=== PATIENT | female | born 1980 ===

== ENCOUNTER 2019-11-09 16:43 | Emergency (ER) | payer OTHER, SELFPAY ==
[2019-11-09 17:09] VITALS: BP 135/69; PULSE 83; RESP 16; TEMP 36.6; O2SAT 99; BMI 38.6
--- NOTE | 2019-11-09 17:31 | ED_ITS ---
HPI - URI/Sore Throat General Chief Complaint: Upper Respiratory Symptoms <JASEN Zuñiga - Last Filed: 11/09/19 17:38> Stated Complaint: Congestion <JASEN Zuñiga - Last Filed: 11/09/19 17:38> Time Seen by Provider: 11/09/19 17:31 <JASEN Zuñiga - Last Filed: 11/09/19 17:38> History of Present Illness HPI Narrative: over past 3 days patient has developed a nonproductive cough body aches and stuffy nose with no shortness of breath no vomiting no abdominal pain no sputum, patient has no known COVID contacts <JASEN Zuñiga - Last Filed: 11/09/19 17:38> Related Data Home Medications: Home Medications Medication Instructions Recorded Confirmed oxycodone-acetaminophen 5 mg-325 1 tab PO .2-3 times a day PRN tab 11/07/19 mg tablet Previous Rx's Medication Instructions Recorded doxycycline hyclate 100 mg PO BID 7 Days #14 cap 11/09/19 <JASEN Zuñiga - Last Filed: 11/09/19 17:38> Allergies/Adverse Reactions: Allergies Allergy/AdvReac Type Severity Reaction Status Date / Time gabapentin Allergy Unknown Tingling Unverified 09/26/19 00:00 feeling in throat zolpidem [From AMBIEN] Allergy Unknown UNKNOWN Unverified 10/23/19 17:44 <JASEN Zuñiga - Last Filed: 11/09/19 17:38> Review of Systems Review of Systems: there is no fever no chills no cough no sputum no shortness of breath no abdominal pain no nausea no vomiting no rashes no sore throat <JASEN Zuñiga - Last Filed: 11/09/19 17:38> FOR[facility]LY [facility], [facility] Past Medical History Source: nursing notes reviewed <JASEN Zuñiga - Last Filed: 11/09/19 17:38> Medical History: Medical History (Updated 11/09/19 @ 17:35 by JASEN Zuñiga) Asthma Hemorrhoid <JASEN Zuñiga - Last Filed: 11/09/19 17:38> Surgical History: Surgical History (Updated 11/09/19 @ 17:16 by Pily Chopra) Tubal ligation status <JASEN Zuñiga - Last Filed: 11/09/19 17:38> Social History Social History: Social History Alcohol intake: never Smoking Status: Never smoker Use of substances other than those prescribed or required for medical reasons: No Advance Directives: No Advance Directives Information Provided: No <JASEN Zuñiga Last Filed: 11/09/19 17:38> Physical Exam Vital Signs and I&O and Narrative: Vital Signs and I&O: Vital Signs Temp 97.9 F 11/09/19 17:09 Pulse 83 11/09/19 17:09 Resp 16 11/09/19 17:09 BP 135/69 11/09/19 17:09 Pulse Ox 99 11/09/19 17:09 Intake & Output 11/08/19 11/09/19 11/09/19 18:59 06:59 18:59 Weight 102.058 kg Body Mass Index 38.6 <JASEN Zuñiga Last Filed: 11/09/19 17:38> Vital Signs and I&O: Vital Signs Temp 97.9 F 11/09/19 17:09 Pulse 83 11/09/19 17:09 Resp 16 11/09/19 17:09 BP 135/69 11/09/19 17:09 Pulse Ox 99 11/09/19 17:09 Intake & Output 11/08/19 11/09/19 11/09/19 18:59 06:59 18:59 Weight 102.058 kg Body Mass Index 38.6 <Ceasar Cottrell DO - Last Filed: 11/09/19 17:41> patient is comfortable alert and oriented x3, no distress cooperative The neck is supple the chest is clear to auscultation bilaterally with no wheezes and full equal symmetric breath sounds respiratory there is no respiratory distress the heart no murmurs the abdomen soft nontender the extremities full range of motion times for the skin no rash the neuro A&O x3 <JASEN Zuñiga Last Filed: 11/09/19 17:38> Course Reevaluation(s) Reevaluation #1: 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 and has upper respiratory symptoms that may be COVID so we tested for COVID and she will be off work until cleared <JASEN Zuñiga Last Filed: 11/09/19 17:38> Discharge Plan Discharge Clinical Impression: Upper respiratory infection <JASEN Zuñiga Filed: 11/09/19 17:38> Patient Disposition: Home, Self-Care <JASEN Zuñiga - Last Filed: 11/09/19 17:38> Additional Instructions: you can start antibiotic for possible bronchitis doxycycline, but it is safer to wait for 2 or 3 days to see if symptoms worsen or improve without antibiotic Return to ER any time for fever shortness of breath any worse condition any concerns Symptoms could be COVID so we are putting you off work, many people recommend 2- tests as the test can miss cases, as well as symptoms gone COVID test results usually come back in 1-3 days, and we will call you <JASEN Zuñiga - Last Filed: 11/09/19 17:38> Prescriptions: New doxycycline hyclate 100 mg capsule 100 mg PO BID 7 Days Qty: 14 RF: 0 <JASEN Zuñiga - Last Filed: 11/09/19 17:38> Stand Alone Forms: Work/School Release <JASEN Zuñiga - Last Filed: 11/09/19 17:38>
== END 2019-11-09 17:54 | disposition home or self-care (01) ==
PROVIDERS: Physician Assistant Medical; Emergency Provider Emergency Medicine; PCP Internal Medicine
DX: J06.9 Acute upper respiratory infection, unspecified (principal); Z20.828 Contact with and (suspected) exposure to other viral communicable diseases; J45.909 Unspecified asthma, uncomplicated; Z79.899 Other long term (current) drug therapy
CPT/HCPCS: 36415; 87635; 99283

== ENCOUNTER 2019-11-13 00:11 | Emergency (ER) | payer OTHER, SELFPAY ==
[2019-11-13 00:22] VITALS: BP 157/96; PULSE 79; RESP 16; TEMP 37; O2SAT 98; BMI 39.4
--- NOTE | 2019-11-13 00:54 | ED.GENADULT ---
HPI - General Adult General Chief complaint: General Medical Stated complaint: NAUSEA/VOMITING Time Seen by Provider: 11/13/19 00:37 History of Present Illness HPI narrative: This is a 39-year-old female who was evaluated in this emergency department on 11/09/2019 and discharged with a prescription for doxycycline should her symptoms persist as well as a COVID-19 test which was resulted as negative. She comes in with complaints of headache and nausea and reports that this is associated with subjective fevers but denies vomiting, abdominal pain, diarrhea, urinary pain/ burning / frequency. Related Data Home Medications Medication Instructions Recorded Confirmed oxycodone-acetaminophen 5 mg-325 1 tab PO .2-3 times a day PRN tab 11/07/19 mg tablet Previous Rx's Medication Instructions Recorded doxycycline hyclate 100 mg PO BID 7 Days #14 cap 11/09/19 Allergies Allergy/AdvReac Type Severity Reaction Status Date / Time gabapentin Allergy Unknown Tingling Unverified 09/26/19 00:00 feeling in throat zolpidem [From AMBIEN] Allergy Unknown UNKNOWN Unverified 10/23/19 17:44 Review of Systems Review of Systems: Pertinent positives and negatives as stated in the HPI. GEN: no fevers, chills, fatigue HEENT: no nasal congestion, sore throat, ear pain NEURO: no dizziness, focal weakness, +headache PULM: no cough, shortness of breath CV: no chest pain, palpitations, LE edema ABD: no abdominal pain, vomiting, diarrhea, +nausea : no dysuria, urgency, frequency SKIN: no rash ROS otherwise negative x 10 PMFSH Past Medical History Source: nursing notes reviewed Medical History Asthma Hemorrhoid Surgical History Tubal ligation status Social History Social History Alcohol intake: never Smoking Status: Never smoker Use of substances other than those prescribed or required for medical reasons: No Advance Directives: No Advance Directives Information Provided: No Physical Exam Vital Signs and I&O and Narrative: Vital Signs and I&O: Vital Signs Temp 98.6 F 11/13/19 00:22 Pulse 79 11/13/19 00:22 Resp 16 11/13/19 00:22 BP 157/96 H 11/13/19 00:22 Pulse Ox 98 11/13/19 00:22 Intake & Output 11/12/19 11/12/19 11/13/19 06:59 18:59 06:59 Intake Total 1000 / 1000 Balance 1000 / 1000 Weight 104.326 kg Intake: Intake, IV Amoun t 1000 / 1000 0.9 % Sodium C hloride 1,000 ml 1000 / 1000 @ 999 mls/hr I VCONT .Q1H1M [facility] Rx#:[id number] Body Mass Index 39.4 VITAL SIGNS: Reviewed. GENERAL: Well developed, well nourished, in no acute distress. HEAD: Normocephalic/atraumatic, EYES: PERRLA, EOMI intact without pain, no nystagmus/pallor/icterus noted EARS: Ext canals without abnormality, TMs non-bulging and non-erythematous NOSE: Nares patent bilateral OROPHARYNX: no oral lesions noted, posterior pharynx clear and non-erythematous without noted tonsillar enlargement/erythema/exudates NECK: Supple, no adenopathy LUNGS: Normal breath sounds. No adventitious sounds or accessory muscle use. SpO2<98%> CARDIOVASCULAR: Regular rate and rhythm without noted murmurs, no JVD or lower extremity edema. ABDOMEN: Soft, non-tender, non-distended with bowel sounds. No rigidity. No guarding. No palpable masses or hernias noted MUSCULOSKELETAL: No tenderness, deformities, or effusions noted on gross inspection. EXTREMITIES: No cyanosis, clubbing or edema. SKIN: Inspection of the skin reveals no rashes, ulcerations, jaundice, pallor, or petechiae. NEUROLOGIC: Alert and oriented x 4. Strength and sensation to light touch were grossly intact x 4. Course Course Course Narrative: This is a 39-year-old female with history and clinical presentation consistent with likely viral syndrome, but negative for COVID-19 and it was communicated to this patient that there were many other viruses out there that could cause similar symptoms. Review of all investigations negative for acute findings other than a minimal leukocytosis but this is not accompanied by evidence of infection on urinalysis or chest x-ray and patient has no abdominal symptoms. She was encouraged to follow-up with her primary care provider after giving her all results and findings. In addition, patient has had significant improvement in symptoms after receiving L of IV fluids as well as a GI cocktail. Medical Decision Making Lab Data Result diagrams: 11/13/19 01:09 11/13/19 01:09 Labs: Lab Results 11/13/19 11/13/19 11/13/19 Range/Units 01:09 01:09 01:10 WBC 11.3 H (4.8-10.8) X10*3/uL RBC 4.80 (4.20-5.50) X10*6/uL Hgb 12.0 (12.0-16.0) g/dl Hct 34.7 L (37-47) % MCV 72.3 L (80-98) fL MCH 25.0 L (27.0-33.0) pg MCHC 34.6 (31.0-35.0) g/dl RDW 14.2 (11.0-16.0) % Plt Count 298 (160-400) X10*3/uL MPV 10.8 (9.4-12.3) fL Immature Gran % (Auto) 0.4 (0.0-0.4) % Neut % (Auto) 60.6 (45-73) % Lymph % (Auto) 28.6 (20-40) % [place] % (Auto) 9.1 (2-11) % Eos % (Auto) 0.9 (0-4) % Baso % (Auto) 0.4 (0-2) % Lymph # (Auto) 3.2 (1.2-4.9) X10*3/uL [place] # (Auto) 1.0 (0.1-1.2) X10*3/uL Eos # (Auto) 0.1 (0.0-0.4) X10*3/uL Baso # (Auto) 0.0 (0.0-0.2) X10*3/uL Abs Immat Gran (auto) 0.05 H (0.00-0.03) X10*3/uL Absolute Neuts (auto) 6.8 (2.0-8.3) X10*3/uL Absolute Nucleated RBC 0.000 (0.0-0.012) X10*3/uL Nucleated RBC % (auto) 0.0 (0.0-0.2) /100WBC Sodium 137 (135-145) mmol/L Potassium 3.8 (3.3-5.1) mmol/l Chloride 102 (96-108) mmol/L Carbon Dioxide 27 (22-29) mmol/L Anion Gap 12 (12-20) BUN 8 L (9-16) mg/dL Creatinine 0.73 (0.5-1.4) mg/dL Estim Creat Clear Calc 121.7 Estimated GFR > 60 Random Glucose 126 H (60-115) mg/dL Calcium 8.7 (8.4-10.2) mg/dL Total Bilirubin 0.4 (0.0-1.0) mg/dL AST 23 (5-31) U/L ALT 43 H (0-31) U/L Alkaline Phosphatase 68 (39-117) U/L Total Protein 7.3 (6.5-8.0) g/dL Albumin 4.3 (3.5-5.0) g/dL Lipase 28 (8-78) U/L Urine Color YELLOW Urine Appearance CLEAR Urine pH 6.0 (5.0-8.0) Ur Specific [place] <= 1.005 (1.005-1.025) Urine Protein NEG (NEG-TRACE) MG/DL Urine Glucose (UA) NEG (NEG) MG/DL Urine Ketones NEG (NEG) MG/DL Urine Blood 3+ H (NEG) Urine Nitrite NEG (NEG) Ur Leukocyte Esterase TRACE H (NEG) Urine RBC 0-2 (0) /HPF Urine WBC 1-4 (0-4) /HPF Ur Squamous Epith Cells 3+ /LPF Amorphous Sediment 2+ /LPF Urine Bacteria 1+ /LPF Urine Test NEGATIVE (NEGATIVE) Discharge Plan Discharge Clinical Impression: Gastritis Patient Disposition: Home, Self-Care Instructions: Gastritis (ED), Diet for Stomach Ulcers and Gastritis (ED) Additional Instructions: The patient and/or family acknowledge understanding of results (as applicable), diagnosis, treatment plan, need for follow up, and symptoms that should prompt a return to the emergency room. Prescriptions: No Action doxycycline hyclate 100 mg capsule 100 mg PO BID 7 Days Qty: 14 RF: 0 Referrals: Kurt Arroyo MD [Primary Care Provider] - 2 days ( for further evaluation regarding patient's nausea and headache, COVID-19 negative)
[2019-11-13] MEDS: 0.9 % Sodium Chloride 1,000 ML 999 ML IVCONT (01:15)
[2019-11-13] MEDS: Lidocaine HCl Viscous 2 % 15 ML SOLUTION 10 ML MUCOUS MEM (01:15)
[2019-11-13] MEDS: Magnesium Hydrox/Alum Hydrox 30 ML ORAL.SUSP PO (01:15)
[2019-11-13 01:16] LABS: Basophils Percent Auto 0.4 % (0-2); Eosinophils Absolute Auto 0.1 X10*3/uL (0.0-0.4); Eosinophils Percent Auto 0.9 % (0-4); Hematocrit 34.7 % (37-47); Imm Gran Abs Auto 0.05 X10*3/uL (0.00-0.03); Imm Gran Pct Auto 0.4 % (0.0-0.4); Lymphocytes Absolute Auto 3.2 X10*3/uL (1.2-4.9); Lymphocytes Percent Auto 28.6 % (20-40); MANUAL DIFF FLAG NO; Mean Corpuscular HGB Conc 34.6 g/dl (31.0-35.0); Mean Corpuscular Volume 72.3 fL (80-98); Mean Platelet Volume 10.8 fL (9.4-12.3); Monocytes Percent Auto 9.1 % (2-11); Neutrophils Absolute Auto 6.8 X10*3/uL (2.0-8.3); Neutrophils Percent Auto 60.6 % (45-73); Platelet Count 298 X10*3/uL (160-400); Red Cell Distribution Width 14.2 % (11.0-16.0); White Blood Count 11.3 X10*3/uL (4.8-10.8)
[2019-11-13 01:18] LABS: Glucose Urine UA NEG (NEG); Leukocyte Esterase Urine TRACE (NEG); Nitrite Urine NEG (NEG); Specific Gravity - Urine <= 1.005 (1.005-1.025); Urine Blood 3+ (NEG); Urine Ketones NEG (NEG); Urine Protein NEG (NEG-TRACE)
[2019-11-13 01:19] LABS: Appearance Urine CLEAR; Color Urine YELLOW
[2019-11-13 01:21] LABS: UPreg QC Valid YES; Urine Pregnancy NEGATIVE (NEGATIVE)
[2019-11-13 01:26] LABS: Amorphous Sediment Urine 2+ /LPF; Bacteria Urine 1+ /LPF; RBC Urine 0-2 /HPF (0); Squamous Epithelial Cell Urine 3+ /LPF
[2019-11-13 01:38] LABS: Alanine Aminotransferase 43 U/L (0-31); Albumin Level 4.3 g/dL (3.5-5.0); Alkaline Phosphatase 68 U/L (39-117); Anion Gap 12 (12-20); Aspartate Amino Transferase 23 U/L (5-31); Bilirubin Total 0.4 mg/dL (0.0-1.0); Blood Urea Nitrogen 8 mg/dL (9-16); Calcium 8.7 mg/dL (8.4-10.2); Carbon Dioxide 27 mmol/L (22-29); Chloride 102 mmol/L (96-108); Creatinine Clr Calc Pharmacy 121.7; Estimated Glomerular Filt Rate > 60; Glucose Random 126 mg/dL (60-115); Lipase 28 U/L (8-78); Potassium 3.8 mmol/l (3.3-5.1); Sodium 137 mmol/L (135-145); Total Protein 7.3 g/dL (6.5-8.0)
--- NOTE | 2019-11-13 01:57 | XR_ITS ---
EXAMINATION: XR CHEST CLINICAL INFORMATION: Cough COMPARISON: 09/19/2017 TECHNIQUE: 2 views of the chest were obtained. FINDINGS: The lungs are well expanded. There is no focal consolidation, edema, or effusion. No pneumothorax. The cardiomediastinal silhouette is within normal limits. No acute osseous abnormality. IMPRESSION: Clear lungs.
== END 2019-11-13 02:45 | disposition home or self-care (01) ==
PROVIDERS: Emergency Provider Student in an Organized Health Care Education/Training Program; PCP Internal Medicine
DX: K29.70 Gastritis, unspecified, without bleeding (principal); J45.909 Unspecified asthma, uncomplicated; Z79.899 Other long term (current) drug therapy
CPT/HCPCS: 36415; 71046; 80053; 81001; 81025; 83690; 85025; 87086; 87147; 96360; 99284

== ENCOUNTER 2019-11-25 16:49 | Outpatient (REF) | payer OTHER, SELFPAY ==
--- NOTE | 2019-11-25 17:15 | XR_ITS ---
EXAMINATION: BILATERAL KNEES CLINICAL INFORMATION: Pain COMPARISON: November 25, 2013 TECHNIQUE: 3 views of each knee FINDINGS: 3 views of the left knee do not demonstrate any evidence of acute fracture or dislocation. Joint spaces are maintained. No effusion. 3 views of the right knee do not demonstrate any evidence of acute fracture or dislocation. No significant degenerative change. Joint spaces are maintained. No effusion. IMPRESSION: No significant abnormality of the right or left knees identified.
== END 2019-11-25 16:50 | disposition home or self-care (01) ==
LOC: HO.XRAY 16:49
PROVIDERS: PCP Internal Medicine; Visit Provider Internal Medicine
DX: M25.561 Pain in right knee (principal); M25.562 Pain in left knee
CPT/HCPCS: 73562

== ENCOUNTER 2019-12-01 15:24 | Outpatient (REF) | payer OTHER, SELFPAY ==
[2019-12-01 16:47] LABS: MANUAL DIFF FLAG NO
[2019-12-01 16:50] LABS: Basophils Percent Auto 0.4 % (0-2); Eosinophils Absolute Auto 0.2 X10*3/uL (0.0-0.4); Eosinophils Percent Auto 1.8 % (0-4); Hemoglobin 12.2 g/dl (12.0-16.0); Imm Gran Abs Auto 0.02 X10*3/uL (0.00-0.03); Imm Gran Pct Auto 0.2 % (0.0-0.4); Lymphocytes Absolute Auto 3.1 X10*3/uL (1.2-4.9); Lymphocytes Percent Auto 35.2 % (20-40); Mean Corpuscular HGB Conc 34.9 g/dl (31.0-35.0); Mean Corpuscular Hemoglobin 25.5 pg (27.0-33.0); Mean Corpuscular Volume 73.1 fL (80-98); Mean Platelet Volume 10.6 fL (9.4-12.3); Monocytes Absolute Auto 0.5 X10*3/uL (0.1-1.2); Monocytes Percent Auto 5.9 % (2-11); Neutrophils Percent Auto 56.5 % (45-73); Platelet Count 427 X10*3/uL (160-400); Red Blood Count 4.79 X10*6/uL (4.20-5.50); Red Cell Distribution Width 14.4 % (11.0-16.0); White Blood Count 8.9 X10*3/uL (4.8-10.8)
[2019-12-01 17:40] LABS: TSH reflex Free T4 0.89 mIU/mL (0.32-4.0)
== END 2019-12-01 15:25 | disposition home or self-care (01) ==
LOC: HO.LAB 15:24
PROVIDERS: PCP Internal Medicine; Visit Provider Advanced Practice Midwife
DX: N92.0 Excessive and frequent menstruation with regular cycle (principal)
CPT/HCPCS: 36415; 84443; 85025; 99212; 99213

== ENCOUNTER 2019-12-04 15:49 | Outpatient (REF) | payer OTHER, SELFPAY ==
--- NOTE | 2019-12-04 15:53 | US_ITS ---
EXAMINATION: ULTRASOUND PELVIS COMPLETE US TRANSVAGINAL CLINICAL INFORMATION: Excessive and frequent menstruation. History of tubal ligation. COMPARISON: Ultrasound pelvis 06/04/2019. TECHNIQUE: Transabdominal and transvaginal ultrasound of the pelvis was performed. FINDINGS: The uterus is anteverted measuring 12.5 cm in length, 4.8 cm in AP and 5.1 cm in transverse dimension. There is a hyperechoic lesion in the left body of uterus measuring 3.0 x 2.6 x 2.4 cm. Previously it measured 1.7 x 2.0 x 1.9 cm. It is consistent with fibroid. No additional lesions are seen. The endometrial thickness is 1.4 cm. There are small nabothian cysts seen. Right ovary measures 2.4 x 1.5 x 1.8 cm and a volume of 3.4 mL. There are small follicles visualized. A dominant follicle measures 1 cm. Previously ovary measured 2.1 x 2.6 x 2.6 cm. Left ovary measures 2.6 x 1.5 1.6 cm. There is an exophytic cyst measuring 1.9 x 1.2 x 1.4 cm. Previously left ovary measured 2.1 x 3.0 x 3.5 cm. There is no free fluid in the cul-de-sac. US/US transvaginal IMPRESSION: Slight increase in uterine fibroid since 06/04/2019. Bilateral ovarian cysts with an exophytic cyst in left ovary. Small nabothian cysts.
--- NOTE | 2019-12-04 15:53 | US_ITS ---
EXAMINATION: ULTRASOUND PELVIS COMPLETE US TRANSVAGINAL CLINICAL INFORMATION: Excessive and frequent menstruation. History of tubal ligation. COMPARISON: Ultrasound pelvis 06/04/2019. TECHNIQUE: Transabdominal and transvaginal ultrasound of the pelvis was performed. FINDINGS: The uterus is anteverted measuring 12.5 cm in length, 4.8 cm in AP and 5.1 cm in transverse dimension. There is a hyperechoic lesion in the left body of uterus measuring 3.0 x 2.6 x 2.4 cm. Previously it measured 1.7 x 2.0 x 1.9 cm. It is consistent with fibroid. No additional lesions are seen. The endometrial thickness is 1.4 cm. There are small nabothian cysts seen. Right ovary measures 2.4 x 1.5 x 1.8 cm and a volume of 3.4 mL. There are small follicles visualized. A dominant follicle measures 1 cm. Previously ovary measured 2.1 x 2.6 x 2.6 cm. Left ovary measures 2.6 x 1.5 1.6 cm. There is an exophytic cyst measuring 1.9 x 1.2 x 1.4 cm. Previously left ovary measured 2.1 x 3.0 x 3.5 cm. There is no free fluid in the cul-de-sac. US/US pelvic complete IMPRESSION: Slight increase in uterine fibroid since 06/04/2019. Bilateral ovarian cysts with an exophytic cyst in left ovary. Small nabothian cysts.
== END 2019-12-04 15:50 | disposition home or self-care (01) ==
LOC: HO.US 15:49
PROVIDERS: PCP Internal Medicine; Visit Provider Obstetrics & Gynecology
DX: N92.0 Excessive and frequent menstruation with regular cycle (principal)
CPT/HCPCS: 76830; 76856

== ENCOUNTER 2019-12-04 16:42 | Emergency (ER) | payer OTHER, SELFPAY | END 2019-12-04 21:56 | disposition left against medical advice (07) | LOC: HO.ED 21:51 | PROVIDERS: Emergency Provider Emergency Medicine; PCP Internal Medicine | DX: N93.9 Abnormal uterine and vaginal bleeding, unspecified (principal) ==

== ENCOUNTER 2019-12-05 17:14 | Emergency (ER) | payer OTHER, SELFPAY ==
[2019-12-05 19:09] VITALS: BP 161/89; PULSE 80; RESP 16; TEMP 36.7; O2SAT 98; BMI 38.6
[2019-12-05 19:51] VITALS: BP 123/70; PULSE 74; RESP 17; TEMP 36.9; O2SAT 98
--- NOTE | 2019-12-05 20:08 | ED_ITS ---
HPI - Female Genitourinary General Chief complaint: Vaginal Bleeding Stated complaint: Vaginal bleeding Time Seen by Provider: 12/05/19 20:08 Source: patient Mode of arrival: ambulatory Limitations: no limitations History of Present Illness HPI Narrative: 39-year-old female with history of asthma, anxiety, hyperte nsion, hemorrhoids, migraine headache presents today with complaint of on and off vaginal bleeding for the past 4 week. 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 States she has no pelvic pain, abdominal pain, nausea vomiting diarrhea. States she has history of tubal ligation of concern for . No other symptoms. No vaginal discharge. In relation to the chest Pain states was acute episode that occurred several hours ago none at this time. Off note patient did order taken out prior to coming to emergency room and was delivered here to the emergency room. MD elicited complaint: vaginal bleeding Related Data Home Medications Medication Instructions Recorded Confirmed albuterol sulfate mg INHALATION Q6H PRN 11/19/19 11/19/19 albuterol sulfate 90 mcg/actuation INHALATION 11/19/19 11/19/19 aerosol inhaler montelukast 10 mg tablet 10 mg PO BEDTIME 11/19/19 11/19/19 tizanidine 4 mg tablet 4 mg PO TID 11/19/19 11/19/19 Previous Rx's Medication Instructions Recorded oxycodone-acetaminophen 5 mg-325 1 tab PO .2-3 times a day PRN 28 11/14/19 mg tablet Days #84 tab fluticasone propionate 50 2 spray INTRANASAL DAILY 30 Days 11/19/19 mcg/actuation nasal #15.8 ml spray,suspension quetiapine 100 mg tablet 100 mg PO BEDTIME 30 Days #30 tab 11/19/19 tiotropium bromide 2.5 2 puff PO DAILY #4 ml 12/03/19 mcg/actuation mist for inhalation ferrous sulfate 325 mg PO DAILY #14 tab 12/05/19 Allergies Allergy/AdvReac Type Severity Reaction Status Date / Time gabapentin Allergy Unknown Tingling Unverified 12/01/19 16:01 feeling in throat zolpidem [From AMBIEN] Allergy Unknown UNKNOWN Unverified 12/01/19 16:01 Review of Systems Review of Systems: Yes all other systems are reviewed and are negative [facility], [facility] Past Medical History Medical History (Updated 12/05/19 @ 23:07 by Zain Tripp NP) Allergic rhinitis Asthma Depression Hemorrhoid Knee pain, bilateral Menorrhagia Surgical History H/O tubal ligation History of carpal tunnel surgery History of hemorrhoidectomy Family History Family History (Updated 12/01/19 @ 16:02 by Renay Malloy CNM) Father Diabetes Asthma Hepatitis Mother Diabetes Sleep apnea Ischemic cerebrovascular accident (CVA) Maternal Grandmother Diabetes Breast cancer Maternal Grandfather Stroke Paternal Grandfather Lung cancer Social History Social History Alcohol intake: never Smoking Status: Never smoker Smoked in Last 30 Days: No Use of substances other than those prescribed or required for medical reasons: No Advance Directives: No Advance Directives Information Provided: Yes Physical Exam Vital Signs: Vital Signs: Vital Signs Temp Pulse Resp BP Pulse Ox 12/05/19 19:51 98.4 F 74 17 123/70 98 12/05/19 19:09 98.0 F 80 16 161/89 H 98 Body Mass Index 38.6 Reviewed Const: General: cooperative and healthy appearing; No acute distress or intoxicated appearing Nutritional Appearance: average body habitus Orientation/consciousness: patient oriented x3 HENMT: Head: Yes normal to inspection Ears: hearing grossly normal bilaterally Eyes: General: appearance normal, both eyes and all related structures Visual Savage: normal visual savage by confrontation Neck: Neck: Yes normal visual inspection and No tender Thyroid: Thyroid nor mal Chest: Chest palpation & inspection: normal inspection of the chest Resp: Effort & Inspection: normal respiratory effort Cardio: Jugular venous distension: no JVD GI: Inspection: Yes normal to inspection Percussion: Yes normal to percussion Auscultation: normal bowel sounds : General: Yes no CVA tenderness External Female Exam: normal external appearance ( peanut shaker REYNALDO Hercules present. No active bleeding.) Back/Spine/Pelvis: Back: no CVA tenderness Skin: General skin exam: no rashes or lesions noted Neuro: General: patient oriented x3 Extrem: General: Yes normal to inspection MDM - Female Genitourinary MDM Narrative Medical decision making narrative: Labs overall stable. Chest pain atypical in the setting of having vaginal bleeding and concern about health as well as following precautions previously provided by the outpatient provider in relation to having vaginal bleeding and concerning symptomatology. Otherwise H&H stable no active bleeding at this time. No pain or discomfort. Troponin, EKG, x-ray unremarkable. Ultrasound from yesterday reviewed will advised to follow up with her gynecology team for further evaluation of her dysfunctional uterine bleeding. She is otherwise well nontoxic appearing tolerating p.o. intake well stable for discharge. Differential Diagnosis Differential diagnosis: Likely urinary tract infection and dysmenorrhea; Unlikely bacterial vaginosis, trichomoniasis, cervicitis, ovarian cyst, vaginitis, ruptured ovarian cyst, cyst of Bartholin's gland and cystitis Lab Data Result diagrams: 12/05/19 20:31 12/05/19 20:31 Labs: Lab Results 12/05/19 12/05/19 12/05/19 Range/Units 20:31 20:31 20:31 WBC 9.9 (4.8-10.8) X10*3/uL RBC 4.61 (4.20-5.50) X10*6/uL Hgb 11.6 L (12.0-16.0) g/dl Hct 33.8 L (37-47) % MCV 73.3 L (80-98) fL MCH 25.2 L (27.0-33.0) pg MCHC 34.3 (31.0-35.0) g/dl RDW 14.3 (11.0-16.0) % Plt Count 374 (160-400) X10*3/uL MPV 10.3 (9.4-12.3) fL Immature Gran % (Auto) 0.2 (0.0-0.4) % Neut % (Auto) 52.6 (45-73) % Lymph % (Auto) 39.4 (20-40) % [place] % (Auto) 5.8 (2-11) % Eos % (Auto) 1.7 (0-4) % Baso % (Auto) 0.3 (0-2) % Lymph # (Auto) 3.9 (1.2-4.9) X10*3/uL [place] # (Auto) 0.6 (0.1-1.2) X10*3/uL Eos # (Auto) 0.2 (0.0-0.4) X10*3/uL Baso # (Auto) 0.0 (0.0-0.2) X10*3/uL Abs Immat Gran (auto) 0.02 (0.00-0.03) X10*3/uL Absolute Neuts (auto) 5.2 (2.0-8.3) X10*3/uL Absolute Nucleated RBC 0.000 (0.0-0.012) X10*3/uL Nucleated RBC % (auto) 0.0 (0.0-0.2) /100WBC Sodium 141 (135-145) mmol/L Potassium 4.0 (3.3-5.1) mmol/l Chloride 103 (96-108) mmol/L Carbon Dioxide 27 (22-29) mmol/L Anion Gap 15 (12-20) BUN 7 L (9-16) mg/dL Creatinine 0.66 (0.5-1.4) mg/dL Estim Creat Clear Calc 133.1 Estimated GFR > 60 Random Glucose 88 (60-115) mg/dL Calcium 8.9 (8.4-10.2) mg/dL Total Bilirubin 0.5 (0.0-1.0) mg/dL AST 32 H (5-31) U/L ALT 52 H (0-31) U/L Alkaline Phosphatase 61 (39-117) U/L Troponin I High Sens < 3.5 (<3.5-17.0) ng/L Total Protein 7.3 (6.5-8.0) g/dL Albumin 4.4 (3.5-5.0) g/dL TSH 0.77 (0.32-4.0) mIU/mL Urine Color Urine Appearance Urine pH (5.0-8.0) Ur Specific [place] (1.005-1.025) Urine Protein (NEG-TRACE) MG/DL Urine Glucose (UA) (NEG) MG/DL Urine Ketones (NEG) MG/DL Urine Blood (NEG) Urine Nitrite (NEG) Ur Leukocyte Esterase (NEG) Urine RBC (0) /HPF Urine WBC (0-4) /HPF Ur Squamous Epith Cells /LPF Urine Bacteria /LPF 10/30/20 Range/Units 20:37 WBC (4.8-10.8) X10*3/uL RBC (4.20-5.50) X10*6/uL Hgb (12.0-16.0) g/dl Hct (37-47) % MCV (80-98) fL MCH (27.0-33.0) pg MCHC (31.0-35.0) g/dl RDW (11.0-16.0) % Plt Count (160-400) X10*3/uL MPV (9.4-12.3) fL Immature Gran % (Auto) (0.0-0.4) % Neut % (Auto) (45-73) % Lymph % (Auto) (20-40) % [place] % (Auto) (2-11) % Eos % (Auto) (0-4) % Baso % (Auto) (0-2) % Lymph # (Auto) (1.2-4.9) X10*3/uL [place] # (Auto) (0.1-1.2) X10*3/uL Eos # (Auto) (0.0-0.4) X10*3/uL Baso # (Auto) (0.0-0.2) X10*3/uL Abs Immat Gran (auto) (0.00-0.03) X10*3/uL Absolute Neuts (auto) (2.0-8.3) X10*3/uL Absolute Nucleated RBC (0.0-0.012) X10*3/uL Nucleated RBC % (auto) (0.0-0.2) /100WBC Sodium (135-145) mmol/L Potassium (3.3-5.1) mmol/l Chloride (96-108) mmol/L Carbon Dioxide (22-29) mmol/L Anion Gap (12-20) BUN (9-16) mg/dL Creatinine (0.5-1.4) mg/dL Estim Creat Clear Calc Estimated GFR Random Glucose (60-115) mg/dL Calcium (8.4-10.2) mg/dL Total Bilirubin (0.0-1.0) mg/dL AST (5-31) U/L ALT (0-31) U/L Alkaline Phosphatase (39-117) U/L Troponin I High Sens (<3.5-17.0) ng/L Total Protein (6.5-8.0) g/dL Albumin (3.5-5.0) g/dL TSH (0.32-4.0) mIU/mL Urine Color RED Urine Appearance CLOUDY Urine pH 6.5 (5.0-8.0) Ur Specific [place] 1.025 (1.005-1.025) Urine Protein 1+ H (NEG-TRACE) MG/DL Urine Glucose (UA) NEG (NEG) MG/DL Urine Ketones NEG (NEG) MG/DL Urine Blood 3+ H (NEG) Urine Nitrite NEG (NEG) Ur Leukocyte Esterase NEG (NEG) Urine RBC TNTC H (0) /HPF Urine WBC 0 (0-4) /HPF Ur Squamous Epith Cells 1+ /LPF Urine Bacteria NONE /LPF Imaging Data Chest x-ray: Radiologist's impression: [place] [id number] XRay Report Signed Patient: Desi RaymondMR#: [id number] : 1980Acct:[id number] Age/Sex: 39 / FADM Date: 12/05/19 Loc: .ED Attending Dr: Ordering Physician: Zain Tripp NP Date of Service: 12/05/19 Procedure(s): XR chest 1V Accession Number(s): [id number] cc: Zain Tripp NP~ EXAMINATION: XR CHEST CLINICAL INFORMATION: Chest pain COMPARISON: Chest x-ray 11/13/2019 TECHNIQUE: Frontal portable view of the chest was obtained. 8:18 PM FINDINGS: No significant abnormality is noted involving the heart, lungs, mediastinum, bony thorax or soft tissues. XR/XR chest 1V IMPRESSION: Unremarkable examination. Dictated By:FREDDY RHODES MD Signed By:<Electronically signed by FREDDY RHODES MD in OV>12/05/192034 DD/ 08 TD/TT: Hot Saw Helper: ALDO Discharge Plan Discharge Clinical Impression: Dysfunctional uterine bleeding, Anxiety about health Chest pain Qualifiers: Chest pain type: intercostal pain Qualified Code(s): R07.82 - Intercostal pain Patient Disposition: Home, Self-Care Instructions: Chest Pain (ED), Dysfunctional Uterine Bleeding (ED) Prescriptions: New ferrous sulfate 325 mg (65 mg iron) tablet 325 mg PO DAILY Qty: 14 RF: 0 No Action oxycodone-acetaminophen [Percocet] 5-325 mg tablet 1 tab PO .2-3 times a day PRN (Reason: pain) 28 Days Qty: 84 RF: 0 tiotropium bromide [Spiriva Respimat] 2.5 mcg/actuation mist 2 puff PO DAILY Qty: 4 RF: 5 tizanidine 4 mg tablet 4 mg PO TID RF: 0 albuterol sulfate 2.5 mg /3 mL (0.083 %) solution for nebulization inhalation Q6H PRNRF: 0 albuterol sulfate 90 mcg/actuation HFA aerosol inhaler inhalation RF: 0 montelukast 10 mg tablet 10 mg PO BEDTIME RF: 0 fluticasone propionate 50 mcg/actuation spray,suspension 2 spray intranasal DAILY 30 Days Qty: 15.8 RF: 5 quetiapine 100 mg tablet 100 mg PO BEDTIME 30 Days Qty: 30 RF: 1 Referrals: Kurt Arroyo MD [Primary Care Provider] - 1 week Anand Mason MD [Physician] - 3 days
[2019-12-05 20:46] LABS: Basophils Percent Auto 0.3 % (0-2); Eosinophils Absolute Auto 0.2 X10*3/uL (0.0-0.4); Eosinophils Percent Auto 1.7 % (0-4); Hematocrit 33.8 % (37-47); Hemoglobin 11.6 g/dl (12.0-16.0); Imm Gran Abs Auto 0.02 X10*3/uL (0.00-0.03); Imm Gran Pct Auto 0.2 % (0.0-0.4); Lymphocytes Absolute Auto 3.9 X10*3/uL (1.2-4.9); Lymphocytes Percent Auto 39.4 % (20-40); MANUAL DIFF FLAG NO; Mean Corpuscular HGB Conc 34.3 g/dl (31.0-35.0); Mean Corpuscular Hemoglobin 25.2 pg (27.0-33.0); Mean Corpuscular Volume 73.3 fL (80-98); Mean Platelet Volume 10.3 fL (9.4-12.3); Monocytes Absolute Auto 0.6 X10*3/uL (0.1-1.2); Monocytes Percent Auto 5.8 % (2-11); Neutrophils Absolute Auto 5.2 X10*3/uL (2.0-8.3); Neutrophils Percent Auto 52.6 % (45-73); Platelet Count 374 X10*3/uL (160-400); Red Blood Count 4.61 X10*6/uL (4.20-5.50); Red Cell Distribution Width 14.3 % (11.0-16.0); White Blood Count 9.9 X10*3/uL (4.8-10.8)
[2019-12-05 20:52] LABS: Glucose Urine UA NEG (NEG); Leukocyte Esterase Urine NEG (NEG); Nitrite Urine NEG (NEG); PH 6.5 (5.0-8.0); Specific Gravity - Urine 1.025 (1.005-1.025); Urine Blood 3+ (NEG); Urine Ketones NEG (NEG); Urine Protein 1+ MG/DL (NEG-TRACE)
[2019-12-05 20:53] LABS: Appearance Urine CLOUDY; Color Urine RED
[2019-12-05 20:55] LABS: RBC Urine TNTC /HPF (0); Squamous Epithelial Cell Urine 1+ /LPF; WBC Urine 0 /HPF (0-4)
[2019-12-05 21:08] LABS: Alanine Aminotransferase 52 U/L (0-31); Albumin Level 4.4 g/dL (3.5-5.0); Alkaline Phosphatase 61 U/L (39-117); Anion Gap 15 (12-20); Aspartate Amino Transferase 32 U/L (5-31); Bilirubin Total 0.5 mg/dL (0.0-1.0); Blood Urea Nitrogen 7 mg/dL (9-16); Calcium 8.9 mg/dL (8.4-10.2); Carbon Dioxide 27 mmol/L (22-29); Chloride 103 mmol/L (96-108); Creatinine Clr Calc Pharmacy 133.1; Estimated Glomerular Filt Rate > 60; Glucose Random 88 mg/dL (60-115); Sodium 141 mmol/L (135-145); Total Protein 7.3 g/dL (6.5-8.0)
[2019-12-05 21:14] LABS: Troponin-I High Sensitivity < 3.5 ng/L (<3.5-17.0)
[2019-12-05 21:28] LABS: Thyroid Stimulating Hormone 0.77 mIU/mL (0.32-4.0)
[2019-12-05 23:44] VITALS: BP 133/75; PULSE 83; RESP 16; TEMP 36.9; O2SAT 97
== END 2019-12-06 | disposition home or self-care (01) ==
PROVIDERS: Nurse Practitioner Primary Care; Emergency Provider Internal Medicine; PCP Internal Medicine
DX: N93.8 Other specified abnormal uterine and vaginal bleeding (principal); R07.82 Intercostal pain; F41.1 Generalized anxiety disorder; F43.0 Acute stress reaction; Z79.899 Other long term (current) drug therapy
CPT/HCPCS: 36415; 71045; 80053; 81001; 84443; 84484; 85025; 99283; 99284

== ENCOUNTER 2019-12-08 14:23 | Outpatient (REF) | payer OTHER, SELFPAY ==
[2019-12-09 12:59] LABS: CT PCR NOT DETECTED (Not Detect.); NG PCR NOT DETECTED (Not Detect.)
== END 2019-12-08 14:24 | disposition home or self-care (01) ==
LOC: HO.LAB 14:23
PROVIDERS: PCP Internal Medicine; Visit Provider Obstetrics & Gynecology
DX: N92.0 Excessive and frequent menstruation with regular cycle (principal)
CPT/HCPCS: 58100; 87491; 87591; 88305

== ENCOUNTER → 2019-12-25 14:25 | Outpatient (BNVA) | payer OTHER, SELFPAY | PROVIDERS: Visit Provider Obstetrics & Gynecology | DX: Z76.89 Persons encountering health services in other specified circumstances (principal) ==

== ENCOUNTER 2019-12-29 12:23 | Outpatient (REF) | payer OTHER, SELFPAY | END 2019-12-29 12:24 | disposition home or self-care (01) | LOC: HO.LAB 12:23 | PROVIDERS: Visit Provider Internal Medicine | DX: Z20.828 Contact with and (suspected) exposure to other viral communicable diseases (principal) | CPT/HCPCS: C9803; U0003 ==

== ENCOUNTER → 2020-01-05 13:31 | Outpatient (BNVA) | payer OTHER, SELFPAY | PROVIDERS: Visit Provider Obstetrics & Gynecology | DX: N92.0 Excessive and frequent menstruation with regular cycle (principal) | CPT/HCPCS: 99212 ==

== ENCOUNTER 2020-01-10 18:18 | Emergency (ER) | payer OTHER, SELFPAY ==
[2020-01-10 19:09] VITALS: BP 127/87; PULSE 85; RESP 18; TEMP 36.4; O2SAT 98; BMI 39.4
--- NOTE | 2020-01-10 19:25 | ED_ITS ---
HPI - General Adult General Chief complaint: General Medical Stated complaint: covid symnptoms Time Seen by Provider: 01/10/20 18:26 Source: patient Mode of arrival: ambulatory Limitations: no limitations History of Present Illness HPI narrative: 39 yo female here with sore throat, cough, [place] x several days. Daughter at home has COVID. No fevers or chills or shortness of breath or chest pain Onset (ago): day(s) Location: head Radiation: non-radiation Severity: mild Pain Consistency: intermittent Relieving factors: none Exacerbating factors: none Associated symptoms: cough Treatments prior to arrival: none Related Data Home Medications Medication Instructions Recorded Confirmed albuterol sulfate 90 mcg/actuation 90 mcg INHALATION Q4-6H PRN 11/19/19 01/09/20 aerosol inhaler montelukast 10 mg tablet 10 mg PO BEDTIME 11/19/19 01/09/20 tizanidine 4 mg tablet 4 mg PO TID 11/19/19 01/09/20 bupropion HCl 150 mg 24 hr tablet, 150 mg PO QAM 12/25/19 01/09/20 extended release ibuprofen 800 mg tablet 800 mg PO TID 12/25/19 01/09/20 multivitamin 1 tab PO DAILY 12/25/19 01/09/20 omeprazole 20 mg capsule,delayed 40 mg PO DAILY 12/25/19 01/09/20 release oxybutynin chloride 10 mg 10 mg PO DAILY 12/25/19 01/09/20 tablet,extended release 24 hr polyethylene glycol 3350 17 17 g PO DAILY 12/25/19 01/09/20 gram/dose oral powder Previous Rx's Medication Instructions Recorded fluticasone propionate 50 2 spray INTRANASAL DAILY 30 Days 11/19/19 mcg/actuation nasal #15.8 ml spray,suspension quetiapine 100 mg tablet 100 mg PO BEDTIME 30 Days #30 tab 11/19/19 tiotropium bromide 2.5 2 puff PO DAILY #4 ml 12/03/19 mcg/actuation mist for inhalation ferrous sulfate 325 mg PO DAILY #14 tab 12/05/19 cetirizine 10 mg tablet 10 mg PO DAILY 10 Days #10 tab 12/25/19 ofloxacin 0.3 % eye drops 1 drp OPHTHALMIC (EYE) QID 10 Days 12/25/19 #5 ml clotrimazole 2 % vaginal cream 1 appful VAGINAL BEDTIME 3 Days 01/08/20 #21 g Allergies Allergy/AdvReac Type Severity Reaction Status Date / Time gabapentin Allergy Unknown Tingling Verified 01/10/20 19:08 feeling in throat zolpidem [From AMBIEN] Allergy Unknown tingling Verified 01/10/20 19:08 feeling in throat Review of Systems Review of Systems: Yes all other systems are reviewed and are negative Constitutional: Constitutional: Reports no additional constitutional complaints, Denies body ache(s), Denies chills, Denies fever(s), Reports headache(s) and Denies weakness Eyes: Eyes: Reports no additional eye complaints and Denies change in vision ENT: Reports system reviewed and no additional complaints, except as documented, Denies dizziness, Reports headache(s), Denies nasal congestion, Denies nasal discharge, Denies neck pain and Reports sore throat Cardiovascular: Cardiovascular: Reports no additional cardiovascular complaints, Denies chest pain, Denies leg edema and Denies dyspnea Respiratory: Respiratory: Reports no additional respiratory complaints, Reports cough and Denies dyspnea Gastrointestinal: Gastrointestinal: Reports no additional gastrointestinal complaints, Denies abdominal pain, Denies diarrhea, Denies nausea and Denies vomiting Genitourinary: Genitourinary: Reports no additional female genitourinary complaints and Denies urinary incontinence Musculoskeletal: Musculoskeletal: Reports no additional musculoskeletal complaints, Denies back pain, Denies arthralgias, Denies joint swelling, Denies neck pain, Denies numbness and Denies tingling Integumentary/Breasts: Skin/Breast: Reports system reviewed and no additional complaints, except as docu and Denies rash Neurologic: Reports system reviewed and no additional complaints, except as documented, Denies Abnormal speech present, Denies dizziness, Reports headache(s), Denies numbness, Denies tingling and Denies weakness PMFSH Past Medical History Attestation statement: The following information was validated with the patient. Source: old records reviewed and nursing notes reviewed Medical History Allergic rhinitis Asthma Depression Hemorrhoid Knee pain, bilateral Menorrhagia Obesity (BMI 30-39.9) [place] eye Sinusitis Surgical History H/O tubal ligation History of carpal tunnel surgery History of hemorrhoidectomy Family History Family History Father Diabetes Asthma Hepatitis Mother Diabetes Sleep apnea Ischemic cerebrovascular accident (CVA) Maternal Grandmother Diabetes Breast cancer Maternal Grandfather Stroke Paternal Grandfather Lung cancer Social History Social History Alcohol intake: never Smoking Status: Never smoker Advance Directives: No Advance Directives Information Provided: Yes Sexual orientation: Straight/Heterosexual Gender identity: female Physical Exam Vital Signs: Vital Signs: Last Vital Signs Temp 97.6 F 01/10/20 19:09 Pulse 85 01/10/20 19:09 Resp 18 01/10/20 19:09 BP 127/87 01/10/20 19:09 Pulse Ox 98 01/10/20 19:09 Body Mass Index 39.4 Const: General: cooperative, healthy appearing, comfortable and no acute distress Orientation/consciousness: patient oriented x3 Limitations: no limitations HENMT: Head: Yes normal to inspection Ears: hearing grossly normal bilaterally General nose exam: Normal external nose present Face and sinus: Yes normal facial exam Mouth: Normal oral and palatal mucosa present Throat: Yes posterior oropharynx normal Eyes: General: appearance normal, both eyes and all related structures Pupils: Equal, round and reactive pupils present Neck: Neck: Yes normal visual inspection Chest: Chest palpation & inspection: normal inspection of the chest Resp: Effort & Inspection: normal respiratory effort Auscultation: clear to auscultation bilaterally Cardio: Rate: regular rate Rhythm: regular rhythm Peripheral pulses: Peripheral pulses 2+ throughout GI: Inspection: Yes normal to inspection Palpation (GI): Soft to palpation and nontender Auscultation: normal bowel sounds Back/Spine/Pelvis: Thoracic/Lumbar Spine: thoracic and lumbar spine normal to inspection Skin: General skin exam: no rashes or lesions noted Neuro: General: patient oriented x3, no focal motor deficits and normal sensation to monofilament Cranial nerves: Yes Equal, round and reactive pupils present Cognition (Neuro): normal cognition Speech: No Abnormal speech present Gait exam (Neuro): Normal gait present Motor exam (neuro): 5/5 motor strength present throughout Extrem: General: Yes normal to inspection Course Course Course Narrative: Patient here with cough, sore throat and headache. Family member COVID positive at home. Here seeking testing. Exam is benign. Well appearing with stable vital signs. COVID testing sent. Reviewed worrisome signs and symptoms and when to return to the emergency department. Comfortable with discharge home. Called and informed of result. Medical Decision Making Medical Records Medical records reviewed: Yes I reviewed the patient's medical records. Lab Data Lab results reviewed: Yes I reviewed the patient's lab results. Labs: Lab Results 01/10/20 Range/Units 19:28 Coronavirus (PCR) NEGATIVE (Negative) Influenza Type A (PCR) NEGATIVE (Negative) Influenza Type B (PCR) NEGATIVE (Negative) RSV RNA Qual (PCR) NEGATIVE (Negative) Discharge Plan Discharge Clinical Impression: Viral syndrome Patient Disposition: Home, Self-Care Instructions: Viral Syndrome (ED) Additional Instructions: We have tested you today for COVID 19. Test results take 1-2 hours and we will call you with the results negative or positive. Take tylenol or motrin if able as needed for pain or fever. Stay well hydrated with fluids like water, gatorade and/or powerade. Wash hands at home. If living with others try to self isolate if possible. If unable wear a mask around others in your home and wash hands frequently. If COVID test is positive you will need to self isolate for a total of 14 days from when your symptoms started. You may return to work sooner if testing is ne gative and all symptoms resolved >72 hours. You should return to the emergency department for severe shortness of breath, chest pain or fever which does not respond to both tylenol and motrin at home. Prescriptions: No Action tiotropium bromide [Spiriva Respimat] 2.5 mcg/actuation mist 2 puff PO DAILY Qty: 4 RF: 5 clotrimazole 2 % cream 1 appful vaginal BEDTIME 3 Days Qty: 21 RF: 0 ferrous sulfate 325 mg (65 mg iron) tablet 325 mg PO DAILY Qty: 14 RF: 0 bupropion HCl 150 mg tablet extended release 24 hr 150 mg PO QAM RF: 0 multivitamin Tablet 1 tab PO DAILY RF: 0 polyethylene glycol 3350 17 gram/dose powder 17 g PO DAILY RF: 0 omeprazole 20 mg capsule,delayed release(DR/EC) 40 mg PO DAILY RF: 0 ibuprofen 800 mg tablet 800 mg PO TID RF: 0 oxybutynin chloride 10 mg tablet extended release 24hr 10 mg PO DAILY RF: 0 cetirizine [Zyrtec] 10 mg tablet 10 mg PO DAILY 10 Days Qty: 10 RF: 0 ofloxacin 0.3 % drops 1 drp ophthalmic (eye) QID 10 Days Qty: 5 RF: 0 tizanidine 4 mg tablet 4 mg PO TID RF: 0 albuterol sulfate 90 mcg/actuation HFA aerosol inhaler 90 mcg inhalation Q4-6H PRN (Reason: Shortness Of Breath Or Wheezing) RF: 0 montelukast 10 mg tablet 10 mg PO BEDTIME RF: 0 fluticasone propionate 50 mcg/actuation spray,suspension 2 spray intranasal DAILY 30 Days Qty: 15.8 RF: 5 quetiapine 100 mg tablet 100 mg PO BEDTIME 30 Days Qty: 30 RF: 1 Referrals: Kurt Arroyo MD [Primary Care Provider] - 2 days Stand Alone Forms: Work/School Release Interventions: ED Discharge Assessment Last Done: 01/10/20 20:02 Discharge Date/Time: 01/10/20 20:02
[2020-01-10 20:28] LABS: Influenza A PCR NEGATIVE (Negative); Influenza B PCR NEGATIVE (Negative); Resp Syncy Virus RNA Qual PCR NEGATIVE (Negative); SARS COV2 PCR INHOUSE NEGATIVE (Negative)
== END 2020-01-10 20:02 | disposition home or self-care (01) ==
PROVIDERS: Nurse Practitioner Family; Emergency Provider Emergency Medicine; PCP Internal Medicine
DX: B34.9 Viral infection, unspecified (principal); Z20.828 Contact with and (suspected) exposure to other viral communicable diseases; R51.9 Headache, unspecified; J45.909 Unspecified asthma, uncomplicated
CPT/HCPCS: 0241U; 99283

== ENCOUNTER 2020-01-16 06:04 | Day surgery (SDC) | payer OTHER, SELFPAY ==
--- NOTE | 2020-01-14 13:58 | P.CONAN_ITS ---
Documented by User: Esthela Diaz 01/14/20 13:59 HPI - Anesthesia Eval Consult details Narrative: 39yo F for Uterine Ablation w/Damon PMFSH Past Medical History Medical History Allergic rhinitis Asthma Depression Hemorrhoid Knee pain, bilateral Menorrhagia Obesity (BMI 30-39.9) [place] eye Sinusitis Family History Family History Father Diabetes Asthma Hepatitis Mother Diabetes Sleep apnea Ischemic cerebrovascular accident (CVA) Maternal Grandmother Diabetes Breast cancer Maternal Grandfather Stroke Paternal Grandfather Lung cancer Surgical History Surgical History H/O tubal ligation History of carpal tunnel surgery History of hemorrhoidectomy Social History Social History Alcohol intake: never Smoking Status: Never smoker Use of substances other than those prescribed or required for medical reasons: No Advance Directives: No Advance Directives Information Provided: No Advance Directives on File: No Sexual orientation: Straight/Heterosexual Gender identity: female Meds Allergies Allergy/AdvReac Type Severity Reaction Status Date / Time gabapentin Allergy Unknown Tingling Verified 01/10/20 19:08 feeling in throat zolpidem [From AMBIEN] Allergy Unknown tingling Verified 01/10/20 19:08 feeling in throat Home Medications Medication Instructions Recorded Confirmed Type albuterol sulfate 90 mcg/actuation 90 mcg INHALATION Q4-6H PRN 11/19/19 01/09/20 History aerosol inhaler montelukast 10 mg tablet 10 mg PO BEDTIME 11/19/19 01/09/20 History tizanidine 4 mg tablet 4 mg PO TID 11/19/19 01/09/20 History bupropion HCl 150 mg 24 hr tablet, 150 mg PO QAM 12/25/19 01/09/20 History extended release ibuprofen 800 mg tablet 800 mg PO TID 12/25/19 01/09/20 History multivitamin 1 tab PO DAILY 12/25/19 01/09/20 History omeprazole 20 mg capsule,delayed 40 mg PO DAILY 12/25/19 01/09/20 History release oxybutynin chloride 10 mg 10 mg PO DAILY 12/25/19 01/09/20 History tablet,extended release 24 hr polyethylene glycol 3350 17 17 g PO DAILY 12/25/19 01/09/20 History gram/dose oral powder Exam Exam Date and Time: January 14, 2020 1358 Height,Weight and Vital Signs: Height 5 ft 4 in Weight 22 kg Pertinent Lab Results Pertinent Lab Results: Laboratory Tests 12/05/19 20:31 WBC 9.9 Hgb 11.6 L Hct 33.8 L Plt Count 374 Assessment and Plan Assessment Anesthesia Assessment: Chart Reviewed Documented by User: Hilario Cronin 01/16/20 07:24 PMFSH Past Medical History Medical History Allergic rhinitis Asthma Depression Hemorrhoid Knee pain, bilateral Menorrhagia Obesity (BMI 30-39.9) [place] eye Sinusitis Family History Family History Father Diabetes Asthma Hepatitis Mother Diabetes Sleep apnea Ischemic cerebrovascular accident (CVA) Maternal Grandmother Diabetes Breast cancer Maternal Grandfather Stroke Paternal Grandfather Lung cancer Family history of problems with anesthesia: No Surgical History Surgical History H/O tubal ligation History of carpal tunnel surgery History of hemorrhoidectomy History of Problems with Anesthesia: No Social History Social History Alcohol intake: never Smoking Status: Never smoker Use of substances other than those prescribed or required for medical reasons: No Advance Directives: No Advance Directives Information Provided: No Advance Directives on File: No Sexual orientation: Straight/Heterosexual Gender identity: female Meds Allergies Allergy/AdvReac Type Severity Reaction Status Date / Time gabapentin Allergy Unknown Tingling Verified 01/10/20 19:08 feeling in throat zolpidem [From AMBIEN] Allergy Unknown tingling Verified 01/10/20 19:08 feeling in throat Home Medications Medication Instructions Recorded Confirmed Type albuterol sulfate 90 mcg/actuation 90 mcg INHALATION Q4-6H PRN 11/19/19 01/09/20 History aerosol inhaler montelukast 10 mg tablet 10 mg PO BEDTIME 11/19/19 01/09/20 History tizanidine 4 mg tablet 4 mg PO TID 11/19/19 01/09/20 History bupropion HCl 150 mg 24 hr tablet, 150 mg PO QAM 12/25/19 01/09/20 History extended release ibuprofen 800 mg tablet 800 mg PO TID 12/25/19 01/09/20 History multivitamin 1 tab PO DAILY 12/25/19 01/09/20 History omeprazole 20 mg capsule,delayed 40 mg PO DAILY 12/25/19 01/09/20 History release oxybutynin chloride 10 mg 10 mg PO DAILY 12/25/19 01/09/20 History tablet,extended release 24 hr polyethylene glycol 3350 17 17 g PO DAILY 12/25/19 01/09/20 History gram/dose oral powder Assessment and Plan Assessment Anesthesia Assessment: Anesthesia Plan Discussed and Chart Reviewed Final Anesthetic Review NPO: Yes ASA Class: II Final Preanesthetic Review: No Changes in Pt Med Stat, Meds/Allgs Chart Reviewed, Consent Obtained/Reviewed and Anes Risks/Benef Reviewed Patient Risk: Intermediate Procedure Risk: Low Anesthetic Plan Anesthetic Plan: GA and Agree w/ Assess. and Plan Disposition: Standard PACU
[2020-01-16 06:16] VITALS: BP 127/76; PULSE 77; RESP 18; TEMP 36.8; O2SAT 97; BMI 39.2
[2020-01-16] MEDS: Lactated Ringers 1,000 ML 100 ML IVCONT (06:24)
[2020-01-16 07:34] LABS: UPreg QC Valid YES; Urine Pregnancy NEGATIVE (NEGATIVE)
--- NOTE | 2020-01-16 07:39 | MHC.SHP ---
Pre-Procedural Eval Section A The patient is an INPATIENT: No Changes since office visit: No Cold of Flu in the past 2 weeks, No New Medical Problems, No Changes in Medication and No Patient answered all questions The History & Physical has been completed within 30 days and I have reviewed it.: Yes Section B Chief Complaint: menorrhagia Allergies: Allergies Allergy/AdvReac Type Severity Reaction Status Date / Time gabapentin Allergy Unknown Tingling Verified 01/10/20 19:08 feeling in throat zolpidem [From AMBIEN] Allergy Unknown tingling Verified 01/10/20 19:08 feeling in throat Plan Diagnosis/Plan: Unchanged Patient has been examined and remains a candidate for the planned procedure
--- NOTE | 2020-01-16 08:02 | PM.OP ---
Brief Operative Note Date of Service: 12/19/19 Pre-op diagnosis: Menorrhagia Post-op diagnosis: same Procedure: NovaSure Endometrial Ablation Surgeon: Anand Mason MD Anesthesia: MAC Estimated blood loss (mL): 0 Pathology: none sent Condition: stable Disposition: PACU
--- NOTE | 2020-01-16 08:03 | W.PM.OPN ---
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 She was prepped and draped in the usual sterile manner. Bimanual exam prior to prepping revealed a mobile, anteverted uterus. A speculum was placed in the vagina and the anterior lip of the cervix was grasped with a single toothed tenaculum and brought forward. Taking care not to enter deep into the uterus, a sound was passed inside to measure the length of the uterus and cervix. This length was found to be 8 cm. Next, Hegar dilator was inserted into the cervical os to measure the cervical length which was 3 cm. This yielded an endometrial cavity length of 6.5 cm. A series of Hegar dilators were then inserted sequentially into the cervical os up to a size of 5 mm. The Novasure device was then opened and tested; the fan deployed easily. The instrument was set to the correct cavity length and introduced into the uterine cavity. The fan was slowly deployed with gentle movements to ensure a snug fit within the cavity. The cavity width read 4.5 cm. The measurements were imported and a cavity check was done. The trumpet was then slid down to the cervix and the device was activated. The total burn time was 91 seconds. The fan was retracted and device removed. The fan was examined and revealed charred tissue. The tenaculum was removed and the cervix examined for hemostasis which was achieved using pressure. Finally the speculum was removed. The patient tolerated the procedure well and was brought to the recovery room in a stable condition. At the end of the procedure all sponges and instruments were counted and correct. The blood loss was minimal and there were no complications.
[2020-01-16 08:13] VITALS: BP 120/76; PULSE 78; RESP 16; TEMP 36.9; O2SAT 95
[2020-01-16 08:18] VITALS: BP 124/71; PULSE 75; RESP 16; O2SAT 94
[2020-01-16] MEDS: fentaNYL citrate/PF 100 MCG/2 ML VIAL 50 MCG IVPUSH (08:18)
[2020-01-16 08:23] VITALS: BP 115/59; PULSE 78; RESP 16; O2SAT 96
[2020-01-16] MEDS: oxyCODONE HCl Immed Release 5 MG TABLET PO (08:25)
[2020-01-16] MEDS: Acetaminophen 325 MG TABLET 650 MG PO (08:26)
[2020-01-16] MEDS: Ketorolac Tromethamine 15 MG/ML VIAL IVPUSH (08:27)
[2020-01-16 08:28] VITALS: BP 119/77; PULSE 77; RESP 16; TEMP 36.9; O2SAT 96
[2020-01-16 08:43] VITALS: BP 123/75; PULSE 68; RESP 16; O2SAT 96
--- NOTE | 2020-01-16 09:05 | HO.POSTANES ---
Post Anesthesia Evaluation Post Anesthesia Evaluation Vital Signs: Vital Signs Temp Pulse Resp BP Pulse Ox 01/16/20 08:43 98.5 F 68 16 123/75 96 01/16/20 08:28 98.5 F 77 16 119/77 96 01/16/20 08:23 78 16 115/59 L 96 01/16/20 08:18 75 16 124/71 94 01/16/20 08:13 98.5 F 78 16 120/76 95 01/16/20 06:16 98.2 F 77 18 127/76 97 Anesthesia: General LMA Mental Status: Awake Pain Control: Satisfactory Nausea/Vomiting: None Hydration: Adequate Anesthesia-Related Issues: No Anes. Related Issues
== END 2020-01-16 09:09 | disposition home or self-care (01) ==
PROVIDERS: PCP Internal Medicine; Visit Provider Obstetrics & Gynecology
PROC: (CPT 58353; principal; 2020-01-16 07:30)
DX: N92.0 Excessive and frequent menstruation with regular cycle (principal); J45.909 Unspecified asthma, uncomplicated; F32.9 Major depressive disorder, single episode, unspecified; E66.9 Obesity, unspecified; Z68.39 Body mass index [BMI] 39.0-39.9, adult; Z87.891 Personal history of nicotine dependence; Z98.51 Tubal ligation status; Z88.8 Allergy status to other drugs, medicaments and biological substances; Z79.51 Long term (current) use of inhaled steroids; Z79.899 Other long term (current) drug therapy
CPT/HCPCS: 58353; 81025; J1885; J2250; J3010

== ENCOUNTER 2020-01-25 19:27 | Emergency (ER) | payer OTHER, SELFPAY ==
[2020-01-25 19:33] VITALS: BP 137/83; PULSE 76; RESP 18; TEMP 37.1; O2SAT 98; BMI 38.9
--- NOTE | 2020-01-25 19:54 | PC.NURSE ---
covid swab performed, pt wishes to discharge home and wait for provider to call with the results
--- NOTE | 2020-01-25 19:56 | ED.GENADULT ---
HPI - General Adult General Chief complaint: General Medical Stated complaint: Covid symptoms Time Seen by Provider: 01/25/20 19:33 Source: patient Mode of arrival: ambulatory Limitations: no limitations History of Present Illness HPI narrative: Patient presents to ED for headache, loss of taste, and body aches for the past 3 days. Patient states her daughter was recently tested positive for the COVID-19 virus. Patient denies any coughing, chest pain, or shortness of breath. Related Data Home Medications Medication Instructions Recorded Confirmed albuterol sulfate 90 mcg/actuation 90 mcg INHALATION Q4-6H PRN 11/19/19 01/09/20 aerosol inhaler montelukast 10 mg tablet 10 mg PO BEDTIME 11/19/19 01/09/20 tizanidine 4 mg tablet 4 mg PO TID 11/19/19 01/09/20 bupropion HCl 150 mg 24 hr tablet, 150 mg PO QAM 12/25/19 01/09/20 extended release ibuprofen 800 mg tablet 800 mg PO TID 12/25/19 01/09/20 multivitamin 1 tab PO DAILY 12/25/19 01/09/20 omeprazole 20 mg capsule,delayed 40 mg PO DAILY 12/25/19 01/09/20 release oxybutynin chloride 10 mg 10 mg PO DAILY 12/25/19 01/09/20 tablet,extended release 24 hr polyethylene glycol 3350 17 17 g PO DAILY 12/25/19 01/09/20 gram/dose oral powder Previous Rx's Medication Instructions Recorded fluticasone propionate 50 2 spray INTRANASAL DAILY 30 Days 11/19/19 mcg/actuation nasal #15.8 ml spray,suspension tiotropium bromide 2.5 2 puff PO DAILY #4 ml 12/03/19 mcg/actuation mist for inhalation ferrous sulfate 325 mg PO DAILY #14 tab 12/05/19 cetirizine 10 mg tablet 10 mg PO DAILY 10 Days #10 tab 12/25/19 ofloxacin 0.3 % eye drops 1 drp OPHTHALMIC (EYE) QID 10 Days 12/25/19 #5 ml clotrimazole 2 % vaginal cream 1 appful VAGINAL BEDTIME 3 Days 01/08/20 #21 g ondansetron HCl 4 mg tablet 4 mg PO Q8H PRN 10 Days #30 tab 01/23/20 quetiapine 100 mg tablet 100 mg PO BEDTIME 30 Days #30 tab 01/23/20 Allergies Allergy/AdvReac Type Severity Reaction Status Date / Time gabapentin Allergy Unknown Tingling Verified 01/10/20 19:08 feeling in throat zolpidem [From AMBIEN] Allergy Unknown tingling Verified 01/10/20 19:08 feeling in throat Review of Systems Review of Systems: Yes all other systems are reviewed and are negative Constitutional: Constitutional: Reports as per HPI, Reports no additional constitutional complaints, Reports body ache(s) and Reports headache(s) Eyes: Eyes: Reports as per HPI and Reports no additional eye complaints ENT: Reports system reviewed and no additional complaints, except as documented, Reports as per HPI and Reports headache(s) Comments: Loss of taste Cardiovascular: Cardiovascular: Reports as per HPI and Reports no additional cardiovascular complaints Respiratory: Respiratory: Reports as per HPI and Reports no additional respiratory complaints Gastrointestinal: Gastrointestinal: Reports as per HPI and Reports no additional gastrointestinal complaints Musculoskeletal: Musculoskeletal: Reports no additional musculoskeletal complaints and Reports as per HPI Neurologic: Reports system reviewed and no additional complaints, except as documented, Reports as per HPI and Reports headache(s) Psychiatric: Psychiatric: Reports no additional psychiatric complaints and Reports as per HPI PMF Past Medical History Medical History (Updated 01/26/20 @ 00:00 by Claudia Ibanez) Allergic rhinitis Asthma Depression Hemorrhoid HTN (hypertension) Knee pain, bilateral Lower back pain Menorrhagia Nausea Obesity (BMI 30-39.9) [place] eye Sinusitis Surgical History H/O tubal ligation History of carpal tunnel surgery History of hemorrhoidectomy Family History Family History Father Diabetes Asthma Hepatitis Mother Diabetes Sleep apnea Ischemic cerebrovascular accident (CVA) Maternal Grandmother Diabetes Breast cancer Maternal Grandfather Stroke Paternal Grandfather Lung cancer Social History Social History Alcohol intake: never Smoking Status: Never smoker Smoked in Last 30 Days: No Use of substances other than those prescribed or required for medical reasons: No Advance Directives: No Advance Directives Information Provided: No Sexual orientation: Straight/Heterosexual Gender identity: female Physical Exam Vital Signs: Vital Signs: Last Vital Signs Temp 98.7 F 01/25/20 19:33 Pulse 76 01/25/20 19:33 Resp 18 01/25/20 19:33 BP 137/83 01/25/20 19:33 Pulse Ox 98 01/25/20 19:33 Body Mass Index 38.9 Const: General: cooperative, healthy appearing, comfortable, no acute distress, well developed, alert, awake and Physically active Orientation/consciousness: patient oriented x3 HENMT: Head: Yes normal to inspection and Yes No palpable skull fracture present Eyes: General: appearance normal, both eyes and all related structures Neck: Neck: Yes normal visual inspection, Yes full ROM, Yes no lymphadenopathy, Yes no meningeal signs, Yes trachea midline, Yes supple and No tender Chest: Chest palpation & inspection: normal inspection of the chest and normal palpation of entire chest wall Resp: Effort & Inspection: normal respiratory effort and able to speak in complete sentences Auscultation: clear to auscultation bilaterally Cardio: Jugular venous distension: no JVD Heart sounds: S1 normal heart sound present and S2 normal heart sound present GI: Inspection: Yes normal to inspection Palpation (GI): Soft to palpation, not firm, nontender, no guarding and not rigid : General: No CVA tenderness and Yes no CVA tenderness Back/Spine/Pelvis: Back: no CVA tenderness, No CVA tenderness and No back tenderness Skin: General skin exam: no rashes or lesions noted Neuro: General: patient oriented x3, gait normal and no meningeal signs Cranial nerves: Yes CN's II-XII intact bilaterally Extrem: General: Yes normal to inspection and Yes full ROM Psych: Appearance: grossly normal, well kempt and not disheveled Course Course Course Narrative: Patient is swabbed for the COVID-19 virus. Patient does not want to wait for the rapid COVID results. Reevaluation(s) Reevaluation #1: Patient educated on self-isolation. Patient informed to return to the ED if she has chest pain or shortness of breath. Time: 20:00 Reevaluation #2: Patient was called and informed her COVID swab, influenza, and RSV are all negative. Patient educated that false-negative is a possibility. Patient informed if symptoms worsen she should practice self-isolation. Time: 22:22 Medical Decision Making MDM Narrative Medical decision making narrative: Viral syndrome Lab Data Labs: Lab Results 01/25/20 Range/Units 19:54 Coronavirus (PCR) NEGATIVE (Negative) Influenza Type A (PCR) NEGATIVE (Negative) Influenza Type B (PCR) NEGATIVE (Negative) RSV RNA Qual (PCR) NEGATIVE (Negative) Discharge Plan Discharge Clinical Impression: Acute viral syndrome Patient Disposition: Home, Self-Care Instructions: Viral Syndrome (ED) Additional Instructions: Return to the ED immediately for any chest pain, shortness of breath, coughing up blood, weakness, dizziness, and any other concerning symptoms. Recommend 14 days self-isolation if COVID test come back positive or symptoms worsen. Prescriptions: No Action tiotropium bromide [Spiriva Respimat] 2.5 mcg/actuation mist 2 puff PO DAILY Qty: 4 RF: 5 clotrimazole 2 % cream 1 appful vaginal BEDTIME 3 Days Qty: 21 RF: 0 quetiapine 100 mg tablet 100 mg PO BEDTIME 30 Days Qty: 30 RF: 1 ferrous sulfate 325 mg (65 mg iron) tablet 325 mg PO DAILY Qty: 14 RF: 0 bupropion HCl 150 mg tablet extended release 24 hr 150 mg PO QAM RF: 0 multivitamin Tablet 1 tab PO DAILY RF: 0 polyethylene glycol 3350 17 gram/dose powder 17 g PO DAILY RF: 0 omeprazole 20 mg capsule,delayed release(DR/EC) 40 mg PO DAILY RF: 0 ibuprofen 800 mg tablet 800 mg PO TID RF: 0 oxybutynin chloride 10 mg tablet extended release 24hr 10 mg PO DAILY RF: 0 cetirizine [Zyrtec] 10 mg tablet 10 mg PO DAILY 10 Days Qty: 10 RF: 0 ofloxacin 0.3 % drops 1 drp ophthalmic (eye) QID 10 Days Qty: 5 RF: 0 ondansetron HCl [Zofran] 4 mg tablet 4 mg PO Q8H PRN (Reason: nausea and vomiting) 10 Days Qty: 30 RF: 0 tizanidine 4 mg tablet 4 mg PO TID RF: 0 albuterol sulfate 90 mcg/actuation HFA aerosol inhaler 90 mcg inhalation Q4-6H PRN (Reason: Shortness Of Breath Or Wheezing) RF: 0 montelukast 10 mg tablet 10 mg PO BEDTIME RF: 0 fluticasone propionate 50 mcg/actuation spray,suspension 2 spray intranasal DAILY 30 Days Qty: 15.8 RF: 5 Interventions: ED Discharge Assessment Last Done: 01/25/20 20:23 Discharge Date/Time: 01/25/20 20:24 Print Language: Georgian
[2020-01-25 20:40] LABS: Influenza A PCR NEGATIVE (Negative); Influenza B PCR NEGATIVE (Negative); Resp Syncy Virus RNA Qual PCR NEGATIVE (Negative); SARS COV2 PCR INHOUSE NEGATIVE (Negative)
== END 2020-01-25 20:24 | disposition home or self-care (01) ==
PROVIDERS: Physician Assistant; Emergency Provider Emergency Medicine
DX: B34.9 Viral infection, unspecified (principal); Z20.828 Contact with and (suspected) exposure to other viral communicable diseases; R51.9 Headache, unspecified; I10 Essential (primary) hypertension; J45.909 Unspecified asthma, uncomplicated
CPT/HCPCS: 0241U; 99283

== ENCOUNTER → 2020-01-28 13:49 | Outpatient (BNVA) | payer OTHER, SELFPAY | PROVIDERS: PCP Internal Medicine; Visit Provider Obstetrics & Gynecology | DX: Z76.89 Persons encountering health services in other specified circumstances (principal) ==

== ENCOUNTER 2020-02-04 07:33 | Outpatient (REF) | payer OTHER, SELFPAY ==
[2020-02-04 08:18] LABS: Basophils Percent Auto 0.4 % (0-2); Eosinophils Absolute Auto 0.2 X10*3/uL (0.0-0.4); Eosinophils Percent Auto 2.7 % (0-4); Hematocrit 34.7 % (37-47); Hemoglobin 11.8 g/dl (12.0-16.0); Imm Gran Abs Auto 0.02 X10*3/uL (0.00-0.03); Imm Gran Pct Auto 0.3 % (0.0-0.4); Lymphocytes Absolute Auto 2.8 X10*3/uL (1.2-4.9); Lymphocytes Percent Auto 38.3 % (20-40); MANUAL DIFF FLAG NO; Mean Corpuscular Hemoglobin 25.2 pg (27.0-33.0); Mean Corpuscular Volume 74.1 fL (80-98); Mean Platelet Volume 10.9 fL (9.4-12.3); Monocytes Absolute Auto 0.5 X10*3/uL (0.1-1.2); Neutrophils Absolute Auto 3.8 X10*3/uL (2.0-8.3); Neutrophils Percent Auto 51.3 % (45-73); Platelet Count 405 X10*3/uL (160-400); Red Blood Count 4.68 X10*6/uL (4.20-5.50); Red Cell Distribution Width 13.7 % (11.0-16.0); White Blood Count 7.3 X10*3/uL (4.8-10.8)
[2020-02-04 09:16] LABS: Anion Gap 12 (12-20); Blood Urea Nitrogen 11 mg/dL (9-16); Calcium 9.1 mg/dL (8.4-10.2); Carbon Dioxide 28 mmol/L (22-29); Chloride 104 mmol/L (96-108); Cholesterol 215 mg/dL; Estimated Glomerular Filt Rate > 60; Glucose Fasting 130 mg/dL (60-99); HDL Cholesterol 46 mg/dL; LDL Cholesterol Calculated 136 mg/dl; Potassium 4.2 mmol/l (3.3-5.1); Sodium 140 mmol/L (135-145); Triglycerides 168 mg/dL
== END 2020-02-04 07:34 | disposition home or self-care (01) ==
LOC: HO.LAB 07:33
PROVIDERS: PCP Internal Medicine; Visit Provider Nurse Practitioner Family
DX: M54.5 Low back pain (principal); R11.0 Nausea
CPT/HCPCS: 36415; 80048; 80061; 85025

== ENCOUNTER 2020-05-25 15:19 | Outpatient (REF) | payer OTHER, SELFPAY ==
[2020-05-26 08:23] LABS: BV Int Neg Control Negative (Negative); BV Int Pos Control Positive (Positive)
[2020-05-26 08:54] LABS: CT PCR NOT DETECTED (Not Detect.); NG PCR NOT DETECTED (Not Detect.)
== END 2020-05-25 15:20 | disposition home or self-care (01) ==
LOC: HO.LAB 15:19
PROVIDERS: Visit Provider Obstetrics & Gynecology
DX: N39.0 Urinary tract infection, site not specified (principal); R31.9 Hematuria, unspecified; N76.0 Acute vaginitis; B96.89 Other specified bacterial agents as the cause of diseases classified elsewhere
CPT/HCPCS: 87086; 87088; 87186; 87480; 87491; 87510; 87591; 87660; 99212

== ENCOUNTER 2020-06-07 08:13 | Emergency (ER) | payer OTHER, SELFPAY ==
[2020-06-07 08:25] VITALS: BP 124/71; PULSE 74; RESP 16; TEMP 36.8; O2SAT 98; BMI 37.8
--- NOTE | 2020-06-07 10:09 | ED.GENADULT ---
HPI - General Adult General Chief complaint: General Medical Stated complaint: body ache Time Seen by Provider: 06/07/20 09:26 Source: patient Mode of arrival: ambulatory History of Present Illness HPI narrative: 39-year-old female with a past medical history of asthma, depression, hypertension, nausea, COVID-19 about 5 months ago, presenting to the ED complaining of mild headache, nausea, congestion, myalgias x2 days. 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 Denies being COVID-19 vaccinated. Denies fever, chills, CP/SOB, abdominal pain, LE edema, recent travel. Onset (ago): day(s) Related Data Home Medications Medication Instructions Recorded Confirmed albuterol sulfate 90 mcg/actuation 90 mcg INHALATION Q4-6H PRN 11/19/19 01/28/20 aerosol inhaler tizanidine 4 mg tablet 4 mg PO TID 11/19/19 01/28/20 ibuprofen 800 mg tablet 800 mg PO TID 12/25/19 01/28/20 multivitamin 1 tab PO DAILY 12/25/19 01/28/20 oxybutynin chloride 10 mg 10 mg PO DAILY 12/25/19 01/28/20 tablet,extended release 24 hr polyethylene glycol 3350 17 17 g PO DAILY 12/25/19 01/28/20 gram/dose oral powder oxycodone-acetaminophen 5 mg-325 1 tab PO TID PRN 05/17/20 mg tablet Previous Rx's Medication Instructions Recorded fluticasone propionate 50 2 spray INTRANASAL DAILY 30 Days 11/19/19 mcg/actuation nasal #15.8 ml spray,suspension tiotropium bromide 2.5 2 puff PO DAILY #4 ml 12/03/19 mcg/actuation mist for inhalation ferrous sulfate 325 mg PO DAILY #14 tab 12/05/19 cetirizine 10 mg tablet 10 mg PO DAILY 10 Days #10 tab 12/25/19 ofloxacin 0.3 % eye drops 1 drp OPHTHALMIC (EYE) QID 10 Days 12/25/19 #5 ml ondansetron HCl 4 mg tablet 4 mg PO Q8H PRN 10 Days #30 tab 01/23/20 clotrimazole 2 % vaginal cream 1 appful VAGINAL BEDTIME 3 Days 02/09/20 #21 g sulfamethoxazole 800 1 tab PO BID 10 Days #20 tab 02/09/20 mg-trimethoprim 160 mg tablet bupropion HCl 150 mg 24 hr tablet, 150 mg PO QAM #30 tab 02/11/20 extended release montelukast 10 mg tablet 10 mg PO BEDTIME #30 tab 03/16/20 omeprazole 20 mg capsule,delayed 40 mg PO DAILY 90 Days #180 cap 04/12/20 release pantoprazole 40 mg tablet,delayed 40 mg PO DAILY 30 Days #30 tab 05/13/20 release quetiapine 100 mg tablet 100 mg PO BEDTIME 30 Days #30 tab 05/24/20 metronidazole 0.75 % vaginal gel 1 appful VAGINAL BEDTIME 5 Days 05/25/20 #37.5 g nitrofurantoin 100 mg PO BID 5 Days #10 cap 05/25/20 monohydrate/macrocrystals 100 mg capsule ondansetron HCl [Zofran] 4 mg PO Q8H PRN #10 tab 06/07/20 Allergies Allergy/AdvReac Type Severity Reaction Status Date / Time gabapentin Allergy Unknown Tingling Verified 05/25/20 15:28 feeling in throat zolpidem [From AMBIEN] Allergy Unknown tingling Verified 05/25/20 15:28 feeling in throat Review of Systems Review of Systems: Constitutional: No Fever, No Chills ENT/Mouth: No Ear Pain, + Nasal Congestion, No Sinus Pain, No Hoarseness, No sore throat, + Rhinorrhea, No Swallowing Difficulty Cardiovascular: No Chest Pain, No SOB Respiratory: No Cough, No Sputum, No Wheezing Gastrointestinal: + Nausea, No Vomiting, No Abdominal pain Musculoskeletal: No joint pain, + Myalgias, No Joint Swelling Skin: No Skin Lesions, No rash Neuro: No Weakness, No Numbness, No Paresthesias Yes all other systems are reviewed and are negative PMFSH Past Medical History Attestation statement: The following information was validated with the patient. Medical History (Updated 06/07/20 @ 10:13 by JASEN Medina) Allergic rhinitis Asthma Depression Hemorrhoid HTN (hypertension) Knee pain, bilateral Lower back pain Menorrhagia Nausea Obesity (BMI 30-39.9) [place] Sinusitis UTI (urinary tract infection) Surgical History (Updated 05/25/20 @ 15:32 by Tiffanie Mendez MA) H/O tubal ligation History of carpal tunnel surgery History of endometrial ablation History of hemorrhoidectomy Family History Family History Father Diabetes Asthma Hepatitis Mother Diabetes Sleep apnea Ischemic cerebrovascular accident (CVA) Maternal Grandmother Diabetes Breast cancer Maternal Grandfather Stroke Paternal Grandfather Lung cancer Social History Social History Alcohol intake: never Smoking Status: Never smoker Advance Directives: No Advance Directives Information Provided: No Sexual orientation: Straight/Heterosexual Gender identity: female Physical Exam Vital Signs: Vital Signs: Last Vital Signs Temp 98.2 F 06/07/20 08:25 Pulse 74 06/07/20 08:25 Resp 16 06/07/20 08:25 BP 124/71 06/07/20 08:25 Pulse Ox 98 06/07/20 08:25 Body Mass Index 37.8 Const: General: cooperative, healthy appearing, comfortable and no acute distress Orientation/consciousness: patient oriented x3 Limitations: no limitations HENMT: Head: Yes normal to inspection Ears: hearing grossly normal bilaterally General nose exam: Normal external nose present Face and sinus: Yes normal facial exam Eyes: General: appearance normal, both eyes and all related structures EOM: EOMs intact bilaterally Neck: Neck: Yes normal visual inspection and Yes no meningeal signs Resp: Effort & Inspection: normal respiratory effort Auscultation: clear to auscultation bilaterally, no rales, no rhonchi and no wheezes Cardio: Rate: regular rate Heart sounds: S1 normal heart sound present and S2 normal heart sound present GI: Inspection: Yes normal to inspection Palpation (GI): Soft to palpation, nontender and no guarding Skin: Rashes: no rashes Wounds: no wounds Neuro: General: patient oriented x3 and no meningeal signs Gait exam (Neuro): Normal gait present Extrem: General: Yes normal to inspection, Yes no pedal edema and Yes no calf tenderness Medical Decision Making MDM Narrative Medical decision making narrative: On exam VSS, NAD/well-appearing, lungs CTA, no LE edema or calf tenderness. Concern for viral syndrome/COVID-19. Unlikely pneumonia/PE or ACS Plan: COVID-19 testing Discharge Plan Discharge Clinical Impression: Acute viral syndrome Patient Disposition: Home, Self-Care Instructions: Viral Syndrome (ED) Additional Instructions: Your test for COVID-19 today and your result is pending, you will be contacted later this afternoon with your results. Based on your symptoms and history we have sent a COVID-19. Although your RESULT IS PENDING at this time. At this time you will be contacted with either NEGATIVE OR POSITIVE results. -Please wait until we contact you for your results. At this time you will be okay for discharge. If testing does come back negative you may return to activities as long as you are no longer having any symptoms for at least 3 days. Please continue to follow cold instructions and wash your hands frequently. You may take Tylenol as directed on the bottle for pain or fever. CDC Guidelines for home isolation: - Stay away from others - WEAR A MASK if you are sick AND STAY HOME - Cover your mouth and nose with a tissue when you cough or sneeze. Dispose of tissues in a lined trash can and wash your hands immediately with soap and water for at least 20 seconds. If soap and water are not available, clean hands with alcohol-based hand yardage caller that contains at least 60% alcohol. - Clean your hands often with soap and water for at least 20 seconds - Avoid touching your eyes, nose and mouth with unwashed hands - Do not share dishes, drinking glasses, cups, eating utensils, towels, or bedding with other people in your home. After using these items, wash them thoroughly with soap and water or put in the business analyst sales operations. - Clean high-touch surfaces in your isolation area ( sick room and bathroom) every day; let a caregiver clean and disinfect high-touch surfaces in other areas of the home. Clean the area or item with soap and water or another detergent if it is dirty. Then, use a household disinfectant. - Limit contact with pets and animals: If you must care for a pet, wash your hands before and after interacting with them) Prescriptions: New ondansetron HCl [Zofran] 4 mg tablet 4 mg PO Q8H PRN (Reason: nausea and vomiting) Qty: 10 RF: 0 No Action tiotropium bromide [Spiriva Respimat] 2.5 mcg/actuation mist 2 puff PO DAILY Qty: 4 RF: 5 bupropion HCl 150 mg tablet extended release 24 hr 150 mg PO QAM Qty: 30 RF: 3 montelukast 10 mg tablet 10 mg PO BEDTIME Qty: 30 RF: 5 omeprazole 20 mg capsule,delayed release(DR/EC) 40 mg PO DAILY 90 Days Qty: 180 RF: 0 pantoprazole 40 mg tablet,delayed release (DR/EC) 40 mg PO DAILY 30 Days Qty: 30 RF: 1 oxycodone-acetaminophen 5-325 mg tablet 1 tab PO TID PRNRF: 0 quetiapine 100 mg tablet 100 mg PO BEDTIME 30 Days Qty: 30 RF: 1 ferrous sulfate 325 mg (65 mg iron) tablet 325 mg PO DAILY Qty: 14 RF: 0 multivitamin Tablet 1 tab PO DAILY RF: 0 polyethylene glycol 3350 17 gram/dose powder 17 g PO DAILY RF: 0 ibuprofen 800 mg tablet 800 mg PO TID RF: 0 oxybutynin chloride 10 mg tablet extended release 24hr 10 mg PO DAILY RF: 0 cetirizine [Zyrtec] 10 mg tablet 10 mg PO DAILY 10 Days Qty: 10 RF: 0 ofloxacin 0.3 % drops 1 drp ophthalmic (eye) QID 10 Days Qty: 5 RF: 0 ondansetron HCl [Zofran] 4 mg tablet 4 mg PO Q8H PRN (Reason: nausea and vomiting) 10 Days Qty: 30 RF: 0 sulfamethoxazole-trimethoprim [Bactrim DS] 800-160 mg tablet 1 tab PO BID 10 Days Qty: 20 RF: 0 clotrimazole 2 % cream 1 appful vaginal BEDTIME 3 Days Qty: 21 RF: 0 tizanidine 4 mg tablet 4 mg PO TID RF: 0 albuterol sulfate 90 mcg/actuation HFA aerosol inhaler 90 mcg inhalation Q4-6H PRN (Reason: Shortness Of Breath Or Wheezing) RF: 0 fluticasone propionate 50 mcg/actuation spray,suspension 2 spray intranasal DAILY 30 Days Qty: 15.8 RF: 5 nitrofurantoin monohyd/m-cryst [Macrobid] 100 mg capsule 100 mg PO BID 5 Days Qty: 10 RF: 0 metronidazole 0.75 % gel 1 appful vaginal BEDTIME 5 Days Qty: 37.5 RF: 0 Referrals: Kurt Arroyo MD [Primary Care Provider] - 2 days Stand Alone Forms: Work/School Release
[2020-06-07 11:15] LABS: Influenza A PCR NEGATIVE (Negative); Influenza B PCR NEGATIVE (Negative); Resp Syncy Virus RNA Qual PCR NEGATIVE (Negative); SARS COV2 PCR INHOUSE NEGATIVE (Negative)
== END 2020-06-07 10:51 | disposition home or self-care (01) ==
PROVIDERS: Physician Assistant; Emergency Provider Emergency Medicine; PCP Internal Medicine
DX: B34.9 Viral infection, unspecified (principal); M79.10 Myalgia, unspecified site; Z79.899 Other long term (current) drug therapy; Z20.822 Contact with and (suspected) exposure to COVID-19
CPT/HCPCS: 0241U; 36415; 99283

== ENCOUNTER 2020-06-12 08:54 | Outpatient (REF) | payer OTHER, SELFPAY ==
[2020-06-12 10:07] LABS: MANUAL DIFF FLAG NO
[2020-06-12 10:14] LABS: Basophils Absolute Auto 0.1 X10*3/uL (0.0-0.2); Basophils Percent Auto 0.6 % (0-2); Eosinophils Absolute Auto 0.2 X10*3/uL (0.0-0.4); Hematocrit 37.2 % (37-47); Hemoglobin 12.9 g/dl (12.0-16.0); Imm Gran Abs Auto 0.03 X10*3/uL (0.00-0.03); Imm Gran Pct Auto 0.4 % (0.0-0.4); Lymphocytes Absolute Auto 2.6 X10*3/uL (1.2-4.9); Lymphocytes Percent Auto 33.2 % (20-40); Mean Corpuscular HGB Conc 34.7 g/dl (31.0-35.0); Mean Corpuscular Hemoglobin 25.8 pg (27.0-33.0); Mean Corpuscular Volume 74.4 fL (80-98); Mean Platelet Volume 11.3 fL (9.4-12.3); Monocytes Absolute Auto 0.4 X10*3/uL (0.1-1.2); Monocytes Percent Auto 5.1 % (2-11); Neutrophils Absolute Auto 4.5 X10*3/uL (2.0-8.3); Neutrophils Percent Auto 57.7 % (45-73); Platelet Count 322 X10*3/uL (160-400); Red Cell Distribution Width 14.6 % (11.0-16.0); White Blood Count 7.7 X10*3/uL (4.8-10.8)
[2020-06-12 10:20] LABS: Appearance Urine HAZY; Color Urine STRAW; Glucose Urine UA NEG (NEG); Leukocyte Esterase Urine 2+ (NEG); Nitrite Urine NEG (NEG); Specific Gravity - Urine 1.015 (1.005-1.025); Urine Blood 1+ (NEG); Urine Ketones NEG (NEG); Urine Protein NEG (NEG-TRACE)
[2020-06-12 10:37] LABS: Alanine Aminotransferase 33 U/L (0-31); Albumin Level 4.3 g/dL (3.5-5.0); Alkaline Phosphatase 69 U/L (39-117); Anion Gap 13 (12-20); Aspartate Amino Transferase 19 U/L (5-31); Blood Urea Nitrogen 10 mg/dL (9-16); Calcium 9.5 mg/dL (8.4-10.2); Carbon Dioxide 28 mmol/L (22-29); Chloride 103 mmol/L (96-108); Estimated Glomerular Filt Rate > 60; Glucose Fasting 147 mg/dL (60-99); Potassium 4.7 mmol/L (3.3-5.1); Sodium 139 mmol/L (135-145); Total Protein 7.2 g/dL (6.5-8.0)
[2020-06-12 10:45] LABS: Bacteria Urine 3+ /LPF; Squamous Epithelial Cell Urine 4+ /LPF
[2020-06-12 10:49] LABS: Bilirubin Direct < 0.2 mg/dL (0.0-0.5); Bilirubin Total 0.5 mg/dL (0.0-1.0)
== END 2020-06-12 08:55 | disposition home or self-care (01) ==
LOC: HO.LAB 08:54
PROVIDERS: Nurse Practitioner Family; PCP Internal Medicine; Visit Provider Internal Medicine
DX: M54.5 Low back pain (principal)
CPT/HCPCS: 36415; 80053; 80076; 81001; 82248; 85025

== ENCOUNTER 2020-06-18 21:10 | Emergency (ER) | payer OTHER, SELFPAY ==
--- NOTE | ~2020-06-18 | CT_ITS ---
EXAMINATION: CT HEAD WITHOUT CONTRAST CLINICAL INFORMATION: Dizziness COMPARISON: 09/01/2016 TECHNIQUE: Contiguous axial imaging was performed from the skull base to vertex without intravenous administration of contrast. This CT examination was performed using dose optimization techniques as appropriate, variously including the following: *Automated exposure control *Adjustment of mA and/or kV according to patient size (this includes techniques or standardized protocols for targeted exams where dose is matched to indication/reason for exam; i.e. extremities or head) *Use of iterative reconstruction technique DLP: 780 mGy-cm FINDINGS: There is no evidence of acute intracranial hemorrhage or territorial infarction. No abnormal mass effect or midline shift is seen. Ambrosio to white matter differentiation is well preserved. No extra-axial fluid collections are identified. The ventricles are normal in size. There is no abnormal attenuation within the brain parenchyma. The osseous structures and soft tissues are normal. The mastoid air cells and visualized portions of the paranasal sinuses are well aerated. CT/CT head/brain wo con IMPRESSION: No acute intracranial pathology.
--- NOTE | ~2020-06-18 | XR_ITS ---
EXAMINATION: XR CHEST CLINICAL INFORMATION: Chest pain COMPARISON: None TECHNIQUE: 2 views of the chest were obtained. FINDINGS: No significant abnormality is noted involving the heart, lungs, mediastinum, bony thorax or soft tissues. XR/XR chest 2V IMPRESSION: Unremarkable chest exam
[2020-06-18 21:25] VITALS: BP 124/52; PULSE 80; RESP 16; TEMP 37.1; O2SAT 96; BMI 39.1
--- NOTE | 2020-06-18 21:33 | ECG_ITS ---
Test Reason : CHEST PRESSURE Blood Pressure : / mmHG Vent. Rate : 068 BPM Atrial Rate : 068 BPM P-R Int : 178 ms QRS Dur : 076 ms QT Int : 418 ms P-R-T Axes : 035 015 023 degrees QTc Int : 444 ms Normal sinus rhythm Normal ECG When compared with ECG of 19-AUG-2019 23:26, No significant change was found Referred By: Generic ED Physician Electronically Signed By:Prasad Delgado
[2020-06-18 21:49] LABS: MANUAL DIFF FLAG NO
[2020-06-18 21:50] LABS: Basophils Absolute Auto 0.1 X10*3/uL (0.0-0.2); Basophils Percent Auto 0.7 % (0-2); Eosinophils Absolute Auto 0.4 X10*3/uL (0.0-0.4); Eosinophils Percent Auto 5.3 % (0-4); Hemoglobin 12.3 g/dl (12.0-16.0); Imm Gran Abs Auto 0.01 X10*3/uL (0.00-0.03); Imm Gran Pct Auto 0.1 % (0.0-0.4); Lymphocytes Absolute Auto 2.9 X10*3/uL (1.2-4.9); Lymphocytes Percent Auto 41.9 % (20-40); Mean Corpuscular HGB Conc 35.1 g/dl (31.0-35.0); Mean Corpuscular Hemoglobin 25.7 pg (27.0-33.0); Mean Corpuscular Volume 73.1 fL (80-98); Mean Platelet Volume 10.6 fL (9.4-12.3); Monocytes Absolute Auto 0.5 X10*3/uL (0.1-1.2); Monocytes Percent Auto 6.6 % (2-11); Neutrophils Absolute Auto 3.2 X10*3/uL (2.0-8.3); Neutrophils Percent Auto 45.4 % (45-73); Platelet Count 357 X10*3/uL (160-400); Red Blood Count 4.79 X10*6/uL (4.20-5.50)
[2020-06-18 22:12] LABS: Anion Gap 12 (12-20); Blood Urea Nitrogen 8 mg/dL (9-16); Calcium 8.8 mg/dL (8.4-10.2); Carbon Dioxide 25 mmol/L (22-29); Chloride 102 mmol/L (96-108); Creatinine Clr Calc Pharmacy 117.9; Estimated Glomerular Filt Rate > 60; Glucose Random 253 mg/dL (60-115); Sodium 135 mmol/L (135-145)
[2020-06-18 22:20] LABS: COVID-19 Test Negative (Negative)
[2020-06-18 22:20] LABS: Troponin-I High Sensitivity < 3.5 ng/L (<3.5-17.0)
[2020-06-18 23:07] VITALS: BP 123/71; PULSE 72; RESP 18; O2SAT 98
--- NOTE | 2020-06-18 23:09 | PC.NURSE ---
pt denies headache but says she is dizzy. pt states she has had a ear ache in both ears yesterday pt states it was deep inside her ear.
[2020-06-18 23:57] LABS: B Type Natriuretic Peptide < 10 pg/mL (<100)
[2020-06-19 00:17] VITALS: BP 113/62; PULSE 74
[2020-06-19 00:18] VITALS: BP 129/72; PULSE 71
[2020-06-19 00:19] VITALS: BP 114/71; PULSE 77
[2020-06-19 00:20] VITALS: BP 114/71; PULSE 80; RESP 18; O2SAT 97
[2020-06-19 00:33] LABS: Glucose Urine UA 500 MG/DL (NEG); Leukocyte Esterase Urine NEG (NEG); Nitrite Urine NEG (NEG); Specific Gravity - Urine 1.025 (1.005-1.025); Urine Blood TRACE (NEG); Urine Ketones NEG (NEG); Urine Protein NEG (NEG-TRACE)
[2020-06-19 00:34] LABS: Appearance Urine CLEAR; Color Urine YELLOW
[2020-06-19 00:41] LABS: Mucus Urine 1+ /LPF; RBC Urine 0-2 /HPF (0); Squamous Epithelial Cell Urine 1+ /LPF; WBC Urine 0-2 /HPF (0-4)
--- NOTE | 2020-06-19 00:54 | ED_ITS ---
HPI - General Adult General Chief complaint: Headache <JASEN Block Last Filed: 06/19/20 01:20> Stated complaint: Chest pain <JASEN Block Last Filed: 06/19/20 01:20> Time Seen by Provider: 06/18/20 22:31 <JASEN Block Last Filed: 06/19/20 01:20> Source: patient <JASEN Block Last Filed: 06/19/20 01:20> Mode of arrival: ambulatory <JASEN Block Last Filed: 06/19/20 01:20> Limitations: no limitations <JASEN Block Last Filed: 06/19/20 01:20> History of Present Illness HPI narrative: 39-year-old female with a past medical history of hypertension, obesity, asthma, and depression presenting to the ED with complaints of intermittent dizziness, headaches and chest pain since yesterday. She reports this started when she was sitting at her desk drinking a coffee at work and she reports it subsided after a few hours. Then today while she was at work again she started feeling the symptoms of the dizziness, headache, intermittent chest pain therefore she came here for further evaluation and treatment. She reports she still has the dizziness although it has improved since earlier today. She admits to feeling short of breath with dyspnea on exertion and orthopnea. She admits to polyuria and polydipsia. She reports she also had a history of gestational diabetes. Denies any nausea/vomiting, cough, sore throat, paresthe estela, palpitations, abdominal pain, diarrhea, constipation, black or bloody stools, dysuria, hematuria, abnormal vaginal discharge, lower extremity edema or calf tenderness. Denies recent travel or sick contacts. Reports that she was recently vaccinated for COVID on Sunday with the pzifer vaccine and she believes it may be related to this. Patient denies any other symptoms complaints or concerns at this time. <JASEN Block Last Filed: 06/19/20 01:20> Related Data Home medications: Home Medications Medication Instructions Recorded Confirmed albuterol sulfate 90 mcg/actuation 90 mcg INHALATION Q4-6H PRN 11/19/19 06/24/20 aerosol inhaler ibuprofen 800 mg tablet 800 mg PO TID 12/25/19 06/24/20 multivitamin 1 tab PO DAILY 12/25/19 06/24/20 oxybutynin chloride 10 mg 10 mg PO DAILY 12/25/19 06/24/20 tablet,extended release 24 hr oxycodone-acetaminophen 5 mg-325 1 tab PO TID PRN 05/17/20 06/24/20 mg tablet Previous Rx's Medication Instructions Recorded tiotropium bromide 2.5 2 puff PO DAILY #4 ml 12/03/19 mcg/actuation mist for inhalation ferrous sulfate 325 mg PO DAILY #14 tab 12/05/19 cetirizine 10 mg tablet 10 mg PO DAILY 10 Days #10 tab 12/25/19 clotrimazole 2 % vaginal cream 1 appful VAGINAL BEDTIME 3 Days 02/09/20 #21 g bupropion HCl 150 mg 24 hr tablet, 150 mg PO QAM #30 tab 02/11/20 extended release montelukast 10 mg tablet 10 mg PO BEDTIME #30 tab 03/16/20 omeprazole 20 mg capsule,delayed 40 mg PO DAILY 90 Days #180 cap 04/12/20 release quetiapine 100 mg tablet 100 mg PO BEDTIME 30 Days #30 tab 05/24/20 metronidazole 0.75 % vaginal gel 1 appful VAGINAL BEDTIME 5 Days 05/25/20 #37.5 g ondansetron HCl [Zofran] 4 mg PO Q8H PRN #10 tab 06/07/20 alcohol swabs [Alcohol Prep Pads] 1 pad TOPICAL TID #200 ea 06/19/20 blood sugar diagnostic [FreeStyle #100 ea 06/19/20 Lite Strips] blood-glucose meter [FreeStyle #1 ea 06/19/20 Lite Meter] lancets [FreeStyle Lancets] #100 ea 06/19/20 metformin 500 mg PO BID #60 tab 06/19/20 polyethylene glycol 3350 17 17 g PO DAILY PRN 30 Days #510 g 06/20/20 gram/dose oral powder tizanidine 4 mg tablet 4 mg PO TID PRN 30 Days #90 tab 06/20/20 fluticasone propionate 50 2 spray INTRANASAL DAILY #16 ml 06/25/20 mcg/actuation nasal spray,suspension pantoprazole 40 mg tablet,delayed 40 mg PO DAILY #30 tab 07/09/20 release <JASEN Block - Last Filed: 06/19/20 01:20> Allergies/adverse reactions: Allergies Allergy/AdvReac Type Severity Reaction Status Date / Time gabapentin Allergy Unknown Tingling Verified 06/24/20 11:20 feeling in throat zolpidem [From AMBIEN] Allergy Unknown tingling Verified 06/24/20 11:20 feeling in throat <JASEN Block Last Filed: 06/19/20 01:20> Review of Systems Review of Systems: Constitutional : No Weight loss, No Fever, No Chills, No Night Sweats, No Fatigue, No Malaise ENT/Mouth : No Hearing loss, No Ear Pain, No Nasal Congestion, No Sinus Pain, No Hoarseness, No sore throat, No Rhinorrhea, No Swallowing Difficulty Eyes: No Eye Pain, No Swelling, No Redness, No Foreign Body, No Discharge, No Vision Changes Cardiovascular : Positive Chest Pain/shortness of breath/dyspnea on exertion/ orthopnea, No Edema, No Palpitations Respiratory : No Cough, No Sputum, No Wheezing, No Smoke Exposure, No Dyspnea Gastrointestinal : No Nausea, No Vomiting, No Diarrhea, No Constipation, No abdominal Pain, No Hematochezia, No Melena Genitourinary : no irregular bleeding, No Dysuria, No Urinary Frequency, No Hematuria, No Urinary Incontinence, No Urgency, No Flank Pain, No Urinary Flow Changes, No Hesitancy Musculoskeletal : No joint pain, No Myalgias, No Joint Swelling Skin : No Skin Lesions, No rash Neuro : Positive dizziness/headache, No Weakness, No Numbness, No Paresthesias, No Loss of Consciousness Psych : No Anxiety/Panic, No Depression, No SI/HI/AH/VH, No Social Issues, Heme/Lymph: No Bruising, No Bleeding,No Lymphadenopathy Endocrine : Positive polydipsia/polyuria, No Temperature Intolerance <JASEN Block Last Filed: 06/19/20 01:20> Yes all other systems are reviewed and are negative <JASEN Block Last Filed: 06/19/20 01:20> COUNT INCLUDES THE [facility] Past Medical History Attestation statement: The following information was validated with the patient. <JASEN Block Last Filed: 06/19/20 01:20> Medical History: Medical History Allergic rhinitis Anxiety Asthma Bilateral flank pain Depression Diabetes mellitus Dizziness GERD without esophagitis Hemorrhoid HTN (hypertension) Knee pain, bilateral Left ear pain Lower back pain Lumbar degenerative disc disease Menorrhagia Obesity (BMI 30-39.9) Pressure sensation in left ear UTI (urinary tract infection) Varicose veins of left lower extremity with pain <JASEN Block - Last Filed: 06/19/20 01:20> Surgical History: Surgical History H/O tubal ligation History of carpal tunnel surgery History of endometrial ablation History of hemorrhoidectomy <JASEN Block - Last Filed: 06/19/20 01:20> Family History Family History: Family History Father Diabetes Asthma Hepatitis Mother Diabetes Sleep apnea Ischemic cerebrovascular accident (CVA) Maternal Grandmother Diabetes Breast cancer Maternal Grandfather Stroke Paternal Grandfather Lung cancer <JASEN Block - Last Filed: 06/19/20 01:20> Social History Social History: Social History Alcohol intake: never Sexual orientation: Straight/Heterosexual Gender identity: female <JASEN Block - Last Filed: 06/19/20 01:20> Physical Exam Vital Signs: Vital Signs: Last Vital Signs Temp 98.8 F 06/18/20 21:25 Pulse 80 06/19/20 00:20 Resp 18 06/19/20 00:20 BP 114/71 06/19/20 00:20 Pulse Ox 97 06/19/20 00:20 Body Mass Index 39.1 Vital signs have been reviewed as normal and appeared to be correct. Blood pressure normal. Heart rate normal. Respiration rate normal. Temperature normal. Oxygen saturation normal. <JASEN Block - Last Filed: 06/19/20 01:20> Vital Signs: Last Vital Signs Temp 98.8 F 06/18/20 21:25 Pulse 80 06/19/20 00:20 Resp 18 06/19/20 00:20 BP 114/71 06/19/20 00:20 Pulse Ox 97 06/19/20 00:20 Body Mass Index 39.1 <Thomas Mcmanus MD - Last Filed: 07/14/20 11:38> Appearance: Alert. Oriented X3. No acute distress. Head: Normal external exam. Normocephalic. Atraumatic. Able to rotate head bilaterally. Eyes: PERRLA. EOMI. No nystagmus noted. Conjunctiva and sclera normal. Eyelids normal. Corneal reflex normal. ENT: EAC normal. TM's Normal. Hearing normal. Pharynx normal. Uvula midline. tongue midline. Moist mucous membranes. No trismus noted. No drooling noted. No muffled voice noted. No nystagmus noted. Neck: Normal inspection. Neck supple. FROM. No adenopathy. Trachea midline. Thyroid Normal. No meningeal signs. No neck mass noted. CVS: Normal heart rate and rhythm. Heart sound normal. No murmurs noted. Pulses normal throughout. Respiratory: No respiratory distress. Painless inspiration. Breath sounds normal. No wheezes/rales/rhonchi noted. Chest nontender. No accessory muscle usage noted or decreased air movement noted. Abdomen: Soft and nontender. Bowel sounds normal in all 4 quadrants. No distention noted. No organomegaly noted. No visible injury noted. Back: No CVA tenderness. Full range of motion noted. Skin: Skin warm and dry. Normal skin color. Normal skin turgor. No rashes/lesions/lacerations noted. Extremities: No lower extremity edema. Extremities exhibit normal range of motion. Extremities nontender. Able to shrug shoulders bilaterally and keep up against resistance. Neuro: Oriented X 3. No motor deficit. No sensory deficit. Reflexes normal. Moving all extremities. No focal motor deficits. Cranial nerves II-XI intact bilaterally. Facial strength normal. Normal cognition. Speech normal. Gait normal. Strength 5/5 throughout. No pronator drift. No tremor noted. No fasciculations noted. No rigidity noted. Muscle tone normal throughout. No asterixis noted. Qbbgix-[id number] test normal. Heel to herman test normal. Tandem gait normal. Does not sway with eyes open. Romberg test negative. Rapid alternating movement upper extremity normal. Rapid alternating movement lower extremity normal. Hand drop from overhead Misses face. NIHSS score 0. <JASEN Block - Last Filed: 06/19/20 01:20> Course Course Course Narrative: 1:20am - 39-year-old female presenting to the ED with multiple complaints which include intermittent dizziness, headaches and chest pain that started yesterday. She also admits to shortness of breath/dyspnea on exertion/orthopnea, polyuria and polydipsia. - labs obtained and patient has an elevated glucose level at 02:53. An A1c le nilsa of 7.0 with an average glucose of 154. All other labs including troponin and BNP negative. UA revealed 500 of glucose otherwise no evidence of UTI. Chest x-ray is negative for any acute processes. EKG is normal sinus rhythm and similar when compared to prior EKG no acute ischemic change noted. Patient COVID swab negative. CT scan of brain negative. - therefore at this time patient was educated on new onset of diabetes and how to check her glucose levels at least 3 times a day especially before meals. We will start the patient on metformin b.i.d. and she is instructed to follow-up wi th her primary care provider she understands this and agrees with the plan. <JASEN Block - Last Filed: 06/19/20 01:20> I have reviewed the chart <Thmoas Mcmanus MD - Last Filed: 07/14/20 11:38> Medical Decision Making Medical Records Medical records reviewed: Yes I reviewed the patient's medical records. <JASEN Block - Last Filed: 06/19/20 01:20> Lab Data Result diagrams: : 06/18/20 21:42 06/18/20 21:42 <JASEN Block - Last Filed: 06/19/20 01:20> Labs: Lab Results 06/18/20 06/18/20 06/18/20 Range/Units 21:33 21:42 21:42 WBC 7.0 (4.8-10.8) X10*3/uL RBC 4.79 (4.20-5.50) X10*6/uL Hgb 12.3 (12.0-16.0) g/dl Hct 35.0 L (37-47) % MCV 73.1 L (80-98) fL MCH 25.7 L (27.0-33.0) pg MCHC 35.1 H (31.0-35.0) g/dl RDW 14.0 (11.0-16.0) % Plt Count 357 (160-400) X10*3/uL MPV 10.6 (9.4-12.3) fL Immature Gran % (Auto) 0.1 (0.0-0.4) % Neut % (Auto) 45.4 (45-73) % Lymph % (Auto) 41.9 H (20-40) % [place] % (Auto) 6.6 (2-11) % Eos % (Auto) 5.3 H (0-4) % Baso % (Auto) 0.7 (0-2) % Lymph # (Auto) 2.9 (1.2-4.9) X10*3/uL [place] # (Auto) 0.5 (0.1-1.2) X10*3/uL Eos # (Auto) 0.4 (0.0-0.4) X10*3/uL Baso # (Auto) 0.1 (0.0-0.2) X10*3/uL Abs Immat Gran (auto) 0.01 (0.00-0.03) X10*3/uL Absolute Neuts (auto) 3.2 (2.0-8.3) X10*3/uL Absolute Nucleated RBC 0.000 (0.0-0.012) X10*3/uL Nucleated RBC % (auto) 0.0 (0.0-0.2) /100WBC Hold Blue Top Sodium 135 (135-145) mmol/L Potassium 4.0 (3.3-5.1) mmol/L Chloride 102 (96-108) mmol/L Carbon Dioxide 25 (22-29) mmol/L Anion Gap 12 (12-20) BUN 8 L (9-16) mg/dL Creatinine 0.75 (0.5-1.4) mg/dL Estim Creat Clear Calc 117.9 Estimated GFR > 60 POC Glucose (60-115) mg/dL Random Glucose 253 H D (60-115) mg/dL Estimat Average Glucose mg/dL Hemoglobin A1c % % Calcium 8.8 D (8.4-10.2) mg/dL Troponin I High Sens (<3.5-17.0) ng/L B-Natriuretic Peptide (<100) pg/mL Urine Color Urine Appearance Urine pH (5.0-8.0) Ur Specific [place] (1.005-1.025) Urine Protein (NEG-TRACE) MG/DL Urine Glucose (UA) (NEG) MG/DL Urine Ketones (NEG) MG/DL Urine Blood (NEG) Urine Nitrite (NEG) Ur Leukocyte Esterase (NEG) Urine RBC (0) /HPF Urine WBC (0-4) /HPF Ur Squamous Epith Cells /LPF Urine Bacteria /LPF Urine Mucus /LPF Urine Test (NEGATIVE) COVID-19 (MARAL) Negative (Negative) COVID-19 Clin Com See Note 06/18/20 06/18/20 06/18/20 Range/Units 21:42 21:42 21:42 WBC (4.8-10.8) X10*3/uL RBC (4.20-5.50) X10*6/uL Hgb (12.0-16.0) g/dl Hct (37-47) % MCV (80-98) fL MCH (27.0-33.0) pg MCHC (31.0-35.0) g/dl RDW (11.0-16.0) % Plt Count (160-400) X10*3/uL MPV (9.4-12.3) fL Immature Gran % (Auto) (0.0-0.4) % Neut % (Auto) (45-73) % Lymph % (Auto) (20-40) % [place] % (Auto) (2-11) % Eos % (Auto) (0-4) % Baso % (Auto) (0-2) % Lymph # (Auto) (1.2-4.9) X10*3/uL [place] # (Auto) (0.1-1.2) X10*3/uL Eos # (Auto) (0.0-0.4) X10*3/uL Baso # (Auto) (0.0-0.2) X10*3/uL Abs Immat Gran (auto) (0.00-0.03) X10*3/uL Absolute Neuts (auto) (2.0-8.3) X10*3/uL Absolute Nucleated RBC (0.0-0.012) X10*3/uL Nucleated RBC % (auto) (0.0-0.2) /100WBC Hold Blue Top SEE NOTE Sodium (135-145) mmol/L Potassium (3.3-5.1) mmol/L Chloride (96-108) mmol/L Carbon Dioxide (22-29) mmol/L Anion Gap (12-20) BUN (9-16) mg/dL Creatinine (0.5-1.4) mg/dL Estim Creat Clear Calc Estimated GFR POC Glucose (60-115) mg/dL Random Glucose (60-115) mg/dL Estimat Average Glucose 154 mg/dL Hemoglobin A1c % 7.0 % Calcium (8.4-10.2) mg/dL Troponin I High Sens < 3.5 (<3.5-17.0) ng/L B-Natriuretic Peptide < 10 (<100) pg/mL Urine Color Urine Appearance Urine pH (5.0-8.0) Ur Specific [place] (1.005-1.025) Urine Protein (NEG-TRACE) MG/DL Urine Glucose (UA) (NEG) MG/DL Urine Ketones (NEG) MG/DL Urine Blood (NEG) Urine Nitrite (NEG) Ur Leukocyte Esterase (NEG) Urine RBC (0) /HPF Urine WBC (0-4) /HPF Ur Squamous Epith Cells /LPF Urine Bacteria /LPF Urine Mucus /LPF Urine Test (NEGATIVE) COVID-19 (MARAL) (Negative) COVID-19 Clin Com 06/18/20 06/19/20 06/19/20 Range/Units 21:42 00:25 00:25 WBC (4.8-10.8) X10*3/uL RBC (4.20-5.50) X10*6/uL Hgb (12.0-16.0) g/dl Hct (37-47) % MCV (80-98) fL MCH (27.0-33.0) pg MCHC (31.0-35.0) g/dl RDW (11.0-16.0) % Plt Count (160-400) X10*3/uL MPV (9.4-12.3) fL Immature Gran % (Auto) (0.0-0.4) % Neut % (Auto) (45-73) % Lymph % (Auto) (20-40) % [place] % (Auto) (2-11) % Eos % (Auto) (0-4) % Baso % (Auto) (0-2) % Lymph # (Auto) (1.2-4.9) X10*3/uL [place] # (Auto) (0.1-1.2) X10*3/uL Eos # (Auto) (0.0-0.4) X10*3/uL Baso # (Auto) (0.0-0.2) X10*3/uL Abs Immat Gran (auto) (0.00-0.03) X10*3/uL Absolute Neuts (auto) (2.0-8.3) X10*3/uL Absolute Nucleated RBC (0.0-0.012) X10*3/uL Nucleated RBC % (auto) (0.0-0.2) /100WBC Hold Blue Top Sodium (135-145) mmol/L Potassium (3.3-5.1) mmol/L Chloride (96-108) mmol/L Carbon Dioxide (22-29) mmol/L Anion Gap (12-20) BUN (9-16) mg/dL Creatinine (0.5-1.4) mg/dL Estim Creat Clear Calc Estimated GFR POC Glucose (60-115) mg/dL Random Glucose (60-115) mg/dL Estimat Average Glucose mg/dL Hemoglobin A1c % % Calcium (8.4-10.2) mg/dL Troponin I High Sens (<3.5-17.0) ng/L B-Natriuretic Peptide Cancelled (<100) pg/mL Urine Color YELLOW Urine Appearance CLEAR Urine pH 6.0 (5.0-8.0) Ur Specific [place] 1.025 (1.005-1.025) Urine Protein NEG (NEG-TRACE) MG/DL Urine Glucose (UA) 500 H (NEG) MG/DL Urine Ketones NEG (NEG) MG/DL Urine Blood TRACE (NEG) Urine Nitrite NEG (NEG) Ur Leukocyte Esterase NEG (NEG) Urine RBC 0-2 (0) /HPF Urine WBC 0-2 (0-4) /HPF Ur Squamous Epith Cells 1+ /LPF Urine Bacteria NONE /LPF Urine Mucus 1+ /LPF Urine Test NEGATIVE (NEGATIVE) COVID-19 (MARAL) (Negative) COVID-19 Clin Com 06/19/20 Range/Units 01:10 WBC (4.8-10.8) X10*3/uL RBC (4.20-5.50) X10*6/uL Hgb (12.0-16.0) g/dl Hct (37-47) % MCV (80-98) fL MCH (27.0-33.0) pg MCHC (31.0-35.0) g/dl RDW (11.0-16.0) % Plt Count (160-400) X10*3/uL MPV (9.4-12.3) fL Immature Gran % (Auto) (0.0-0.4) % Neut % (Auto) (45-73) % Lymph % (Auto) (20-40) % [place] % (Auto) (2-11) % Eos % (Auto) (0-4) % Baso % (Auto) (0-2) % Lymph # (Auto) (1.2-4.9) X10*3/uL [place] # (Auto) (0.1-1.2) X10*3/uL Eos # (Auto) (0.0-0.4) X10*3/uL Baso # (Auto) (0.0-0.2) X10*3/uL Abs Immat Gran (auto) (0.00-0.03) X10*3/uL Absolute Neuts (auto) (2.0-8.3) X10*3/uL Absolute Nucleated RBC (0.0-0.012) X10*3/uL Nucleated RBC % (auto) (0.0-0.2) /100WBC Hold Blue Top Sodium (135-145) mmol/L Potassium (3.3-5.1) mmol/L Chloride (96-108) mmol/L Carbon Dioxide (22-29) mmol/L Anion Gap (12-20) BUN (9-16) mg/dL Creatinine (0.5-1.4) mg/dL Estim Creat Clear Calc Estimated GFR POC Glucose 225 H (60-115) mg/dL Random Glucose (60-115) mg/dL Estimat Average Glucose mg/dL Hemoglobin A1c % % Calcium (8.4-10.2) mg/dL Troponin I High Sens (<3.5-17.0) ng/L B-Natriuretic Peptide (<100) pg/mL Urine Color Urine Appearance Urine pH (5.0-8.0) Ur Specific [place] (1.005-1.025) Urine Protein (NEG-TRACE) MG/DL Urine Glucose (UA) (NEG) MG/DL Urine Ketones (NEG) MG/DL Urine Blood (NEG) Urine Nitrite (NEG) Ur Leukocyte Esterase (NEG) Urine RBC (0) /HPF Urine WBC (0-4) /HPF Ur Squamous Epith Cells /LPF Urine Bacteria /LPF Urine Mucus /LPF Urine Test (NEGATIVE) COVID-19 (MARAL) (Negative) COVID-19 Clin Com <JASEN Block - Last Filed: 06/19/20 01:20> Lab Results 06/18/20 06/18/20 06/18/20 Range/Units 21:33 21:42 21:42 WBC 7.0 (4.8-10.8) X10*3/uL RBC 4.79 (4.20-5.50) X10*6/uL Hgb 12.3 (12.0-16.0) g/dl Hct 35.0 L (37-47) % MCV 73.1 L (80-98) fL MCH 25.7 L (27.0-33.0) pg MCHC 35.1 H (31.0-35.0) g/dl RDW 14.0 (11.0-16.0) % Plt Count 357 (160-400) X10*3/uL MPV 10.6 (9.4-12.3) fL Immature Gran % (Auto) 0.1 (0.0-0.4) % Neut % (Auto) 45.4 (45-73) % Lymph % (Auto) 41.9 H (20-40) % [place] % (Auto) 6.6 (2-11) % Eos % (Auto) 5.3 H (0-4) % Baso % (Auto) 0.7 (0-2) % Lymph # (Auto) 2.9 (1.2-4.9) X10*3/uL [place] # (Auto) 0.5 (0.1-1.2) X10*3/uL Eos # (Auto) 0.4 (0.0-0.4) X10*3/uL Baso # (Auto) 0.1 (0.0-0.2) X10*3/uL Abs Immat Gran (auto) 0.01 (0.00-0.03) X10*3/uL Absolute Neuts (auto) 3.2 (2.0-8.3) X10*3/uL Absolute Nucleated RBC 0.000 (0.0-0.012) X10*3/uL Nucleated RBC % (auto) 0.0 (0.0-0.2) /100WBC Hold Blue Top Sodium 135 (135-145) mmol/L Potassium 4.0 (3.3-5.1) mmol/L Chloride 102 (96-108) mmol/L Carbon Dioxide 25 (22-29) mmol/L Anion Gap 12 (12-20) BUN 8 L (9-16) mg/dL Creatinine 0.75 (0.5-1.4) mg/dL Estim Creat Clear Calc 117.9 Estimated GFR > 60 POC Glucose (60-115) mg/dL Random Glucose 253 H D (60-115) mg/dL Estimat Average Glucose mg/dL Hemoglobin A1c % % Calcium 8.8 D (8.4-10.2) mg/dL Troponin I High Sens (<3.5-17.0) ng/L B-Natriuretic Peptide (<100) pg/mL Urine Color Urine Appearance Urine pH (5.0-8.0) Ur Specific [place] (1.005-1.025) Urine Protein (NEG-TRACE) MG/DL Urine Glucose (UA) (NEG) MG/DL Urine Ketones (NEG) MG/DL Urine Blood (NEG) Urine Nitrite (NEG) Ur Leukocyte Esterase (NEG) Urine RBC (0) /HPF Urine WBC (0-4) /HPF Ur Squamous Epith Cells /LPF Urine Bacteria /LPF Urine Mucus /LPF Urine Test (NEGATIVE) COVID-19 ([facility]AL) Negative (Negative) COVID-19 Clin Com See Note 06/18/20 06/18/20 06/18/20 Range/Units 21:42 21:42 21:42 WBC (4.8-10.8) X10*3/uL RBC (4.20-5.50) X10*6/uL Hgb (12.0-16.0) g/dl Hct (37-47) % MCV (80-98) fL MCH (27.0-33.0) pg MCHC (31.0-35.0) g/dl RDW (11.0-16.0) % Plt Count (160-400) X10*3/uL MPV (9.4-12.3) fL Immature Gran % (Auto) (0.0-0.4) % Neut % (Auto) (45-73) % Lymph % (Auto) (20-40) % [place] % (Auto) (2-11) % Eos % (Auto) (0-4) % Baso % (Auto) (0-2) % Lymph # (Auto) (1.2-4.9) X10*3/uL [place] # (Auto) (0.1-1.2) X10*3/uL Eos # (Auto) (0.0-0.4) X10*3/uL Baso # (Auto) (0.0-0.2) X10*3/uL Abs Immat Gran (auto) (0.00-0.03) X10*3/uL Absolute Neuts (auto) (2.0-8.3) X10*3/uL Absolute Nucleated RBC (0.0-0.012) X10*3/uL Nucleated RBC % (auto) (0.0-0.2) /100WBC Hold Blue Top SEE NOTE Sodium (135-145) mmol/L Potassium (3.3-5.1) mmol/L Chloride (96-108) mmol/L Carbon Dioxide (22-29) mmol/L Anion Gap (12-20) BUN (9-16) mg/dL Creatinine (0.5-1.4) mg/dL Estim Creat Clear Calc Estimated GFR POC Glucose (60-115) mg/dL Random Glucose (60-115) mg/dL Estimat Average Glucose 154 mg/dL Hemoglobin A1c % 7.0 % Calcium (8.4-10.2) mg/dL Troponin I High Sens < 3.5 (<3.5-17.0) ng/L B-Natriuretic Peptide < 10 (<100) pg/mL Urine Color Urine Appearance Urine pH (5.0-8.0) Ur Specific [place] (1.005-1.025) Urine Protein (NEG-TRACE) MG/DL Urine Glucose (UA) (NEG) MG/DL Urine Ketones (NEG) MG/DL Urine Blood (NEG) Urine Nitrite (NEG) Ur Leukocyte Esterase (NEG) Urine RBC (0) /HPF Urine WBC (0-4) /HPF Ur Squamous Epith Cells /LPF Urine Bacteria /LPF Urine Mucus /LPF Urine Test (NEGATIVE) COVID-19 ([facility]AL) (Negative) COVID-19 Clin Com 06/18/20 06/19/20 06/19/20 Range/Units 21:42 00:25 00:25 WBC (4.8-10.8) X10*3/uL RBC (4.20-5.50) X10*6/uL Hgb (12.0-16.0) g/dl Hct (37-47) % MCV (80-98) fL MCH (27.0-33.0) pg MCHC (31.0-35.0) g/dl RDW (11.0-16.0) % Plt Count (160-400) X10*3/uL MPV (9.4-12.3) fL Immature Gran % (Auto) (0.0-0.4) % Neut % (Auto) (45-73) % Lymph % (Auto) (20-40) % [place] % (Auto) (2-11) % Eos % (Auto) (0-4) % Baso % (Auto) (0-2) % Lymph # (Auto) (1.2-4.9) X10*3/uL [place] # (Auto) (0.1-1.2) X10*3/uL Eos # (Auto) (0.0-0.4) X10*3/uL Baso # (Auto) (0.0-0.2) X10*3/uL Abs Immat Gran (auto) (0.00-0.03) X10*3/uL Absolute Neuts (auto) (2.0-8.3) X10*3/uL Absolute Nucleated RBC (0.0-0.012) X10*3/uL Nucleated RBC % (auto) (0.0-0.2) /100WBC Hold Blue Top Sodium (135-145) mmol/L Potassium (3.3-5.1) mmol/L Chloride (96-108) mmol/L Carbon Dioxide (22-29) mmol/L Anion Gap (12-20) BUN (9-16) mg/dL Creatinine (0.5-1.4) mg/dL Estim Creat Clear Calc Estimated GFR POC Glucose (60-115) mg/dL Random Glucose (60-115) mg/dL Estimat Average Glucose mg/dL Hemoglobin A1c % % Calcium (8.4-10.2) mg/dL Troponin I High Sens (<3.5-17.0) ng/L B-Natriuretic Peptide Cancelled (<100) pg/mL Urine Color YELLOW Urine Appearance CLEAR Urine pH 6.0 (5.0-8.0) Ur Specific [place] 1.025 (1.005-1.025) Urine Protein NEG (NEG-TRACE) MG/DL Urine Glucose (UA) 500 H (NEG) MG/DL Urine Ketones NEG (NEG) MG/DL Urine Blood TRACE (NEG) Urine Nitrite NEG (NEG) Ur Leukocyte Esterase NEG (NEG) Urine RBC 0-2 (0) /HPF Urine WBC 0-2 (0-4) /HPF Ur Squamous Epith Cells 1+ /LPF Urine Bacteria NONE /LPF Urine Mucus 1+ /LPF Urine Test NEGATIVE (NEGATIVE) COVID-19 ([facility]) (Negative) COVID-19 Clin Com 06/19/20 Range/Units 01:10 WBC (4.8-10.8) X10*3/uL RBC (4.20-5.50) X10*6/uL Hgb (12.0-16.0) g/dl Hct (37-47) % MCV (80-98) fL MCH (27.0-33.0) pg MCHC (31.0-35.0) g/dl RDW (11.0-16.0) % Plt Count (160-400) X10*3/uL MPV (9.4-12.3) fL Immature Gran % (Auto) (0.0-0.4) % Neut % (Auto) (45-73) % Lymph % (Auto) (20-40) % [place] % (Auto) (2-11) % Eos % (Auto) (0-4) % Baso % (Auto) (0-2) % Lymph # (Auto) (1.2-4.9) X10*3/uL [place] # (Auto) (0.1-1.2) X10*3/uL Eos # (Auto) (0.0-0.4) X10*3/uL Baso # (Auto) (0.0-0.2) X10*3/uL Abs Immat Gran (auto) (0.00-0.03) X10*3/uL Absolute Neuts (auto) (2.0-8.3) X10*3/uL Absolute Nucleated RBC (0.0-0.012) X10*3/uL Nucleated RBC % (auto) (0.0-0.2) /100WBC Hold Blue Top Sodium (135-145) mmol/L Potassium (3.3-5.1) mmol/L Chloride (96-108) mmol/L Carbon Dioxide (22-29) mmol/L Anion Gap (12-20) BUN (9-16) mg/dL Creatinine (0.5-1.4) mg/dL Estim Creat Clear Calc Estimated GFR POC Glucose 225 H (60-115) mg/dL Random Glucose (60-115) mg/dL Estimat Average Glucose mg/dL Hemoglobin A1c % % Calcium (8.4-10.2) mg/dL Troponin I High Sens (<3.5-17.0) ng/L B-Natriuretic Peptide (<100) pg/mL Urine Color Urine Appearance Urine pH (5.0-8.0) Ur Specific [place] (1.005-1.025) Urine Protein (NEG-TRACE) MG/DL Urine Glucose (UA) (NEG) MG/DL Urine Ketones (NEG) MG/DL Urine Blood (NEG) Urine Nitrite (NEG) Ur Leukocyte Esterase (NEG) Urine RBC (0) /HPF Urine WBC (0-4) /HPF Ur Squamous Epith Cells /LPF Urine Bacteria /LPF Urine Mucus /LPF Urine Test (NEGATIVE) COVID-19 ([facility]) (Negative) COVID-19 Clin Com <Thomas Mcmanus MD - Last Filed: 07/14/20 11:38> Imaging Data Chest x-ray: Attestation: I personally reviewed and interpreted this imaging study as follows: <JASEN Block - Last Filed: 06/19/20 01:20> Radiologist's impression: FINDINGS: No significant abnormality is noted involving the heart, lungs, mediastinum, bony thorax or soft tissues. XR/XR chest 2V IMPRESSION: Unremarkable chest exam <JASEN Block Last Filed: 06/19/20 01:20> ECG Data Attestation: I personally reviewed and interpreted this ECG as follows: <JASEN Block Last Filed: 06/19/20 01:20> Interpretation: Normal sinus rhythm with ventricular rate of 69 with a normal CO interval normal QRS duration normal QT/QTC interval. No acute ischemic changes are noted. Similar when compared to prior EKG 08/19/2019. <JASEN Block Last Filed: 06/19/20 01:20> Critical Care Time Critical Care Time Critical Care Time: Yes <JASEN Block Last Filed: 06/19/20 01:20> Total Critical Care Time: 60 <JASEN Block Last Filed: 06/19/20 01:20> Attestation: I personally attest to this time spent taking care of the patient <JASEN Block Last Filed: 06/19/20 01:20> Discharge Plan Discharge Clinical Impression: Diabetes mellitus, new onset <JASEN Block Last Filed: 06/19/20 01:20> Patient Disposition: Home, Self-Care <JASEN Block Last Filed: 06/19/20 01:20> Instructions: Type 2 Diabetes in Adults: New Diagnosis (ED) <JASEN Block Last Filed: 06/19/20 01:20> Prescriptions: New metformin 500 mg tablet 500 mg PO BID Qty: 60 RF: 0 (DME) blood-glucose meter [FreeStyle Lite Meter] Kit See Rx Instructions .ROUTE .MEDSUPPLY Qty: 1 RF: 0 (DME) FreeStyle Lite Strips Strip See Rx Instructions .ROUTE .MEDSUPPLY Qty: 100 RF: 0 (DME) lancets [FreeStyle Lancets] 28 gauge misc See Rx Instructions .ROUTE .MEDSUPPLY Qty: 100 RF: 0 alcohol swabs [Alcohol Prep Pads] Pads, Medicated 1 pad topical TID Qty: 200 RF: 0 No Action tiotropium bromide [Spiriva Respimat] 2.5 mcg/actuation mist 2 puff PO DAILY Qty: 4 RF: 5 bupropion HCl 150 mg tablet extended release 24 hr 150 mg PO QAM Qty: 30 RF: 3 montelukast 10 mg tablet 10 mg PO BEDTIME Qty: 30 RF: 5 omeprazole 20 mg capsule,delayed release(DR/EC) 40 mg PO DAILY 90 Days Qty: 180 RF: 0 oxycodone-acetaminophen 5-325 mg tablet 1 tab PO TID PRNRF: 0 quetiapine 100 mg tablet 100 mg PO BEDTIME 30 Days Qty: 30 RF: 1 polyethylene glycol 3350 17 gram/dose powder 17 g PO DAILY PRN (Reason: constipation) 30 Days Qty: 510 RF: 5 tizanidine 4 mg tablet 4 mg PO TID PRN (Reason: muscle spasticity) 30 Days Qty: 90 RF: 1 fluticasone propionate 50 mcg/actuation spray,suspension 2 spray intranasal DAILY Qty: 16 RF: 0 pantoprazole 40 mg tablet,delayed release (DR/EC) 40 mg PO DAILY Qty: 30 RF: 1 ferrous sulfate 325 mg (65 mg iron) tablet 325 mg PO DAILY Qty: 14 RF: 0 ondansetron HCl [Zofran] 4 mg tablet 4 mg PO Q8H PRN (Reason: nausea and vomiting) Qty: 10 RF: 0 multivitamin Tablet 1 tab PO DAILY RF: 0 ibuprofen 800 mg tablet 800 mg PO TID RF: 0 oxybutynin chloride 10 mg tablet extended release 24hr 10 mg PO DAILY RF: 0 cetirizine [Zyrtec] 10 mg tablet 10 mg PO DAILY 10 Days Qty: 10 RF: 0 clotrimazole 2 % cream 1 appful vaginal BEDTIME 3 Days Qty: 21 RF: 0 albuterol sulfate 90 mcg/actuation HFA aerosol inhaler 90 mcg inhalation Q4-6H PRN (Reason: Shortness Of Breath Or Wheezing) RF: 0 metronidazole 0.75 % gel 1 appful vaginal BEDTIME 5 Days Qty: 37.5 RF: 0 JASEN Wick - Last Filed: 06/19/20 01:20> Referrals: Kurt Arroyo MD [Primary Care Provider] - 2 days (New onset diabetes needs follow-up started on metformin) <JASEN Block - Last Filed: 06/19/20 01:20> Stand Alone Forms: Work/School Release <JASEN Block - Last Filed: 06/19/20 01:20> Interventions: ED Discharge Assessment Last Done: 06/19/20 01:36 <JASEN Block - Last Filed: 06/19/20 01:20> Discharge Date/Time: 06/19/20 01:38 <JASEN Block - Last Filed: 06/19/20 01:20> Print Language: Iraqi <JASEN Block - Last Filed: 06/19/20 01:20>
[2020-06-19 00:59] LABS: Estimated Average Glucose 154 mg/dL
[2020-06-19] MEDS: Acetaminophen 325 MG TABLET 975 MG PO (01:10)
--- NOTE | 2020-06-19 01:13 | PC.NURSE ---
welfare supervisor called for metphormin. not available in our pxysis
[2020-06-19 01:14] LABS: Glucose, Whole Blood 225 mg/dL (60-115)
[2020-06-19 01:28] LABS: UPreg QC Valid YES; Urine Pregnancy NEGATIVE (NEGATIVE)
[2020-06-19] MEDS: metFORMIN HCl ER 500 MG TAB.ER.24H PO (01:29)
== END 2020-06-19 01:38 | disposition home or self-care (01) ==
PROVIDERS: Physician Assistant Medical; Emergency Provider Emergency Medicine; PCP Internal Medicine
DX: E11.9 Type 2 diabetes mellitus without complications (principal); R06.00 Dyspnea, unspecified; R07.9 Chest pain, unspecified; Z79.899 Other long term (current) drug therapy; Z20.822 Contact with and (suspected) exposure to COVID-19
CPT/HCPCS: 36415; 70450; 71046; 80048; 81001; 81025; 82947; 83036; 83880; 84484; 85025; 87635; 93005; 99285

== ENCOUNTER 2020-06-24 14:17 | Outpatient (REF) | payer OTHER, SELFPAY ==
--- NOTE | ~2020-06-24 | MM_ITS ---
EXAMINATION: MM SCREENING DIGITAL BREAST TOMOSYNTHESIS, BILATERAL CLINICAL INFORMATION: Screening. Asymptomatic. The lifetime risk of breast cancer based on the Tyrer-Cuzick Model is 13%. COMPARISON: Mammography: 02/26/2019, 10/25/2015 TECHNIQUE: Digital breast tomosynthesis is performed in both the craniocaudal and mediolateral oblique views along with computer-aided detection (CAD). Synthesized 2D images are generated from the tomosynthesis. FINDINGS: There are scattered areas of fibroglandular density (ACR BI-RADS breast composition Category b). There are no significant masses, abnormal calcifications, or other abnormalities. Parenchymal pattern is similar to prior studies. The axilla and skin contours are unremarkable. MM/MM tomosynthesis screening BI IMPRESSION: No mammographic evidence of malignancy. ASSESSMENT: BI-RADS 1: Negative RECOMMENDATION: Routine annual mammography screening. This patient's information was entered into a reminder system with a target due date for their next mammogram.
== END 2020-06-24 14:18 | disposition home or self-care (01) ==
LOC: HO.MAMMO 14:17
PROVIDERS: Visit Provider Internal Medicine
DX: Z12.31 Encounter for screening mammogram for malignant neoplasm of breast (principal)
CPT/HCPCS: 77063; 77067

== ENCOUNTER 2020-06-27 22:51 | Emergency (ER) | payer OTHER, SELFPAY ==
[2020-06-27 23:31] VITALS: BP 145/83; PULSE 74; RESP 18; TEMP 37.1; O2SAT 97; BMI 39.4
== END 2020-06-27 23:51 | disposition left against medical advice (07) ==
PROVIDERS: Emergency Provider Emergency Medicine; PCP Internal Medicine
DX: R51.9 Headache, unspecified (principal)
CPT/HCPCS: 99282

== ENCOUNTER 2020-08-06 09:18 | Outpatient (REF) | payer OTHER, SELFPAY ==
--- NOTE | ~2020-08-06 | FL_ITS ---
EXAMINATION: XR GI SERIES CLINICAL INFORMATION: Gastroesophageal reflux disease without esophagitis. COMPARISON: None TECHNIQUE: Routine upper GI contrast study was performed. FINDINGS: Following oral administration of thick barium and effervescent granules, there is normal propagation bolus from the oral cavity through the pharynx, esophagus into stomach without any evidence of obstruction, narrowing, or stricture. On placing patient supine and prone, there is increased gastric secretions. No evidence of gastric or duodenal ulceration or erosions. The C-loop appears unremarkable. There is moderate gastroesophageal reflux seen. no hiatal hernia noted. FLUOROSCOPY TIME: 1.6 minutes DOSE AREA PRODUCT: 42.044 uGy-m2 (microgray-meter squared) FL/FL upper GI series IMPRESSION: Increased gastric secretions with moderate gastroesophageal reflux.
== END 2020-08-06 09:19 | disposition home or self-care (01) ==
LOC: HO.XRAY 09:18
PROVIDERS: PCP Internal Medicine; Visit Provider Internal Medicine
DX: K21.9 Gastro-esophageal reflux disease without esophagitis (principal)
CPT/HCPCS: 74240

== ENCOUNTER 2020-09-06 10:24 | Emergency (ER) | payer OTHER, SELFPAY ==
[2020-09-06 11:16] VITALS: BP 133/79; PULSE 71; RESP 18; TEMP 36.7; O2SAT 97; BMI 38.0
--- NOTE | 2020-09-06 13:12 | ED.GENADULT ---
HPI - General Adult General Chief complaint: General Medical Stated complaint: multiple complaints Time Seen by Provider: 09/06/20 13:11 Source: patient Mode of arrival: ambulatory Limitations: no limitations History of Present Illness HPI narrative: 40-year-old female came in for evaluation of being dizzy. This is a 40-year-old female felt dizzy (room spinning) while she was at work, symptoms was associated with nausea, and palpitation. Symptoms lasted for few minutes then mostly resolved except for mild dizziness now. Somebody checked her blood pressure at work was 150/100, stated that she has been having her menstruation for the past 6 weeks using many pads a day. Patient declined any chest pain or shortness of breath. Patient also declined being today. Related Data Home Medications Medication Instructions Recorded Confirmed albuterol sulfate 90 mcg/actuation 90 mcg INHALATION Q4-6H PRN 11/19/19 07/14/20 aerosol inhaler ibuprofen 800 mg tablet 800 mg PO TID 12/25/19 07/14/20 multivitamin 1 tab PO DAILY 12/25/19 07/14/20 oxybutynin chloride 10 mg 10 mg PO DAILY 12/25/19 07/14/20 tablet,extended release 24 hr Previous Rx's Medication Instructions Recorded tiotropium bromide 2.5 2 puff PO DAILY #4 ml 12/03/19 mcg/actuation mist for inhalation (Spiriva Respimat) ferrous sulfate 325 mg (65 mg 325 mg PO DAILY #14 tab 12/05/19 iron) tablet cetirizine 10 mg tablet (Zyrtec) 10 mg PO DAILY 10 Days #10 tab 12/25/19 clotrimazole 2 % vaginal cream 1 appful VAGINAL BEDTIME 3 Days 02/09/20 #21 g montelukast 10 mg tablet 10 mg PO BEDTIME #30 tab 03/16/20 omeprazole 20 mg capsule,delayed 40 mg PO DAILY 90 Days #180 cap 04/12/20 release metronidazole 0.75 % vaginal gel 1 appful VAGINAL BEDTIME 5 Days 05/25/20 #37.5 g ondansetron HCl 4 mg tablet 4 mg PO Q8H PRN #10 tab 06/07/20 (Zofran) alcohol swabs (Alcohol Prep Pads) 1 pad TOPICAL TID #200 ea 06/19/20 blood sugar diagnostic (FreeStyle #100 ea 06/19/20 Lite Strips) blood-glucose meter (FreeStyle #1 ea 06/19/20 Lite Meter) lancets 28 gauge (FreeStyle #100 ea 06/19/20 Lancets) polyethylene glycol 3350 17 17 g PO DAILY PRN 30 Days #510 g 06/20/20 gram/dose oral powder bupropion HCl 150 mg 24 hr tablet, 150 mg PO QAM #30 tab 07/19/20 extended release fluticasone propionate 50 2 spray INTRANASAL DAILY #16 ml 07/19/20 mcg/actuation nasal spray,suspension pantoprazole 40 mg tablet,delayed 40 mg PO DAILY #30 tab 08/03/20 release tizanidine 4 mg tablet 4 mg PO TID PRN #90 tab 08/11/20 metformin 500 mg tablet 500 mg PO BID #60 tab 08/17/20 quetiapine 100 mg tablet 100 mg PO BEDTIME #30 tab 09/05/20 meclizine 25 mg tablet 25 mg PO DAILY PRN #20 tab 09/06/20 Allergies Allergy/AdvReac Type Severity Reaction Status Date / Time gabapentin Allergy Unknown Tingling Verified 07/14/20 14:48 feeling in throat zolpidem [From [facility]BIEN] Allergy Unknown tingling Verified 07/14/20 14:48 feeling in throat Review of Systems Review of Systems: All other systems are reviewed and are negative Constitutional: Reports as per HPI and Reports no additional constitutional complaints Eyes: Reports as per HPI and Reports no additional eye complaints Reports system reviewed and no additional complaints, except as documented Cardiovascular: Reports as per HPI and Reports no additional cardiovascular complaints Respiratory: Reports as per HPI and Reports no additional respiratory complaints Gastrointestinal: Reports as per HPI and Reports no additional gastrointestinal complaints Genitourinary: Reports no additional female genitourinary complaints Musculoskeletal: Reports no additional musculoskeletal complaints Skin/Breast: Reports system reviewed and no additional complaints, except as docu Psychiatric: Reports no additional psychiatric complaints Endocrine: Reports no additional endocrine complaints Hematologic/Lymphatic: Reports no additional hematologic/lymphatic complaints Allergic/Immunologic: Reports no additional allergic/immunologic complaints Reports system reviewed and no additional complaints, except as documented and Reports Abnormal speech present PMFSH Past Medical History Medical History Allergic rhinitis Anxiety Asthma Bilateral flank pain Depression Diabetes mellitus Dizziness GERD without esophagitis Hemorrhoid HTN (hypertension) Knee pain, bilateral Left ear pain Lower back pain Lumbar degenerative disc disease Menorrhagia Obesity (BMI 30-39.9) Pressure sensation in left ear UTI (urinary tract infection) Varicose veins of left lower extremity with pain Surgical History H/O tubal ligation History of carpal tunnel surgery History of endometrial ablation History of hemorrhoidectomy Family History Family History Father Diabetes Asthma Hepatitis Mother Diabetes Sleep apnea Ischemic cerebrovascular accident (CVA) Maternal Grandmother Diabetes Breast cancer Maternal Grandfather Stroke Paternal Grandfather Lung cancer Social History Social History Household Members: Family Housing: House Alcohol intake: never Patient Tobacco Use Status: Former Tobacco user Advance Directives: No Advance Directives Information Provided: No Patient : No service: No Current occupational status: employed 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 Blood pressure normal. Heart rate normal. Respiration rate normal. Temperature normal. Oxygen saturation normal. Appearance: Alert. Oriented X3. No acute distress. Head: Normal external exam. Normocephalic. Atraumatic. No Yip signs noted. No raccoon eyes noted Eyes: PERRLA. EOMI. Conjunctiva and sclera normal. Eyelids normal. ENT: TM's Normal. Pharynx normal. Uvula midline. Moist mucous membranes. No trismus noted. No drooling noted. No muffled voice noted. Neck: Normal inspection. Neck supple. FROM. No adenopathy. Thyroid Normal. No meningeal signs. No neck mass noted. CVS: Normal heart rate and rhythm. Heart sound normal. No murmurs noted. Pulses normal throughout. Respiratory: No respiratory distress. Painless inspiration. Breath sounds normal. No wheezes/rales/rhonchi noted. Chest nontender. No accessory muscle usage noted or decreased air movement noted. Abdomen: Soft and nontender. Bowel sounds normal in all 4 quadrants. No distention noted. No organomegaly noted. No visible injury noted. Back: No CVA tenderness. Full range of motion noted. Skin: Skin warm and dry. Normal skin color. Normal skin turgor. No rashes/lesions/lacerations noted. Extremities: No lower extremity edema. Extremities exhibit normal range of motion. Extremities nontender. Neuro: Oriented X 3. No motor deficit. No sensory deficit. Reflexes normal. Course Course Course Narrative: Assessment and plan. [age] came of dizziness, patient unremarkable labs, unremarkable, if troponin UA, negative test, despite patient been having menstruation for the past 6 weeks H&H appears to be stable. In sign for severe anemia. Medical Decision Making Lab Data Lab results reviewed: Yes I reviewed the patient's lab results. Result diagrams: 09/06/20 13:33 09/06/20 13:33 Labs: Lab Results 09/06/20 09/06/20 09/06/20 Range/Units 13:33 13:33 13:33 WBC 9.0 (4.8-10.8) X10*3/uL RBC 5.02 (4.20-5.50) X10*6/uL Hgb 12.8 (12.0-16.0) g/dl Hct 36.7 L (37-47) % MCV 73.1 L (80-98) fL MCH 25.5 L (27.0-33.0) pg MCHC 34.9 (31.0-35.0) g/dl RDW 13.8 (11.0-16.0) % Plt Count 336 (160-400) X10*3/uL MPV 10.5 (9.4-12.3) fL Immature Gran % (Auto) 0.2 (0.0-0.4) % Neut % (Auto) 65.7 (45-73) % Lymph % (Auto) 27.8 (20-40) % [place] % (Auto) 4.5 (2-11) % Eos % (Auto) 1.2 (0-4) % Baso % (Auto) 0.6 (0-2) % Lymph # (Auto) 2.5 (1.2-4.9) X10*3/uL [place] # (Auto) 0.4 (0.1-1.2) X10*3/uL Eos # (Auto) 0.1 (0.0-0.4) X10*3/uL Baso # (Auto) 0.1 (0.0-0.2) X10*3/uL Abs Immat Gran (auto) 0.02 (0.00-0.03) X10*3/uL Absolute Neuts (auto) 5.9 (2.0-8.3) X10*3/uL Absolute Nucleated RBC 0.000 (0.0-0.012) X10*3/uL Nucleated RBC % (auto) 0.0 (0.0-0.2) /100WBC Sodium 138 (135-145) mmol/L Potassium 4.2 (3.3-5.1) mmol/L Chloride 104 (96-108) mmol/L Carbon Dioxide 26 (22-29) mmol/L Anion Gap 12 (12-20) BUN 8 L (9-16) mg/dL Creatinine 0.81 (0.5-1.4) mg/dL Estim Creat Clear Calc 106.5 Estimated GFR > 60 Random Glucose 142 H D (60-115) mg/dL Calcium 9.8 D (8.4-10.2) mg/dL Total Bilirubin 0.4 (0.0-1.0) mg/dL Direct Bilirubin < 0.2 (0.0-0.5) mg/dL AST 24 (5-31) U/L ALT 37 H (0-31) U/L Alkaline Phosphatase 63 (39-117) U/L Troponin I High Sens (<3.5-17.0) ng/L Total Protein 7.4 (6.5-8.0) g/dL Albumin 4.4 (3.5-5.0) g/dL Lipase 64 (8-78) U/L Urine Color Urine Appearance Urine pH (5.0-8.0) Ur Specific [place] (1.005-1.025) Urine Protein (NEG-TRACE) MG/DL Urine Glucose (UA) (NEG) MG/DL Urine Ketones (NEG) MG/DL Urine Blood (NEG) Urine Nitrite (NEG) Ur Leukocyte Esterase (NEG) Urine RBC (0) /HPF Urine WBC (0-4) /HPF Ur Squamous Epith Cells /LPF Urine Bacteria /LPF Urine Test (NEGATIVE) 09/06/20 09/06/20 09/06/20 Range/Units 13:33 15:34 15:34 WBC (4.8-10.8) X10*3/uL RBC (4.20-5.50) X10*6/uL Hgb (12.0-16.0) g/dl Hct (37-47) % MCV (80-98) fL MCH (27.0-33.0) pg MCHC (31.0-35.0) g/dl RDW (11.0-16.0) % Plt Count (160-400) X10*3/uL MPV (9.4-12.3) fL Immature Gran % (Auto) (0.0-0.4) % Neut % (Auto) (45-73) % Lymph % (Auto) (20-40) % [place] % (Auto) (2-11) % Eos % (Auto) (0-4) % Baso % (Auto) (0-2) % Lymph # (Auto) (1.2-4.9) X10*3/uL [place] # (Auto) (0.1-1.2) X10*3/uL Eos # (Auto) (0.0-0.4) X10*3/uL Baso # (Auto) (0.0-0.2) X10*3/uL Abs Immat Gran (auto) (0.00-0.03) X10*3/uL Absolute Neuts (auto) (2.0-8.3) X10*3/uL Absolute Nucleated RBC (0.0-0.012) X10*3/uL Nucleated RBC % (auto) (0.0-0.2) /100WBC Sodium (135-145) mmol/L Potassium (3.3-5.1) mmol/L Chloride (96-108) mmol/L Carbon Dioxide (22-29) mmol/L Anion Gap (12-20) BUN (9-16) mg/dL Creatinine (0.5-1.4) mg/dL Estim Creat Clear Calc Estimated GFR Random Glucose (60-115) mg/dL Calcium (8.4-10.2) mg/dL Total Bilirubin (0.0-1.0) mg/dL Direct Bilirubin (0.0-0.5) mg/dL AST (5-31) U/L ALT (0-31) U/L Alkaline Phosphatase (39-117) U/L Troponin I High Sens < 3.5 (<3.5-17.0) ng/L Total Protein (6.5-8.0) g/dL Albumin (3.5-5.0) g/dL Lipase (8-78) U/L Urine Color YELLOW Urine Appearance HAZY Urine pH 5.5 (5.0-8.0) Ur Specific [place] 1.025 (1.005-1.025) Urine Protein TRACE (NEG-TRACE) MG/DL Urine Glucose (UA) NEG (NEG) MG/DL Urine Ketones NEG (NEG) MG/DL Urine Blood 3+ H (NEG) Urine Nitrite NEG (NEG) Ur Leukocyte Esterase NEG (NEG) Urine RBC 50-75 H (0) /HPF Urine WBC 0 (0-4) /HPF Ur Squamous Epith Cells 2+ /LPF Urine Bacteria 1+ /LPF Urine Test NEGATIVE (NEGATIVE) Discharge Plan Discharge Clinical Impression: Dizziness Patient Disposition: Home, Self-Care Instructions: Dizziness (ED) Prescriptions: New meclizine 25 mg tablet 25 mg PO DAILY PRN (Reason: dizziness) Qty: 20 RF: 0 No Action tiotropium bromide [Spiriva Respimat] 2.5 mcg/actuation mist 2 puff PO DAILY Qty: 4 RF: 5 montelukast 10 mg tablet 10 mg PO BEDTIME Qty: 30 RF: 5 omeprazole 20 mg capsule,delayed release(DR/EC) 40 mg PO DAILY 90 Days Qty: 180 RF: 0 polyethylene glycol 3350 17 gram/dose powder 17 g PO DAILY PRN (Reason: constipation) 30 Days Qty: 510 RF: 5 fluticasone propionate 50 mcg/actuation spray,suspension 2 spray intranasal DAILY Qty: 16 RF: 3 bupropion HCl 150 mg tablet extended release 24 hr 150 mg PO QAM Qty: 30 RF: 3 pantoprazole 40 mg tablet,delayed release (DR/EC) 40 mg PO DAILY Qty: 30 RF: 3 tizanidine 4 mg tablet 4 mg PO TID PRN (Reason: for muscle spasm) Qty: 90 RF: 1 metformin 500 mg tablet 500 mg PO BID Qty: 60 RF: 0 quetiapine 100 mg tablet 100 mg PO BEDTIME Qty: 30 RF: 1 ferrous sulfate 325 mg (65 mg iron) tablet 325 mg PO DAILY Qty: 14 RF: 0 ondansetron HCl [Zofran] 4 mg tablet 4 mg PO Q8H PRN (Reason: nausea and vomiting) Qty: 10 RF: 0 (DME) blood-glucose meter [FreeStyle Lite Meter] Kit See Rx Instructions .ROUTE .MEDSUPPLY Qty: 1 RF: 0 (DME) FreeStyle Lite Strips Strip See Rx Instructions .ROUTE .MEDSUPPLY Qty: 100 RF: 0 (DME) lancets [FreeStyle Lancets] 28 gauge misc See Rx Instructions .ROUTE .MEDSUPPLY Qty: 100 RF: 0 alcohol swabs [Alcohol Prep Pads] Pads, Medicated 1 pad topical TID Qty: 200 RF: 0 multivitamin Tablet 1 tab PO DAILY RF: 0 ibuprofen 800 mg tablet 800 mg PO TID RF: 0 oxybutynin chloride 10 mg tablet extended release 24hr 10 mg PO DAILY RF: 0 cetirizine [Zyrtec] 10 mg tablet 10 mg PO DAILY 10 Days Qty: 10 RF: 0 clotrimazole 2 % cream 1 appful vaginal BEDTIME 3 Days Qty: 21 RF: 0 albuterol sulfate 90 mcg/actuation HFA aerosol inhaler 90 mcg inhalation Q4-6H PRN (Reason: Shortness Of Breath Or Wheezing) RF: 0 metronidazole 0.75 % gel 1 appful vaginal BEDTIME 5 Days Qty: 37.5 RF: 0 Referrals: Kurt Arroyo MD [Primary Care Provider] - 2 days
[2020-09-06 13:37] LABS: MANUAL DIFF FLAG NO
[2020-09-06] MEDS: Meclizine HCl 25 MG TABLET PO (13:38)
[2020-09-06 13:39] LABS: Basophils Absolute Auto 0.1 X10*3/uL (0.0-0.2); Basophils Percent Auto 0.6 % (0-2); Eosinophils Absolute Auto 0.1 X10*3/uL (0.0-0.4); Eosinophils Percent Auto 1.2 % (0-4); Hematocrit 36.7 % (37-47); Hemoglobin 12.8 g/dl (12.0-16.0); Imm Gran Abs Auto 0.02 X10*3/uL (0.00-0.03); Imm Gran Pct Auto 0.2 % (0.0-0.4); Lymphocytes Absolute Auto 2.5 X10*3/uL (1.2-4.9); Lymphocytes Percent Auto 27.8 % (20-40); Mean Corpuscular HGB Conc 34.9 g/dl (31.0-35.0); Mean Corpuscular Hemoglobin 25.5 pg (27.0-33.0); Mean Corpuscular Volume 73.1 fL (80-98); Mean Platelet Volume 10.5 fL (9.4-12.3); Monocytes Absolute Auto 0.4 X10*3/uL (0.1-1.2); Monocytes Percent Auto 4.5 % (2-11); Neutrophils Absolute Auto 5.9 X10*3/uL (2.0-8.3); Neutrophils Percent Auto 65.7 % (45-73); Platelet Count 336 X10*3/uL (160-400); Red Blood Count 5.02 X10*6/uL (4.20-5.50); Red Cell Distribution Width 13.8 % (11.0-16.0)
[2020-09-06] MEDS: 0.9 % Sodium Chloride 1,000 ML 999 ML IVCONT (13:39)
[2020-09-06 14:03] LABS: Anion Gap 12 (12-20); Blood Urea Nitrogen 8 mg/dL (9-16); Calcium 9.8 mg/dL (8.4-10.2); Carbon Dioxide 26 mmol/L (22-29); Chloride 104 mmol/L (96-108); Creatinine Clr Calc Pharmacy 106.5; Estimated Glomerular Filt Rate > 60; Glucose Random 142 mg/dL (60-115); Potassium 4.2 mmol/L (3.3-5.1); Sodium 138 mmol/L (135-145)
[2020-09-06 14:06] LABS: Alanine Aminotransferase 37 U/L (0-31); Albumin Level 4.4 g/dL (3.5-5.0); Alkaline Phosphatase 63 U/L (39-117); Aspartate Amino Transferase 24 U/L (5-31); Bilirubin Direct < 0.2 mg/dL (0.0-0.5); Bilirubin Total 0.4 mg/dL (0.0-1.0); Lipase 64 U/L (8-78); Total Protein 7.4 g/dL (6.5-8.0)
[2020-09-06 14:10] LABS: Troponin-I High Sensitivity < 3.5 ng/L (<3.5-17.0)
[2020-09-06 15:33] VITALS: BP 99/65; PULSE 74; RESP 18
[2020-09-06 15:41] LABS: Glucose Urine UA NEG (NEG); Leukocyte Esterase Urine NEG (NEG); Nitrite Urine NEG (NEG); PH 5.5 (5.0-8.0); Specific Gravity - Urine 1.025 (1.005-1.025); UACC Culture Trigger NO; Urine Blood 3+ (NEG); Urine Ketones NEG (NEG); Urine Protein TRACE MG/DL (NEG-TRACE)
[2020-09-06 15:42] LABS: Appearance Urine HAZY; Color Urine YELLOW
[2020-09-06 15:44] LABS: UPreg QC Valid YES; Urine Pregnancy NEGATIVE (NEGATIVE)
[2020-09-06 15:47] LABS: Bacteria Urine 1+ /LPF; RBC Urine 50-75 /HPF (0); Squamous Epithelial Cell Urine 2+ /LPF; WBC Urine 0 /HPF (0-4)
--- NOTE | 2020-09-06 15:59 | ECG_ITS ---
Test Reason : DIZZINESS Blood Pressure : / mmHG Vent. Rate : 077 BPM Atrial Rate : 077 BPM P-R Int : 170 ms QRS Dur : 098 ms QT Int : 406 ms P-R-T Axes : 036 016 034 degrees QTc Int : 459 ms Normal sinus rhythm Normal ECG When compared with ECG of 18-JUN-2020 23:29, No significant change was found Referred By: Zahira Marinelli Electronically Signed By:Prasad Delgado
== END 2020-09-06 16:48 | disposition home or self-care (01) ==
PROVIDERS: Emergency Provider Emergency Medicine; PCP Internal Medicine
DX: R42 Dizziness and giddiness (principal); E11.9 Type 2 diabetes mellitus without complications; I10 Essential (primary) hypertension; N92.0 Excessive and frequent menstruation with regular cycle
CPT/HCPCS: 36415; 80048; 80076; 81001; 81025; 83690; 84484; 85025; 93005; 96360; 99283; 99284

== ENCOUNTER → 2020-09-13 15:40 | Outpatient (BNVA) | payer OTHER, SELFPAY | PROVIDERS: PCP Internal Medicine; Visit Provider Obstetrics & Gynecology | DX: N92.0 Excessive and frequent menstruation with regular cycle (principal) | CPT/HCPCS: 81003; 81025; 99212 ==

== ENCOUNTER 2020-10-25 15:09 | Emergency (ER) | payer OTHER, SELFPAY ==
[2020-10-25 15:37] VITALS: BP 149/79; PULSE 77; RESP 18; TEMP 37.1; O2SAT 98; BMI 37.9
[2020-10-25 16:05] LABS: IDNOW Serial# 9DD0AD1C; Strep A Nucleic Acid Negative (Negative)
[2020-10-25 16:15] LABS: COVID-19 Test Negative (Negative); IDNOW Serial# 55D5AD1C
--- NOTE | 2020-10-25 17:30 | ED.URI ---
HPI - URI/Sore Throat General Chief Complaint: Upper Respiratory Symptoms Stated Complaint: flu like symptoms Time Seen by Provider: 10/25/20 17:30 Source: patient Mode of arrival: ambulatory Limitations: no limitations History of Present Illness HPI Narrative: Upper respiratory and nasal congestion with headache MD elicited complaint: fever, cough, sore throat, nasal congestion and sinus pain Onset (ago): day(s) Consistency: constant Severity: mild Context: sick contacts Associated symptoms: denies other symptoms Related Data Home Medications Medication Instructions Recorded Confirmed albuterol sulfate 90 mcg/actuation 90 mcg INHALATION Q4-6H PRN 11/19/19 09/20/20 aerosol inhaler ibuprofen 800 mg tablet 800 mg PO TID 12/25/19 09/20/20 multivitamin 1 tab PO DAILY 12/25/19 09/20/20 oxybutynin chloride 10 mg 10 mg PO DAILY 12/25/19 09/20/20 tablet,extended release 24 hr Previous Rx's Medication Instructions Recorded tiotropium bromide 2.5 2 puff PO DAILY #4 ml 12/02/ mcg/actuation mist for inhalation (Spiriva Respimat) ferrous sulfate 325 mg (65 mg 325 mg PO DAILY #14 tab 12/05/19 iron) tablet cetirizine 10 mg tablet (Zyrtec) 10 mg PO DAILY 10 Days #10 tab 12/25/19 clotrimazole 2 % vaginal cream 1 appful VAGINAL BEDTIME 3 Days 02/09/20 #21 g montelukast 10 mg tablet 10 mg PO BEDTIME #30 tab 03/16/20 omeprazole 20 mg capsule,delayed 40 mg PO DAILY 90 Days #180 cap 04/12/20 release metronidazole 0.75 % vaginal gel 1 appful VAGINAL BEDTIME 5 Days 05/25/20 #37.5 g ondansetron HCl 4 mg tablet 4 mg PO Q8H PRN #10 tab 06/07/20 (Zofran) alcohol swabs (Alcohol Prep Pads) 1 pad TOPICAL TID #200 ea 06/19/20 blood sugar diagnostic (FreeStyle #100 ea 06/19/20 Lite Strips) blood-glucose meter (FreeStyle #1 ea 06/19/20 Lite Meter) lancets 28 gauge (FreeStyle #100 ea 06/19/20 Lancets) polyethylene glycol 3350 17 17 g PO DAILY PRN 30 Days #510 g 06/20/20 gram/dose oral powder pantoprazole 40 mg tablet,delayed 40 mg PO DAILY #30 tab 08/03/20 release meclizine 25 mg tablet 25 mg PO DAILY PRN #20 tab 09/06/20 metformin 500 mg tablet 500 mg PO BID #60 tab 09/10/20 quetiapine 100 mg tablet 100 mg PO BEDTIME #30 tab 10/08/20 bupropion HCl 150 mg 24 hr tablet, 150 mg PO QAM #90 tab 10/12/20 extended release fluticasone propionate 50 2 spray INTRANASAL DAILY #48 ml 10/12/20 mcg/actuation nasal spray,suspension tizanidine 4 mg tablet 4 mg PO TID PRN #90 tab 10/12/20 fluticasone propionate 50 1 spray INTRANASAL BID #16 g 10/25/20 mcg/actuation nasal spray,suspension (24 Hour Allergy Relief) Allergies Allergy/AdvReac Type Severity Reaction Status Date / Time gabapentin Allergy Unknown Tingling Verified 10/25/20 17:23 feeling in throat zolpidem [From AMBIEN] Allergy Unknown tingling Verified 10/25/20 17:23 feeling in throat Review of Systems Constitutional: Constitutional: Reports no additional constitutional complaints Eyes: Eyes: Reports no additional eye complaints ENT: Denies dizziness Cardiovascular: Cardiovascular: Reports no additional cardiovascular complaints Respiratory: Respiratory: Reports as per HPI Gastrointestinal: Gastrointestinal: Reports no additional gastrointestinal complaints Genitourinary: Genitourinary: Reports no additional female genitourinary complaints Musculoskeletal: Musculoskeletal: Reports no additional musculoskeletal complaints Integumentary/Breasts: Skin/Breast: Denies rash Neurologic: Reports system reviewed and no additional complaints, except as documented, Denies dizziness and Denies Sensory deficit (Neuro) Psychiatric: Psychiatric: Denies anxiety [facility] Past Medical History Medical History (Updated 10/25/20 @ 17:36 by Thomas Mcmanus MD) Allergic rhinitis Anxiety Asthma Bilateral flank pain Depression Diabetes mellitus Dizziness GERD without esophagitis Hemorrhoid HTN (hypertension) Knee pain, bilateral Left ear pain Lower back pain Lumbar degenerative disc disease Menorrhagia Obesity (BMI 30-39.9) Pressure sensation in left ear UTI (urinary tract infection) Varicose veins of bilateral lower extremities with pain Varicose veins of left lower extremity with pain Surgical History H/O tubal ligation History of carpal tunnel surgery History of endometrial ablation History of hemorrhoidectomy Family History Family History Father Diabetes Asthma Hepatitis Mother Diabetes Sleep apnea Ischemic cerebrovascular accident (CVA) Maternal Grandmother Diabetes Breast cancer Maternal Grandfather Stroke Paternal Grandfather Lung cancer Social History Social History Household Members: Family Housing: House Alcohol intake: never Patient Tobacco Use Status: Former Tobacco user Advance Directives: No Advance Directives Information Provided: Yes service: No Current occupational status: employed 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 Physical Exam Vital Signs: Vital Signs: Last Vital Signs Temp 98.8 F 10/25/20 15:37 Pulse 77 10/25/20 15:37 Resp 18 10/25/20 15:37 BP 149/79 H 10/25/20 15:37 Pulse Ox 98 10/25/20 15:37 Body Mass Index 37.9 Const: General: healthy appearing Nutritional Appearance: average body habitus Orientation/consciousness: oriented to person and patient oriented x3 Limitations: no limitations HENMT: Head: Yes normal to inspection Ears: external ears normal General nose exam: Normal external nose present Mouth: Normal oral and palatal mucosa present and oropharynx normal Throat: Yes posterior oropharynx normal Eyes: General: appearance normal, both eyes and all related structures Neck: Other: supple Neck: Yes normal visual inspection Chest: Chest palpation & inspection: normal inspection of the chest Resp: Auscultation: clear to auscultation bilaterally Cardio: Jugular venous distension: no JVD Rate: regular rate Rhythm: regular rhythm Heart sounds: S1 normal heart sound present and S2 normal heart sound present GI: Inspection: Yes normal to inspection Palpation (GI): Soft to palpation, nontender and No hepatosplenomegaly present Auscultation: normal bowel sounds : General: Yes no CVA tenderness Back/Spine/Pelvis: Back: no CVA tenderness Skin: General skin exam: no rashes or lesions noted Neuro: General: oriented to person and patient oriented x3 Cranial nerves: Yes CN's II-XII intact bilaterally Motor exam (neuro): 5/5 motor strength present throughout Sensory Exam: No Sensory deficit (Neuro) Extrem: General: Yes normal to inspection Psych: Appearance: grossly normal Course Reevaluation(s) Reevaluation #1: Patient is COVID negative will start on flonase for viral URI Time: 17:34 MDM - URI/Sore Throat Lab Data Labs: Lab Results 10/25/20 10/25/20 Range/Units 15:41 15:41 COVID-19 (MARAL) Negative (Negative) COVID-19 Clin Com See Note S. pyogenes GrpA CRYSTAL Negative (Negative) Discharge Plan Discharge Clinical Impression: Upper respiratory infection Patient Disposition: Home, Self-Care Instructions: Upper Respiratory Infection (ED) Prescriptions: New fluticasone propionate [24 Hour Allergy Relief] 50 mcg/actuation spray,suspension 1 spray intranasal BID Qty: 16 RF: 0 No Action tiotropium bromide [Spiriva Respimat] 2.5 mcg/actuation mist 2 puff PO DAILY Qty: 4 RF: 5 montelukast 10 mg tablet 10 mg PO BEDTIME Qty: 30 RF: 5 omeprazole 20 mg capsule,delayed release(DR/EC) 40 mg PO DAILY 90 Days Qty: 180 RF: 0 polyethylene glycol 3350 17 gram/dose powder 17 g PO DAILY PRN (Reason: constipation) 30 Days Qty: 510 RF: 5 pantoprazole 40 mg tablet,delayed release (DR/EC) 40 mg PO DAILY Qty: 30 RF: 3 metformin 500 mg tablet 500 mg PO BID Qty: 60 RF: 3 quetiapine 100 mg tablet 100 mg PO BEDTIME Qty: 30 RF: 1 fluticasone propionate 50 mcg/actuation spray,suspension 2 spray intranasal DAILY Qty: 48 RF: 1 tizanidine 4 mg tablet 4 mg PO TID PRN (Reason: for muscle spasm) Qty: 90 RF: 1 bupropion HCl 150 mg tablet extended release 24 hr 150 mg PO QAM Qty: 90 RF: 1 ferrous sulfate 325 mg (65 mg iron) tablet 325 mg PO DAILY Qty: 14 RF: 0 ondansetron HCl [Zofran] 4 mg tablet 4 mg PO Q8H PRN (Reason: nausea and vomiting) Qty: 10 RF: 0 meclizine 25 mg tablet 25 mg PO DAILY PRN (Reason: dizziness) Qty: 20 RF: 0 (DME) blood-glucose meter [FreeStyle Lite Meter] Kit See Rx Instructions .ROUTE .MEDSUPPLY Qty: 1 RF: 0 (DME) FreeStyle Lite Strips Strip See Rx Instructions .ROUTE .MEDSUPPLY Qty: 100 RF: 0 (DME) lancets [FreeStyle Lancets] 28 gauge misc See Rx Instructions .ROUTE .MEDSUPPLY Qty: 100 RF: 0 alcohol swabs [Alcohol Prep Pads] Pads, Medicated 1 pad topical TID Qty: 200 RF: 0 multivitamin Tablet 1 tab PO DAILY RF: 0 ibuprofen 800 mg tablet 800 mg PO TID RF: 0 oxybutynin chloride 10 mg tablet extended release 24hr 10 mg PO DAILY RF: 0 cetirizine [Zyrtec] 10 mg tablet 10 mg PO DAILY 10 Days Qty: 10 RF: 0 clotrimazole 2 % cream 1 appful vaginal BEDTIME 3 Days Qty: 21 RF: 0 albuterol sulfate 90 mcg/actuation HFA aerosol inhaler 90 mcg inhalation Q4-6H PRN (Reason: Shortness Of Breath Or Wheezing) RF: 0 metronidazole 0.75 % gel 1 appful vaginal BEDTIME 5 Days Qty: 37.5 RF: 0
== END 2020-10-25 17:51 | disposition home or self-care (01) ==
PROVIDERS: Emergency Provider Emergency Medicine; PCP Internal Medicine
DX: J06.9 Acute upper respiratory infection, unspecified (principal); R50.9 Fever, unspecified; R05 Cough; Z20.822 Contact with and (suspected) exposure to COVID-19; Z79.899 Other long term (current) drug therapy
CPT/HCPCS: 36415; 87635; 87651; 99283

== ENCOUNTER 2020-11-10 15:27 | Outpatient (REF) | payer OTHER, SELFPAY ==
[2020-11-10 17:11] LABS: Influenza A PCR NEGATIVE (Negative); Influenza B PCR NEGATIVE (Negative); Resp Syncy Virus RNA Qual PCR NEGATIVE (Negative); SARS COV2 PCR INHOUSE NEGATIVE (Negative)
== END 2020-11-10 15:28 | disposition home or self-care (01) ==
LOC: HO.LAB 15:27
PROVIDERS: Visit Provider Internal Medicine
DX: R43.9 Unspecified disturbances of smell and taste (principal); Z20.822 Contact with and (suspected) exposure to COVID-19
CPT/HCPCS: 0241U; 36415

== ENCOUNTER 2020-12-06 20:05 | Emergency (ER) | payer OTHER, SELFPAY ==
[2020-12-06 20:07] VITALS: BP 118/93; PULSE 85; RESP 18; TEMP 37; O2SAT 95; BMI 37.8
--- NOTE | 2020-12-06 20:54 | PC.NURSE ---
Pt resting on stretcher in NAD, breathing with ease on RA, awaiting lab results of covid test.
[2020-12-06 21:09] LABS: Influenza A PCR NEGATIVE (Negative); Influenza B PCR NEGATIVE (Negative); Resp Syncy Virus RNA Qual PCR NEGATIVE (Negative); SARS COV2 PCR INHOUSE NEGATIVE (Negative)
--- NOTE | 2020-12-06 21:11 | ED_ITS ---
HPI - URI/Sore Throat General Chief Complaint: Upper Respiratory Symptoms Stated Complaint: nausea, headache Time Seen by Provider: 12/06/20 20:56 Source: patient Mode of arrival: ambulatory Limitations: no limitations History of Present Illness HPI Narrative: 40-year-old female here with complaints of headache, nasal congestion, bilateral ear pain, sore throat, nausea, cough for less than 24 hours. Daughter had flu this week. No fevers or chills. She is fully vaccinated for COVID. No chest pain, shortness of breath, leg swelling or pain. No abdominal pain, vomiting or diarrhea Related Data Home Medications Medication Instructions Recorded Confirmed albuterol sulfate 90 mcg/actuation 90 mcg INHALATION Q4-6H PRN 11/19/19 09/20/20 aerosol inhaler ibuprofen 800 mg tablet 800 mg PO TID 12/25/19 09/20/20 multivitamin 1 tab PO DAILY 12/25/19 09/20/20 oxybutynin chloride 10 mg 10 mg PO DAILY 12/25/19 09/20/20 tablet,extended release 24 hr Previous Rx's Medication Instructions Recorded tiotropium bromide 2.5 2 puff PO DAILY #4 ml 12/03/19 mcg/actuation mist for inhalation (Spiriva Respimat) ferrous sulfate 325 mg (65 mg 325 mg PO DAILY #14 tab 12/05/19 iron) tablet cetirizine 10 mg tablet (Zyrtec) 10 mg PO DAILY 10 Days #10 tab 12/25/19 clotrimazole 2 % vaginal cream 1 appful VAGINAL BEDTIME 3 Days 02/09/20 #21 g montelukast 10 mg tablet 10 mg PO BEDTIME #30 tab 03/16/20 omeprazole 20 mg capsule,delayed 40 mg PO DAILY 90 Days #180 cap 04/12/20 release ondansetron HCl 4 mg tablet 4 mg PO Q8H PRN #10 tab 06/07/20 (Zofran) alcohol swabs (Alcohol Prep Pads) 1 pad TOPICAL TID #200 ea 06/19/20 blood sugar diagnostic (FreeStyle #100 ea 06/19/20 Lite Strips) blood-glucose meter (FreeStyle #1 ea 06/19/20 Lite Meter) lancets 28 gauge (FreeStyle #100 ea 06/19/20 Lancets) polyethylene glycol 3350 17 17 g PO DAILY PRN 30 Days #510 g 06/20/20 gram/dose oral powder meclizine 25 mg tablet 25 mg PO DAILY PRN #20 tab 09/06/20 metformin 500 mg tablet 500 mg PO BID #60 tab 09/10/20 quetiapine 100 mg tablet 100 mg PO BEDTIME #30 tab 10/08/20 bupropion HCl 150 mg 24 hr tablet, 150 mg PO QAM #90 tab 10/12/20 extended release fluticasone propionate 50 2 spray INTRANASAL DAILY #48 ml 10/12/20 mcg/actuation nasal spray,suspension fluticasone propionate 50 1 spray INTRANASAL BID #16 g 10/25/20 mcg/actuation nasal spray,suspension (24 Hour Allergy Relief) pantoprazole 40 mg tablet,delayed 40 mg PO DAILY #90 tab 11/05/20 release azithromycin 250 mg tablet See Rx Instructions PO .COMPLEX #6 11/10/20 (Zithromax) tab tizanidine 4 mg tablet 4 mg PO TID PRN #90 tab 12/01/20 Allergies Allergy/AdvReac Type Severity Reaction Status Date / Time gabapentin Allergy Unknown Tingling Verified 10/25/20 17:23 feeling in throat zolpidem [From AMBIEN] Allergy Unknown tingling Verified 10/25/20 17:23 feeling in throat Review of Systems Review of Systems: Yes all other systems are reviewed and are negative Constitutional: Constitutional: Reports no additional constitutional complaints, Denies body ache(s), Denies chills, Denies fever(s), Reports headache(s) and Denies weakness Eyes: Eyes: Reports no additional eye complaints and Denies change in vision ENT: Reports system reviewed and no additional complaints, except as documented, Denies dizziness, Reports otalgia, Reports headache(s), Reports nasal congestion, Denies nasal discharge, Denies neck pain and Reports sore throat Cardiovascular: Cardiovascular: Reports no additional cardiovascular complaints, Denies chest pain, Denies leg edema and Denies dyspnea Respiratory: Respiratory: Reports no additional respiratory complaints, Reports cough and Denies dyspnea Gastrointestinal: Gastrointestinal: Reports no additional gastrointestinal complaints, Denies abdominal pain, Denies diarrhea, Reports nausea and Denies vomiting Genitourinary: Genitourinary: Reports no additional female genitourinary complaints and Denies urinary incontinence Musculoskeletal: Musculoskeletal: Reports no additional musculoskeletal complaints, Denies back pain, Denies arthralgias, Denies joint swelling, Denies neck pain, Denies numbness and Denies tingling Integumentary/Breasts: Skin/Breast: Reports system reviewed and no additional complaints, except as docu and Denies rash Neurologic: Reports system reviewed and no additional complaints, except as documented, Denies Abnormal speech present, Denies dizziness, Reports headac he(s), Denies numbness, Denies tingling and Denies weakness PMFSH Past Medical History Attestation statement: The following information was validated with the patient. Source: old records reviewed and nursing notes reviewed Medical History Allergic rhinitis Anxiety Asthma Bilateral flank pain Depression Diabetes mellitus Dizziness GERD without esophagitis Hemorrhoid HTN (hypertension) Knee pain, bilateral Left ear pain Lower back pain Lumbar degenerative disc disease Menorrhagia Obesity (BMI 30-39.9) Pressure sensation in left ear UTI (urinary tract infection) Varicose veins of bilateral lower extremities with pain Varicose veins of left lower extremity with pain Surgical History H/O tubal ligation History of carpal tunnel surgery History of endometrial ablation History of hemorrhoidectomy Family History Family History Father Diabetes Asthma Hepatitis Mother Diabetes Sleep apnea Ischemic cerebrovascular accident (CVA) Maternal Grandmother Diabetes Breast cancer Maternal Grandfather Stroke Paternal Grandfather Lung cancer Social History Social History Household Members: Family Housing: House Alcohol intake: never Patient Tobacco Use Status: Former Tobacco user Advance Directives: No Advance Directives Information Provided: Yes service: No Current occupational status: employed 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 Physical Exam Vital Signs: Vital Signs: Last Vital Signs Temp 98.6 F 12/06/20 20:07 Pulse 85 12/06/20 20:07 Resp 18 12/06/20 20:07 BP 118/93 H 12/06/20 20:07 Pulse Ox 95 12/06/20 20:07 Body Mass Index 37.8 Const: General: cooperative, healthy appearing, comfortable and no acute distress Orientation/consciousness: patient oriented x3 Limitations: no limitations HENMT: Head: Yes normal to inspection Ears: hearing grossly normal bilaterally and TM's normal bilaterally General nose exam: Normal external nose present Face and sinus: Yes normal facial exam Mouth: Normal oral and palatal mucosa present Throat: Yes posterior oropharynx normal, Yes tonsils normal and Yes uvula midline Eyes: General: appearance normal, both eyes and all related structures Pupils: Equal, round and reactive pupils present Neck: Neck: Yes normal visual inspection Chest: Chest palpation & inspection: normal inspection of the chest Resp: Effort & Inspection: normal respiratory effort Auscultation: clear to auscultation bilaterally Cardio: Rate: regular rate Rhythm: regular rhythm Peripheral pulses: Peripheral pulses 2+ throughout GI: Inspection: Yes normal to inspection Palpation (GI): Soft to palpation and nontender Auscultation: normal bowel sounds Back/Spine/Pelvis: Thoracic/Lumbar Spine: thoracic and lumbar spine normal to inspection Skin: General skin exam: no rashes or lesions noted Neuro: General: patient oriented x3, no focal motor deficits and normal sensation to monofilament Cranial nerves: Yes Equal, round and reactive pupils present Cognition (Neuro): normal cognition Speech: No Abnormal speech present Gait exam (Neuro): Normal gait present Motor exam (neuro): 5/5 motor strength present throughout Extrem: General: Yes normal to inspection Course Course Course Narrative: 40-year-old female here with URI symptoms for last 24 hours. Exam is benign. Vitals are stable. She did have sick contact with her daughter who is flu positive. Will send swab for flu, RSV, COVID. 2123-swab is negative. Patient appears well. Exam is benign. Likely viral. Did recommend retesting in several days for continued symptoms. Reviewed worrisome signs and symptoms of when to return to the emergency department. Comfortable discharge home. MDM - URI/Sore Throat Medical Records Attestation: I reviewed the patient's medical records. Lab Data Attestation: I reviewed the patient's lab results. Labs: Lab Results 12/06/20 Range/Units 20:26 Influenza Type A (PCR) NEGATIVE (Negative) Influenza Type B (PCR) NEGATIVE (Negative) RSV RNA Qual (PCR) NEGATIVE (Negative) SARS-CoV-2 RNA (RT-PCR) NEGATIVE (Negative) Discharge Plan Discharge Clinical Impression: Upper respiratory infection Patient Disposition: Home, Self-Care Instructions: Upper Respiratory Infection (ED) Additional Instructions: You tested negative for COVID, flu and RSV. However, your symptoms again today so you should retest in 2-3 days for persi stent symptoms. In the meantime you should quarantine at home. Increase fluids, rest Take Motrin or Tylenol if able as needed for pain or fever Prescriptions: No Action tiotropium bromide [Spiriva Respimat] 2.5 mcg/actuation mist 2 puff PO DAILY Qty: 4 RF: 5 montelukast 10 mg tablet 10 mg PO BEDTIME Qty: 30 RF: 5 omeprazole 20 mg capsule,delayed release(DR/EC) 40 mg PO DAILY 90 Days Qty: 180 RF: 0 polyethylene glycol 3350 17 gram/dose powder 17 g PO DAILY PRN (Reason: constipation) 30 Days Qty: 510 RF: 5 metformin 500 mg tablet 500 mg PO BID Qty: 60 RF: 3 quetiapine 100 mg tablet 100 mg PO BEDTIME Qty: 30 RF: 1 fluticasone propionate 50 mcg/actuation spray,suspension 2 spray intranasal DAILY Qty: 48 RF: 1 bupropion HCl 150 mg tablet extended release 24 hr 150 mg PO QAM Qty: 90 RF: 1 pantoprazole 40 mg tablet,delayed release (DR/EC) 40 mg PO DAILY Qty: 90 RF: 1 tizanidine 4 mg tablet 4 mg PO TID PRN (Reason: for muscle spasm) Qty: 90 RF: 1 ferrous sulfate 325 mg (65 mg iron) tablet 325 mg PO DAILY Qty: 14 RF: 0 ondansetron HCl [Zofran] 4 mg tablet 4 mg PO Q8H PRN (Reason: nausea and vomiting) Qty: 10 RF: 0 meclizine 25 mg tablet 25 mg PO DAILY PRN (Reason: dizziness) Qty: 20 RF: 0 fluticasone propionate [24 Hour Allergy Relief] 50 mcg/actuation spray,suspension 1 spray intranasal BID Qty: 16 RF: 0 (DME) blood-glucose meter [FreeStyle Lite Meter] Kit See Rx Instructions .ROUTE .MEDSUPPLY Qty: 1 RF: 0 (DME) FreeStyle Lite Strips Strip See Rx Instructions .ROUTE .MEDSUPPLY Qty: 100 RF: 0 (DME) lancets [FreeStyle Lancets] 28 gauge misc See Rx Instructions .ROUTE .MEDSUPPLY Qty: 100 RF: 0 alcohol swabs [Alcohol Prep Pads] Pads, Medicated 1 pad topical TID Qty: 200 RF: 0 multivitamin Tablet 1 tab PO DAILY RF: 0 ibuprofen 800 mg tablet 800 mg PO TID RF: 0 oxybutynin chloride 10 mg tablet extended release 24hr 10 mg PO DAILY RF: 0 cetirizine [Zyrtec] 10 mg tablet 10 mg PO DAILY 10 Days Qty: 10 RF: 0 clotrimazole 2 % cream 1 appful vaginal BEDTIME 3 Days Qty: 21 RF: 0 albuterol sulfate 90 mcg/actuation HFA aerosol inhaler 90 mcg inhalation Q4-6H PRN (Reason: Shortness Of Breath Or Wheezing) RF: 0 azithromycin [Zithromax] 250 mg tablet See Rx Instructions PO .COMPLEX Qty: 6 RF: 0 Referrals: Kurt Arroyo MD [Primary Care Provider] - 2 days Stand Alone Forms: Work/School Release
[2020-12-06 21:32] VITALS: BP 127/64; PULSE 72; RESP 20; TEMP 36.6; O2SAT 99
== END 2020-12-06 21:41 | disposition home or self-care (01) ==
PROVIDERS: Emergency Provider Emergency Medicine; PCP Internal Medicine
DX: J06.9 Acute upper respiratory infection, unspecified (principal); I10 Essential (primary) hypertension; E11.9 Type 2 diabetes mellitus without complications; J45.909 Unspecified asthma, uncomplicated; Z20.822 Contact with and (suspected) exposure to COVID-19
CPT/HCPCS: 0241U; 36415; 99283

== ENCOUNTER 2020-12-08 11:59 | Emergency (ER) | payer OTHER, SELFPAY ==
--- NOTE | ~2020-12-08 | CT_ITS ---
EXAMINATION: CT ABDOMEN AND PELVIS WITHOUT CONTRAST CLINICAL INFORMATION: Right flank pain COMPARISON: CT abdomen and pelvis 09/24/2019. TECHNIQUE: Multidetector volumetric imaging was performed from the superior aspect of the liver through the pubic symphysis. No oral or intravenous contrast. Sagittal and coronal reformatted images were obtained on the technologist's workstation. This CT examination was performed using dose optimization techniques as appropriate, variously including the following: *Automated exposure control *Adjustment of mA and/or kV according to patient size (this includes techniques or standardized protocols for targeted exams where dose is matched to indication/reason for exam; i.e. extremities or head) *Use of iterative reconstruction technique DLP: 792 mGy-cm FINDINGS: LUNG BASES: The visualized lung bases are unremarkable. LIVER, GALLBLADDER, AND BILIARY TREE: The liver is within normal size and smooth in contour. There is hepatic steatosis. No focal hepatic parenchymal lesion or intrahepatic ductal dilatation. The gallbladder is unremarkable with no evidence of radiopaque gallstones, gallbladder wall thickening, or obvious pericholecystic inflammatory changes. PANCREAS: Unremarkable. SPLEEN: Unremarkable. ADRENAL GLANDS: Unremarkable. KIDNEYS AND URETERS: The kidneys are normal in size, shape, and attenuation. No hydronephrosis, hydroureter, or calculi seen. No perinephric stranding. BLADDER: Unremarkable. GASTROINTESTINAL TRACT: There is no bowel obstruction or inflammatory changes in the bowel or mesentery. The appendix is normal. There is moderate stool throughout the colon. No ascites or fluid collection. There is large amount of retained semisolid contents throughout the stomach with numerous foci of gas which could suggest the gastric bezoar. ABDOMINAL WALL: No significant hernia is appreciated. LYMPH NODES: There are multiple mesenteric nodes right lower quadrant medial to the cecum measuring up to 0.7 cm short axis. Findings may be seen in mesenteric adenitis. There is no retroperitoneal or deep pelvic or inguinal lymphadenopathy. VASCULAR: Unremarkable. PELVIC VISCERA: Probable prior tubal ligation procedure. No adnexal mass. OSSEOUS STRUCTURES: Degenerative disc changes L4-L5. CT/CT abdomen pelvis wo con IMPRESSION: 1. Multiple nodes medial to cecum right lower quadrant mesentery up to 0.7 cm short axis. Findings may be seen in mesenteric adenitis. No bowel obstruction or focal inflammatory changes. Normal appendix. 2. Semisolid material throughout gastric lumen with numerous punctate air bubbles. Finding may be related to recent meal or gastric bezoar. 3. No hydronephrosis, calculi, or perinephric stranding.
[2020-12-08 12:19] VITALS: BP 150/69; PULSE 93; RESP 18; TEMP 36.6; O2SAT 98; BMI 38.0
[2020-12-08 13:32] LABS: Appearance Urine CLOUDY; Color Urine DK YELLOW; Glucose Urine UA 500 MG/DL (NEG); Leukocyte Esterase Urine 2+ (NEG); Nitrite Urine POS (NEG); PH 6.5 (5.0-8.0); Specific Gravity - Urine >= 1.030 (1.005-1.025); UACC Culture Trigger YES; Urine Blood 3+ (NEG); Urine Ketones 5 MG/DL (NEG); Urine Protein 1+ MG/DL (NEG-TRACE)
[2020-12-08 13:36] LABS: Bacteria Urine 1+ /LPF; RBC Urine TNTC /HPF (0); Squamous Epithelial Cell Urine 1+ /LPF
[2020-12-08 13:37] LABS: Mucus Urine 1+ /LPF
--- NOTE | 2020-12-08 15:22 | ED_ITS ---
HPI - Abdominal Pain General Chief Complaint: Abdominal Pain Stated Complaint: headache, Nausea Time Seen by Provider: 12/08/20 15:21 Source: patient Mode of arrival: ambulatory Limitations: no limitations History of Present Illness MD elicited complaint: flank pain and other (nausea) Pertinent past history: past UTI Onset (ago): day(s) (4 days of nausea but started with R flank pain 1.5 days go) Pain Consistency: intermittent Location: R flank Severity: mild Quality: stabbing Migration to: no migration Exacerbating factors: nothing Relieving factors: nothing Associated symptoms: nausea Related Data Home Medications Medication Instructions Recorded Confirmed albuterol sulfate 90 mcg/actuation 90 mcg INHALATION Q4-6H PRN 11/19/19 09/20/20 aerosol inhaler ibuprofen 800 mg tablet 800 mg PO TID 12/25/19 09/20/20 multivitamin 1 tab PO DAILY 12/25/19 09/20/20 oxybutynin chloride 10 mg 10 mg PO DAILY 12/25/19 09/20/20 tablet,extended release 24 hr Previous Rx's Medication Instructions Recorded tiotropium bromide 2.5 2 puff PO DAILY #4 ml 12/03/19 mcg/actuation mist for inhalation (Spiriva Respimat) ferrous sulfate 325 mg (65 mg 325 mg PO DAILY #14 tab 12/05/19 iron) tablet cetirizine 10 mg tablet (Zyrtec) 10 mg PO DAILY 10 Days #10 tab 12/25/19 clotrimazole 2 % vaginal cream 1 appful VAGINAL BEDTIME 3 Days 02/09/20 #21 g montelukast 10 mg tablet 10 mg PO BEDTIME #30 tab 03/16/20 omeprazole 20 mg capsule,delayed 40 mg PO DAILY 90 Days #180 cap 04/12/20 release ondansetron HCl 4 mg tablet 4 mg PO Q8H PRN #10 tab 06/07/20 (Zofran) alcohol swabs (Alcohol Prep Pads) 1 pad TOPICAL TID #200 ea 06/19/20 blood sugar diagnostic (FreeStyle #100 ea 06/19/20 Lite Strips) blood-glucose meter (FreeStyle #1 ea 06/19/20 Lite Meter) lancets 28 gauge (FreeStyle #100 ea 06/19/20 Lancets) polyethylene glycol 3350 17 17 g PO DAILY PRN 30 Days #510 g 06/20/20 gram/dose oral powder meclizine 25 mg tablet 25 mg PO DAILY PRN #20 tab 09/06/20 quetiapine 100 mg tablet 100 mg PO BEDTIME #30 tab 10/08/20 bupropion HCl 150 mg 24 hr tablet, 150 mg PO QAM #90 tab 10/12/20 extended release fluticasone propionate 50 2 spray INTRANASAL DAILY #48 ml 10/12/20 mcg/actuation nasal spray,suspension fluticasone propionate 50 1 spray INTRANASAL BID #16 g 10/25/20 mcg/actuation nasal spray,suspension (24 Hour Allergy Relief) pantoprazole 40 mg tablet,delayed 40 mg PO DAILY #90 tab 11/05/20 release azithromycin 250 mg tablet See Rx Instructions PO .COMPLEX #6 11/10/20 (Zithromax) tab tizanidine 4 mg tablet 4 mg PO TID PRN #90 tab 12/01/20 metformin 500 mg tablet 500 mg PO BID #180 tab 12/07/20 cefuroxime axetil 500 mg tablet 500 mg PO BID 10 Days #20 tab 12/08/20 fluconazole 150 mg tablet 150 mg PO Q3D #2 tab 12/08/20 (Diflucan) ondansetron 4 mg disintegrating 4 mg PO Q8H PRN #20 tab 12/08/20 tablet Allergies Allergy/AdvReac Type Severity Reaction Status Date / Time gabapentin Allergy Unknown Tingling Verified 10/25/20 17:23 feeling in throat zolpidem [From AMBIEN] Allergy Unknown tingling Verified 10/25/20 17:23 feeling in throat Review of Systems Review of Systems Constitutional : No Fever, No Chills ENT/Mouth : No sore throat Eyes: No Eye Pain, No Swelling, No Redness Cardiovascular : No Chest Pain, No SOB Respiratory : No Cough, No Sputum, No Wheezing Gastrointestinal : positive Nausea, no Vomiting, No Diarrhea, positive abdominal pain Genitourinary : positive Dysuria, positive urinary frequency, no Hematuria, positive Flank Pain, positive hesitancy Musculoskeletal : No joint pain, No Myalgias Skin : No Skin Lesions, No rash Neuro : No Weakness, No Numbness, No Headache Psych : No Anxiety/Panic, No Depression Heme/Lymph: No Bruising, No Lymphadenopathy Endocrine : No Polyuria, No Polydipsia All other systems reviewed and are negative Physical Exam Vital Signs: Vital Signs: Last Vital Signs Temp 98.3 F 12/08/20 16:29 Pulse 71 12/08/20 16:29 Resp 18 12/08/20 16:29 BP 117/68 12/08/20 16:29 Pulse Ox 99 12/08/20 16:29 Body Mass Index 38.0 Appearance: Alert. Oriented X3. No acute distress. Eyes: Pupils equal, round and reactive to light. ENT: Pharynx normal. Neck: Normal inspection. Neck supple. CVS: Normal heart rate and rhythm. Pulses normal. Respiratory: No respiratory distress. Breath sounds normal. Abdomen: Soft and mild RUQ ttp , mild R CVA ttp Skin: Skin warm and dry. Normal skin color. Normal skin turgor. Extremities: No lower extremity edema. No calf ttp Neuro: Oriented X 3. No motor deficit. No sensory deficit. Course Course Course Narrative: prior E. Coli UTI S to ceftriaxone - labs look stable will s end home with ceftin she is eating [employer]'s and able to tolerate PO MDM - Abdominal Pain MDM Narrative Medical decision making narrative: 40 yo female with hx of DM, UTI, GERD, anxiety, here with 4 days of nausea negative COVID she is vaccinated noted R flank pain and increased urination - at this time will need labs, cultures, CT scan for renal colic. Her urine is grossly positive for UTI - empiric rocephin ordered. Lab Data Result diagrams: 12/08/20 15:45 12/08/20 15:45 Labs: Lab Results 12/08/20 12/08/20 12/08/20 Range/Units 13:04 15:45 15:45 WBC 8.1 (4.8-10.8) X10*3/uL RBC 5.15 (4.20-5.50) X10*6/uL Hgb 13.3 (12.0-16.0) g/dl Hct 38.0 (37.0-47.0) % MCV 73.8 L (80.0-98.0) fL MCH 25.8 L (27.0-33.0) pg MCHC 35.0 (31.0-35.0) g/dl RDW 13.4 (11.0-16.0) % Plt Count 379 (160-400) X10*3/uL MPV 10.7 (9.4-12.3) fL Immature Gran % (Auto) 0.1 (0.0-0.4) % Neut % (Auto) 54.7 (45-73) % Lymph % (Auto) 37.5 (20-40) % [place] % (Auto) 5.4 (2-11) % Eos % (Auto) 1.8 (0-4) % Baso % (Auto) 0.5 (0-2) % Lymph # (Auto) 3.1 (1.2-4.9) X10*3/uL [place] # (Auto) 0.4 (0.1-1.2) X10*3/uL Eos # (Auto) 0.2 (0.0-0.4) X10*3/uL Baso # (Auto) 0.0 (0.0-0.2) X10*3/uL Abs Immat Gran (auto) 0.01 (0.00-0.03) X10*3/uL Absolute Neuts (auto) 4.44 (2.0-8.3) x10*3/uL Absolute Nucleated RBC 0.000 (0.0-0.012) X10*3/uL Nucleated RBC % (auto) 0.0 (0.0-0.2) /100WBC Sodium 137 (135-145) mmol/L Potassium 4.5 (3.3-5.1) mmol/L Chloride 103 (96-108) mmol/L Carbon Dioxide 26 (22-29) mmol/L Anion Gap 13 (12-20) BUN 7 L (9-16) mg/dL Creatinine 0.75 (0.5-1.4) mg/dL Estim Creat Clear Calc 115.0 Estimated GFR > 60 Random Glucose 155 H (60-115) mg/dL Lactic Acid (0.5-2.0) mmol/L Calcium 9.9 (8.4-10.2) mg/dL Total Bilirubin 0.3 (0.0-1.0) mg/dL Direct Bilirubin < 0.2 (0.0-0.5) mg/dL AST 34 H D (5-31) U/L ALT 46 H (0-31) U/L Alkaline Phosphatase 65 (39-117) U/L Total Protein 7.7 (6.5-8.0) g/dL Albumin 4.5 (3.5-5.0) g/dL Lipase 47 (8-78) U/L Urine Color DK YELLOW Urine Appearance CLOUDY Urine pH 6.5 (5.0-8.0) Ur Specific [place] >= 1.030 H (1.005-1.025) Urine Protein 1+ H (NEG-TRACE) MG/DL Urine Glucose (UA) 500 H (NEG) MG/DL Urine Ketones 5 (NEG) MG/DL Urine Blood 3+ H (NEG) Urine Nitrite POS H (NEG) Ur Leukocyte Esterase 2+ H (NEG) Urine RBC TNTC H (0) /HPF Urine WBC 10-14 H (0-4) /HPF Ur Squamous Epith Cells 1+ /LPF Urine Bacteria 1+ /LPF Urine Mucus 1+ /LPF 12/08/20 Range/Units 15:45 WBC (4.8-10.8) X10*3/uL RBC (4.20-5.50) X10*6/uL Hgb (12.0-16.0) g/dl Hct (37.0-47.0) % MCV (80.0-98.0) fL MCH (27.0-33.0) pg MCHC (31.0-35.0) g/dl RDW (11.0-16.0) % Plt Count (160-400) X10*3/uL MPV (9.4-12.3) fL Immature Gran % (Auto) (0.0-0.4) % Neut % (Auto) (45-73) % Lymph % (Auto) (20-40) % [place] % (Auto) (2-11) % Eos % (Auto) (0-4) % Baso % (Auto) (0-2) % Lymph # (Auto) (1.2-4.9) X10*3/uL [place] # (Auto) (0.1-1.2) X10*3/uL Eos # (Auto) (0.0-0.4) X10*3/uL Baso # (Auto) (0.0-0.2) X10*3/uL Abs Immat Gran (auto) (0.00-0.03) X10*3/uL Absolute Neuts (auto) (2.0-8.3) x10*3/uL Absolute Nucleated RBC (0.0-0.012) X10*3/uL Nucleated RBC % (auto) (0.0-0.2) /100WBC Sodium (135-145) mmol/L Potassium (3.3-5.1) mmol/L Chloride (96-108) mmol/L Carbon Dioxide (22-29) mmol/L Anion Gap (12-20) BUN (9-16) mg/dL Creatinine (0.5-1.4) mg/dL Estim Creat Clear Calc Estimated GFR Random Glucose (60-115) mg/dL Lactic Acid 1.4 (0.5-2.0) mmol/L Calcium (8.4-10.2) mg/dL Total Bilirubin (0.0-1.0) mg/dL Direct Bilirubin (0.0-0.5) mg/dL AST (5-31) U/L ALT (0-31) U/L Alkaline Phosphatase (39-117) U/L Total Protein (6.5-8.0) g/dL Albumin (3.5-5.0) g/dL Lipase (8-78) U/L Urine Color Urine Appearance Urine pH (5.0-8.0) Ur Specific [place] (1.005-1.025) Urine Protein (NEG-TRACE) MG/DL Urine Glucose (UA) (NEG) MG/DL Urine Ketones (NEG) MG/DL Urine Blood (NEG) Urine Nitrite (NEG) Ur Leukocyte Esterase (NEG) Urine RBC (0) /HPF Urine WBC (0-4) /HPF Ur Squamous Epith Cells /LPF Urine Bacteria /LPF Urine Mucus /LPF Discharge Plan Discharge Clinical Impression: UTI (urinary tract infection) Qualifiers: Urinary tract infection type: acute cystitis Hematuria presence: without hematuria Qualified Code(s): N30.00 - Acute cystitis without hematuria Patient Disposition: Home, Self-Care Instructions: Urinary Tract Infection in Women (ED) Additional Instructions: return to ED for any worsening symptoms or concerns Prescriptions: New cefuroxime axetil 500 mg tablet 500 mg PO BID 10 Days Qty: 20 RF: 0 fluconazole [Diflucan] 150 mg tablet 150 mg PO Q3D Qty: 2 RF: 0 ondansetron 4 mg tablet,disintegrating 4 mg PO Q8H PRN (Reason: nausea and vomiting) Qty: 20 RF: 0 No Action tiotropium bromide [Spiriva Respimat] 2.5 mcg/actuation mist 2 puff PO DAILY Qty: 4 RF: 5 montelukast 10 mg tablet 10 mg PO BEDTIME Qty: 30 RF: 5 omeprazole 20 mg capsule,delayed release(DR/EC) 40 mg PO DAILY 90 Days Qty: 180 RF: 0 polyethylene glycol 3350 17 gram/dose powder 17 g PO DAILY PRN (Reason: constipation) 30 Days Qty: 510 RF: 5 quetiapine 100 mg tablet 100 mg PO BEDTIME Qty: 30 RF: 1 fluticasone propionate 50 mcg/actuation spray,suspension 2 spray intranasal DAILY Qty: 48 RF: 1 bupropion HCl 150 mg tablet extended release 24 hr 150 mg PO QAM Qty: 90 RF: 1 pantoprazole 40 mg tablet,delayed release (DR/EC) 40 mg PO DAILY Qty: 90 RF: 1 tizanidine 4 mg tablet 4 mg PO TID PRN (Reason: for muscle spasm) Qty: 90 RF: 1 metformin 500 mg tablet 500 mg PO BID Qty: 180 RF: 1 ferrous sulfate 325 mg (65 mg iron) tablet 325 mg PO DAILY Qty: 14 RF: 0 ondansetron HCl [Zofran] 4 mg tablet 4 mg PO Q8H PRN (Reason: nausea and vomiting) Qty: 10 RF: 0 meclizine 25 mg tablet 25 mg PO DAILY PRN (Reason: dizziness) Qty: 20 RF: 0 fluticasone propionate [24 Hour Allergy Relief] 50 mcg/actuation spray,suspension 1 spray intranasal BID Qty: 16 RF: 0 (DME) blood-glucose meter [FreeStyle Lite Meter] Kit See Rx Instructions .ROUTE .MEDSUPPLY Qty: 1 RF: 0 (DME) FreeStyle Lite Strips Strip See Rx Instructions .ROUTE .MEDSUPPLY Qty: 100 RF: 0 (DME) lancets [FreeStyle Lancets] 28 gauge misc See Rx Instructions .ROUTE .MEDSUPPLY Qty: 100 RF: 0 alcohol swabs [Alcohol Prep Pads] Pads, Medicated 1 pad topical TID Qty: 200 RF: 0 multivitamin Tablet 1 tab PO DAILY RF: 0 ibuprofen 800 mg tablet 800 mg PO TID RF: 0 oxybutynin chloride 10 mg tablet extended release 24hr 10 mg PO DAILY RF: 0 cetirizine [Zyrtec] 10 mg tablet 10 mg PO DAILY 10 Days Qty: 10 RF: 0 clotrimazole 2 % cream 1 appful vaginal BEDTIME 3 Days Qty: 21 RF: 0 albuterol sulfate 90 mcg/actuation HFA aerosol inhaler 90 mcg inhalation Q4-6H PRN (Reason: Shortness Of Breath Or Wheezing) RF: 0 azithromycin [Zithromax] 250 mg tablet See Rx Instructions PO .COMPLEX Qty: 6 RF: 0 Stand Alone Forms: Work/School Release [facility] Past Medical History Attestation statement: The following information was validated with the patient. Medical History Allergic rhinitis Anxiety Asthma Bilateral flank pain Depression Diabetes mellitus Dizziness GERD without esophagitis Hemorrhoid HTN (hypertension) Knee pain, bilateral Left ear pain Lower back pain Lumbar degenerative disc disease Menorrhagia Obesity (BMI 30-39.9) Pressure sensation in left ear UTI (urinary tract infection) Varicose veins of bilateral lower extremities with pain Varicose veins of left lower extremity with pain Surgical History H/O tubal ligation History of carpal tunnel surgery History of endometrial ablation History of hemorrhoidectomy Family History Family History Father Diabetes Asthma Hepatitis Mother Diabetes Sleep apnea Ischemic cerebrovascular accident (CVA) Maternal Grandmother Diabetes Breast cancer Maternal Grandfather Stroke Paternal Grandfather Lung cancer Social History Social History Household Members: Family Housing: House Alcohol intake: never Patient Tobacco Use Status: Former Tobacco user Use of substances other than those prescribed or required for medical reasons: No Advance Directives: No Advance Directives Information Provided: No service: No Current occupational status: employed 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
[2020-12-08 15:36] VITALS: BP 137/84; PULSE 81; RESP 18; TEMP 37.1; O2SAT 99
[2020-12-08] MEDS: ondansetron HCL 4 MG/2 ML VIAL IVPUSH (15:51)
[2020-12-08 15:52] LABS: MANUAL DIFF FLAG NO
[2020-12-08] MEDS: cefTRIAXone sodium 1 GM in 0.9 % Sodium Chloride 50 ML IV (15:53)
[2020-12-08] MEDS: 0.9 % Sodium Chloride 1,000 ML 999 ML IV (15:53)
[2020-12-08 15:56] LABS: Basophils Percent Auto 0.5 % (0-2); Eosinophils Absolute Auto 0.2 X10*3/uL (0.0-0.4); Eosinophils Percent Auto 1.8 % (0-4); Hemoglobin 13.3 g/dl (12.0-16.0); Imm Gran Abs Auto 0.01 X10*3/uL (0.00-0.03); Imm Gran Pct Auto 0.1 % (0.0-0.4); Lymphocytes Absolute Auto 3.1 X10*3/uL (1.2-4.9); Lymphocytes Percent Auto 37.5 % (20-40); Mean Corpuscular Hemoglobin 25.8 pg (27.0-33.0); Mean Corpuscular Volume 73.8 fL (80.0-98.0); Mean Platelet Volume 10.7 fL (9.4-12.3); Monocytes Absolute Auto 0.4 X10*3/uL (0.1-1.2); Monocytes Percent Auto 5.4 % (2-11); Neutrophils Absolute Auto 4.44 x10*3/uL (2.0-8.3); Neutrophils Percent Auto 54.7 % (45-73); Platelet Count 379 X10*3/uL (160-400); Red Blood Count 5.15 X10*6/uL (4.20-5.50); Red Cell Distribution Width 13.4 % (11.0-16.0); White Blood Count 8.1 X10*3/uL (4.8-10.8)
[2020-12-08 16:04] LABS: Lactic Acid 1.4 mmol/L (0.5-2.0)
[2020-12-08 16:29] VITALS: BP 117/68; PULSE 71; RESP 18; TEMP 36.8; O2SAT 99
[2020-12-08 16:32] LABS: Alanine Aminotransferase 46 U/L (0-31); Albumin Level 4.5 g/dL (3.5-5.0); Alkaline Phosphatase 65 U/L (39-117); Anion Gap 13 (12-20); Aspartate Amino Transferase 34 U/L (5-31); Bilirubin Direct < 0.2 mg/dL (0.0-0.5); Bilirubin Total 0.3 mg/dL (0.0-1.0); Blood Urea Nitrogen 7 mg/dL (9-16); Calcium 9.9 mg/dL (8.4-10.2); Carbon Dioxide 26 mmol/L (22-29); Chloride 103 mmol/L (96-108); Estimated Glomerular Filt Rate > 60; Glucose Random 155 mg/dL (60-115); Lipase 47 U/L (8-78); Potassium 4.5 mmol/L (3.3-5.1); Sodium 137 mmol/L (135-145); Total Protein 7.7 g/dL (6.5-8.0)
== END 2020-12-08 17:19 | disposition home or self-care (01) ==
PROVIDERS: Emergency Provider Emergency Medicine; PCP Internal Medicine
DX: N30.00 Acute cystitis without hematuria (principal); E11.9 Type 2 diabetes mellitus without complications; I10 Essential (primary) hypertension; J45.909 Unspecified asthma, uncomplicated
CPT/HCPCS: 36415; 74176; 80048; 80076; 81001; 83605; 83690; 85025; 87040; 87086; 87147; 96365; 96375; 99284; J0696; J2405

== ENCOUNTER 2021-01-03 13:12 | Outpatient (REF) | payer OTHER, SELFPAY ==
[2021-01-03 13:57] LABS: Appearance Urine HAZY; Color Urine YELLOW; Glucose Urine UA 500 MG/DL (NEG); Leukocyte Esterase Urine TRACE (NEG); Nitrite Urine NEG (NEG); PH 5.5 (5.0-8.0); Specific Gravity - Urine >= 1.030 (1.005-1.025); UACC Culture Trigger YES; Urine Blood 3+ (NEG); Urine Ketones 5 MG/DL (NEG); Urine Protein TRACE MG/DL (NEG-TRACE)
[2021-01-03 14:25] LABS: Bacteria Urine 1+ /LPF; Squamous Epithelial Cell Urine 4+ /LPF
== END 2021-01-03 13:13 | disposition home or self-care (01) ==
LOC: HO.LAB 13:12
PROVIDERS: Internal Medicine; Visit Provider Internal Medicine
DX: Z20.822 Contact with and (suspected) exposure to COVID-19 (principal); R30.0 Dysuria
CPT/HCPCS: 81001; 87086; C9803; U0003; U0005

== ENCOUNTER 2021-01-12 18:26 | Outpatient (REF) | payer OTHER, SELFPAY | END 2021-01-12 18:27 | disposition home or self-care (01) | LOC: HO.LNP 18:26 | PROVIDERS: Visit Provider Nurse Practitioner Family | DX: R30.0 Dysuria (principal) | CPT/HCPCS: 87086 ==

== ENCOUNTER 2021-01-25 07:53 | Emergency (ER) | payer OTHER, SELFPAY ==
--- NOTE | ~2021-01-25 | US_ITS ---
EXAMINATION: US ABDOMEN LIMITED CLINICAL INFORMATION: Right upper quadrant pain.. COMPARISON: None TECHNIQUE: Real-time imaging of the right upper quadrant abdominal viscera. FINDINGS: Imaging of the gallbladder was performed. There is no echogenic stone, wall thickening or pericholecystic fluid collection seen. US/US abdomen limited IMPRESSION: Unremarkable gallbladder ultrasound exam.
[2021-01-25 07:59] VITALS: BP 128/58; PULSE 80; RESP 20; TEMP 36.8; O2SAT 98; BMI 36.0
--- NOTE | 2021-01-25 08:24 | ED_ITS ---
HPI - Nausea/Vomiting/Diarrhea General Chief complaint: Nausea/Vomiting/Diarrhea Stated complaint: Nausea/shaking Time Seen by Provider: 01/25/21 08:06 Source: patient Mode of arrival: ambulatory Limitations: no limitations History of Present Illness MD elicited complaint: nausea and abdominal pain Pertinent past history: other (UTI) Onset (ago): day(s) (few) Associated nausea: Yes Associated abdominal pain: Yes Location of pain: RUQ Pain consistency: intermittent Severity: mild Quality: stabbing Exacerbating factors: none Relieving factors: none Associated symptoms: loss of appetite, malaise and nausea/vomiting Related Data Home Medications Medication Instructions Recorded Confirmed albuterol sulfate 90 mcg/actuation 90 mcg INHALATION Q4-6H PRN 11/19/19 01/12/21 aerosol inhaler ibuprofen 800 mg tablet 800 mg PO TID 12/25/19 01/12/21 multivitamin 1 tab PO DAILY 12/25/19 01/12/21 oxybutynin chloride 10 mg 10 mg PO DAILY 12/25/19 01/12/21 tablet,extended release 24 hr Previous Rx's Medication Instructions Recorded ferrous sulfate 325 mg (65 mg 325 mg PO DAILY #14 tab 12/05/19 iron) tablet cetirizine 10 mg tablet (Zyrtec) 10 mg PO DAILY 10 Days #10 tab 12/25/19 clotrimazole 2 % vaginal cream 1 appful VAGINAL BEDTIME 3 Days 02/09/20 #21 g montelukast 10 mg tablet 10 mg PO BEDTIME #30 tab 03/16/20 omeprazole 20 mg capsule,delayed 40 mg PO DAILY 90 Days #180 cap 04/12/20 release ondansetron HCl 4 mg tablet 4 mg PO Q8H PRN #10 tab 06/07/20 (Zofran) alcohol swabs (Alcohol Prep Pads) 1 pad TOPICAL TID #200 ea 06/19/20 blood sugar diagnostic (FreeStyle #100 ea 06/19/20 Lite Strips) blood-glucose meter (FreeStyle #1 ea 06/19/20 Lite Meter) lancets 28 gauge (FreeStyle #100 ea 06/19/20 Lancets) polyethylene glycol 3350 17 17 g PO DAILY PRN 30 Days #510 g 06/20/20 gram/dose oral powder meclizine 25 mg tablet 25 mg PO DAILY PRN #20 tab 09/06/20 bupropion HCl 150 mg 24 hr tablet, 150 mg PO QAM #90 tab 10/12/20 extended release fluticasone propionate 50 2 spray INTRANASAL DAILY #48 ml 10/12/20 mcg/actuation nasal spray,suspension fluticasone propionate 50 1 spray INTRANASAL BID #16 g 10/25/20 mcg/actuation nasal spray,suspension (24 Hour Allergy Relief) pantoprazole 40 mg tablet,delayed 40 mg PO DAILY #90 tab 11/05/20 release metformin 500 mg tablet 500 mg PO BID #180 tab 12/07/20 ondansetron 4 mg disintegrating 4 mg PO Q8H PRN #20 tab 12/08/20 tablet tiotropium bromide 2.5 2 puff PO DAILY #4 ml 12/16/20 mcg/actuation mist for inhalation (Spiriva Respimat) quetiapine 100 mg tablet 100 mg PO BEDTIME #30 tab 12/31/20 tizanidine 4 mg tablet 4 mg PO TID PRN #90 tab 12/31/20 fluconazole 150 mg tablet 150 mg PO Q3D #2 tab 01/12/21 (Diflucan) ondansetron 4 mg disintegrating 4 mg PO Q8H PRN #20 tab 01/25/21 tablet Allergies Allergy/AdvReac Type Severity Reaction Status Date / Time gabapentin Allergy Unknown Tingling Verified 01/12/21 15:37 feeling in throat zolpidem [From [facility]BI[facility]] Allergy Unknown tingling Verified 01/12/21 15:37 feeling in throat Review of Systems Review of Systems: Constitutional : No Weight loss, No Fever, No Chills, pos malaise ENT/Mouth : No sore throat, No Rhinorrhea Eyes: No Swelling, No Redness Cardiovascular : No Chest Pain, No SOB, NoEdema Respiratory : No Cough, No Sputum, No Wheezing Gastrointestinal : Positive Nausea, no Vomiting, no Diarrhea, positive abdominal Pain, No Hematochezia, No Melena Genitourinary : No Dysuria, No Urinary Frequency, No Hematuria, No Urgency Musculoskeletal : No joint pain, No Myalgias, No Joint Swelling Skin : No Skin Lesions, No rash Neuro : No Weakness, No Numbness, No Dizziness, No Headache Psych : No Anxiety/Panic, No Depression Heme/Lymph: No Bruising, No Lymphadenopathy Endocrine : No Polyuria, No Polydipsia All other systems reviewed and are negative. Gastrointestinal: Gastrointestinal: Reports nausea PMFSH Past Medical History Medical History Allergic rhinitis Anxiety Asthma Bilateral flank pain Depression Diabetes mellitus Dizziness GERD without esophagitis Hemorrhoid HTN (hypertension) Knee pain, bilateral Left ear pain Lower back pain Lumbar degenerative disc disease Menorrhagia Obesity (BMI 30-39.9) Pressure sensation in left ear UTI (urinary tract infection) Varicose veins of bilateral lower extremities with pain Varicose veins of left lower extremity with pain Surgical History H/O tubal ligation History of carpal tunnel surgery History of endometrial ablation History of hemorrhoidectomy Family History Family History Father Diabetes Asthma Hepatitis Mother Diabetes Sleep apnea Ischemic cerebrovascular accident (CVA) Maternal Grandmother Diabetes Breast cancer Maternal Grandfather Stroke Paternal Grandfather Lung cancer Social History Social History Household Members: Family Housing: House Alcohol intake: never Patient Tobacco Use Status: Former Tobacco user Use of substances other than those prescribed or required for medical reasons: No Advance Directives: No Advance Directives Information Provided: Yes service: No Current occupational status: employed 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 Oriented X3. No acute distress. Eyes: Pupils equal, round and reactive to light. ENT: Pharynx normal. Neck: Normal inspection. Neck supple. CVS: Normal heart rate and rhythm. Pulses normal. Respiratory: No respiratory distress. Breath sounds normal. Abdomen: Soft and very mild RUQ pain no rebound or guarding Skin: Skin warm and dry. Normal skin color. Normal skin turgor. Extremities: No lower extremity edema. No calf ttp Neuro: Oriented X 3. No motor deficit. No sensory deficit. Course Course Course Narrative: negative workup no UTI stable for DC MDM - Nausea/Vomiting/Diarrhea MDM Narrative Medical decision making narrative: 40 yo female hx of UTI comes in with c/o dk ise and nausea - at this time she reports persistent nausea and intermittent RUQ pain - at this time will need labs, UA, US to evaluate GB - IVF and supportive medications dispo per results and findings. Lab Data Result diagrams: 01/25/21 08:48 01/25/21 08:48 Labs: Lab Results 01/25/21 01/25/21 01/25/21 Range/Units 08:09 08:48 08:48 WBC 8.8 (4.8-10.8) X10*3/uL RBC 5.20 (4.20-5.50) X10*6/uL Hgb 13.3 (12.0-16.0) g/dl Hct 38.2 (37.0-47.0) % MCV 73.5 L (80.0-98.0) fL MCH 25.6 L (27.0-33.0) pg MCHC 34.8 (31.0-35.0) g/dl RDW 13.5 (11.0-16.0) % Plt Count 331 (160-400) X10*3/uL MPV 11.1 (9.4-12.3) fL Immature Gran % (Auto) 0.3 (0.0-0.4) % Neut % (Auto) 60.8 (45-73) % Lymph % (Auto) 30.2 (20-40) % [place] % (Auto) 6.0 (2-11) % Eos % (Auto) 2.2 (0-4) % Baso % (Auto) 0.5 (0-2) % Lymph # (Auto) 2.7 (1.2-4.9) X10*3/uL [place] # (Auto) 0.5 (0.1-1.2) X10*3/uL Eos # (Auto) 0.2 (0.0-0.4) X10*3/uL Baso # (Auto) 0.0 (0.0-0.2) X10*3/uL Abs Immat Gran (auto) 0.03 (0.00-0.03) X10*3/uL Absolute Neuts (auto) 5.3 (2.0-8.3) x10*3/uL Absolute Nucleated RBC 0.000 (0.0-0.012) X10*3/uL Nucleated RBC % (auto) 0.0 (0.0-0.2) /100WBC Sodium 139 (135-145) mmol/L Potassium 4.1 (3.3-5.1) mmol/L Chloride 103 (96-108) mmol/L Carbon Dioxide 28 (22-29) mmol/L Anion Gap 12 (12-20) BUN 8 L (9-16) mg/dL Creatinine 0.77 (0.5-1.4) mg/dL Estim Creat Clear Calc 108.7 Estimated GFR > 60 Random Glucose 175 H (60-115) mg/dL Calcium 9.6 (8.4-10.2) mg/dL Magnesium 1.8 (1.6-2.6) mg/dL Total Bilirubin 0.5 (0.0-1.0) mg/dL Direct Bilirubin 0.2 (0.0-0.5) mg/dL AST 16 D (5-31) U/L ALT 27 (0-31) U/L Alkaline Phosphatase 65 (39-117) U/L Total Protein 7.3 (6.5-8.0) g/dL Albumin 4.4 (3.5-5.0) g/dL Lipase 62 (8-78) U/L Urine Color Urine Appearance Urine pH (5.0-8.0) Ur Specific [place] (1.005-1.025) Urine Protein (NEG-TRACE) MG/DL Urine Glucose (UA) (NEG) MG/DL Urine Ketones (NEG) MG/DL Urine Blood (NEG) Urine Nitrite (NEG) Ur Leukocyte Esterase (NEG) Urine RBC (0) /HPF Urine WBC (0-4) /HPF Ur Squamous Epith Cells /LPF Urine Bacteria /LPF Urine Test (NEGATIVE) COVID-19 ([facility]) Negative (Negative) COVID-19 Clin Com See Note 01/25/21 01/25/21 Range/Units 08:48 08:48 WBC (4.8-10.8) X10*3/uL RBC (4.20-5.50) X10*6/uL Hgb (12.0-16.0) g/dl Hct (37.0-47.0) % MCV (80.0-98.0) fL MCH (27.0-33.0) pg MCHC (31.0-35.0) g/dl RDW (11.0-16.0) % Plt Count (160-400) X10*3/uL MPV (9.4-12.3) fL Immature Gran % (Auto) (0.0-0.4) % Neut % (Auto) (45-73) % Lymph % (Auto) (20-40) % [place] % (Auto) (2-11) % Eos % (Auto) (0-4) % Baso % (Auto) (0-2) % Lymph # (Auto) (1.2-4.9) X10*3/uL [place] # (Auto) (0.1-1.2) X10*3/uL Eos # (Auto) (0.0-0.4) X10*3/uL Baso # (Auto) (0.0-0.2) X10*3/uL Abs Immat Gran (auto) (0.00-0.03) X10*3/uL Absolute Neuts (auto) (2.0-8.3) x10*3/uL Absolute Nucleated RBC (0.0-0.012) X10*3/uL Nucleated RBC % (auto) (0.0-0.2) /100WBC Sodium (135-145) mmol/L Potassium (3.3-5.1) mmol/L Chloride (96-108) mmol/L Carbon Dioxide (22-29) mmol/L Anion Gap (12-20) BUN (9-16) mg/dL Creatinine (0.5-1.4) mg/dL Estim Creat Clear Calc Estimated GFR Random Glucose (60-115) mg/dL Calcium (8.4-10.2) mg/dL Magnesium (1.6-2.6) mg/dL Total Bilirubin (0.0-1.0) mg/dL Direct Bilirubin (0.0-0.5) mg/dL AST (5-31) U/L ALT (0-31) U/L Alkaline Phosphatase (39-117) U/L Total Protein (6.5-8.0) g/dL Albumin (3.5-5.0) g/dL Lipase (8-78) U/L Urine Color YELLOW Urine Appearance HAZY Urine pH 6.0 (5.0-8.0) Ur Specific [place] 1.025 (1.005-1.025) Urine Protein NEG (NEG-TRACE) MG/DL Urine Glucose (UA) 100 H (NEG) MG/DL Urine Ketones NEG (NEG) MG/DL Urine Blood TRACE (NEG) Urine Nitrite NEG (NEG) Ur Leukocyte Esterase NEG (NEG) Urine RBC 1-4 (0) /HPF Urine WBC 1-4 (0-4) /HPF Ur Squamous Epith Cells 2+ /LPF Urine Bacteria 1+ /LPF Urine Test NEGATIVE (NEGATIVE) COVID-19 ([facility]) (Negative) COVID-19 Clin Com Discharge Plan Discharge Clinical Impression: Nausea Patient Disposition: Home, Self-Care Instructions: Acute Nausea and Vomiting (ED) Additional Instructions: return to ED for any worsening symptoms or concerns labs, urine, US normal COVID negative Prescriptions: New ondansetron 4 mg tablet,disintegrating 4 mg PO Q8H PRN (Reason: nausea and vomiting) Qty: 20 RF: 0 No Action montelukast 10 mg tablet 10 mg PO BEDTIME Qty: 30 RF: 5 omeprazole 20 mg capsule,delayed release(DR/EC) 40 mg PO DAILY 90 Days Qty: 180 RF: 0 polyethylene glycol 3350 17 gram/dose powder 17 g PO DAILY PRN (Reason: constipation) 30 Days Qty: 510 RF: 5 fluticasone propionate 50 mcg/actuation spray,suspension 2 spray intranasal DAILY Qty: 48 RF: 1 bupropion HCl 150 mg tablet extended release 24 hr 150 mg PO QAM Qty: 90 RF: 1 pantoprazole 40 mg tablet,delayed release (DR/EC) 40 mg PO DAILY Qty: 90 RF: 1 metformin 500 mg tablet 500 mg PO BID Qty: 180 RF: 1 Spiriva Respimat 2.5 mcg/actuation mist 2 puff PO DAILY Qty: 4 RF: 4 tizanidine 4 mg tablet 4 mg PO TID PRN (Reason: for muscle spasm) Qty: 90 RF: 1 quetiapine 100 mg tablet 100 mg PO BEDTIME Qty: 30 RF: 1 ferrous sulfate 325 mg (65 mg iron) tablet 325 mg PO DAILY Qty: 14 RF: 0 ondansetron HCl [Zofran] 4 mg tablet 4 mg PO Q8H PRN (Reason: nausea and vomiting) Qty: 10 RF: 0 meclizine 25 mg tablet 25 mg PO DAILY PRN (Reason: dizziness) Qty: 20 RF: 0 fluticasone propionate [24 Hour Allergy Relief] 50 mcg/actuation spray,suspension 1 spray intranasal BID Qty: 16 RF: 0 (DME) blood-glucose meter [FreeStyle Lite Meter] Kit See Rx Instructions .ROUTE .MEDSUPPLY Qty: 1 RF: 0 (DME) FreeStyle Lite Strips Strip See Rx Instructions .ROUTE .MEDSUPPLY Qty: 100 RF: 0 (DME) lancets [FreeStyle Lancets] 28 gauge misc See Rx Instructions .ROUTE .MEDSUPPLY Qty: 100 RF: 0 alcohol swabs [Alcohol Prep Pads] Pads, Medicated 1 pad topical TID Qty: 200 RF: 0 ondansetron 4 mg tablet,disintegrating 4 mg PO Q8H PRN (Reason: nausea and vomiting) Qty: 20 RF: 0 multivitamin Tablet 1 tab PO DAILY RF: 0 ibuprofen 800 mg tablet 800 mg PO TID RF: 0 oxybutynin chloride 10 mg tablet extended release 24hr 10 mg PO DAILY RF: 0 cetirizine [Zyrtec] 10 mg tablet 10 mg PO DAILY 10 Days Qty: 10 RF: 0 clotrimazole 2 % cream 1 appful vaginal BEDTIME 3 Days Qty: 21 RF: 0 albuterol sulfate 90 mcg/actuation HFA aerosol inhaler 90 mcg inhalation Q4-6H PRN (Reason: Shortness Of Breath Or Wheezing) RF: 0 fluconazole [Diflucan] 150 mg tablet 150 mg PO Q3D Qty: 2 RF: 0 Referrals: Kurt Arroyo MD [Primary Care Provider] - 5 days (if not better) Stand Alone Forms: Work/School Release
[2021-01-25 08:36] LABS: COVID-19 Test Negative (Negative)
[2021-01-25] MEDS: ondansetron HCL 4 MG/2 ML VIAL IVPUSH (08:50)
[2021-01-25] MEDS: Ketorolac Tromethamine 30 MG/ML VIAL IVPUSH (08:50)
[2021-01-25] MEDS: 0.9 % Sodium Chloride 1,000 ML 999 ML IVCONT (08:50)
[2021-01-25 08:59] LABS: MANUAL DIFF FLAG NO
[2021-01-25 09:03] LABS: Appearance Urine HAZY; Color Urine YELLOW; Glucose Urine UA 100 MG/DL (NEG); Leukocyte Esterase Urine NEG (NEG); Nitrite Urine NEG (NEG); Specific Gravity - Urine 1.025 (1.005-1.025); UACC Culture Trigger NO; Urine Blood TRACE (NEG); Urine Ketones NEG (NEG); Urine Protein NEG (NEG-TRACE)
[2021-01-25 09:04] LABS: Basophils Percent Auto 0.5 % (0-2); Eosinophils Absolute Auto 0.2 X10*3/uL (0.0-0.4); Eosinophils Percent Auto 2.2 % (0-4); Hematocrit 38.2 % (37.0-47.0); Hemoglobin 13.3 g/dl (12.0-16.0); Imm Gran Abs Auto 0.03 X10*3/uL (0.00-0.03); Imm Gran Pct Auto 0.3 % (0.0-0.4); Lymphocytes Absolute Auto 2.7 X10*3/uL (1.2-4.9); Lymphocytes Percent Auto 30.2 % (20-40); Mean Corpuscular HGB Conc 34.8 g/dl (31.0-35.0); Mean Corpuscular Hemoglobin 25.6 pg (27.0-33.0); Mean Corpuscular Volume 73.5 fL (80.0-98.0); Mean Platelet Volume 11.1 fL (9.4-12.3); Monocytes Absolute Auto 0.5 X10*3/uL (0.1-1.2); Neutrophils Absolute Auto 5.3 x10*3/uL (2.0-8.3); Neutrophils Percent Auto 60.8 % (45-73); Platelet Count 331 X10*3/uL (160-400); Red Cell Distribution Width 13.5 % (11.0-16.0); White Blood Count 8.8 X10*3/uL (4.8-10.8)
[2021-01-25 09:07] LABS: UPreg QC Valid YES; Urine Pregnancy NEGATIVE (NEGATIVE)
[2021-01-25 09:17] LABS: Bacteria Urine 1+ /LPF; Squamous Epithelial Cell Urine 2+ /LPF
[2021-01-25 09:20] LABS: Alanine Aminotransferase 27 U/L (0-31); Albumin Level 4.4 g/dL (3.5-5.0); Alkaline Phosphatase 65 U/L (39-117); Anion Gap 12 (12-20); Aspartate Amino Transferase 16 U/L (5-31); Bilirubin Direct 0.2 mg/dL (0.0-0.5); Bilirubin Total 0.5 mg/dL (0.0-1.0); Blood Urea Nitrogen 8 mg/dL (9-16); Calcium 9.6 mg/dL (8.4-10.2); Carbon Dioxide 28 mmol/L (22-29); Chloride 103 mmol/L (96-108); Creatinine Clr Calc Pharmacy 108.7; Estimated Glomerular Filt Rate > 60; Glucose Random 175 mg/dL (60-115); Lipase 62 U/L (8-78); Magnesium 1.8 mg/dL (1.6-2.6); Potassium 4.1 mmol/L (3.3-5.1); Sodium 139 mmol/L (135-145); Total Protein 7.3 g/dL (6.5-8.0)
[2021-01-25 10:13] VITALS: BP 117/46; PULSE 67; RESP 18; TEMP 36.7; O2SAT 99
== END 2021-01-25 11:26 | disposition home or self-care (01) ==
PROVIDERS: Emergency Provider Emergency Medicine; PCP Internal Medicine
DX: R11.0 Nausea (principal); E11.9 Type 2 diabetes mellitus without complications; I10 Essential (primary) hypertension; J45.909 Unspecified asthma, uncomplicated; Z20.822 Contact with and (suspected) exposure to COVID-19
CPT/HCPCS: 36415; 76705; 80048; 80076; 81001; 81003; 81025; 83690; 83735; 85025; 87635; 96361; 96374; 96375; 99284; J1885; J2405

== ENCOUNTER 2021-02-07 11:07 | Outpatient (REF) | payer OTHER, SELFPAY ==
[2021-02-07 12:31] LABS: Binax Internal Control QC Valid; Binax Lot number: 9864; Binax Now Covid-19 Ag Negative (Negative)
== END 2021-02-07 11:08 | disposition home or self-care (01) ==
LOC: HO.LAB 11:07
PROVIDERS: Visit Provider Internal Medicine
DX: Z20.822 Contact with and (suspected) exposure to COVID-19 (principal)
CPT/HCPCS: 36415; C9803

== ENCOUNTER 2021-03-16 16:23 | Outpatient (REF) | payer OTHER, SELFPAY ==
--- NOTE | ~2021-03-16 | US_ITS ---
EXAMINATION: ULTRASOUND EXTREMITY NONVASCULAR CLINICAL INFORMATION: Left medial knee lung COMPARISON: None TECHNIQUE: Grayscale and color imaging of the soft tissues of the medial left knee using a linear transducer FINDINGS: No solid or cystic soft tissue mass or fluid collection is appreciated by ultrasound. US/US extremity nonvascular IMPRESSION: No abnormality appreciated by ultrasound.
== END 2021-03-16 16:24 | disposition home or self-care (01) ==
LOC: HO.US 16:23
PROVIDERS: Visit Provider Nurse Practitioner Family
DX: R22.41 Localized swelling, mass and lump, right lower limb (principal)
CPT/HCPCS: 76882

== ENCOUNTER 2021-04-05 08:06 | Emergency (ER) | payer OTHER, SELFPAY ==
--- NOTE | ~2021-04-05 | CT_ITS ---
EXAMINATION: CT ABDOMEN AND PELVIS WITHOUT CONTRAST CLINICAL INFORMATION: Right back pain and hematuria. History of trauma. COMPARISON: Previous CT of the abdomen and pelvis December 2020 and abdominal ultrasound January 2021 TECHNIQUE: Multidetector volumetric imaging was performed from the superior aspect of the liver through the pubic symphysis. Sagittal and coronal reformatted images were obtained on the technologist's workstation. This CT examination was performed using dose optimization techniques as appropriate, variously including the following: *Automated exposure control *Adjustment of mA and/or kV according to patient size (this includes techniques or standardized protocols for targeted exams where dose is matched to indication/reason for exam; i.e. extremities or head) *Use of iterative reconstruction technique DLP: 716 mGy-cm FINDINGS: LUNG BASES: The visualized lung bases are unremarkable. LIVER, GALLBLADDER, AND BILIARY TREE: The liver is normal in size and shape. The liver is low in attenuation suggestive of fatty infiltration. No focal hepatic lesion or biliary ductal dilatation is present. The gallbladder is unremarkable with no evidence of radiopaque gallstones, gallbladder wall thickening, or obvious pericholecystic inflammatory changes. PANCREAS: Unremarkable. SPLEEN: Unremarkable. ADRENAL GLANDS: Unremarkable. KIDNEYS AND URETERS: The kidneys are normal in size, shape, and attenuation. No hydronephrosis, hydroureter, or calculi seen. No perinephric stranding. BLADDER: Unremarkable. GASTROINTESTINAL TRACT: The small and large bowel are unremarkable. The appendix is unremarkable. ABDOMINAL WALL: No significant hernia is appreciated. LYMPH NODES: Normal. VASCULAR: Unremarkable. PELVIC VISCERA: Unremarkable. OSSEOUS STRUCTURES: No fracture. There is degenerative disc disease at L4-L5. CT/CT abdomen pelvis wo con IMPRESSION: No acute findings. Fatty liver. Degenerative disc disease at L4-L5. Fleischner guidelines were followed.
[2021-04-05 08:16] VITALS: BP 134/77; PULSE 86; RESP 16; TEMP 36.4; O2SAT 98
[2021-04-05 08:26] VITALS: BMI 37.5
[2021-04-05 08:41] LABS: Appearance Urine HAZY; Color Urine YELLOW; Glucose Urine UA NEG (NEG); Leukocyte Esterase Urine NEG (NEG); Nitrite Urine NEG (NEG); UACC Culture Trigger NO; Urine Blood 3+ (NEG); Urine Ketones NEG (NEG); Urine Protein TRACE MG/DL (NEG-TRACE)
[2021-04-05 08:42] LABS: UPreg QC Valid YES; Urine Pregnancy NEGATIVE (NEGATIVE)
[2021-04-05 08:54] LABS: Bacteria Urine TRACE /LPF; RBC Urine 30-49 /HPF (0); Squamous Epithelial Cell Urine 3+ /LPF; WBC Urine 0-2 /HPF (0-4)
--- NOTE | 2021-04-05 10:16 | ED_ITS ---
HPI - Back Pain/Injury General Chief Complaint: Back Pain/Injury Stated Complaint: upper back pain/side pain Time Seen by Provider: 04/05/21 09:15 Source: patient Mode of arrival: ambulatory Limitations: no limitations History of Present Illness HPI Narrative: 40-year-old female with a past medical history of type 2 diabetes, lumbar degenerative disc disease, anxiety, GERD, varicose veins of lower extremities, hemorrhoids, asthma, recurrent UTIs, obesity and depression presenting to the ED with complaints of atraumatic right mid back pain for the past few days worse today. She reports associated recent irregular vaginal bleeding. Denies any fevers, chills, dizziness, headaches, trauma, falls, radiation of the pain, paresthesias, chest pain or shortness of breath, neck pain or stiffness, this 9 Zosyn, orthopnea, rashes, dysuria, abnormal vaginal discharge, black or bloody stools, urinary or bowel incontinence or retention or history of IV drug use or recent travel or sick contacts or any other symptoms complaints or concerns at this time. MD elicited complaint: back pain Onset (ago): day(s) Timing: constant and progressively worsening Severity: moderate Quality: aching and spasming Location: right lower back Radiation: none Exacerbating factors: movement, sitting upright, walking and lifting Relieving factors: immobilization and supine Context: unknown Associated symptoms: other (Irregular vaginal bleeding) Treatments prior to arrival: NSAIDS and acetaminophen Work related injury: No Related Data Home Medications Medication Instructions Recorded Confirmed ibuprofen 800 mg tablet 800 mg PO TID 12/25/19 03/08/21 multivitamin 1 tab PO DAILY 12/25/19 03/08/21 oxybutynin chloride 10 mg 10 mg PO DAILY 12/25/19 03/08/21 tablet,extended release 24 hr Previous Rx's Medication Instructions Recorded ferrous sulfate 325 mg (65 mg 325 mg PO DAILY #14 tab 12/05/19 iron) tablet cetirizine 10 mg tablet (Zyrtec) 10 mg PO DAILY 10 Days #10 tab 12/25/19 clotrimazole 2 % vaginal cream 1 appful VAGINAL BEDTIME 3 Days 02/09/20 #21 g montelukast 10 mg tablet 10 mg PO BEDTIME #30 tab 03/16/20 ondansetron HCl 4 mg tablet 4 mg PO Q8H PRN #10 tab 06/07/20 (Zofran) alcohol swabs (Alcohol Prep Pads) 1 pad TOPICAL TID #200 ea 06/19/20 blood sugar diagnostic (FreeStyle #100 ea 06/19/20 Lite Strips) blood-glucose meter (FreeStyle #1 ea 06/19/20 Lite Meter) lancets 28 gauge (FreeStyle #100 ea 06/19/20 Lancets) polyethylene glycol 3350 17 17 g PO DAILY PRN 30 Days #510 g 06/20/20 gram/dose oral powder meclizine 25 mg tablet 25 mg PO DAILY PRN #20 tab 09/06/20 bupropion HCl 150 mg 24 hr tablet, 150 mg PO QAM #90 tab 10/12/20 extended release fluticasone propionate 50 2 spray INTRANASAL DAILY #48 ml 10/12/20 mcg/actuation nasal spray,suspension fluticasone propionate 50 1 spray INTRANASAL BID #16 g 10/25/20 mcg/actuation nasal spray,suspension (24 Hour Allergy Relief) pantoprazole 40 mg tablet,delayed 40 mg PO DAILY #90 tab 11/05/20 release metformin 500 mg tablet 500 mg PO BID #180 tab 12/07/20 ondansetron 4 mg disintegrating 4 mg PO Q8H PRN #20 tab 12/08/20 tablet tiotropium bromide 2.5 2 puff PO DAILY #4 ml 12/16/20 mcg/actuation mist for inhalation (Spiriva Respimat) fluconazole 150 mg tablet 150 mg PO Q3D #2 tab 01/12/21 (Diflucan) ondansetron 4 mg disintegrating 4 mg PO Q8H PRN #20 tab 01/25/21 tablet famotidine 40 mg tablet 40 mg PO BEDTIME 30 Days #30 tab 02/17/21 albuterol sulfate 90 mcg/actuation 2 inh INHALATION Q6H PRN 30 Days 03/08/21 breath activated powder inhaler #1 ea quetiapine 100 mg tablet 100 mg PO BEDTIME #30 tab 03/25/21 tizanidine 4 mg tablet 4 mg PO TID PRN #90 tab 03/25/21 oxycodone-acetaminophen 5 mg-325 1 tab PO .2-3 times a day PRN 28 03/28/21 mg tablet (Percocet) Days #84 tab ProAir HFA 90 mcg/actuation 90 mcg INHALATION Q4-6H PRN #8.5 g 03/30/21 aerosol inhaler (albuterol sulfate) NS Allergies Allergy/AdvReac Type Severity Reaction Status Date / Time gabapentin Allergy Unknown Tingling Verified 04/05/21 08:26 feeling in throat zolpidem [From AMBIEN] Allergy Unknown tingling Verified 04/05/21 08:26 feeling in throat Review of Systems Review of Systems: Constitutional : No trauma, No Weight loss, No Fever, No Chills, ENT/Mouth : No Hearing loss, No Ear Pain, No Nasal Congestion, No Sinus Pain, No Hoarseness, No sore throat, No Rhinorrhea, No Swallowing Difficulty Cardiovascular : No Chest Pain, No SOB Respiratory : No Cough, No Dyspnea Gastrointestinal : No Nausea, No Vomiting, No Diarrhea, No abdominal Pain, No Hematochezia, No Melena Genitourinary : No Dysuria, No Urinary Frequency, No Hematuria, No Urinary or Bowel Incontinence/retention Musculoskeletal : + Back pain, No neck pain, No joint stiffness, No joint swelling Skin : No Skin Lesions, No rash or signs of infection Neuro : No Weakness, No radiation, No Numbness, No Paresthesias, No headache, no loss of bowel or bladder incontinence, no saddle anesthesia, Focal weakness, No radiation Denies history of IV drug usage. Yes all other systems are reviewed and are negative [facility]LY [facility] Past Medical History Attestation statement: The following information was validated with the patient. Medical History Allergic rhinitis Anxiety Asthma Bilateral flank pain Depression Diabetes mellitus Dizziness GERD without esophagitis Hemorrhoid HTN (hypertension) Knee pain, bilateral Left ear pain Lower back pain Lumbar degenerative disc disease Menorrhagia Obesity (BMI 30-39.9) Pressure sensation in left ear Type 2 diabetes mellitus with hyperglycemia UTI (urinary tract infection) Varicose veins of bilateral lower extremities with pain Varicose veins of left lower extremity with pain Surgical History H/O tubal ligation History of carpal tunnel surgery History of endometrial ablation History of hemorrhoidectomy Family History Family History Father Diabetes Asthma Hepatitis Mother Diabetes Sleep apnea Ischemic cerebrovascular accident (CVA) Maternal Grandmother Diabetes Breast cancer Maternal Grandfather Stroke Paternal Grandfather Lung cancer Social History Social History Household Members: Family Housing: House Alcohol intake: never Patient Tobacco Use Status: Former Tobacco user Second Hand Smoke Exposure: Yes Advance Directives: No Advance Directives Information Provided: No service: No Current occupational status: employed 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 Blood pressure normal. Heart rate normal. Respiration rate normal. Temperature normal. Oxygen saturation normal. Appearance: Alert. Oriented X3. No acute distress. Head: Normal external exam. Normocephalic. Atraumatic. No Yip signs noted. No raccoon eyes noted Eyes: PERRLA. EOMI. Conjunctiva and sclera normal. Eyelids normal. ENT: EAC normal. TM's Normal. Pharynx normal. Uvula midline. Moist mucous membranes. No trismus noted. No drooling noted. No muffled voice noted. Neck: Normal inspection. Neck supple. FROM. No adenopathy. Thyroid Normal. No meningeal signs. No neck mass noted. CVS: Normal heart rate and rhythm. Heart sound normal. No murmurs noted. Pulses normal throughout. Respiratory: No respiratory distress. Painless inspiration. Breath sounds normal. No wheezes/rales/rhonchi noted. Chest nontender. No accessory muscle usage noted or decreased air movement noted. Abdomen: Soft and nontender. Bowel sounds normal in all 4 quadrants. No distention noted. No organomegaly noted. No visible injury noted. Back: No CVA tenderness. Full range of motion noted. No obvious deformities, or edema. Mild para-spinal muscular tenderness from lumbar region to coccyx. Full ROM in back and lower extremities. 5/5 strength hip extension/flexion, abduction, adduction. Mild Lumbar pain with hip flexion against resistance. Straight leg raise test negative on right; Straight leg raise test negative on left; Reflexes normal ankle and knee bilaterally; EHL motor strength normal bilaterally. No rashes/lesion/induration/fluctuance or signs infection noted. Skin: Skin warm and dry. Normal skin color. Normal skin turgor. No rashes/lesions/lacerations noted. Extremities: No lower extremity edema. Extremities exhibit normal range of motion. Extremities nontender. Neuro: Oriented X 3. No motor deficit. No sensory deficit. Reflexes normal. Patient has a normal steady gait. Course Course Course Narrative: Pt c likely muscular pain, but could be herniated disc. Neuro exam shows no deficits. Not c/w AAA/epidural abscess/dissection.No high risk Hx (Incont, fever, immunosupp, recent surgery/LP, coag, signif trauma, wt loss, puls mass, hx/o Ca, TB, or IVDU) to warrant MRI today. Not c/w Pyelo/UTI/spinal fx. Not cauda equina syndrome. Although due to patient having some hematuria in her urine despite her reporting that this is possibly her irregular vaginal bleeding will obtain a CT scan of abdomen pelvis to evaluate for possible kidney stones. Although CT scan abdomen and pelvis was negative therefore patient most likely muscular pain. I offered to send her home with naproxen and muscle relaxers although patient reports that she has naproxen and muscle relaxers at home and she does not need a work note she just wanted to know what was going on with her back and now that she knows she feels better and she can go home and take the medication she has. I explained to her to return if any new or worsening symptoms follow-up with primary care provider. Patient understands agrees with this plan. MDM - Back Pain/Injury Medical Records Attestation: I reviewed the patient's medical records. Lab Data Attestation: I reviewed the patient's lab results. Labs: Lab Results 04/05/21 04/05/21 Range/Units 08:32 08:32 Urine Color YELLOW Urine Appearance HAZY Urine pH 6.0 (5.0-8.0) Ur Specific [place] 1.020 (1.005-1.025) Urine Protein TRACE (NEG-TRACE) MG/DL Urine Glucose (UA) NEG (NEG) MG/DL Urine Ketones NEG (NEG) MG/DL Urine Blood 3+ H (NEG) Urine Nitrite NEG (NEG) Ur Leukocyte Esterase NEG (NEG) Urine RBC 30-49 H (0) /HPF Urine WBC 0-2 (0-4) /HPF Ur Squamous Epith Cells 3+ /LPF Urine Bacteria TRACE /LPF Urine Test NEGATIVE (NEGATIVE) Imaging Data CT scan of lumbar spine without contrast: Attestation: I personally reviewed and interpreted this imaging study as follows: Radiologist's impression: FINDINGS: LUNG BASES: The visualized lung bases are unremarkable.? LIVER, GALLBLADDER, AND BILIARY TREE: The liver is normal in size and shape. The liver is low in attenuation suggestive of fatty infiltration. No focal hepatic lesion or biliary ductal dilatation is present. The gallbladder is unremarkable with no evidence of radiopaque gallstones, gallbladder wall thickening, or obvious pericholecystic inflammatory changes.? PANCREAS: Unremarkable.? SPLEEN: Unremarkable.? ADRENAL GLANDS: Unremarkable.? KIDNEYS AND URETERS: The kidneys are normal in size, shape, and attenuation. No hydronephrosis, hydroureter, or calculi seen. No perinephric stranding. ? BLADDER: Unremarkable.? GASTROINTESTINAL TRACT: The small and large bowel are unremarkable. The appendix is unremarkable.? ABDOMINAL WALL: No significant hernia is appreciated.? LYMPH NODES: Normal. VASCULAR: Unremarkable. PELVIC VISCERA: Unremarkable.? OSSEOUS STRUCTURES: No fracture. There is degenerative disc disease at L4-L5. CT/CT abdomen pelvis wo con IMPRESSION: No acute findings. Fatty liver. Degenerative disc disease at L4-L5. ? Fleischner guidelines were followed. Discharge Plan Discharge Clinical Impression: Spasm of back muscles Patient Disposition: Home, Self-Care Instructions: Muscle Spasm (ED) Prescriptions: No Action montelukast 10 mg tablet 10 mg PO BEDTIME Qty: 30 5RF polyethylene glycol 3350 17 gram/dose powder 17 g PO DAILY PRN (Reason: constipation) 30 Days Qty: 510 5RF fluticasone propionate 50 mcg/actuation spray,suspension 2 spray intranasal DAILY Qty: 48 1RF bupropion HCl 150 mg tablet extended release 24 hr 150 mg PO QAM Qty: 90 1RF pantoprazole 40 mg tablet,delayed release (DR/EC) 40 mg PO DAILY Qty: 90 1RF metformin 500 mg tablet 500 mg PO BID Qty: 180 1RF Spiriva Respimat 2.5 mcg/actuation mist 2 puff PO DAILY Qty: 4 4RF famotidine 40 mg tablet 40 mg PO BEDTIME 30 Days Qty: 30 3RF quetiapine 100 mg tablet 100 mg PO BEDTIME Qty: 30 1RF tizanidine 4 mg tablet 4 mg PO TID PRN (Reason: for muscle spasm) Qty: 90 1RF oxycodone-acetaminophen [Percocet] 5-325 mg tablet 1 tab PO .2-3 times a day PRN (Reason: pain) 28 Days Qty: 84 0RF albuterol sulfate [ProAir HFA] 90 mcg/actuation HFA aerosol inhaler 90 mcg inhalation Q4-6H PRN (Reason: Shortness Of Breath Or Wheezing) Qty: 8.5 3RF ferrous sulfate 325 mg (65 mg iron) tablet 325 mg PO DAILY Qty: 14 0RF ondansetron HCl [Zofran] 4 mg tablet 4 mg PO Q8H PRN (Reason: nausea and vomiting) Qty: 10 0RF meclizine 25 mg tablet 25 mg PO DAILY PRN (Reason: dizziness) Qty: 20 0RF fluticasone propionate [24 Hour Allergy Relief] 50 mcg/actuation spray,suspension 1 spray intranasal BID Qty: 16 0RF Rx Instructions: administer into each nostril (DME) blood-glucose meter [FreeStyle Lite Meter] Kit See Rx Instructions .ROUTE .MEDSUPPLY Qty: 1 0RF Rx Instructions: As directed (DME) FreeStyle Lite Strips Strip See Rx Instructions .ROUTE .MEDSUPPLY Qty: 100 0RF Rx Instructions: As directed (DME) lancets [FreeStyle Lancets] 28 gauge misc See Rx Instructions .ROUTE .MEDSUPPLY Qty: 100 0RF Rx Instructions: As directed alcohol swabs [Alcohol Prep Pads] Pads, Medicated 1 pad topical TID Qty: 200 0RF ondansetron 4 mg tablet,disintegrating 4 mg PO Q8H PRN (Reason: nausea and vomiting) Qty: 20 0RF ondansetron 4 mg tablet,disintegrating 4 mg PO Q8H PRN (Reason: nausea and vomiting) Qty: 20 0RF multivitamin Tablet 1 tab PO DAILY 0RF ibuprofen 800 mg tablet 800 mg PO TID 0RF oxybutynin chloride 10 mg tablet extended release 24hr 10 mg PO DAILY 0RF cetirizine [Zyrtec] 10 mg tablet 10 mg PO DAILY 10 Days Qty: 10 0RF clotrimazole 2 % cream 1 appful vaginal BEDTIME 3 Days Qty: 21 0RF fluconazole [Diflucan] 150 mg tablet 150 mg PO Q3D Qty: 2 0RF Rx Instructions: may repeat second dose 72 hrs after first dose if symptoms persist albuterol sulfate 90 mcg/actuation aerosol powdr breath activated 2 inh inhalation Q6H PRN (Reason: shortness of breath or wheezing) 30 Days Qty: 1 5RF Referrals: Kurt Arroyo MD [Primary Care Provider] - 2 days Print Language: Surinamese
== END 2021-04-05 11:12 | disposition home or self-care (01) ==
PROVIDERS: Emergency Provider Emergency Medicine; PCP Internal Medicine
DX: M62.830 Muscle spasm of back (principal); M54.50 Low back pain, unspecified; Z87.891 Personal history of nicotine dependence; Z79.899 Other long term (current) drug therapy
CPT/HCPCS: 74176; 81001; 81025; 99283; 99284

== ENCOUNTER 2021-04-18 09:31 | Emergency (ER) | payer OTHER, SELFPAY ==
[2021-04-18 09:47] VITALS: PULSE 68; RESP 18; TEMP 36.6; O2SAT 97; BMI 37.4
--- NOTE | 2021-04-18 12:02 | ED.GENADULT ---
HPI - General Adult General Chief complaint: Skin/Abscess/Foreign Body Stated complaint: rash Time Seen by Provider: 04/18/21 10:58 Source: patient Limitations: no limitations History of Present Illness HPI narrative: this is a 40-year-old female who complains of a rash on the palms of both of her hands that she has had for few weeks. She has also noted a few spots of dry skin between her toes, has tried anti fungal cream. Patient notes that the rash is itchy on her palms. She does wash her hands a lot at work. She denies any generalized rash. She denies fever. Related Data Home Medications Medication Instructions Recorded Confirmed ibuprofen 800 mg tablet 800 mg PO TID 12/25/19 03/08/21 multivitamin 1 tab PO DAILY 12/25/19 03/08/21 oxybutynin chloride 10 mg 10 mg PO DAILY 12/25/19 03/08/21 tablet,extended release 24 hr Previous Rx's Medication Instructions Recorded ferrous sulfate 325 mg (65 mg 325 mg PO DAILY #14 tab 12/05/19 iron) tablet cetirizine 10 mg tablet (Zyrtec) 10 mg PO DAILY 10 Days #10 tab 12/25/19 clotrimazole 2 % vaginal cream 1 appful VAGINAL BEDTIME 3 Days 02/09/20 #21 g montelukast 10 mg tablet 10 mg PO BEDTIME #30 tab 03/16/20 ondansetron HCl 4 mg tablet 4 mg PO Q8H PRN #10 tab 06/07/20 (Zofran) alcohol swabs (Alcohol Prep Pads) 1 pad TOPICAL TID #200 ea 06/19/20 blood sugar diagnostic (FreeStyle #100 ea 06/19/20 Lite Strips) blood-glucose meter (FreeStyle #1 ea 06/19/20 Lite Meter) lancets 28 gauge (FreeStyle #100 ea 06/19/20 Lancets) polyethylene glycol 3350 17 17 g PO DAILY PRN 30 Days #510 g 06/20/20 gram/dose oral powder meclizine 25 mg tablet 25 mg PO DAILY PRN #20 tab 09/06/20 fluticasone propionate 50 2 spray INTRANASAL DAILY #48 ml 10/12/20 mcg/actuation nasal spray,suspension fluticasone propionate 50 1 spray INTRANASAL BID #16 g 10/25/20 mcg/actuation nasal spray,suspension (24 Hour Allergy Relief) pantoprazole 40 mg tablet,delayed 40 mg PO DAILY #90 tab 11/05/20 release metformin 500 mg tablet 500 mg PO BID #180 tab 12/07/20 ondansetron 4 mg disintegrating 4 mg PO Q8H PRN #20 tab 12/08/20 tablet tiotropium bromide 2.5 2 puff PO DAILY #4 ml 12/16/20 mcg/actuation mist for inhalation (Spiriva Respimat) fluconazole 150 mg tablet 150 mg PO Q3D #2 tab 01/12/21 (Diflucan) ondansetron 4 mg disintegrating 4 mg PO Q8H PRN #20 tab 01/25/21 tablet famotidine 40 mg tablet 40 mg PO BEDTIME 30 Days #30 tab 02/17/21 albuterol sulfate 90 mcg/actuation 2 inh INHALATION Q6H PRN 30 Days 03/08/21 breath activated powder inhaler #1 ea quetiapine 100 mg tablet 100 mg PO BEDTIME #30 tab 03/25/21 tizanidine 4 mg tablet 4 mg PO TID PRN #90 tab 03/25/21 oxycodone-acetaminophen 5 mg-325 1 tab PO .2-3 times a day PRN 28 03/28/21 mg tablet (Percocet) Days #84 tab ProAir HFA 90 mcg/actuation 90 mcg INHALATION Q4-6H PRN #8.5 g 03/30/21 aerosol inhaler (albuterol sulfate) NS bupropion HCl 150 mg 24 hr tablet, 150 mg PO QAM #90 tab 04/07/21 extended release triamcinolone acetonide 0.1 % 1 appl TOPICAL TID 7 Days #30 g 04/18/21 topical cream Allergies Allergy/AdvReac Type Severity Reaction Status Date / Time gabapentin Allergy Unknown Tingling Verified 04/05/21 08:26 feeling in throat zolpidem [From AMBIEN] Allergy Unknown tingling Verified 04/05/21 08:26 feeling in throat Review of Systems Constitutional: Constitutional: Reports as per HPI and Denies fever(s) Respiratory: Respiratory: Reports no additional respiratory complaints Integumentary/Breasts: Skin/Breast: Reports dry skin and Reports rash PMFSH Past Medical History Medical History Allergic rhinitis Anxiety Asthma Bilateral flank pain Depression Diabetes mellitus Dizziness GERD without esophagitis Hemorrhoid HTN (hypertension) Knee pain, bilateral Left ear pain Lower back pain Lumbar degenerative disc disease Menorrhagia Obesity (BMI 30-39.9) Pressure sensation in left ear Type 2 diabetes mellitus with hyperglycemia UTI (urinary tract infection) Varicose veins of bilateral lower extremities with pain Varicose veins of left lower extremity with pain Surgical History H/O tubal ligation History of carpal tunnel surgery History of endometrial ablation History of hemorrhoidectomy Family History Family History Father Diabetes Asthma Hepatitis Mother Diabetes Sleep apnea Ischemic cerebrovascular accident (CVA) Maternal Grandmother Diabetes Breast cancer Maternal Grandfather Stroke Paternal Grandfather Lung cancer Social History Social History Household Members: Family Housing: House Alcohol intake: never Patient Tobacco Use Status: Former Tobacco user Second Hand Smoke Exposure: Yes Advance Directives: No Advance Directives Information Provided: No Patient : No service: No Current occupational status: employed 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 Physical Exam ED Vital Signs: Vital Signs - 24 hr 04/18/21 09:47 Temperature 97.9 F Pulse Rate 68 Respiratory Rate 18 Pulse Oximetry 97 BMI result Body Mass Index 37.4 Const General: no acute distress Orientation/consciousness: patient oriented x3 HENMT Head: Yes normal to inspection General nose exam: Normal external nose present Mouth: moist mucous membranes Throat: Yes posterior oropharynx normal, Yes tonsils normal and Yes uvula midline Eyes Eyelids: Yes eyelids normal Conjunctivae: conjunctivae normal Pupils: Equal, round and reactive pupils present Neck Neck: Yes supple Resp Effort & Inspection: normal respiratory effort Auscultation: clear to auscultation bilaterally Cardio Rate: regular rate Rhythm: regular rhythm Heart sounds: S1 normal heart sound present, S2 normal heart sound present, no gallops, no murmurs and no rubs GI Inspection: No distended Palpation (GI): Soft to palpation and nontender Auscultation: normal bowel sounds Skin Other: Few areas of eczematous changes on palms of hands, no severe or diffuse rash. No ulceration or vesicles. General skin exam: other (Warm and dry) Neuro General: patient oriented x3 and CN's II-XI intact bilaterally Cranial nerves: Yes Equal, round and reactive pupils present Extrem General: Yes no pedal edema Psych Affect: normal affect Attitude: cooperative Medical Decision Making MDM Narrative Medical decision making narrative: Mild rash to the palms of the hands. Some dry skin between the toes of the left foot noted. Will treat for eczema, prescribed triamcinolone cream. Patient appears to have anxiety component Discharge Plan Discharge Clinical Impression: Eczema Patient Disposition: Home, Self-Care Instructions: Eczema (ED) Additional Instructions: use moisturizing cream regularly On areas which are dry or have rash. Avoid using hot water when you wash your hands. Use the triamcinolone cream as prescribed. follow-up with primary care physician as needed Prescriptions: New triamcinolone acetonide 0.1 % cream 1 appl topical TID 7 Days Qty: 30 0RF No Action montelukast 10 mg tablet 10 mg PO BEDTIME Qty: 30 5RF polyethylene glycol 3350 17 gram/dose powder 17 g PO DAILY PRN (Reason: constipation) 30 Days Qty: 510 5RF fluticasone propionate 50 mcg/actuation spray,suspension 2 spray intranasal DAILY Qty: 48 1RF pantoprazole 40 mg tablet,delayed release (DR/EC) 40 mg PO DAILY Qty: 90 1RF metformin 500 mg tablet 500 mg PO BID Qty: 180 1RF Spiriva Respimat 2.5 mcg/actuation mist 2 puff PO DAILY Qty: 4 4RF famotidine 40 mg tablet 40 mg PO BEDTIME 30 Days Qty: 30 3RF quetiapine 100 mg tablet 100 mg PO BEDTIME Qty: 30 1RF tizanidine 4 mg tablet 4 mg PO TID PRN (Reason: for muscle spasm) Qty: 90 1RF oxycodone-acetaminophen [Percocet] 5-325 mg tablet 1 tab PO .2-3 times a day PRN (Reason: pain) 28 Days Qty: 84 0RF albuterol sulfate [ProAir HFA] 90 mcg/actuation HFA aerosol inhaler 90 mcg inhalation Q4-6H PRN (Reason: Shortness Of Breath Or Wheezing) Qty: 8.5 3RF bupropion HCl 150 mg tablet extended release 24 hr 150 mg PO QAM Qty: 90 1RF ferrous sulfate 325 mg (65 mg iron) tablet 325 mg PO DAILY Qty: 14 0RF ondansetron HCl [Zofran] 4 mg tablet 4 mg PO Q8H PRN (Reason: nausea and vomiting) Qty: 10 0RF meclizine 25 mg tablet 25 mg PO DAILY PRN (Reason: dizziness) Qty: 20 0RF fluticasone propionate [24 Hour Allergy Relief] 50 mcg/actuation spray,suspension 1 spray intranasal BID Qty: 16 0RF Rx Instructions: administer into each nostril (DME) blood-glucose meter [FreeStyle Lite Meter] Kit See Rx Instructions .ROUTE .MEDSUPPLY Qty: 1 0RF Rx Instructions: As directed (DME) FreeStyle Lite Strips Strip See Rx Instructions .ROUTE .MEDSUPPLY Qty: 100 0RF Rx Instructions: As directed (DME) lancets [FreeStyle Lancets] 28 gauge misc See Rx Instructions .ROUTE .MEDSUPPLY Qty: 100 0RF Rx Instructions: As directed alcohol swabs [Alcohol Prep Pads] Pads, Medicated 1 pad topical TID Qty: 200 0RF ondansetron 4 mg tablet,disintegrating 4 mg PO Q8H PRN (Reason: nausea and vomiting) Qty: 20 0RF ondansetron 4 mg tablet,disintegrating 4 mg PO Q8H PRN (Reason: nausea and vomiting) Qty: 20 0RF multivitamin Tablet 1 tab PO DAILY 0RF ibuprofen 800 mg tablet 800 mg PO TID 0RF oxybutynin chloride 10 mg tablet extended release 24hr 10 mg PO DAILY 0RF cetirizine [Zyrtec] 10 mg tablet 10 mg PO DAILY 10 Days Qty: 10 0RF clotrimazole 2 % cream 1 appful vaginal BEDTIME 3 Days Qty: 21 0RF fluconazole [Diflucan] 150 mg tablet 150 mg PO Q3D Qty: 2 0RF Rx Instructions: may repeat second dose 72 hrs after first dose if symptoms persist albuterol sulfate 90 mcg/actuation aerosol powdr breath activated 2 inh inhalation Q6H PRN (Reason: shortness of breath or wheezing) 30 Days Qty: 1 5RF Interventions: ED Discharge Assessment Last Done: 04/18/21 11:30 Discharge Date/Time: 04/18/21 11:30
== END 2021-04-18 11:30 | disposition home or self-care (01) ==
PROVIDERS: Emergency Provider Emergency Medicine; PCP Internal Medicine
DX: L30.9 Dermatitis, unspecified (principal); R21 Rash and other nonspecific skin eruption; E11.9 Type 2 diabetes mellitus without complications; I10 Essential (primary) hypertension; J45.909 Unspecified asthma, uncomplicated
CPT/HCPCS: 99283

== ENCOUNTER 2021-05-28 09:30 | Outpatient (REF) | payer OTHER, SELFPAY ==
[2021-05-28 09:39] LABS: MANUAL DIFF FLAG NO
[2021-05-28 09:56] LABS: Basophils Percent Auto 0.3 % (0-2); Eosinophils Absolute Auto 0.2 X10*3/uL (0.0-0.4); Eosinophils Percent Auto 2.1 % (0-4); Hematocrit 37.5 % (37.0-47.0); Hemoglobin 12.9 g/dl (12.0-16.0); Imm Gran Abs Auto 0.01 X10*3/uL (0.00-0.03); Imm Gran Pct Auto 0.1 % (0.0-0.4); Lymphocytes Absolute Auto 3.1 X10*3/uL (1.2-4.9); Lymphocytes Percent Auto 35.1 % (20-40); Mean Corpuscular HGB Conc 34.4 g/dl (31.0-35.0); Mean Corpuscular Hemoglobin 25.1 pg (27.0-33.0); Mean Platelet Volume 10.8 fL (9.4-12.3); Monocytes Absolute Auto 0.5 X10*3/uL (0.1-1.2); Neutrophils Percent Auto 56.4 % (45-73); Platelet Count 343 X10*3/uL (160-400); Red Blood Count 5.14 X10*6/uL (4.20-5.50); Red Cell Distribution Width 13.6 % (11.0-16.0); White Blood Count 8.9 X10*3/uL (4.8-10.8)
[2021-05-28 10:22] LABS: Alanine Aminotransferase 54 U/L (0-31); Albumin Level 4.2 g/dL (3.5-5.0); Alkaline Phosphatase 65 U/L (39-117); Anion Gap 9 (12-20); Aspartate Amino Transferase 29 U/L (5-31); Bilirubin Total 0.5 mg/dL (0.0-1.0); Blood Urea Nitrogen 7 mg/dL (9-16); Calcium 9.6 mg/dL (8.4-10.2); Carbon Dioxide 30 mmol/L (22-29); Chloride 103 mmol/L (96-108); Cholesterol 221 mg/dL; Estimated Glomerular Filt Rate > 60; Glucose Fasting 149 mg/dL (60-99); HDL Cholesterol 43 mg/dL; LDL Cholesterol Calculated 133 mg/dl; Potassium 4.3 mmol/L (3.3-5.1); Sodium 138 mmol/L (135-145); Total Protein 7.2 g/dL (6.5-8.0); Triglycerides 227 mg/dL
[2021-05-28 10:41] LABS: TSH reflex Free T4 1.57 uIU/mL (0.32-4.0); Vitamin D 25-OH Total 13.3 ng/mL (>30)
[2021-05-28 10:42] LABS: Appearance Urine CLOUDY; Color Urine YELLOW; Glucose Urine UA NEG (NEG); Leukocyte Esterase Urine 1+ (NEG); Nitrite Urine NEG (NEG); Specific Gravity - Urine >= 1.030 (1.005-1.025); UACC Culture Trigger YES; Urine Blood TRACE (NEG); Urine Ketones NEG (NEG); Urine Protein TRACE MG/DL (NEG-TRACE)
[2021-05-28 11:01] LABS: Creatinine Urine 230.93 mg/dL; Microalbum/Creatinine Ratio Ur 24.2 ug/mg cr
[2021-05-28 11:04] LABS: Squamous Epithelial Cell Urine 3+ /LPF
[2021-05-28 11:05] LABS: Bacteria Urine 2+ /LPF
== END 2021-05-28 09:31 | disposition home or self-care (01) ==
LOC: HO.LAB 09:30
PROVIDERS: PCP Internal Medicine; Visit Provider Internal Medicine
DX: K21.9 Gastro-esophageal reflux disease without esophagitis (principal); E11.9 Type 2 diabetes mellitus without complications; E78.00 Pure hypercholesterolemia, unspecified; E55.9 Vitamin D deficiency, unspecified
CPT/HCPCS: 36415; 80053; 80061; 81001; 81003; 82043; 82306; 84443; 85025; 87086

== ENCOUNTER 2021-08-31 14:43 | Outpatient (REF) | payer OTHER, SELFPAY ==
[2021-08-31 18:08] LABS: CT PCR NOT DETECTED (Not Detect.)
[2021-08-31 18:09] LABS: NG PCR NOT DETECTED (Not Detect.)
== END 2021-08-31 14:44 | disposition home or self-care (01) ==
LOC: HO.LAB 14:43
PROVIDERS: Visit Provider Obstetrics & Gynecology
DX: N93.9 Abnormal uterine and vaginal bleeding, unspecified (principal); Z87.891 Personal history of nicotine dependence
CPT/HCPCS: 87491; 87591; 99212

== ENCOUNTER 2021-09-01 13:47 | Outpatient (REF) | payer OTHER, SELFPAY ==
--- NOTE | ~2021-09-01 | US_ITS ---
EXAMINATION: US PELVIS CLINICAL INFORMATION: Abnormal uterine and vaginal bleeding; the last menstrual period was on 07/2021. COMPARISON: None TECHNIQUE: Ultrasound of the pelvis is performed using both transabdominal and transvaginal transducers along with Doppler. Transvaginal imaging is performed due to inadequate visualization transabdominally. FINDINGS: Uterus: The uterus is anteverted and measures 10.3 x 5.1 x 6.7 cm. The uterus is smooth in contour and has normal myometrial echogenicity. Fibroids: There is 1 fibroid seen. 1. Location: Leftward fundus. Size: 1.8 x 1.8 x 2.0 cm. Prior: 3.0 x 1.5 x 1.8 cm. Fibroid characteristics: Hypoechoic. The double wall endometrial thickness is 1.2 mm. Nabothian cysts are seen within the cervix. Adnexa: Both ovaries are visualized. There is normal color flow to the adnexa. There is no ovarian torsion. There is no pelvic ascites or fluid collection. Right ovary measures 3.6 x 2.0 x 2.5 cm (volume 9.4 mL). Left ovary measures 3.9 x 1.5 x 2.6 cm (volume 8.0 mL. Left ovary contains a 1.6 x 1.5 x 1.7 cm anechoic, simple cyst. US/US pelvic and transvaginal IMPRESSION: 1. A uterine fibroid is seen, as detailed. 2. Nabothian cysts are seen within the cervix. 3. A 1.7 cm in maximal diameter benign, simple left ovarian cyst is seen, for which no imaging follow-up is recommended.
== END 2021-09-01 13:48 | disposition home or self-care (01) ==
LOC: HO.HMGCX 13:47
PROVIDERS: Visit Provider Obstetrics & Gynecology
DX: N93.9 Abnormal uterine and vaginal bleeding, unspecified (principal)
CPT/HCPCS: 76830; 76856

== ENCOUNTER 2021-09-01 15:24 | Outpatient (REF) | payer OTHER, SELFPAY ==
--- NOTE | ~2021-09-01 | MM_ITS ---
EXAMINATION: MM SCREENING DIGITAL BREAST TOMOSYNTHESIS, BILATERAL CLINICAL INFORMATION: Screening. Asymptomatic. The lifetime risk of breast cancer based on the Tyrer-Cuzick Model is 17%. COMPARISON: Mammography: 06/24/2020, 02/26/2019, 10/25/2015 TECHNIQUE: Digital breast tomosynthesis is performed in both the craniocaudal and mediolateral oblique views along with computer-aided detection (CAD). Synthesized 2D images are generated from the tomosynthesis. FINDINGS: There are scattered areas of fibroglandular density (ACR BI-RADS breast composition Category b). There are no significant masses, abnormal calcifications, or other abnormalities. Parenchymal pattern is similar to prior studies. MM/MM tomosynthesis screening BI IMPRESSION: No mammographic evidence of malignancy. ASSESSMENT: BI-RADS 1: Negative RECOMMENDATION: Routine annual mammography screening. This patient's information was entered into a reminder system with a target due date for their next mammogram.
== END 2021-09-01 15:25 | disposition home or self-care (01) ==
LOC: HO.MAMMO 15:24
PROVIDERS: Visit Provider Obstetrics & Gynecology
DX: Z12.31 Encounter for screening mammogram for malignant neoplasm of breast (principal)
CPT/HCPCS: 76830; 76856; 77063; 77067

== ENCOUNTER 2021-09-18 11:29 | Emergency (ER) | payer OTHER, SELFPAY ==
--- NOTE | ~2021-09-18 | CT_ITS ---
EXAMINATION: CT ABDOMEN AND PELVIS WITHOUT CONTRAST CLINICAL INFORMATION: Epigastric and right upper quadrant pain COMPARISON: CT abdomen pelvis 04/05/2021 TECHNIQUE: Multidetector volumetric imaging was performed from the superior aspect of the liver through the pubic symphysis. Sagittal and coronal reformatted images were obtained on the technologist's workstation. This CT examination was performed using dose optimization techniques as appropriate, variously including the following: *Automated exposure control *Adjustment of mA and/or kV according to patient size (this includes techniques or standardized protocols for targeted exams where dose is matched to indication/reason for exam; i.e. extremities or head) *Use of iterative reconstruction technique DLP: 817 mGy-cm FINDINGS: LUNG BASES: Unremarkable. ABDOMINAL AND PELVIC WALL: Unremarkable. LIVER AND BILIARY TREE: Hypoattenuating hepatic parenchyma compatible with hepatic steatosis. GALLBLADDER: Unremarkable. PANCREAS: Unremarkable. SPLEEN: Unremarkable. ADRENAL GLANDS: Unremarkable. KIDNEYS AND URETERS: Fluid attenuation Bosniak 1 left renal cyst, no imaging follow-up recommended. GASTROINTESTINAL TRACT: Colonic diverticulosis without evidence of diverticulitis. Normal appendix. VASCULAR: Unremarkable. LYMPH NODES/PERITONEUM: No lymphadenopathy. FREE FLUID: None. BLADDER: Unremarkable. PELVIC VISCERA: Unremarkable. OSSEOUS STRUCTURES: Degenerative disc disease at L4-L5. CT/CT abdomen pelvis wo con IMPRESSION: No acute findings to explain symptoms of abdominal pain. Hepatic steatosis.
[2021-09-18 12:17] VITALS: BP 127/74; PULSE 72; RESP 18; TEMP 36.7; O2SAT 98; BMI 37.4
[2021-09-18 12:36] LABS: MANUAL DIFF FLAG NO
[2021-09-18 12:42] LABS: Basophils Absolute Auto 0.1 X10*3/uL (0.0-0.2); Basophils Percent Auto 0.6 % (0-2); Eosinophils Absolute Auto 0.2 X10*3/uL (0.0-0.4); Eosinophils Percent Auto 2.3 % (0-4); Hematocrit 37.3 % (37.0-47.0); Hemoglobin 13.1 g/dl (12.0-16.0); Imm Gran Abs Auto 0.02 X10*3/uL (0.00-0.03); Imm Gran Pct Auto 0.2 % (0.0-0.4); Lymphocytes Absolute Auto 2.5 X10*3/uL (1.2-4.9); Lymphocytes Percent Auto 30.6 % (20-40); Mean Corpuscular HGB Conc 35.1 g/dl (31.0-35.0); Mean Corpuscular Hemoglobin 25.6 pg (27.0-33.0); Monocytes Absolute Auto 0.4 X10*3/uL (0.1-1.2); Monocytes Percent Auto 4.7 % (2-11); Neutrophils Absolute Auto 5.1 x10*3/uL (2.0-8.3); Neutrophils Percent Auto 61.6 % (45-73); Platelet Count 302 X10*3/uL (160-400); Red Blood Count 5.11 X10*6/uL (4.20-5.50); Red Cell Distribution Width 13.3 % (11.0-16.0); White Blood Count 8.3 X10*3/uL (4.8-10.8)
[2021-09-18 13:08] LABS: Lipase 41 U/L (8-78)
[2021-09-18 13:45] LABS: Alanine Aminotransferase 32 U/L (0-31); Albumin Level 4.2 g/dL (3.5-5.0); Alkaline Phosphatase 62 U/L (39-117); Anion Gap 15 (12-20); Aspartate Amino Transferase 23 U/L (5-31); Bilirubin Total 0.5 mg/dL (0.0-1.0); Blood Urea Nitrogen 9 mg/dL (9-16); Calcium 9.1 mg/dL (8.4-10.2); Carbon Dioxide 25 mmol/L (22-29); Chloride 102 mmol/L (96-108); Creatinine Clr Calc Pharmacy 108.4; Estimated Glomerular Filt Rate > 60; Glucose Random 247 mg/dL (60-115); Potassium 4.3 mmol/L (3.3-5.1); Sodium 138 mmol/L (135-145); Total Protein 7.2 g/dL (6.5-8.0)
[2021-09-18 16:17] LABS: Color Urine OTHER; Glucose Urine UA 500 MG/DL (NEG); Leukocyte Esterase Urine NEG (NEG); Nitrite Urine NEG (NEG); Specific Gravity - Urine 1.015 (1.005-1.025); UACC Culture Trigger NO; Urine Blood 3+ (NEG); Urine Ketones NEG (NEG); Urine Protein TRACE MG/DL (NEG-TRACE)
[2021-09-18 16:18] LABS: Appearance Urine HAZY
[2021-09-18 16:25] LABS: Amorphous Sediment Urine 3+ /LPF; Bacteria Urine TRACE /LPF; Mucus Urine TRACE /LPF; RBC Urine TNTC /HPF (0); Squamous Epithelial Cell Urine 1+ /LPF; WBC Urine 0-2 /HPF (0-4)
[2021-09-18 16:37] VITALS: RESP 18
[2021-09-18] MEDS: Morphine Sulfate 10 MG/ML CARTRIDGE 6 MG SUBCUT (16:37)
--- NOTE | 2021-09-18 18:47 | ED.ABDPAIN ---
HPI - Abdominal Pain General Chief Complaint: Abdominal Pain Stated Complaint: Upper abd pain Time Seen by Provider: 09/18/21 12:47 History of Present Illness HPI narrative: Patient complains of right upper quadrant, epigastric and right flank pain worse over the last 2 days with no vomiting Patient is tolerating food and liquid, pain is not worsened or improved by eating, there is noted diarrhea no blood in the vomitus no blood in the stool Related Data Home Medications Medication Instructions Recorded Confirmed ibuprofen 800 mg tablet 800 mg PO TID 12/25/19 08/02/21 multivitamin 1 tab PO DAILY 12/25/19 08/02/21 oxybutynin chloride 10 mg 10 mg PO DAILY 12/25/19 08/02/21 tablet,extended release 24 hr Previous Rx's Medication Instructions Recorded ferrous sulfate 325 mg (65 mg 325 mg PO DAILY #14 tabs 12/05/19 iron) tablet cetirizine 10 mg tablet (Zyrtec) 10 mg PO DAILY 10 days #10 tabs 12/25/19 montelukast 10 mg tablet 10 mg PO BEDTIME #30 tabs 03/16/20 alcohol swabs (Alcohol Prep Pads) 1 pad topical TID #200 ea 06/19/20 blood sugar diagnostic (FreeStyle #100 ea 06/19/20 Lite Strips) blood-glucose meter (FreeStyle #1 ea 06/19/20 Lite Meter kit) lancets 28 gauge (FreeStyle #100 ea 06/19/20 Lancets) polyethylene glycol 3350 17 17 g PO DAILY PRN constipation 30 06/20/20 gram/dose oral powder days #510 grams meclizine 25 mg tablet 25 mg PO DAILY PRN dizziness #20 09/06/20 tabs fluticasone propionate 50 2 spray intranasal DAILY #48 mL 10/12/20 mcg/actuation nasal spray,suspension fluticasone propionate 50 1 spray intranasal BID #16 grams 10/25/20 mcg/actuation nasal spray,suspension (24 Hour Allergy Relief) tiotropium bromide 2.5 2 puff PO DAILY #4 mL 12/16/20 mcg/actuation mist for inhalation (Spiriva Respimat) fluconazole 150 mg tablet 150 mg PO Q3D 2 doses #2 tabs 01/12/21 (Diflucan) bupropion HCl 150 mg 24 hr tablet, 150 mg PO QAM #90 tabs 04/07/21 extended release triamcinolone acetonide 0.1 % 1 appl topical TID 7 days #30 grams 04/18/21 topical cream ProAir HFA 90 mcg/actuation 90 mcg inhalation Q4-6H PRN 04/26/21 aerosol inhaler (albuterol sulfate) Shortness Of Breath Or Wheezing #8.5 grams albuterol sulfate 90 mcg/actuation 2 inh inhalation Q6H PRN shortness 04/29/21 breath activated powder inhaler of breath or wheezing 30 days #1 ea pantoprazole 40 mg tablet,delayed 40 mg PO DAILY #90 tabs 05/03/21 release quetiapine 100 mg tablet 100 mg PO BEDTIME #30 tabs 05/11/21 tizanidine 4 mg tablet 4 mg PO TID PRN for muscle spasm 05/11/21 #90 tabs sitagliptin 50 mg tablet (Januvia) 50 mg PO DAILY 30 days #30 tabs 05/27/21 metformin 500 mg tablet 500 mg PO BID for diabetes 06/03/21 mellitus #180 tabs famotidine 40 mg tablet 40 mg PO BEDTIME 30 days #30 tabs 08/15/21 oxycodone-acetaminophen 5 mg-325 1 tab PO .2-3 times a day PRN pain 08/22/21 mg tablet (Percocet) 28 days #84 tabs Allergies Allergy/AdvReac Type Severity Reaction Status Date / Time gabapentin Allergy Unknown Tingling Verified 09/18/21 12:17 feeling in throat zolpidem [From AMBIEN] Allergy Unknown tingling Verified 09/18/21 12:17 feeling in throat Review of Systems Review of Systems Positive for abdominal pain Negatives are no fever no chills no dizziness or weakness no fainting no feeling faint no headache no neck pain no chest pain no shortness of breath no nausea vomiting or diarrhea no blood in stool or vomitus no dysuria no frequency no changes to bowel or bladder no anorexia no skin rash Yes all other systems are reviewed and are negative PMFSH Past Medical History Source: nursing notes reviewed Medical History Allergic rhinitis Anxiety Asthma Bilateral flank pain Depression Diabetes mellitus Dizziness GERD without esophagitis Hemorrhoid HTN (hypertension) Knee pain, bilateral Left ear pain Lower back pain Lumbar degenerative disc disease Menorrhagia Obesity (BMI 30-39.9) Pressure sensation in left ear Pure hypercholesterolemia Type 2 diabetes mellitus with hyperglycemia UTI (urinary tract infection) Varicose veins of bilateral lower extremities with pain Varicose veins of left lower extremity with pain Surgical History H/O tubal ligation History of carpal tunnel surgery History of endometrial ablation History of hemorrhoidectomy Family History Family History Father Diabetes Asthma Hepatitis Mother Diabetes Sleep apnea Ischemic cerebrovascular accident (CVA) Maternal Grandmother Diabetes Breast cancer Maternal Grandfather Stroke Paternal Grandfather Lung cancer Social History Social History Household Members: Family Housing: House Alcohol intake: never Patient Tobacco Use Status: Former Tobacco user Second Hand Smoke Exposure: Yes Advance Directives: No Advance Directives Information Provided: Yes service: No Current occupational status: employed 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 Cognitive needs: No Hearing needs: No Vision needs: Yes Physical Exam ED Vital Signs: Vital Signs - 24 hr 09/18/21 12:17 09/18/21 16:37 Temperature 98.0 F Pulse Rate 72 Respiratory Rate 18 18 Blood Pressure 127/74 Pulse Oximetry 98 Oxygen Delivery Method Room Air BMI result Body Mass Index 37.4 General appearance uncomfortable no distress Eyes anicteric no pallor The pharynx mucous membranes are moist no redness swelling or exudate Neck is supple Chest clear to auscultation bilateral, no chest wall tenderness Heart no murmur Abdomen had right upper quadrant tenderness as well as some epigastric tenderness, no rebound no guarding no distension Extremities full range of motion x4 Skin no rash Neuro no focal motor sensory deficits, gait and balance are normal, interaction both expression and comprehension are Course Course Course Narrative: Patient with right upper quadrant epigastric and right flank pain no vomiting Main concern was gallstones and cholecystitis, ultrasound was no longer in house so we did a CT scan with no evidence of cholecystitis no evidence of cholecystitis on labs no elevated bilirubin no evidence of biliary obstruction on CT or in labs No kidney stone seen on the scan no acute pathologies Patient is advised to use home pain medicine, follow with her doctor to arrange outpatient ultrasound, or if pain is still severe in the morning she can return to this hospital on a weekday for her right upper quadrant pain and get an ultrasound during the daytime on Sunday MDM - Abdominal Pain Lab Data Attestation: I reviewed the patient's lab results. Result diagrams: 09/18/21 12:23 09/18/21 12:23 Labs: Lab Results 09/18/21 09/18/21 09/18/21 Range/Units 12: 12: 16:06 WBC 8.3 (4.8-10.8) X10*3/uL RBC 5.11 (4.20-5.50) X10*6/uL Hgb 13.1 (12.0-16.0) g/dl Hct 37.3 (37.0-47.0) % MCV 73.0 L (80.0-98.0) fL MCH 25.6 L (27.0-33.0) pg MCHC 35.1 H (31.0-35.0) g/dl RDW 13.3 (11.0-16.0) % Plt Count 302 (160-400) X10*3/uL MPV 11.0 (9.4-12.3) fL Immature Gran % (Auto) 0.2 (0.0-0.4) % Neut % (Auto) 61.6 (45-73) % Lymph % (Auto) 30.6 (20-40) % Holt % (Auto) 4.7 (2-11) % Eos % (Auto) 2.3 (0-4) % Baso % (Auto) 0.6 (0-2) % Lymph # (Auto) 2.5 (1.2-4.9) X10*3/uL Holt # (Auto) 0.4 (0.1-1.2) X10*3/uL Eos # (Auto) 0.2 (0.0-0.4) X10*3/uL Baso # (Auto) 0.1 (0.0-0.2) X10*3/uL Abs Immat Gran (auto) 0.02 (0.00-0.03) X10*3/uL Absolute Neuts (auto) 5.1 (2.0-8.3) x10*3/uL Absolute Nucleated RBC 0.000 (0.0-0.012) X10*3/uL Nucleated RBC % (auto) 0.0 (0.0-0.2) /100WBC Sodium 138 (135-145) mmol/L Potassium 4.3 (3.3-5.1) mmol/L Chloride 102 (96-108) mmol/L Carbon Dioxide 25 (22-29) mmol/L Anion Gap 15 (12-20) BUN 9 (9-16) mg/dL Creatinine 0.78 (0.5-1.4) mg/dL Estim Creat Clear Calc 108.4 Estimated GFR > 60 Random Glucose 247 H (60-115) mg/dL Calcium 9.1 (8.4-10.2) mg/dL Total Bilirubin 0.5 (0.0-1.0) mg/dL AST 23 (5-31) U/L ALT 32 H (0-31) U/L Alkaline Phosphatase 62 (39-117) U/L Total Protein 7.2 (6.5-8.0) g/dL Albumin 4.2 (3.5-5.0) g/dL Lipase 41 (8-78) U/L Urine Color OTHER A Urine Appearance HAZY Urine pH 7.0 (5.0-8.0) Ur Specific [place] 1.015 (1.005-1.025) Urine Protein TRACE (NEG-TRACE) MG/DL Urine Glucose (UA) 500 H (NEG) MG/DL Urine Ketones NEG (NEG) MG/DL Urine Blood 3+ H (NEG) Urine Nitrite NEG (NEG) Ur Leukocyte Esterase NEG (NEG) Urine RBC TNTC H (0) /HPF Urine WBC 0-2 (0-4) /HPF Ur Squamous Epith Cells 1+ /LPF Amorphous Sediment 3+ /LPF Urine Bacteria TRACE /LPF Urine Mucus TRACE /LPF Discharge Plan Discharge Clinical Impression: Abdominal pain Patient Disposition: Home, Self-Care Additional Instructions: We did not find the cause of your pain in the CT scan blood tests or urine test We could not get an ultrasound to see whether not you have gallstones because it was not available on Sunday night If your pain continues your welcome to come back in the morning on Sunday when ultrasound is present and they can check to see if gallstones are causing this pain in the right upper side of your abdomen You have oxycodone at home that you take once a day for chronic pain, it is okay to take 2 tablets of your immediate release 5 mg oxycodone total 10 mg every 6 hours if that helps Return any time for worse pain vomiting fever any worse condition or any concerns Prescriptions: No Action montelukast 10 mg tablet 10 mg PO BEDTIME Qty: 30 5RF polyethylene glycol 3350 17 gram/dose powder 17 g PO DAILY PRN (Reason: constipation) 30 Days Qty: 510 5RF fluticasone propionate 50 mcg/actuation spray,suspension 2 spray intranasal DAILY Qty: 48 1RF Spiriva Respimat 2.5 mcg/actuation mist 2 puff PO DAILY Qty: 4 4RF bupropion HCl 150 mg tablet extended release 24 hr 150 mg PO QAM Qty: 90 1RF albuterol sulfate [ProAir HFA] 90 mcg/actuation HFA aerosol inhaler 90 mcg inhalation Q4-6H PRN (Reason: Shortness Of Breath Or Wheezing) Qty: 8.5 3RF albuterol sulfate 90 mcg/actuation aerosol powdr breath activated 2 inh inhalation Q6H PRN (Reason: shortness of breath or wheezing) 30 Days Qty: 1 5RF pantoprazole 40 mg tablet,delayed release (DR/EC) 40 mg PO DAILY Qty: 90 1RF tizanidine 4 mg tablet 4 mg PO TID PRN (Reason: for muscle spasm) Qty: 90 1RF quetiapine 100 mg tablet 100 mg PO BEDTIME Qty: 30 1RF metformin 500 mg tablet 500 mg PO BID Qty: 180 0RF famotidine 40 mg tablet 40 mg PO BEDTIME 30 Days Qty: 30 3RF oxycodone-acetaminophen [Percocet] 5-325 mg tablet 1 tab PO .2-3 times a day PRN (Reason: pain) 28 Days Qty: 84 0RF ferrous sulfate 325 mg (65 mg iron) tablet 325 mg PO DAILY Qty: 14 0RF meclizine 25 mg tablet 25 mg PO DAILY PRN (Reason: dizziness) Qty: 20 0RF fluticasone propionate [24 Hour Allergy Relief] 50 mcg/actuation spray,suspension 1 spray intranasal BID Qty: 16 0RF Rx Instructions: administer into each nostril (DME) blood-glucose meter [FreeStyle Lite Meter] Kit See Rx Instructions .ROUTE .MEDSUPPLY Qty: 1 0RF Rx Instructions: As directed (DME) FreeStyle Lite Strips Strip See Rx Instructions .ROUTE .MEDSUPPLY Qty: 100 0RF Rx Instructions: As directed (DME) lancets [FreeStyle Lancets] 28 gauge misc See Rx Instructions .ROUTE .MEDSUPPLY Qty: 100 0RF Rx Instructions: As directed alcohol swabs [Alcohol Prep Pads] Pads, Medicated 1 pad topical TID Qty: 200 0RF triamcinolone acetonide 0.1 % cream 1 appl topical TID 7 Days Qty: 30 0RF multivitamin Tablet 1 tab PO DAILY ibuprofen 800 mg tablet 800 mg PO TID oxybutynin chloride 10 mg tablet extended release 24hr 10 mg PO DAILY cetirizine [Zyrtec] 10 mg tablet 10 mg PO DAILY 10 Days Qty: 10 0RF fluconazole [Diflucan] 150 mg tablet 150 mg PO Q3D Qty: 2 0RF Rx Instructions: may repeat second dose 72 hrs after first dose if symptoms persist Januvia 50 mg tablet 50 mg PO DAILY 30 Days Qty: 30 3RF Stand Alone Forms: Work/School Release Interventions: ED Discharge Assessment Last Done: 09/18/21 19:34 Discharge Date/Time: 09/18/21 19:34
[2021-09-18] MEDS: oxyCODONE HCl Immed Release 5 MG TABLET 10 MG PO (19:02)
== END 2021-09-18 19:34 | disposition home or self-care (01) ==
PROVIDERS: Student in an Organized Health Care Education/Training Program; Emergency Provider Emergency Medicine Emergency Medical Services; PCP Internal Medicine
DX: R10.11 Right upper quadrant pain (principal); R10.13 Epigastric pain; Z79.899 Other long term (current) drug therapy; Z87.891 Personal history of nicotine dependence
CPT/HCPCS: 36415; 74176; 80053; 81001; 83690; 85025; 99284; J2270

== ENCOUNTER 2021-09-19 07:40 | Emergency (ER) | payer OTHER, SELFPAY ==
--- NOTE | ~2021-09-19 | US_ITS ---
EXAMINATION: US ABDOMEN LIMITED CLINICAL INFORMATION: Right upper quadrant abdominal pain.. COMPARISON: None TECHNIQUE: Real-time imaging of the right upper quadrant abdominal viscera. FINDINGS: PANCREAS: The visualized part of the body appears unremarkable. LIVER: Mild diffuse heterogeneous abnormal increased echotexture is present, consistent with diffuse liver disease likely secondary to hepatic steatosis or hepatocellular disease, or combination thereof. No superimposed focal liver lesion. There is no intrahepatic biliary duct dilatation seen. GALLBLADDER: Normal. The gallbladder is physiologically distended without evidence of stones, sludge, polyps, wall thickening or pericholecystic fluid. Gallbladder wall thickness measures 0.2 cm. COMMON BILE DUCT: Normal in caliber measuring 0.5 cm in diameter. RIGHT KIDNEY: Normal. No hydronephrosis. No renal calculi or focal parenchymal lesions. The kidney measures 12.5 cm in maximum dimension. FREE FLUID: None. US/US abdomen limited IMPRESSION: 1. The liver shows mild diffuse heterogeneous abnormal increased echotexture consistent with diffuse liver disease likely secondary to hepatic steatosis or hepatocellular disease or combination thereof. No superimposed focal liver lesion. 2. The visualized part of the pancreas is unremarkable. 3. Sonographically unremarkable gallbladder, biliary tree and the right kidney.
[2021-09-19 07:41] VITALS: BP 130/76; PULSE 67; RESP 19; TEMP 36.6; O2SAT 98; BMI 37.4
[2021-09-19 11:23] VITALS: BP 143/65; PULSE 64; RESP 18; O2SAT 100
[2021-09-19] MEDS: Ketorolac Tromethamine 30 MG/ML VIAL IM (11:26)
--- NOTE | 2021-09-19 12:12 | ED.ABDPAIN ---
HPI - Abdominal Pain General Chief Complaint: Abdominal Pain Stated Complaint: returning for ultrasound Time Seen by Provider: 09/19/21 09:19 History of Present Illness HPI narrative: Patient complains of upper right abdominal pain radiating into the back which she has had for 2 or 3 days, there is no nausea no vomiting no anorexia no diarrhea, pain started gradually, patient was seen here last night and had a CT scan that was nondiagnostic and was advised to return for ultrasound in the morning if pain continues Pain did continue, it was relieved with oxycodone but returns when the medication wears off, her condition is unchanged from yesterday with no vomiting no fever no nausea no diarrhea, pain is in the same location and same intensity when analgesic wears off Related Data Home Medications Medication Instructions Recorded Confirmed ibuprofen 800 mg tablet 800 mg PO TID 12/25/19 08/02/21 multivitamin 1 tab PO DAILY 12/25/19 08/02/21 oxybutynin chloride 10 mg 10 mg PO DAILY 12/25/19 08/02/21 tablet,extended release 24 hr Previous Rx's Medication Instructions Recorded ferrous sulfate 325 mg (65 mg 325 mg PO DAILY #14 tabs 12/05/19 iron) tablet cetirizine 10 mg tablet (Zyrtec) 10 mg PO DAILY 10 days #10 tabs 12/25/19 montelukast 10 mg tablet 10 mg PO BEDTIME #30 tabs 03/16/20 alcohol swabs (Alcohol Prep Pads) 1 pad topical TID #200 ea 06/19/20 blood sugar diagnostic (FreeStyle #100 ea 06/19/20 Lite Strips) blood-glucose meter (FreeStyle #1 ea 06/19/20 Lite Meter kit) lancets 28 gauge (FreeStyle #100 ea 06/19/20 Lancets) polyethylene glycol 3350 17 17 g PO DAILY PRN constipation 30 06/20/20 gram/dose oral powder days #510 grams meclizine 25 mg tablet 25 mg PO DAILY PRN dizziness #20 09/06/20 tabs fluticasone propionate 50 2 spray intranasal DAILY #48 mL 10/12/20 mcg/actuation nasal spray,suspension fluticasone propionate 50 1 spray intranasal BID #16 grams 10/25/20 mcg/actuation nasal spray,suspension (24 Hour Allergy Relief) tiotropium bromide 2.5 2 puff PO DAILY #4 mL 12/16/20 mcg/actuation mist for inhalation (Spiriva Respimat) fluconazole 150 mg tablet 150 mg PO Q3D 2 doses #2 tabs 01/12/21 (Diflucan) bupropion HCl 150 mg 24 hr tablet, 150 mg PO QAM #90 tabs 04/07/21 extended release triamcinolone acetonide 0.1 % 1 appl topical TID 7 days #30 grams 04/18/21 topical cream ProAir HFA 90 mcg/actuation 90 mcg inhalation Q4-6H PRN 04/26/21 aerosol inhaler (albuterol sulfate) Shortness Of Breath Or Wheezing #8.5 grams albuterol sulfate 90 mcg/actuation 2 inh inhalation Q6H PRN shortness 04/29/21 breath activated powder inhaler of breath or wheezing 30 days #1 ea pantoprazole 40 mg tablet,delayed 40 mg PO DAILY #90 tabs 05/03/21 release quetiapine 100 mg tablet 100 mg PO BEDTIME #30 tabs 05/11/21 tizanidine 4 mg tablet 4 mg PO TID PRN for muscle spasm 05/11/21 #90 tabs sitagliptin 50 mg tablet (Januvia) 50 mg PO DAILY 30 days #30 tabs 05/27/21 metformin 500 mg tablet 500 mg PO BID for diabetes 06/03/21 mellitus #180 tabs famotidine 40 mg tablet 40 mg PO BEDTIME 30 days #30 tabs 08/15/21 oxycodone-acetaminophen 5 mg-325 1 tab PO .2-3 times a day PRN pain 08/22/21 mg tablet (Percocet) 28 days #84 tabs Allergies Allergy/AdvReac Type Severity Reaction Status Date / Time gabapentin Allergy Unknown Tingling Verified 09/18/21 12:17 feeling in throat zolpidem [From AMBIEN] Allergy Unknown tingling Verified 09/18/21 12:17 feeling in throat Review of Systems Review of Systems Positive for right-sided abdominal pain and flank pain Negatives are no fever no chills no dizziness no weakness no fainting no feeling faint no headache no neck pain no chest pain no shortness of breath, no vomiting no diarrhea no nausea, no burning with urination no frequency of urination no changes to bowel or bladder, no skin rash Yes all other systems are reviewed and are negative PMFSH Past Medical History Medical History Allergic rhinitis Anxiety Asthma Bilateral flank pain Depression Diabetes mellitus Dizziness GERD without esophagitis Hemorrhoid HTN (hypertension) Knee pain, bilateral Left ear pain Lower back pain Lumbar degenerative disc disease Menorrhagia Obesity (BMI 30-39.9) Pressure sensation in left ear Pure hypercholesterolemia Type 2 diabetes mellitus with hyperglycemia UTI (urinary tract infection) Varicose veins of bilateral lower extremities with pain Varicose veins of left lower extremity with pain Surgical History H/O tubal ligation History of carpal tunnel surgery History of endometrial ablation History of hemorrhoidectomy Family History Family History Father Diabetes Asthma Hepatitis Mother Diabetes Sleep apnea Ischemic cerebrovascular accident (CVA) Maternal Grandmother Diabetes Breast cancer Maternal Grandfather Stroke Paternal Grandfather Lung cancer Social History Social History Household Members: Family Housing: House Alcohol intake: never Patient Tobacco Use Status: Former Tobacco user Second Hand Smoke Exposure: Yes Advance Directives: No Advance Directives Information Provided: Yes service: No Current occupational status: employed 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 Cognitive needs: No Hearing needs: No Vision needs: Yes Physical Exam ED Vital Signs: Vital Signs - 24 hr 09/19/21 07:41 09/19/21 11:23 Temperature 98 F Pulse Rate 67 64 Respiratory Rate 19 18 Blood Pressure 130/76 143/65 H Pulse Oximetry 98 100 Oxygen Delivery Method Room Air Room Air BMI result Body Mass Index 37.4 General appearance no acute distress Eyes anicteric no pallor The pharynx is clear with moist mucous membranes Neck is supple Respiratory no distress Chest clear to auscultation bilateral Heart no murmur Abdodomen with right upper quadrant tenderness no rebound no guarding no other tenderness Extremities full range of motion x4 Skin no rash Course Course Course Narrative: Patient who returned for ultrasound which was not available yesterday after workup for this same unchanged pain yesterday Yesterday workup included a CT scan and labs and a urine which were nondiagnostic, no white count no urinary tract infection, no significant LFT abnormality, bilirubins normal, lipase normal CT scan did not show any acute findings, although it did show hepatic steatosis Ultrasound did not show any gallstones, no evidence of cholecystitis, again hepatic steatosis but no acute findings Patient is discharged with abdominal pain uncertain etiology and advised to follow with her doctor for referral to GI doctor, low threshold for returning if condition changes or worsens She left improved as she was given a dose of analgesics which relieve the discomfort and she tolerates p.o. Discharge Plan Discharge Clinical Impression: Abdominal pain Patient Disposition: Home, Self-Care Additional Instructions: We are not sure what is causing the pain The workup today and yesterday did not show gallstones no kidney stones no signs of infection in the abdomen no surgical emergency no emergent condition As we are not sure what is causing the pain the best plan is to follow with her doctor for a referral to a GI doctor, stomach specialist for further evaluation As we are not sure of the diagnosis if things change or worsen in any way return to the ER any time for a re-evaluation Your daily Percocet 5 mg once a night dose may not be sufficient during this acute pain episode so you may need to take 2 Percocets every 6-8 hours if needed Prescriptions: No Action montelukast 10 mg tablet 10 mg PO BEDTIME Qty: 30 5RF polyethylene glycol 3350 17 gram/dose powder 17 g PO DAILY PRN (Reason: constipation) 30 Days Qty: 510 5RF fluticasone propionate 50 mcg/actuation spray,suspension 2 spray intranasal DAILY Qty: 48 1RF Spiriva Respimat 2.5 mcg/actuation mist 2 puff PO DAILY Qty: 4 4RF bupropion HCl 150 mg tablet extended release 24 hr 150 mg PO QAM Qty: 90 1RF albuterol sulfate [ProAir HFA] 90 mcg/actuation HFA aerosol inhaler 90 mcg inhalation Q4-6H PRN (Reason: Shortness Of Breath Or Wheezing) Qty: 8.5 3RF albuterol sulfate 90 mcg/actuation aerosol powdr breath activated 2 inh inhalation Q6H PRN (Reason: shortness of breath or wheezing) 30 Days Qty: 1 5RF pantoprazole 40 mg tablet,delayed release (DR/EC) 40 mg PO DAILY Qty: 90 1RF tizanidine 4 mg tablet 4 mg PO TID PRN (Reason: for muscle spasm) Qty: 90 1RF quetiapine 100 mg tablet 100 mg PO BEDTIME Qty: 30 1RF metformin 500 mg tablet 500 mg PO BID Qty: 180 0RF famotidine 40 mg tablet 40 mg PO BEDTIME 30 Days Qty: 30 3RF oxycodone-acetaminophen [Percocet] 5-325 mg tablet 1 tab PO .2-3 times a day PRN (Reason: pain) 28 Days Qty: 84 0RF ferrous sulfate 325 mg (65 mg iron) tablet 325 mg PO DAILY Qty: 14 0RF meclizine 25 mg tablet 25 mg PO DAILY PRN (Reason: dizziness) Qty: 20 0RF fluticasone propionate [24 Hour Allergy Relief] 50 mcg/actuation spray,suspension 1 spray intranasal BID Qty: 16 0RF Rx Instructions: administer into each nostril (DME) blood-glucose meter [FreeStyle Lite Meter] Kit See Rx Instructions .ROUTE .MEDSUPPLY Qty: 1 0RF Rx Instructions: As directed (DME) FreeStyle Lite Strips Strip See Rx Instructions .ROUTE .MEDSUPPLY Qty: 100 0RF Rx Instructions: As directed (DME) lancets [FreeStyle Lancets] 28 gauge misc See Rx Instructions .ROUTE .MEDSUPPLY Qty: 100 0RF Rx Instructions: As directed alcohol swabs [Alcohol Prep Pads] Pads, Medicated 1 pad topical TID Qty: 200 0RF triamcinolone acetonide 0.1 % cream 1 appl topical TID 7 Days Qty: 30 0RF multivitamin Tablet 1 tab PO DAILY ibuprofen 800 mg tablet 800 mg PO TID oxybutynin chloride 10 mg tablet extended release 24hr 10 mg PO DAILY cetirizine [Zyrtec] 10 mg tablet 10 mg PO DAILY 10 Days Qty: 10 0RF fluconazole [Diflucan] 150 mg tablet 150 mg PO Q3D Qty: 2 0RF Rx Instructions: may repeat second dose 72 hrs after first dose if symptoms persist Januvia 50 mg tablet 50 mg PO DAILY 30 Days Qty: 30 3RF
[2021-09-19] MEDS: oxyCODONE HCl Immed Release 5 MG TABLET 10 MG PO (12:25)
== END 2021-09-19 12:41 | disposition home or self-care (01) ==
PROVIDERS: Emergency Provider Emergency Medicine; PCP Internal Medicine
DX: R10.9 Unspecified abdominal pain (principal); E11.9 Type 2 diabetes mellitus without complications; I10 Essential (primary) hypertension; E78.00 Pure hypercholesterolemia, unspecified; Z79.84 Long term (current) use of oral hypoglycemic drugs; Z79.899 Other long term (current) drug therapy
CPT/HCPCS: 76705; 96372; 99284; J1885

== ENCOUNTER 2021-09-29 13:44 | Outpatient (REF) | payer OTHER, SELFPAY | END 2021-09-29 13:45 | disposition home or self-care (01) | LOC: HO.LAB 13:44 | PROVIDERS: PCP Internal Medicine; Visit Provider Obstetrics & Gynecology | DX: N39.0 Urinary tract infection, site not specified (principal); N93.9 Abnormal uterine and vaginal bleeding, unspecified | CPT/HCPCS: 58100; 87086; 88305; 99212 ==

== ENCOUNTER 2021-10-06 14:41 | Outpatient (REF) | payer OTHER, SELFPAY ==
[2021-10-07 11:48] LABS: CT PCR NOT DETECTED (Not Detect.)
[2021-10-07 11:49] LABS: NG PCR NOT DETECTED (Not Detect.)
[2021-10-07 14:29] LABS: BV Int Neg Control Negative (Negative); BV Int Pos Control Positive (Positive)
== END 2021-10-06 14:42 | disposition home or self-care (01) ==
LOC: HO.LAB 14:41
PROVIDERS: PCP Internal Medicine; Visit Provider Obstetrics & Gynecology
DX: B37.3 Candidiasis of vulva and vagina (principal)
CPT/HCPCS: 87480; 87491; 87510; 87591; 87660; 99212

== ENCOUNTER 2021-10-21 10:21 | Day surgery (SDC) | payer OTHER, SELFPAY ==
[2021-10-17 14:06] VITALS: BMI 37.2
--- NOTE | 2021-10-20 08:48 | P.CONAN_ITS ---
Documented by User: Esthela Diaz NP 10/20/21 08:49 HPI - Anesthesia Eval Consult details Narrative: 41yo F for D&C Hysteroscopy PMFSH Active Problems Active Problems: All Active Problems (Updated 10/07/21 @ 15:13 by Anand Mason MD) Bacterial vaginosis (Acute) Upper respiratory tract infection (Acute) Locking of left knee (Acute) Localized swelling of right lower leg (Acute) Vaginal itching (Acute) Burning with urination (Acute) Annual physical exam (Acute) Rash of both hands (Acute) Anxiety (Acute) Abnormal uterine bleeding (Acute) UTI (urinary tract infection) (Acute) Vulvovaginitis due to Citlaly (Acute) Bacterial vaginosis (Acute) Pure hypercholesterolemia (Acute) Type 2 diabetes mellitus with hyperglycemia (Acute) Varicose veins of bilateral lower extremities with pain (Acute) Lumbar degenerative disc disease (Acute) Anxiety (Acute) GERD without esophagitis (Acute) Diabetes mellitus (Acute) Bilateral flank pain (Acute) Varicose veins of left lower extremity with pain (Acute) Dizziness (Acute) Left ear pain (Acute) Pressure sensation in left ear (Acute) HTN (hypertension) (Acute) Hemorrhoid (Acute) Asthma (Acute) UTI (urinary tract infection) (Acute) Lower back pain (Acute) Obesity (BMI 30-39.9) (Acute) Menorrhagia (Acute) Knee pain, bilateral (Acute) Depression (Acute) Allergic rhinitis (Acute) Past Medical History Medical History (Updated 10/23/22 @ 11:26 by David Hills MD) Family history of ovarian cancer Hemorrhoids with complication Mixed hyperlipidemia Pure hypercholesterolemia Type 2 diabetes mellitus with hyperglycemia Varicose veins of bilateral lower extremities with pain Lumbar degenerative disc disease Anxiety GERD without esophagitis Diabetes mellitus Bilateral flank pain Varicose veins of left lower extremity with pain Dizziness Left ear pain Pressure sensation in left ear UTI (urinary tract infection) HTN (hypertension) Lower back pain Obesity (BMI 30-39.9) Menorrhagia Knee pain, bilateral Depression Allergic rhinitis Hemorrhoid Asthma Family History Family History Father Diabetes Asthma Hepatitis Mother Diabetes Sleep apnea Ischemic cerebrovascular accident (CVA) Ovarian cancer, Onset Age: 52 Maternal Grandmother Diabetes Breast cancer, Onset Age: 50 Maternal Grandfather Stroke Paternal Grandfather Lung cancer Sister Ovarian cancer, Onset Age: 30 Family history of problems with anesthesia: No Surgical History Surgical History Hx of tubal ligation History of esophagogastroduodenoscopy (EGD) History of endometrial ablation History of carpal tunnel surgery History of hemorrhoidectomy History of Problems with Anesthesia: No Social History Household Members: Family Housing: House Alcohol intake: never Patient Tobacco Use Status: Former Tobacco user e-Cigarette/Vaping Use: Never Used Second Hand Smoke Exposure: Yes service: No Current occupational status: employed 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 Cognitive needs: No Hearing needs: No Vision needs: Yes Meds Allergies Allergy/AdvReac Type Severity Reaction Status Date / Time gabapentin Allergy Unknown Tingling Verified 11/27/22 10:04 feeling in throat zolpidem [From AMBIEN] Allergy Unknown tingling Verified 11/27/22 10:04 feeling in throat cahsews Allergy Severe Rash Uncoded 11/27/22 10:04 Home Medications Medication Instructions Recorded Confirmed Last Taken Type ibuprofen 800 mg tablet 800 mg PO TID 12/25/19 11/27/22 Unknown History multivitamin 1 tab PO DAILY 12/25/19 11/27/22 Unknown History oxybutynin chloride 10 mg 10 mg PO DAILY 12/25/19 11/27/22 Unknown History tablet,extended release 24 hr tizanidine 4 mg tablet 2 mg PO BEDTIME PRN for muscle 11/21/21 11/27/22 Unknown History spasm Exam Exam Date and Time: October 20, 2021 0848 Height,Weight and Vital Signs: Height 5 ft 4 in Weight 98.361 kg Pertinent Lab Results Pertinent Lab Results: Laboratory Tests 09/18/21 09/18/21 12:23 12:23 WBC 8.3 Hgb 13.1 Hct 37.3 Plt Count 302 Sodium 138 Potassium 4.3 Chloride 102 Carbon Dioxide 25 BUN 9 Creatinine 0.78 Assessment and Plan Assessment Anesthesia Assessment: Chart Reviewed Final Anesthetic Review Family History of Problems with Anesthesia: No History of Problems with Anesthesia: No Documented by User: Jair Rodgers MD 12/29/22 00:36 [facility] Past Medical History Medical History (Updated 10/23/22 @ 11:26 by David Hills MD) Family history of ovarian cancer Hemorrhoids with complication Mixed hyperlipidemia Pure hypercholesterolemia Type 2 diabetes mellitus with hyperglycemia Varicose veins of bilateral lower extremities with pain Lumbar degenerative disc disease Anxiety GERD without esophagitis Diabetes mellitus Bilateral flank pain Varicose veins of left lower extremity with pain Dizziness Left ear pain Pressure sensation in left ear UTI (urinary tract infection) HTN (hypertension) Lower back pain Obesity (BMI 30-39.9) Menorrhagia Knee pain, bilateral Depression Allergic rhinitis Hemorrhoid Asthma Functional capacity: independent ambulation Family History Family History Father Diabetes Asthma Hepatitis Mother Diabetes Sleep apnea Ischemic cerebrovascular accident (CVA) Ovarian cancer, Onset Age: 52 Maternal Grandmother Diabetes Breast cancer, Onset Age: 50 Maternal Grandfather Stroke Paternal Grandfather Lung cancer Sister Ovarian cancer, Onset Age: 30 Family history of problems with anesthesia: Yes (PONV in mother) Surgical History Surgical History Hx of tubal ligation History of esophagogastroduodenoscopy (EGD) History of endometrial ablation History of carpal tunnel surgery History of hemorrhoidectomy Social History Household Members: Family Housing: House Alcohol intake: never Patient Tobacco Use Status: Former Tobacco user e-Cigarette/Vaping Use: Never Used Second Hand Smoke Exposure: Yes service: No Current occupational status: employed 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 Cognitive needs: No Hearing needs: No Vision needs: Yes Meds Allergies Allergy/AdvReac Type Severity Reaction Status Date / Time gabapentin Allergy Unknown Tingling Verified 11/27/22 10:04 feeling in throat zolpidem [From AMBIEN] Allergy Unknown tingling Verified 11/27/22 10:04 feeling in throat cahsews Allergy Severe Rash Uncoded 11/27/22 10:04 Home Medications Medication Instructions Recorded Confirmed Last Taken Type ibuprofen 800 mg tablet 800 mg PO TID 12/25/19 11/27/22 Unknown History multivitamin 1 tab PO DAILY 12/25/19 11/27/22 Unknown History oxybutynin chloride 10 mg 10 mg PO DAILY 12/25/19 11/27/22 Unknown History tablet,extended release 24 hr tizanidine 4 mg tablet 2 mg PO BEDTIME PRN for muscle 11/21/21 11/27/22 Unknown History spasm Exam Airway Mallampati Class: III Loose/Missing/Broken Teeth: Yes Assessment and Plan Assessment Anesthesia Assessment: Anesthesia Plan Discussed Final Anesthetic Review Family History of Problems with Anesthesia: Yes (PONV in mother) NPO: Yes ASA Class: II Final Preanesthetic Review: Meds/Allgs Chart Reviewed, Consent Obtained/Reviewed and Anes Risks/Benef Reviewed Patient Risk: Intermediate Procedure Risk: Intermediate Anesthetic Plan Anesthetic Plan: GA and Agree w/ Assess. and Plan Disposition: Standard PACU
[2021-10-21] VITALS (7 sets, daily range): BP systolic 117–147; BP diastolic 57–87; PULSE 70–84; RESP 16–18; TEMP 36.2–36.7; O2SAT 96–100; BMI 36.7
[2021-10-21] MEDS: Lactated Ringers 1,000 ML 100 ML IVCONT (11:28)
[2021-10-21 11:34] LABS: Glucose, Whole Blood 130 mg/dL (60-115)
[2021-10-21 11:40] LABS: UPreg QC Valid YES; Urine Pregnancy NEGATIVE (NEGATIVE)
--- NOTE | 2021-10-21 13:34 | PM.OP ---
Brief Operative Note Date of Service: 10/21/21 Pre-op diagnosis: Abnormal uterine bleeding Post-op diagnosis: same (Normal endometrial cavity, no evidence of pathology) Procedure: Hysteroscopy D&C Surgeon: Anand Mason MD Anesthesia: GLMA Was an Sensitized Paper Tester used for this Procedure?: No Estimated blood loss (mL): 0 Pathology: other (Endometrial Scrapping. ) Condition: stable Disposition: PACU
--- NOTE | 2021-10-21 13:35 | P.OP_ITS ---
Operative Note Operative Note Date of Service: 10/21/21 Narrative: Preop Diagnosis: Abnormal uterine bleeding Operation: Diagnostic Hysteroscopy, Dilataion & Curettage Post Op Diagnosis: Normal endometrial cavity QBL: Minimal Anesthesia: MAC Surgeon: Anand Mason MD Senior Materials Planner: None Complication: None Pathology: Endometrial Scrapings Procedure: The patient was put in the dorsal lithotomy position, scrubbed, and draped in the usual manner. A sterile speculum was inserted in the patient's vagina. The anterior lip of the cervix was grasped with a single tooth tenaculum. The cervix was dilated up to 5 mm, then the scope was inserted in the patient's uterus. Inspection revealed Normal endometrial cavity. The Myosure Reach device was used; sharp curettings was carried on with minimal to moderate amount of tissues retrieved. At the end of the procedure, all instruments were taken out of the patient uterine and vaginal cavity. The single tooth tenaculum was removed and homeostasis was assured using pressure,. The patient tolerated the procedure well and was transferred to the PACU in a stable condition.
[2021-10-21] MEDS: oxyCODONE HCl Immed Release 5 MG TABLET PO (14:05)
== END 2021-10-21 14:58 | disposition home or self-care (01) ==
PROVIDERS: PCP Internal Medicine; Visit Provider Obstetrics & Gynecology
PROC: 0UDB8ZZ Extraction of Endometrium, Via Natural or Artificial Opening Endoscopic (ICD-10-PCS; CPT 58558; principal; 2021-10-21 12:30)
DX: N93.9 Abnormal uterine and vaginal bleeding, unspecified (principal); B37.3 Candidiasis of vulva and vagina; I10 Essential (primary) hypertension; E11.65 Type 2 diabetes mellitus with hyperglycemia; J45.909 Unspecified asthma, uncomplicated; Z88.8 Allergy status to other drugs, medicaments and biological substances; Z87.891 Personal history of nicotine dependence; Z98.51 Tubal ligation status
CPT/HCPCS: 58558; 81025; 82947; 88305; J1100; J2250; J2405; J3010

== ENCOUNTER 2021-11-08 15:16 | Outpatient (REF) | payer OTHER, SELFPAY ==
[2021-11-08 15:32] LABS: MANUAL DIFF FLAG NO
[2021-11-08 16:03] LABS: Basophils Absolute Auto 0.1 X10*3/uL (0.0-0.2); Basophils Percent Auto 0.6 % (0-2); Eosinophils Absolute Auto 0.2 X10*3/uL (0.0-0.4); Eosinophils Percent Auto 2.5 % (0-4); Hematocrit 37.2 % (37.0-47.0); Hemoglobin 13.2 g/dl (12.0-16.0); Imm Gran Abs Auto 0.04 X10*3/uL (0.00-0.03); Imm Gran Pct Auto 0.4 % (0.0-0.4); Lymphocytes Absolute Auto 2.5 X10*3/uL (1.2-4.9); Lymphocytes Percent Auto 27.5 % (20-40); Mean Corpuscular HGB Conc 35.5 g/dl (31.0-35.0); Mean Corpuscular Hemoglobin 25.3 pg (27.0-33.0); Mean Corpuscular Volume 71.4 fL (80.0-98.0); Monocytes Absolute Auto 0.6 X10*3/uL (0.1-1.2); Monocytes Percent Auto 6.3 % (2-11); Neutrophils Absolute Auto 5.6 x10*3/uL (2.0-8.3); Neutrophils Percent Auto 62.7 % (45-73); Platelet Count 366 X10*3/uL (160-400); Red Blood Count 5.21 X10*6/uL (4.20-5.50); Red Cell Distribution Width 13.4 % (11.0-16.0); White Blood Count 8.9 X10*3/uL (4.8-10.8)
[2021-11-08 16:17] LABS: Appearance Urine Clear; Color Urine Yellow; Glucose Urine UA Negative (Negative); Leukocyte Esterase Urine Negative (Negative); Nitrite Urine Negative (Negative); PH 7.5 (5.0-9.0); Urine Blood Negative (Negative); Urine Ketones Negative (Negative); Urine Protein Negative (Neg-Trace)
[2021-11-08 16:17] LABS: Estimated Average Glucose 151 mg/dL; Hemoglobin A1c % 6.9 %
[2021-11-08 16:26] LABS: Alanine Aminotransferase 53 U/L (0-31); Albumin Level 4.4 g/dL (3.5-5.0); Alkaline Phosphatase 68 U/L (39-117); Anion Gap 15 (12-20); Aspartate Amino Transferase 29 U/L (5-31); Bilirubin Total 0.2 mg/dL (0.0-1.0); Blood Urea Nitrogen 9 mg/dL (9-16); Calcium 10.1 mg/dL (8.4-10.2); Carbon Dioxide 26 mmol/L (22-29); Chloride 102 mmol/L (96-108); Cholesterol 238 mg/dL; Estimated Glomerular Filt Rate > 60; Glucose Fasting 119 mg/dL (60-99); HDL Cholesterol 45 mg/dL; Potassium 4.8 mmol/L (3.3-5.1); Sodium 138 mmol/L (135-145); Total Protein 7.5 g/dL (6.5-8.0); Triglycerides 439 mg/dL
[2021-11-08 16:47] LABS: TSH reflex Free T4 0.81 uIU/mL (0.32-4.0); Vitamin D 25-OH Total 26.7 ng/mL (>30)
[2021-11-08 16:51] LABS: Creatinine Urine 39.77 mg/dL; Microalbumin Urine < 5.0 mg/L
[2021-11-09 07:22] LABS: Syphilis Screen Nonreactive (Nonreactive)
[2021-11-09 08:04] LABS: HBsAGNum1 0.21 S/CO (0.00-0.99); HIV AB/AG Nonreactive (Nonreactive); HIV Num 1 0.07 S/CO (0.00-0.99); Hepatitis B Surface Antigen Negative (Negative); ~HepC Num1 0.17 S/CO (0.00-0.79); ~Hepatitis C Antibody Nonreactive (Nonreactive)
== END 2021-11-08 15:17 | disposition home or self-care (01) ==
LOC: HO.LAB 15:16
PROVIDERS: Obstetrics & Gynecology; PCP Internal Medicine; Visit Provider Internal Medicine
DX: E78.00 Pure hypercholesterolemia, unspecified (principal); R30.0 Dysuria; N76.0 Acute vaginitis; B96.89 Other specified bacterial agents as the cause of diseases classified elsewhere; E55.9 Vitamin D deficiency, unspecified; E11.9 Type 2 diabetes mellitus without complications; I10 Essential (primary) hypertension
CPT/HCPCS: 36415; 80053; 80061; 81003; 82043; 82306; 83036; 84443; 85025; 86780; 86803; 87340; 87389

== ENCOUNTER → 2021-12-22 10:43 | Outpatient (BNVA) | payer OTHER, SELFPAY | PROVIDERS: PCP Internal Medicine; Visit Provider Obstetrics & Gynecology | DX: N93.9 Abnormal uterine and vaginal bleeding, unspecified (principal); D21.9 Benign neoplasm of connective and other soft tissue, unspecified | CPT/HCPCS: 99212 ==

== ENCOUNTER 2022-01-16 14:45 | Outpatient (REF) | payer OTHER, SELFPAY ==
[2022-01-16 17:35] LABS: Appearance Urine Clear; Color Urine Yellow; Glucose Urine UA Negative (Negative); Leukocyte Esterase Urine Small (1+) (Negative); Nitrite Urine Negative (Negative); PH 6.5 (5.0-9.0); Specific Gravity - Urine 1.015 (1.005-1.025); UMIC TRIGGER UACC YES; Urine Blood Negative (Negative); Urine Ketones Negative (Negative); Urine Protein Negative (Neg-Trace)
[2022-01-16 17:41] LABS: Bacteria Urine 1+ (None Seen); Hyaline Casts Urine 0-2 /LPF (0-2); RBC Urine 0-2 /HPF (0-2); UACC Culture Trigger YES
== END 2022-01-16 14:46 | disposition home or self-care (01) ==
LOC: HO.LAB 14:45
PROVIDERS: PCP Internal Medicine; Visit Provider Internal Medicine
DX: R82.90 Unspecified abnormal findings in urine (principal)
CPT/HCPCS: 81001; 87086

== ENCOUNTER 2022-01-25 07:40 | Emergency (ER) | payer OTHER, SELFPAY ==
[2022-01-25 07:57] VITALS: BP 102/60; PULSE 74; RESP 18; TEMP 36.8; O2SAT 97; BMI 37.4
[2022-01-25 08:13] LABS: Appearance Urine Cloudy; Color Urine Yellow; Glucose Urine UA Negative (Negative); Leukocyte Esterase Urine Trace (Negative); Nitrite Urine Negative (Negative); PH 5.5 (5.0-9.0); UMIC TRIGGER UACC YES; Urine Blood Negative (Negative); Urine Ketones Negative (Negative); Urine Protein Negative (Neg-Trace)
[2022-01-25 08:18] LABS: Bacteria Urine None Seen (None Seen); Hyaline Casts Urine 0-2 /LPF (0-2); RBC Urine 0-2 /HPF (0-2); WBC Urine 0-5 /HPF (0-5)
[2022-01-25 08:54] LABS: UPreg QC Valid YES
[2022-01-25 08:55] LABS: Urine Pregnancy NEGATIVE (NEGATIVE)
--- NOTE | 2022-01-25 09:08 | ED.FEMALEGU ---
HPI - Female Genitourinary General Chief complaint: Urogenital-Female Stated complaint: UTI Time Seen by Provider: 01/25/22 08:35 Source: patient Mode of arrival: ambulatory History of Present Illness HPI Narrative: 41-year-old female who presents with complaints of burning at the end of urination for 1 week as well as open quotes quite chunky material?, she made multiple attempts to contact her primary care provider but was unsuccessful, she denies any vaginal discharge and denies possibility of STI. In addition, she denies any fever or chills. Patient is a diabetic. Related Data Home Medications Medication Instructions Recorded Confirmed ibuprofen 800 mg tablet 800 mg PO TID 12/25/19 11/21/21 multivitamin 1 tab PO DAILY 12/25/19 11/21/21 oxybutynin chloride 10 mg 10 mg PO DAILY 12/25/19 11/21/21 tablet,extended release 24 hr tizanidine 4 mg tablet 2 mg PO BEDTIME PRN for muscle 11/21/21 11/21/21 spasm Previous Rx's Medication Instructions Recorded ferrous sulfate 325 mg (65 mg 325 mg PO DAILY #14 tabs 12/05/19 iron) tablet cetirizine 10 mg tablet (Zyrtec) 10 mg PO DAILY 10 days #10 tabs 12/25/19 montelukast 10 mg tablet 10 mg PO BEDTIME #30 tabs 03/16/20 alcohol swabs (Alcohol Prep Pads) 1 pad topical TID #200 ea 06/19/20 blood sugar diagnostic (FreeStyle #100 ea 06/19/20 Lite Strips) blood-glucose meter (FreeStyle #1 ea 06/19/20 Lite Meter kit) lancets 28 gauge (FreeStyle #100 ea 06/19/20 Lancets) meclizine 25 mg tablet 25 mg PO DAILY PRN dizziness #20 09/06/20 tabs fluticasone propionate 50 1 spray intranasal BID #16 grams 10/25/20 mcg/actuation nasal spray,suspension (24 Hour Allergy Relief) tiotropium bromide 2.5 2 puff PO DAILY #4 mL 12/16/20 mcg/actuation mist for inhalation (Spiriva Respimat) ProAir HFA 90 mcg/actuation 90 mcg inhalation Q4-6H PRN 04/26/21 aerosol inhaler (albuterol sulfate) Shortness Of Breath Or Wheezing #8.5 grams albuterol sulfate 90 mcg/actuation 2 inh inhalation Q6H PRN shortness 04/29/21 breath activated powder inhaler of breath or wheezing 30 days #1 ea sitagliptin phosphate 50 mg tablet 50 mg PO DAILY 30 days #30 tabs 05/27/21 (Januvia) metformin 500 mg tablet 500 mg PO BID for diabetes 06/03/21 mellitus #180 tabs famotidine 40 mg tablet 40 mg PO BEDTIME 30 days #30 tabs 08/15/21 terconazole 0.8 % vaginal cream 1 appful vaginal BEDTIME 3 days 10/06/21 #20 grams bupropion HCl 150 mg 24 hr tablet, 150 mg PO QAM #90 tabs 10/17/21 extended release polyethylene glycol 3350 17 17 g PO DAILY PRN constipation 30 10/27/21 gram/dose oral powder days #510 grams fenofibrate nanocrystallized 145 145 mg PO DAILY 30 days #30 tabs 11/21/21 mg tablet pantoprazole 40 mg tablet,delayed 40 mg PO DAILY #90 tabs 12/05/21 release oxycodone-acetaminophen 5 mg-325 1 tab PO .2-3 times a day PRN pain 01/23/22 mg tablet (Percocet) 28 days #84 tabs quetiapine 100 mg tablet 100 mg PO BEDTIME #30 tabs 01/24/22 Allergies Allergy/AdvReac Type Severity Reaction Status Date / Time gabapentin Allergy Unknown Tingling Verified 11/21/21 17:11 feeling in throat zolpidem [From AMBIEN] Allergy Unknown tingling Verified 11/21/21 17:11 feeling in throat Review of Systems Review of Systems: Pertinent positives and negatives as stated in HPI 10 point review of systems is otherwise negative. [facility] Past Medical History Source: nursing notes reviewed Medical History Allergic rhinitis Anxiety Asthma Bilateral flank pain Depression Diabetes mellitus Dizziness GERD without esophagitis Hemorrhoid HTN (hypertension) Knee pain, bilateral Left ear pain Lower back pain Lumbar degenerative disc disease Menorrhagia Obesity (BMI 30-39.9) Pressure sensation in left ear Pure hypercholesterolemia Type 2 diabetes mellitus with hyperglycemia UTI (urinary tract infection) Varicose veins of bilateral lower extremities with pain Varicose veins of left lower extremity with pain Surgical History History of carpal tunnel surgery History of endometrial ablation History of esophagogastroduodenoscopy (EGD) History of hemorrhoidectomy Hx of tubal ligation Family History Family History Father Diabetes Asthma Hepatitis Mother Diabetes Sleep apnea Ischemic cerebrovascular accident (CVA) Maternal Grandmother Diabetes Breast cancer Maternal Grandfather Stroke Paternal Grandfather Lung cancer Social History Social History Household Members: Family Housing: House Alcohol intake: never Patient Tobacco Use Status: Former Tobacco user Second Hand Smoke Exposure: Yes Advance Directives: No Advance Directives Information Provided: Yes service: No Current occupational status: employed 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 GENERAL: Well developed, well nourished, in no acute distress. HEAD: Normocephalic/atraumatic EYES: PERRLA, EOMI EARS: Ext canals without abnormality OROPHARYNX: no oral lesions noted, posterior pharynx clear LUNGS: Normal breath sounds. No adventitious sounds or accessory muscle use. SpO2<97> CARDIOVASCULAR: Regular rate and rhythm without noted murmurs ABDOMEN: Soft, non-tender, non-distended with bowel sounds. NEUROLOGIC: Alert and oriented x 4. Strength and sensation to light touch were grossly intact x 4. Medical Decision Making Medical Decision Making MDM Narrative: 41-year-old female with history and clinical presentation of diabetes and vaginal candidiasis, patient was treated with 1 dose fluconazole given underlying medical condition of diabetes, counseled on glucose control as possible contributing factor and discharged home in stable condition. Differential Diagnosis UTI, vaginal candidiasis, STI Lab Data [facility] Lab Attestation statement: I reviewed the patient's lab results. No UTI Labs: Lab Results 01/25/22 01/25/22 Range/Units 08:04 08:04 Urine Color Yellow Urine Appearance Cloudy Urine pH 5.5 (5.0-9.0) Ur Specific [place] 1.010 (1.005-1.025) Urine Protein Negative (Neg-Trace) mg/dL Urine Glucose (UA) Negative (Negative) mg/dL Urine Ketones Negative (Negative) mg/dL Urine Blood Negative (Negative) Urine Nitrite Negative (Negative) Ur Leukocyte Esterase Trace H (Negative) Urine RBC 0-2 (0-2) /HPF Urine WBC 0-5 (0-5) /HPF Ur Squamous Epith Cells 11-20 (0-2) /HPF Urine Bacteria None Seen (None Seen) Hyaline Casts 0-2 (0-2) /LPF Urine Test NEGATIVE (NEGATIVE) Tests considered The following testing was considered but not selected: STI (chlamydia, gonorrhea) Chronic Conditions Patient?s care impacted by: Diabetes Discharge Plan Discharge Clinical Impression: Vaginal candidiasis Patient Disposition: Home, Self-Care Instructions: Yeast Infection (ED) Additional Instructions: Follow-up with your primary care provider in the next 1-2 days. Return to the ER for worsening symptoms. Prescriptions: No Action montelukast 10 mg tablet 10 mg PO BEDTIME Qty: 30 5RF Spiriva Respimat 2.5 mcg/actuation mist 2 puff PO DAILY Qty: 4 4RF albuterol sulfate [ProAir HFA] 90 mcg/actuation HFA aerosol inhaler 90 mcg inhalation Q4-6H PRN (Reason: Shortness Of Breath Or Wheezing) Qty: 8.5 3RF albuterol sulfate 90 mcg/actuation aerosol powdr breath activated 2 inh inhalation Q6H PRN (Reason: shortness of breath or wheezing) 30 Days Qty: 1 5RF metformin 500 mg tablet 500 mg PO BID Qty: 180 0RF famotidine 40 mg tablet 40 mg PO BEDTIME 30 Days Qty: 30 3RF bupropion HCl 150 mg tablet extended release 24 hr 150 mg PO QAM Qty: 90 1RF polyethylene glycol 3350 17 gram/dose powder 17 g PO DAILY PRN (Reason: constipation) 30 Days Qty: 510 5RF pantoprazole 40 mg tablet,delayed release (DR/EC) 40 mg PO DAILY Qty: 90 1RF oxycodone-acetaminophen [Percocet] 5-325 mg tablet 1 tab PO .2-3 times a day PRN (Reason: pain) 28 Days Qty: 84 0RF quetiapine 100 mg tablet 100 mg PO BEDTIME Qty: 30 1RF ferrous sulfate 325 mg (65 mg iron) tablet 325 mg PO DAILY Qty: 14 0RF meclizine 25 mg tablet 25 mg PO DAILY PRN (Reason: dizziness) Qty: 20 0RF fluticasone propionate [24 Hour Allergy Relief] 50 mcg/actuation spray,suspension 1 spray intranasal BID Qty: 16 0RF Rx Instructions: administer into each nostril (DME) blood-glucose meter [FreeStyle Lite Meter] Kit See Rx Instructions .ROUTE .MEDSUPPLY Qty: 1 0RF Rx Instructions: As directed (DME) FreeStyle Lite Strips Strip See Rx Instructions .ROUTE .MEDSUPPLY Qty: 100 0RF Rx Instructions: As directed (DME) lancets [FreeStyle Lancets] 28 gauge misc See Rx Instructions .ROUTE .MEDSUPPLY Qty: 100 0RF Rx Instructions: As directed alcohol swabs [Alcohol Prep Pads] Pads, Medicated 1 pad topical TID Qty: 200 0RF multivitamin Tablet 1 tab PO DAILY ibuprofen 800 mg tablet 800 mg PO TID oxybutynin chloride 10 mg tablet extended release 24hr 10 mg PO DAILY cetirizine [Zyrtec] 10 mg tablet 10 mg PO DAILY 10 Days Qty: 10 0RF tizanidine 4 mg tablet 2 mg PO BEDTIME PRN (Reason: for muscle spasm) fenofibrate nanocrystallized 145 mg tablet 145 mg PO DAILY 30 Days Qty: 30 5RF Januvia 50 mg tablet 50 mg PO DAILY 30 Days Qty: 30 3RF terconazole 0.8 % cream 1 appful vaginal BEDTIME 3 Days Qty: 20 0RF Referrals: Kurt Arroyo MD [Primary Care Provider] -
[2022-01-25] MEDS: Fluconazole 150 MG TABLET PO (09:16)
== END 2022-01-25 09:23 | disposition home or self-care (01) ==
PROVIDERS: Emergency Provider Student in an Organized Health Care Education/Training Program; PCP Internal Medicine
DX: B37.31 Acute candidiasis of vulva and vagina (principal); E11.9 Type 2 diabetes mellitus without complications; I10 Essential (primary) hypertension; E78.5 Hyperlipidemia, unspecified; Z79.84 Long term (current) use of oral hypoglycemic drugs; E66.9 Obesity, unspecified; Z68.37 Body mass index [BMI] 37.0-37.9, adult; Z79.899 Other long term (current) drug therapy
CPT/HCPCS: 81001; 81025; 99283

== ENCOUNTER 2022-01-25 09:23 | Outpatient (REF) | payer OTHER, SELFPAY ==
[2022-01-25 11:21] LABS: Alanine Aminotransferase 55 U/L (0-31); Albumin Level 4.6 g/dL (3.5-5.0); Alkaline Phosphatase 63 U/L (39-117); Anion Gap 13 (12-20); Aspartate Amino Transferase 32 U/L (5-31); Bilirubin Total 0.6 mg/dL (0.0-1.0); Blood Urea Nitrogen 6 mg/dL (9-16); Carbon Dioxide 27 mmol/L (22-29); Chloride 104 mmol/L (96-108); Cholesterol 230 mg/dL; Estimated Glomerular Filt Rate > 60; Glucose Fasting 115 mg/dL (60-99); HDL Cholesterol 46 mg/dL; LDL Cholesterol Calculated 156 mg/dl; Potassium 4.2 mmol/L (3.3-5.1); Sodium 140 mmol/L (135-145); Total Protein 7.4 g/dL (6.5-8.0); Triglycerides 144 mg/dL
== END 2022-01-25 09:24 | disposition home or self-care (01) ==
LOC: HO.LAB 09:23
PROVIDERS: PCP Internal Medicine; Visit Provider Internal Medicine
DX: E78.00 Pure hypercholesterolemia, unspecified (principal)
CPT/HCPCS: 36415; 80053; 80061

== ENCOUNTER 2022-05-05 07:12 | Outpatient (REF) | payer OTHER, SELFPAY ==
[2022-05-05 07:26] LABS: MANUAL DIFF FLAG NO
[2022-05-05 07:40] LABS: Basophils Absolute Auto 0.1 X10*3/uL (0.0-0.2); Basophils Percent Auto 0.6 % (0-2); Eosinophils Absolute Auto 0.3 X10*3/uL (0.0-0.4); Eosinophils Percent Auto 3.1 % (0-4); Hematocrit 37.9 % (37.0-47.0); Hemoglobin 13.3 g/dl (12.0-16.0); Imm Gran Abs Auto 0.04 X10*3/uL (0.00-0.03); Imm Gran Pct Auto 0.4 % (0.0-0.4); Lymphocytes Percent Auto 29.5 % (20-40); Mean Corpuscular HGB Conc 35.1 g/dl (31.0-35.0); Mean Corpuscular Hemoglobin 25.5 pg (27.0-33.0); Mean Corpuscular Volume 72.7 fL (80.0-98.0); Monocytes Absolute Auto 0.7 X10*3/uL (0.1-1.2); Monocytes Percent Auto 6.6 % (2-11); Neutrophils Absolute Auto 6.1 x10*3/uL (2.0-8.3); Neutrophils Percent Auto 59.8 % (45-73); Platelet Count 372 X10*3/uL (160-400); Red Blood Count 5.21 X10*6/uL (4.20-5.50); Red Cell Distribution Width 13.2 % (11.0-16.0); White Blood Count 10.2 X10*3/uL (4.8-10.8)
[2022-05-05 07:50] LABS: Estimated Average Glucose 157 mg/dL; Hemoglobin A1c % 7.1 %
[2022-05-05 08:19] LABS: Alanine Aminotransferase 29 U/L (0-31); Albumin Level 4.3 g/dL (3.5-5.0); Alkaline Phosphatase 66 U/L (39-117); Anion Gap 13 (12-20); Aspartate Amino Transferase 15 U/L (5-31); Bilirubin Total 0.7 mg/dL (0.0-1.0); Blood Urea Nitrogen 10 mg/dL (9-16); Calcium 9.7 mg/dL (8.4-10.2); Carbon Dioxide 25 mmol/L (22-29); Chloride 105 mmol/L (96-108); Cholesterol 177 mg/dL; Estimated Glomerular Filt Rate > 60; Glucose Fasting 141 mg/dL (60-99); HDL Cholesterol 40 mg/dL; LDL Cholesterol Calculated 111 mg/dl; Potassium 4.5 mmol/L (3.3-5.1); Sodium 138 mmol/L (135-145); Total Protein 7.1 g/dL (6.5-8.0); Triglycerides 132 mg/dL
[2022-05-05 08:22] LABS: TSH reflex Free T4 1.72 uIU/mL (0.32-4.0); Vitamin D 25-OH Total 34.6 ng/mL (>30)
[2022-05-05 08:31] LABS: Appearance Urine Sl Cloudy; Color Urine Yellow; Glucose Urine UA Negative (Negative); Leukocyte Esterase Urine Moderate (2+) (Negative); Nitrite Urine Negative (Negative); Specific Gravity - Urine 1.025 (1.005-1.025); UMIC TRIGGER UACC YES; Urine Blood Negative (Negative); Urine Ketones Negative (Negative); Urine Protein Trace mg/dL (Neg-Trace)
[2022-05-05 08:32] LABS: Bacteria Urine 3+ (None Seen); Hyaline Casts Urine 0-2 /LPF (0-2); Squamous Epithelial Cell Urine >20 /HPF (0-2); UACC Culture Trigger YES
[2022-05-05 08:41] LABS: Creatinine Urine 213.33 mg/dL; Microalbum/Creatinine Ratio Ur 11.2 ug/mg cr
== END 2022-05-05 07:13 | disposition home or self-care (01) ==
LOC: HO.LAB 07:12
PROVIDERS: PCP Internal Medicine; Visit Provider Internal Medicine
DX: E55.9 Vitamin D deficiency, unspecified (principal); E11.9 Type 2 diabetes mellitus without complications; E78.00 Pure hypercholesterolemia, unspecified; I10 Essential (primary) hypertension
CPT/HCPCS: 36415; 80053; 80061; 81001; 82043; 82306; 83036; 84443; 85025; 87086

== ENCOUNTER 2022-10-02 13:13 | Emergency (ER) | payer OTHER, SELFPAY ==
--- NOTE | 2022-10-02 13:19 | ED_ITS ---
HPI - General Adult General Stated complaint: both eyes swollen Source: patient Mode of arrival: ambulatory Limitations: no limitations History of Present Illness HPI narrative: Patient is a 42 year old female presenting with swelling of both eyes after getting eyelash extensions done Sunday. No pain with eye movements or changes with vision. No fevers, chills, vision changes, dizziness. Related Data Home Medications Medication Instructions Recorded Confirmed ibuprofen 800 mg tablet 800 mg PO TID 12/25/19 07/31/22 multivitamin 1 tab PO DAILY 12/25/19 07/31/22 oxybutynin chloride 10 mg 10 mg PO DAILY 12/25/19 07/31/22 tablet,extended release 24 hr tizanidine 4 mg tablet 2 mg PO BEDTIME PRN for muscle 11/21/21 07/31/22 spasm Previous Rx's Medication Instructions Recorded cetirizine 10 mg tablet (Zyrtec) 10 mg PO DAILY 10 days #10 tabs 12/25/19 montelukast 10 mg tablet 10 mg PO BEDTIME #30 tabs 03/16/20 alcohol swabs (Alcohol Prep Pads) 1 pad topical TID #200 ea 06/19/20 blood-glucose meter (FreeStyle #1 ea 06/19/20 Lite Meter kit) meclizine 25 mg tablet 25 mg PO DAILY PRN dizziness #20 09/06/20 tabs ProAir HFA 90 mcg/actuation 90 mcg inhalation Q4-6H PRN 04/26/21 aerosol inhaler (albuterol sulfate) Shortness Of Breath Or Wheezing #8.5 grams sitagliptin phosphate 50 mg tablet 50 mg PO DAILY 30 days #30 tabs 05/27/21 (Januvia) famotidine 40 mg tablet 40 mg PO BEDTIME 30 days #30 tabs 08/15/21 flibanserin 100 mg tablet (Addyi) 100 mg PO BEDTIME 30 days #30 tabs 01/27/22 bupropion HCl 150 mg 24 hr tablet, 150 mg PO QAM #90 tabs 04/25/22 extended release blood sugar diagnostic (FreeStyle #100 ea 05/05/22 Lite Strips) lancets 28 gauge (FreeStyle #100 ea 05/05/22 Lancets) fluticasone propionate 50 1 spray intranasal BID #16 grams 06/28/22 mcg/actuation nasal spray,suspension (24 Hour Allergy Relief) fenofibrate nanocrystallized 145 145 mg PO DAILY 30 days #30 tabs 07/04/22 mg tablet pantoprazole 40 mg tablet,delayed 40 mg PO DAILY #90 tabs 07/04/22 release albuterol sulfate 90 mcg/actuation 2 inh inhalation Q6H PRN shortness 07/31/22 breath activated powder inhaler of breath or wheezing 30 days #1 ea quetiapine 25 mg tablet 25 mg PO BEDTIME 30 days #30 tabs 07/31/22 tiotropium bromide 2.5 2 puff PO DAILY #4 mL 07/31/22 mcg/actuation mist for inhalation (Spiriva Respimat) atorvastatin 10 mg tablet 10 mg PO BEDTIME 30 days #90 tabs 08/02/22 metformin 500 mg tablet 500 mg PO BID for diabetes 08/09/22 mellitus #180 tabs polyethylene glycol 3350 17 17 g PO DAILY PRN constipation 30 09/02/22 gram/dose oral powder days #510 grams oxycodone-acetaminophen 5 mg-325 1 tab PO BID PRN pain 28 days #56 09/14/22 mg tablet (Percocet) tabs linaclotide 145 mcg capsule 145 mcg PO QAM 30 days #30 caps 09/18/22 (Linzess) diphenhydramine HCl 25 mg capsule 25 mg PO TID PRN allergic reaction 10/02/22 (Benadryl) #20 caps prednisone 20 mg tablet 40 mg PO DAILY 5 days #10 tabs 10/02/22 Allergies Allergy/AdvReac Type Severity Reaction Status Date / Time gabapentin Allergy Unknown Tingling Verified 10/02/22 13:22 feeling in throat zolpidem [From AMBIEN] Allergy Unknown tingling Verified 10/02/22 13:22 feeling in throat Review of Systems Review of Systems: Constitutional : No Weight loss, No Fever, No Chills, No Fatigue, No Malaise ENT/Mouth : No sore throat, No Rhinorrhea Eyes: No Eye Pain, + Swelling, Redness Cardiovascular : No Chest Pain, No SOB, No Dyspnea on Exertion, No Orthopnea, No Edema, No Palpitations Respiratory : No Cough, No Sputum, No Wheezing Gastrointestinal : No Nausea, No Vomiting, No Diarrhea, No Constipation, No abdominal Pain, No Hematochezia, No Melena Genitourinary : No Dysuria, No Urinary Frequency, No Hematuria, Musculoskeletal : No joint pain, No Myalgias, No Joint Swelling Skin : No Skin Lesions, No rash Neuro : No Weakness, No Numbness, No Dizziness, No Headache Psych : No Anxiety/Panic, No Depression All other systems reviewed and are negative Yes all other systems are reviewed and are negative [facility] Past Medical History Medical History Allergic rhinitis Anxiety Asthma Bilateral flank pain Depression Diabetes mellitus Dizziness GERD without esophagitis Hemorrhoid HTN (hypertension) Knee pain, bilateral Left ear pain Lower back pain Lumbar degenerative disc disease Menorrhagia Mixed hyperlipidemia Obesity (BMI 30-39.9) Pressure sensation in left ear Pure hypercholesterolemia Type 2 diabetes mellitus with hyperglycemia UTI (urinary tract infection) Varicose veins of bilateral lower extremities with pain Varicose veins of left lower extremity with pain Surgical History History of carpal tunnel surgery History of endometrial ablation History of esophagogastroduodenoscopy (EGD) History of hemorrhoidectomy Hx of tubal ligation Family History Family History Father Diabetes Asthma Hepatitis Mother Diabetes Sleep apnea Ischemic cerebrovascular accident (CVA) Maternal Grandmother Diabetes Breast cancer Maternal Grandfather Stroke Paternal Grandfather Lung cancer Social History Social History Household Members: Family Housing: House Alcohol intake: never Patient Tobacco Use Status: Former Tobacco user e-Cigarette/Vaping Use: Never Used Second Hand Smoke Exposure: Yes service: No Current occupational status: employed 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 Oriented X3.? No acute distress.? Head: Normocephalic, atraumatic, no step-offs or deformities Eyes: Pupils equal, round and reactive to light.?Extraocular movements intact without pain. No changes in visual acuity. Injected sclera bilaterally. Mild edema to upper and lower eyelids. CVS: Normal heart rate and rhythm.? Pulses normal.? Respiratory: No respiratory distress.? Breath sounds normal.? Skin: Skin warm and dry.? Normal skin color.? Normal skin turgor.? Extremities: No lower extremity edema.? No calf ttp. 5/5 strength to bilateral upper and lower extremities Neuro: Oriented X 3.? No motor deficit.? No sensory deficit. CN 2-12 intact Course Course Course Narrative: This is an RME: Additional HPI, ROS, PE not included below will be deferred to primary provider. 42 year old female presenting with bilateral eye swelling after getting eyelash extensions. Reevaluation(s) Reevaluation #1: Educated patient on diagnosis and treatment plan, answered all question, patient verbalizes understanding. At this time patient will be discharged home, advised to return with new or worsening symptoms. Educated on worrisome signs and symptoms and when to return. At this time I feel comfortable discharge home. Time: 13:30 Medical Decision Making Medical Decision Making [facility] Narrative: 1:20 42 year old female with bilateral eye swelling after getting eyelash extensions Sunday. Exam significant for slight edema of upper and lower eyelids bilaterally and injected sclera. This is likely a localized allergic reaction. Unlikely acute glosed angle glaucoma, foreign body, wet macular degeneration, corneal ulcer, corneal abrasion, arterial or venous occlusion. No signs of respiratory compronise, patient is maintaining secretions, no signs of anaphylaxis. Plan: Benadryl and Prednisone, disharge from triage, follow up with PCP and allergy Differential Diagnosis Differential Diagnoses: The differential diagnosis associated with the presentation includes This is likely a localized allergic reaction. Unlikely acute glosed angle glaucoma, foreign body, wet macular degeneration, corneal ulcer, corneal abrasion, arterial or venous occlusion. No signs of respiratory compronise, patient is maintaining secretions, no signs of anaphylaxis. Admission/Observation Consideration of admission/observation: Escalation of care including admission/observation considered Not indicated. Prescription Management I considered prescription management with: Other Core Measures AMI core measures followed: Yes Measure exclusions: not indicated Critical Care Time Critical Care Time Critical Care Time: No Discharge Plan Discharge Clinical Impression: Allergic reaction Patient Disposition: Home, Self-Care Instructions: General Allergic Reaction (ED), Allergy Testing (ED) Additional Instructions: Take your medications as prescribed. If you were prescribed antibiotics today, it is important that you take your medication to their entirety, do not skip any doses, do not finish them early. Follow-up with your primary care provider this week. Return to the emergency department with new or worsening symptoms. Such as fevers, chills, chest pain, shortness of breath, nausea, vomiting, dizziness, headache, vision changes, lethargy In case of emergency call 911 Prescriptions: New prednisone 20 mg tablet 40 mg PO DAILY 5 Days Qty: 10 0RF diphenhydramine HCl [Benadryl] 25 mg capsule 25 mg PO TID PRN (Reason: allergic reaction) Qty: 20 0RF No Action montelukast 10 mg tablet 10 mg PO BEDTIME Qty: 30 5RF albuterol sulfate [ProAir HFA] 90 mcg/actuation HFA aerosol inhaler 90 mcg inhalation Q4-6H PRN (Reason: Shortness Of Breath Or Wheezing) Qty: 8.5 3RF famotidine 40 mg tablet 40 mg PO BEDTIME 30 Days Qty: 30 3RF bupropion HCl 150 mg tablet extended release 24 hr 150 mg PO QAM Qty: 90 1RF fluticasone propionate [24 Hour Allergy Relief] 50 mcg/actuation spray,suspension 1 spray intranasal BID Qty: 16 3RF Rx Instructions: administer into each nostril pantoprazole 40 mg tablet,delayed release (DR/EC) 40 mg PO DAILY Qty: 90 1RF fenofibrate nanocrystallized 145 mg tablet 145 mg PO DAILY 30 Days Qty: 30 5RF atorvastatin 10 mg tablet 10 mg PO BEDTIME 30 Days Qty: 90 1RF metformin 500 mg tablet 500 mg PO BID Qty: 180 0RF polyethylene glycol 3350 17 gram/dose powder 17 g PO DAILY PRN (Reason: constipation) 30 Days Qty: 510 5RF oxycodone-acetaminophen [Percocet] 5-325 mg tablet 1 tab PO BID PRN (Reason: pain) 28 Days Qty: 56 0RF Linzess 145 mcg capsule 145 mcg PO QAM 30 Days Qty: 30 0RF meclizine 25 mg tablet 25 mg PO DAILY PRN (Reason: dizziness) Qty: 20 0RF (DME) blood-glucose meter [FreeStyle Lite Meter] Kit See Rx Instructions .ROUTE .MEDSUPPLY Qty: 1 0RF Rx Instructions: As directed alcohol swabs [Alcohol Prep Pads] Pads, Medicated 1 pad topical TID Qty: 200 0RF multivitamin Tablet 1 tab PO DAILY ibuprofen 800 mg tablet 800 mg PO TID oxybutynin chloride 10 mg tablet extended release 24hr 10 mg PO DAILY cetirizine [Zyrtec] 10 mg tablet 10 mg PO DAILY 10 Days Qty: 10 0RF tizanidine 4 mg tablet 2 mg PO BEDTIME PRN (Reason: for muscle spasm) Addyi 100 mg tablet 100 mg PO BEDTIME 30 Days Qty: 30 0RF Januvia 50 mg tablet 50 mg PO DAILY 30 Days Qty: 30 3RF (DME) lancets [FreeStyle Lancets] 28 gauge misc See Rx Instructions .ROUTE .MEDSUPPLY Qty: 100 12RF Rx Instructions: As directed (DME) FreeStyle Lite Strips Strip See Rx Instructions .ROUTE .MEDSUPPLY Qty: 100 12RF Rx Instructions: As directed quetiapine 25 mg tablet 25 mg PO BEDTIME 30 Days Qty: 30 1RF Spiriva Respimat 2.5 mcg/actuation mist 2 puff PO DAILY Qty: 4 6RF albuterol sulfate 90 mcg/actuation aerosol powdr breath activated 2 inh inhalation Q6H PRN (Reason: shortness of breath or wheezing) 30 Days Qty: 1 5RF Referrals: [facility] [Outside] - 1 week Kurt Arroyo MD [Primary Care Provider] - 1 week Stand Alone Forms: Work/School Release
[2022-10-02 13:22] VITALS: BP 129/72; PULSE 84; RESP 16; TEMP 36.6; O2SAT 98; BMI 34.5
== END 2022-10-02 13:39 | disposition home or self-care (01) ==
PROVIDERS: Emergency Provider Emergency Medicine; PCP Internal Medicine
DX: H02.845 Edema of left lower eyelid (principal); H02.844 Edema of left upper eyelid; H02.842 Edema of right lower eyelid; H02.841 Edema of right upper eyelid; T65.891A Toxic effect of other specified substances, accidental (unintentional), initial encounter; L23.1 Allergic contact dermatitis due to adhesives; Y92.9 Unspecified place or not applicable
CPT/HCPCS: 99282; 99283

== ENCOUNTER 2022-10-17 07:25 | Outpatient (REF) | payer OTHER, SELFPAY ==
[2022-10-17 07:43] LABS: MANUAL DIFF FLAG NO
[2022-10-17 08:08] LABS: Appearance Urine Cloudy; Color Urine Yellow; Glucose Urine UA Negative (Negative); Leukocyte Esterase Urine Large (3+) (Negative); Nitrite Urine Negative (Negative); PH 5.5 (5.0-9.0); UMIC TRIGGER UACC YES; Urine Blood Negative (Negative); Urine Ketones Negative (Negative); Urine Protein Negative (Neg-Trace)
[2022-10-17 08:21] LABS: Basophils Percent Auto 0.5 % (0-2); Eosinophils Absolute Auto 0.2 X10*3/uL (0.0-0.4); Eosinophils Percent Auto 2.8 % (0-4); Hematocrit 36.8 % (37.0-47.0); Hemoglobin 12.7 g/dl (12.0-16.0); Imm Gran Abs Auto 0.02 X10*3/uL (0.00-0.03); Imm Gran Pct Auto 0.2 % (0.0-0.4); Mean Corpuscular HGB Conc 34.5 g/dl (31.0-35.0); Mean Corpuscular Hemoglobin 25.3 pg (27.0-33.0); Mean Corpuscular Volume 73.5 fL (80.0-98.0); Mean Platelet Volume 10.9 fL (9.4-12.3); Monocytes Absolute Auto 0.5 X10*3/uL (0.1-1.2); Monocytes Percent Auto 6.3 % (2-11); Neutrophils Absolute Auto 4.4 x10*3/uL (2.0-8.3); Neutrophils Percent Auto 53.2 % (45-73); Platelet Count 335 X10*3/uL (160-400); Red Blood Count 5.01 X10*6/uL (4.20-5.50); Red Cell Distribution Width 14.2 % (11.0-16.0); White Blood Count 8.2 X10*3/uL (4.8-10.8)
[2022-10-17 08:24] LABS: Creatinine Urine 97.56 mg/dL; Microalbum/Creatinine Ratio Ur 6.1 ug/mg cr (<30)
[2022-10-17 08:25] LABS: Bacteria Urine 4+ (None Seen); RBC Urine 0-2 /HPF (0-2); Squamous Epithelial Cell Urine >20 /HPF (0-2); UACC Culture Trigger YES; WBC Urine 21-50 /HPF (0-5)
[2022-10-17 08:40] LABS: Estimated Average Glucose 126 mg/dL
[2022-10-17 09:02] LABS: Alanine Aminotransferase 24 U/L (0-31); Albumin Level 4.2 g/dL (3.5-5.0); Alkaline Phosphatase 55 U/L (39-117); Anion Gap 12 (12-20); Aspartate Amino Transferase 19 U/L (5-31); Bilirubin Total 0.6 mg/dL (0.0-1.0); Blood Urea Nitrogen 7 mg/dL (9-16); Calcium 9.5 mg/dL (8.4-10.2); Carbon Dioxide 26 mmol/L (22-29); Chloride 106 mmol/L (96-108); Cholesterol 248 mg/dL (<200); Estimated Glomerular Filt Rate > 60; Glucose Fasting 121 mg/dL (60-99); HDL Cholesterol 52 mg/dL (>40); LDL Cholesterol Calculated 154 mg/dL (<100); Potassium 3.7 mmol/L (3.3-5.1); Sodium 140 mmol/L (135-145); Total Protein 7.1 g/dL (6.5-8.0); Triglycerides 212 mg/dL (<150)
[2022-10-17 09:24] LABS: TSH reflex Free T4 1.59 uIU/mL (0.32-4.0); Vitamin D 25-OH Total 31.7 ng/mL (>30)
== END 2022-10-17 07:26 | disposition home or self-care (01) ==
LOC: HO.LAB 07:25
PROVIDERS: PCP Internal Medicine; Visit Provider Internal Medicine
DX: E78.00 Pure hypercholesterolemia, unspecified (principal); E55.9 Vitamin D deficiency, unspecified; E11.9 Type 2 diabetes mellitus without complications; I10 Essential (primary) hypertension
CPT/HCPCS: 36415; 80053; 80061; 81001; 82043; 82306; 82570; 83036; 84443; 85025; 87086

== ENCOUNTER 2022-10-19 11:17 | Outpatient (AMB) | payer OTHER, SELFPAY ==
[2022-10-19 11:34] VITALS: BP 122/80; PULSE 77; O2SAT 97; BMI 34.7
--- NOTE | 2022-10-19 11:34 | MHC.PC.OV ---
Vital Signs 10/19/22 11:34 Height 5 ft 4 in Weight 202 lb BMI 34.7 BP 122/80 Blood Pressure Location Lt brachial Position Sitting Pulse 77 Pulse Source Pulse Oximeter Pulse Oximetry (%) 97 Oxygen Delivery Method Room Air Intake Visit Reasons: knee pain right Measurement Operator Required: No Accompanied by: Self / Same As Patient Allergies gabapentin Allergy (Unknown, Verified 10/20/22 00:14) Tingling feeling in throat zolpidem [From AMBIEN] Allergy (Unknown, Verified 10/20/22 00:14) tingling feeling in throat cahsews Allergy (Severe, Uncoded 10/20/22 00:14) Rash Medication List - Last Reconciled 10/20/22 by Kurt Arroyo MD albuterol sulfate 90 mcg/actuation (ProAir RespiClick) 2 inhalations inhalation Q6H PRN 30 days alcohol swabs (Alcohol Prep Pads) 1 pad topical TID atorvastatin 10 mg PO BEDTIME 30 days blood sugar diagnostic (FreeStyle Lite Strips) As directed blood-glucose meter (FreeStyle Lite Meter kit) As directed bupropion HCl 300 mg PO QAM 90 days cetirizine (Zyrtec) 10 mg PO DAILY 10 days diphenhydramine HCl (Benadryl) 25 mg PO TID PRN famotidine 40 mg PO BEDTIME 30 days fenofibrate nanocrystallized 145 mg PO DAILY 30 days flibanserin (Addyi) 100 mg PO BEDTIME 30 days fluticasone propionate 50 mcg/actuation (24 Hour Allergy Relief) 1 spray intranasal BID ibuprofen 800 mg PO TID lancets (FreeStyle Lancets) As directed linaclotide (Linzess) 145 mcg PO QAM 30 days meclizine 25 mg PO DAILY PRN metformin 500 mg PO BID montelukast 10 mg PO BEDTIME multivitamin 1 tab PO DAILY oxybutynin chloride ER 10 mg PO DAILY oxycodone-acetaminophen 5-325 mg (Percocet) 1 tab PO BID PRN 28 days pantoprazole 40 mg PO DAILY polyethylene glycol 3350 17 grams PO DAILY PRN 30 days prednisone 40 mg (2 x 20 mg) PO DAILY 5 days ProAir HFA 90 mcg/actuation (albuterol sulfate) 90 mcg inhalation Q4-6H PRN NS quetiapine 25 mg PO BEDTIME 30 days sitagliptin phosphate (Januvia) 50 mg PO DAILY 30 days tiotropium bromide 2.5 mcg/actuation (Spiriva Respimat) 2 puffs PO DAILY tizanidine 2 mg PO BEDTIME PRN Tobacco use date assessed: 10/19/22 Dental Screening Dental Screen Date: 10/19/22 Did you have a dental visit in the last 12 months?: Yes Did you have a dental problem in the last 6 months where you did not have access to dental care?: No Was dental information given to patient?: Patient has dentist HPI knee pain right HPI Details Patient comes in today complaining of recurrent pain over her right knee for the past couple of months; is also in today for her follow-up visit Notes that she has a hard cyst over her right knee just under her right knee cap that she first felt a couple of months ago and that is the area of increased pain over her knee that occurs whenever she is working out at the gym and when she is bending her knee and kneeling down on it Is not sure what caused the cyst to appear as she denies any recent injury or trauma to her knee Still has recurrent low back pain and states that her current medications help keep them manageable She denies any headaches or dizziness Denies any chest pains, no shortness of breath No nausea/ vomiting, no abdominal pain No change in bowel habits noted but reports experiencing some recurrent rectal discomfort that she feels may be related to her hemorrhoid surgery done by Dr. 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[place]) and has been advised that she needs to get evaluated for possible conditions that are affecting her job performance Has also been feeling down and depressed for the past few months despite her Rx - feels that her current Wellbutrin XL 150 mg daily does not seem to be helping her as much as it used to Also admits that she stopped taking her cholesterol medications a few months ago as she recalled being advised that her cholesterol numbers are now good and is wondering if she should continue taking them Had her follow-up labs done a couple of days ago - to discuss her results [facility] Medical History Mixed hyperlipidemia Pure hypercholesterolemia Type 2 diabetes mellitus with hyperglycemia Varicose veins of bilateral lower extremities with pain Lumbar degenerative disc disease Anxiety GERD without esophagitis Diabetes mellitus Bilateral flank pain Varicose veins of left lower extremity with pain Dizziness Left ear pain Pressure sensation in left ear UTI (urinary tract infection) HTN (hypertension) Lower back pain Obesity (BMI 30-39.9) Menorrhagia Knee pain, bilateral Depression Allergic rhinitis Hemorrhoid Asthma Surgical History Hx of tubal ligation History of esophagogastroduodenoscopy (EGD) History of endometrial ablation History of carpal tunnel surgery History of hemorrhoidectomy Family History Father Diabetes Asthma Hepatitis Mother Diabetes Sleep apnea Ischemic cerebrovascular accident (CVA) Maternal Grandmother Diabetes Breast cancer Maternal Grandfather Stroke Paternal Grandfather Lung cancer Social History Household Members: Family Housing: House Alcohol intake: never Patient Tobacco Use Status: Former Tobacco user e-Cigarette/Vaping Use: Never Used Second Hand Smoke Exposure: Yes service: No Current occupational status: employed 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 1. Little interest or pleasure in doing things: not at all 2. Feeling down, depressed, or hopeless: not at all 3. Trouble falling or staying asleep, or sleeping too much: not at all 4. Feeling tired or having little energy: not at all 5. Poor appetite or overeating: not at all 6. Feeling bad about yourself - or that you are a failure or have let yourself or your family down: not at all 7. Trouble concentrating on things, such as reading the newspaper or watching television: not at all 8. Moving or speaking so slowly that other people could have noticed. Or the opposite - being so fidgety or restless that you have been moving around a lot more than usual: not at all 9. Thoughts that you would be better off or of hurting yourself in some way: not at all Total score: 0 Depression Screening Interpretation: Negative 23685 - PHQ-9 Billing: Yes Source: Developed by Drs. Tommy Mccarty, Honey Mejia, Gino Bearden and colleagues, with an educational sandy from [employer]. Thrive Questionnaire Date Thrive assessed: 10/19/22 I am a: Patient What is your living situation today?: I have a steady place to live Within the past 12 months, did the food you bought not last and you didn't have the money to get more?: Never true Within the past 12 months, did you worry whether your food would run out before you got money to buy more?: Never true Do you have trouble paying for medicines?: No Do you have trouble getting transportation to medical appointments?: No Do you have trouble paying your heating and electricity bill?: No Do you have trouble taking care of your child, family member or friend?: No Do you have trouble with day-to-day activities such as bathing, preparing meals, shopping, managing finances, etc.?: No Are you currently unemployed and looking for a job?: No Are you interested in more education?: No Please select the resources that you would like help with: None Currently or been in a relationship where the following occur: no concerns reported AUDIT C Alcohol Use Questionnaire (AUDIT-C) 1. How often do you have a drink containing alcohol?: Never 3. How often do you have six or more drinks on one occasion?: Never Total Score: 0 Score Reviewed/Action Taken: Yes JAIDA-7 AMB Questionnaire JAIDA-7 Date JAIDA - 7 assessed: 10/19/22 Feeling nervous, anxious, or on edge: 0 = Not at all Not being able to stop or control worryin = Not at all Worrying too much about different things: 0 = Not at all Trouble relaxin = Not at all Being so restless that it is hard to sit still: 0 = Not at all Becoming easily annoyed or irritable: 0 = Not at all Feeling afraid as if something awful might happen: 0 = Not at all Total JAIDA-7 score (0-4 normal; 5-9 mild; 10-14 moderate; 15-21 severe): 0 Source: Developed by Drs. Tommy Mccarty, Honey Mejia, Gino Bearden and colleagues, with an educational sandy from [employer]. Review of Systems Const Denies fatigue, Denies fever(s) and Denies headache(s) ENT Denies dysphagia, Denies dizziness, Denies headache(s) and Denies sore throat Card Denies chest pain, Denies palpitations and Denies dyspnea Resp Denies chest congestion, Denies cough and Denies dyspnea GI Details: (+) on and off rectal discomfort Denies abdominal pain, Denies constipation, Denies dysphagia, Denies heartburn, Denies diarrhea, Denies nausea and Denies vomiting Denies difficulty voiding, Denies nocturia, Denies dysuria and Reports vaginal pruritus Musc Reports back pain (over the lower back - chronic) and Reports arthralgias (right knee pain - see HPI) Skin/Breast Denies rash Neuro Denies dizziness and Denies headache(s) Psych Reports anxiety and Reports depression (increasing) Endo Denies fatigue and Denies palpitations Physical exam (Primary Care) Vital Signs: Last Vital Signs Pulse 77 10/19/22 11:34 BP 122/80 10/19/22 11:34 Pulse Ox 97 10/19/22 11:34 Oxygen Delivery Method Room Air 10/19/22 11:34 BMI result Body Mass Index 34.7 Tobacco/Smoking Status: Tobacco use Status Tobacco use date assessed 10/19/22 10/19/22 11:36 Patient Tobacco Use Status Former Tobacco user 10/19/22 11:36 e-Cigarette/Vaping Use Never Used 10/19/22 11:36 PHQ-9: PHQ-9 Score PHQ-9: Total score 0 10/19/22 12:20 Depression Screening Interpretation: Negative Thrive Assessment: Date of Thrive Assessment Date Thrive assessed 10/19/22 10/19/22 11:36 Currently or been in a relationship where the following occur: no concerns reported Const General: no acute distress and alert HENMT Ears: TM's normal bilaterally and EAC's normal Throat: Yes posterior oropharynx normal and Yes tonsils normal (no TP congestion noted) Neck Neck: Yes no lymphadenopathy and Yes supple Lymphatic: no lymphadenopathy noted Resp Auscultation: clear to auscultation bilaterally, no rales and no wheezes Cardio Rate: regular rate Rhythm: regular rhythm Heart sounds: no murmurs GI Palpation (GI): Soft to palpation, nontender and no guarding Auscultation: normal bowel sounds Back/Spine/Pelvis Thoracic/Lumbar Spine: lumbar spinal tenderness Extrem General: Yes no clubbing, cyanosis or edema Right lower extremity: knee ((+) tender hard nodular lesion just below the right patella) Results Reviewed Results Reviewed: Laboratory Tests 10/17/22 10/17/22 10/17/22 07:39 07:39 07:42 WBC 8.2 Hgb 12.7 Hct 36.8 L Plt Count 335 Sodium 140 Potassium 3.7 Creatinine 0.73 Estimated GFR > 60 Fasting Glucose 121 H Hemoglobin A1c % 6.0 Calcium 9.5 AST 19 ALT 24 Triglycerides Cholesterol LDL Cholesterol, Calc 154 H HDL Cholesterol 52 25-OH Vitamin D Total 31.7 TSH 1.59 Ur Specific [place] 1.010 Urine Protein Negative Urine Glucose (UA) Negative Urine Blood Negative Microalb/Creat Ratio 6.1 10/17/22 07:42 WBC Hgb Hct Plt Count Sodium Potassium Creatinine Estimated GFR Fasting Glucose Hemoglobin A1c % Calcium AST ALT Triglycerides 212 H Cholesterol 248 H LDL Cholesterol, Calc HDL Cholesterol 25-OH Vitamin D Total TSH Ur Specific [place] Urine Protein Urine Glucose (UA) Urine Blood Microalb/Creat Ratio Assessment and Plan Assessment & Plan (1) Right knee pain: Code(s): M25.561 - Pain in right knee Qualifiers: Chronicity: unspecified Qualified Code(s): M25.561 - Pain in right knee Plan: Advised that her right knee pain is mostly localized over the hard nodular lesion under her patella and this may represent a bone cyst Will send her for x-rays of the right knee for further evaluation (2) Difficulty performing work activities: Code(s): Z56.89 - Other problems related to employment Plan: Per request, will [facility] to the [facility] for further evaluation and to assess for potential ADD/ADHD (3) Pure hypercholesterolemia: Code(s): E78.00 - Pure hypercholesterolemia, unspecified Plan: Results of her labs done a couple of days ago reviewed and discussed with patient - is cautioned that her cholesterol levels have increased significantly from previous and this is mainly due to her stopping her cholesterol medications a couple of months ago Reinforced low cholesterol diet Is advised that she should start back on her Fenofibrate 145 mg QD and Atorvastatin 10 mg QD Will recheck her labs and fasting lipids again in 3 months for follow-up (4) Type 2 diabetes mellitus with hyperglycemia: Code(s): E11.65 - Type 2 diabetes mellitus with hyperglycemia Qualifiers: Diabetes mellitus half-way insulin use: without terminal clerk use Qualified Code(s): E11.65 - Type 2 diabetes mellitus with hyperglycemia Plan: HgbA1c remains unchanged at 6.0% (in-office HgbA1c was also at 6.0% a few months ago) - goal is at least < 7.0% and ideally <6.5% Reinforced diabetic diet Patient is exercising and working out regularly now Continue Metformin 500 mg BID and Januvia 50 mg QD (5) GERD without esophagitis: Code(s): K21.9 - Gastro-esophageal reflux disease without esophagitis Plan: Dietary restrictions reinforced Continue Pantoprazole 40 mg QD and Famotidine 40 mg Q HS Follow up with GI as scheduled (6) Asthma: Code(s): J45.909 - Unspecified asthma, uncomplicated Qualifiers: Asthma severity: moderate Asthma persistence: persistent Asthma complication type: uncomplicated Qualified Code(s): J45.40 - Moderate persistent asthma, uncomplicated Plan: Stable Continue Spiriva Respimat 2.5 mcg 2 inhalations QD and Albuterol HFA 2 inhalations every 6 hours as needed (7) Lumbar degenerative disc disease: Code(s): M51.36 - Other intervertebral disc degeneration, lumbar region Plan: Reinforced activity and weigh-lifting restrictions Lumbar spine x-rays done back in 05/2018 showed (+) mild to moderate degenerative changes at L4-L5 Continue Oxycodone-acetaminophen 5-325 mg BID PRN; states that she tried not taking it for a while but her pain got to a point where it was becoming unbearable (8) Varicose veins of bilateral lower extremities with pain: Code(s): I83.813 - Varicose veins of bilateral lower extremities with pain Plan: Follow up with vascular surgery as scheduled (9) Allergic rhinitis: Code(s): J30.9 - Allergic rhinitis, unspecified Qualifiers: Allergic rhinitis trigger: unspecified Allergic rhinitis seasonality: unspecified Qualified Code(s): J30.9 - Allergic rhinitis, unspecified Plan: Continue Cetirizine 10 mg QD PRN and Fluticasone 50 mcg nasal spray QD PRN (10) Rectal abnormality: Code(s): K62.9 - Disease of anus and rectum, unspecified Plan: Per request, will refer her back to Dr. Grayson for further evaluation and management Feels that she has some recurrent rectal discomfort/pressure that is related to her previous hemorrhoid surgery performed by Dr. Grayson a few years ago (11) Anxiety: Code(s): F41.9 - Anxiety disorder, unspecified Plan: Per request, was referred to psychiatry for counseling and for further evaluation and management and she is presently still awaiting scheduling for this Will increase her Bupropion XL to 300 mg QD (12) Depression: Code(s): F32.9 - Major depressive disorder, single episode, unspecified Qualifiers: Depression Type: major depressive disorder Major depression recurrence: recurrent Active/Remission status: currently active Major depression episode severity: unspecified Qualified Code(s): F33.9 - Major depressive disorder, recurrent, unspecified Plan: Continue Quetiapine; per request, her dose was lowered back down to 25 mg Q HS at her last visit She has been referred to psychiatry for further evaluation and management (13) Obesity (BMI 30-39.9): Code(s): E66.9 - Obesity, unspecified Plan: Reinforced diet/exercise as tolerated/lose weight Plan To return as scheduled in January 2023 for her annual physical examination Orders: Orders Complete Blood Count Auto Diff 3 Months I10 - Essential (primary) hypertension Comprehensive [place]. Panel Fast 3 Months E78.00 - Pure hypercholesterolemia, unspecified Microalbumin, Random (w Creat) 3 Months E11.9 - Type 2 diabetes mellitus without complications TSH reflex Free T4 3 Months E78.00 - Pure hypercholesterolemia, unspecified UA CC w/rflx Micro + Cult 3 Months R30.0 - Dysuria Vitamin D 25-OH Total 3 Months E55.9 - Vitamin D deficiency, unspecified XR knee RT 4V 10/19/22 M25.561 - Pain in right knee, M25.861 - Other specified joint disorders, right knee Lipid Panel 3 Months E78.00 - Pure hypercholesterolemia, unspecified Hemoglobin A1c 3 Months E11.9 - Type 2 diabetes mellitus without complications Referrals General Surgery Referral K62.9 - Disease of anus and rectum, unspecified Neuropsychiatry Referral R41.3 - Other amnesia, R68.89 - Other general symptoms and signs, Z56.89 - Other problems related to employment Medications: Changed From bupropion HCl 150 mg PO QAM 90 tabs 1RF To bupropion HCl 300 mg PO QAM 90 days 90 tabs 1RF Refilled blood-glucose meter (FreeStyle Lite Meter kit) As directed 1 ea 0RF E11.9 - Type 2 diabetes mellitus without complications Coding Level of Care Code Est Pt Level 4 (95103) Diagnoses Right knee pain, unspecified chronicity M25.561 Chronicity: unspecified Difficulty performing work activities Z56.89 Pure hypercholesterolemia E78.00 Type 2 diabetes mellitus with hyperglycemia, without long-term current use of insulin E11.65 Diabetes mellitus half-way insulin use: without terminal clerk use GERD without esophagitis K21.9 Moderate persistent asthma without complication J45.40 Asthma severity: moderate Asthma persistence: persistent Asthma complication type: uncomplicated Lumbar degenerative disc disease M51.36 Varicose veins of bilateral lower extremities with pain I83.813 Allergic rhinitis, unspecified seasonality, unspecified trigger J30.9 Allergic rhinitis trigger: unspecified Allergic rhinitis seasonality: unspecified Rectal abnormality K62.9 Anxiety F41.9 Episode of recurrent major depressive disorder, unspecified depression episode severity F33.9 Depression Type: major depressive disorder Major depression recurrence: recurrent Active/Remission status: currently active Major depression episode severity: unspecified Obesity (BMI 30-39.9) E66.9
== END 2022-10-19 12:29 | disposition home or self-care (01) ==
PROVIDERS: PCP Internal Medicine; Visit Provider Internal Medicine
DX: E11.65 Type 2 diabetes mellitus with hyperglycemia (principal); K21.9 Gastro-esophageal reflux disease without esophagitis; F41.9 Anxiety disorder, unspecified; J45.40 Moderate persistent asthma, uncomplicated; F33.9 Major depressive disorder, recurrent, unspecified; M25.561 Pain in right knee; Z56.89 Other problems related to employment; E78.00 Pure hypercholesterolemia, unspecified; M51.36 Other intervertebral disc degeneration, lumbar region; I83.813 Varicose veins of bilateral lower extremities with pain; J30.9 Allergic rhinitis, unspecified; K62.9 Disease of anus and rectum, unspecified
CPT/HCPCS: 99214

== ENCOUNTER 2022-10-23 10:55 | Outpatient (AMB) | payer OTHER, SELFPAY ==
[2022-10-23 10:58] VITALS: BP 134/61; PULSE 80; BMI 34.7
--- NOTE | 2022-10-23 10:58 | MHC.OFFVIS ---
Intake Vital Signs 10/23/22 10:58 Height 5 ft 4 in Weight 202 lb 0.012 oz BMI 34.7 BP 134/61 Blood Pressure Location Rt brachial Position Sitting Pulse 80 Intake Visit Reasons: rectal discomfort, Hx hemorrhoidectomy 2014 Intake Note: This patient presents for an assessment for rectal discomfort, Hx hemorrhoidectomy 2014. Patient c/o; reports irritation, discomfort, rectal bleeding when wiping, external. Manager Control Required: No Sweat Box Attendant: Sweat Box Attendant offered & declined Accompanied by: Self / Same As Patient Allergies gabapentin Allergy (Unknown, Verified 10/23/22 11:05) Tingling feeling in throat zolpidem [From AMBIEN] Allergy (Unknown, Verified 10/23/22 11:05) tingling feeling in throat cahsews Allergy (Severe, Uncoded 10/23/22 11:05) Rash Medication List - Last Reconciled 10/23/22 by David Hills MD albuterol sulfate 90 mcg/actuation (ProAir RespiClick) 2 inhalations inhalation Q6H PRN 30 days alcohol swabs (Alcohol Prep Pads) 1 pad topical TID atorvastatin 10 mg PO BEDTIME 30 days blood sugar diagnostic (FreeStyle Lite Strips) As directed blood-glucose meter (FreeStyle Lite Meter kit) As directed bupropion HCl 300 mg PO QAM 90 days cetirizine (Zyrtec) 10 mg PO DAILY 10 days diphenhydramine HCl (Benadryl) 25 mg PO TID PRN famotidine 40 mg PO BEDTIME 30 days fenofibrate nanocrystallized 145 mg PO DAILY 30 days flibanserin (Addyi) 100 mg PO BEDTIME 30 days fluticasone propionate 50 mcg/actuation (24 Hour Allergy Relief) 1 spray intranasal BID ibuprofen 800 mg PO TID lancets (FreeStyle Lancets) As directed linaclotide (Linzess) 145 mcg PO QAM 30 days meclizine 25 mg PO DAILY PRN metformin 500 mg PO BID montelukast 10 mg PO BEDTIME multivitamin 1 tab PO DAILY oxybutynin chloride ER 10 mg PO DAILY oxycodone-acetaminophen 5-325 mg (Percocet) 1 tab PO BID PRN 28 days pantoprazole 40 mg PO DAILY polyethylene glycol 3350 17 grams PO DAILY PRN 30 days prednisone 40 mg (2 x 20 mg) PO DAILY 5 days ProAir HFA 90 mcg/actuation (albuterol sulfate) 90 mcg inhalation Q4-6H PRN NS quetiapine 25 mg PO BEDTIME 30 days sitagliptin phosphate (Januvia) 50 mg PO DAILY 30 days tiotropium bromide 2.5 mcg/actuation (Spiriva Respimat) 2 puffs PO DAILY tizanidine 2 mg PO BEDTIME PRN HPI rectal discomfort, Hx hemorrhoidectomy 2014 HPI Details 42-year-old female referred for hemorrhoid issues. She had hemorrhoidectomy in 2014. She however states that recently for the past few years, she had been noticing hemorrhoids again. She says that this frequently become swollen. She says that this have been increasing in size and been causing her problems with hygiene. She says that she feels that has been more difficult to keep herself clean after bowel movements She also says that she has chronic constipation and takes stool softeners. [facility] Medical History (Updated 10/23/22 @ 11:26 by David Hills MD) Family history of ovarian cancer Hemorrhoids with complication Mixed hyperlipidemia Pure hypercholesterolemia Type 2 diabetes mellitus with hyperglycemia Varicose veins of bilateral lower extremities with pain Lumbar degenerative disc disease Anxiety GERD without esophagitis Diabetes mellitus Bilateral flank pain Varicose veins of left lower extremity with pain Dizziness Left ear pain Pressure sensation in left ear UTI (urinary tract infection) HTN (hypertension) Lower back pain Obesity (BMI 30-39.9) Menorrhagia Knee pain, bilateral Depression Allergic rhinitis Hemorrhoid Asthma Surgical History Hx of tubal ligation History of esophagogastroduodenoscopy (EGD) History of endometrial ablation History of carpal tunnel surgery History of hemorrhoidectomy Family History Father Diabetes Asthma Hepatitis Mother Diabetes Sleep apnea Ischemic cerebrovascular accident (CVA) Ovarian cancer, Onset Age: 52 Maternal Grandmother Diabetes Breast cancer, Onset Age: 50 Maternal Grandfather Stroke Paternal Grandfather Lung cancer Sister Ovarian cancer, Onset Age: 30 Social History Household Members: Family Housing: House Alcohol intake: never Patient Tobacco Use Status: Former Tobacco user e-Cigarette/Vaping Use: Never Used Second Hand Smoke Exposure: Yes service: No Current occupational status: employed 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 The anoscope was gently inserted. A full examination of the anal canal was done. She did have mixed internal and external hemorrhoidal columns on both the left and right side. This appeared to be moderate in size. There were no other lesions seen. There was no induration or any fissure. [id number] Assessment & Plan Assessment & Plan (1) Hemorrhoids with complication: Code(s): K64.8 - Other hemorrhoids Plan: She has internal external hemorrhoidal columns, moderate size. She describes periodic swelling and discomfort. She also says that she has difficulty with hygiene because of this hemorrhoids. She wants to proceed with hemorrhoidectomy as she says that these hemorrhoids have been ?annoying?. Again I had a long discussion with her about the technique of hemorrhoidectomy. I discussed the risks including but not limited to bleeding, infections, postop pain, as well as the benefits and alternatives. She understands what to expect postoperatively. She has given consent. (2) Family history of ovarian cancer: Code(s): Z80.41 - Family history of malignant neoplasm of ovary Plan: She stated that both her mother and her sister had been diagnosed to ovarian cancer. She says that her mother had been tested for BRCA gene and this was positive She wants to proceed with genetic testing as well. I explained the implications of this to herself and her immediate family. She wants to proceed. She will undergo genetic counseling and genetic testing here in the office. Coding Level of Care Code New Pt Level 4 (31761) Diagnoses Hemorrhoids with complication K64.8 Family history of ovarian cancer Z80.41 CPT Codes Details - CPT: [id number] ([id number])
== END 2022-10-23 11:23 | disposition home or self-care (01) ==
PROVIDERS: PCP Internal Medicine; Visit Provider Surgery
DX: K64.8 Other hemorrhoids (principal); Z80.41 Family history of malignant neoplasm of ovary
CPT/HCPCS: 46600; 99204

== ENCOUNTER → 2022-10-23 10:55 | Outpatient (BNVA) | payer OTHER, SELFPAY | PROVIDERS: PCP Internal Medicine; Visit Provider Surgery | DX: K64.8 Other hemorrhoids (principal); Z80.41 Family history of malignant neoplasm of ovary | CPT/HCPCS: 46600 ==

== ENCOUNTER 2022-11-27 09:56 | Outpatient (AMB) | payer OTHER, SELFPAY ==
--- NOTE | 2022-11-27 10:00 | A.OFFVIS_ITS ---
Intake Intake Visit Reasons: Genetic results HERE Intake Note: This patient presents for a follow-up assessment for genetic test results. Patient c/o; reports no changes. Transistor Tester Required: No Accompanied by: Self / Same As Patient Allergies gabapentin Allergy (Unknown, Verified 11/27/22 10:04) Tingling feeling in throat zolpidem [From AMBIEN] Allergy (Unknown, Verified 11/27/22 10:04) tingling feeling in throat cahsews Allergy (Severe, Uncoded 11/27/22 10:04) Rash Medication List - Last Reconciled 11/27/22 by David Hills MD albuterol sulfate 90 mcg/actuation (ProAir RespiClick) 2 inhalations inhalation Q6H PRN 30 days alcohol swabs (Alcohol Prep Pads) 1 pad topical TID atorvastatin 10 mg PO BEDTIME 30 days blood sugar diagnostic (FreeStyle Lite Strips) As directed blood-glucose meter (FreeStyle Lite Meter kit) As directed bupropion HCl 300 mg PO QAM 90 days cetirizine (Zyrtec) 10 mg PO DAILY 10 days clotrimazole 2% 1 appful vaginal BEDTIME 3 days diphenhydramine HCl (Benadryl) 25 mg PO TID PRN famotidine 40 mg PO BEDTIME 30 days fenofibrate nanocrystallized 145 mg PO DAILY 30 days flibanserin (Addyi) 100 mg PO BEDTIME 30 days fluconazole 150 mg PO DAILY 1 day fluconazole (Diflucan) 150 mg PO DAILY 1 day fluticasone propionate 50 mcg/actuation (24 Hour Allergy Relief) 1 spray intranasal BID ibuprofen 800 mg PO TID lancets (FreeStyle Lancets) As directed linaclotide (Linzess) 145 mcg PO QAM 30 days meclizine 25 mg PO DAILY PRN montelukast 10 mg PO BEDTIME multivitamin 1 tab PO DAILY nitrofurantoin monohyd/m-cryst 100 mg (Macrobid) 100 mg PO Q12H 7 days nitrofurantoin monohyd/m-cryst 100 mg (Macrobid) 100 mg PO Q12H 7 days oxybutynin chloride ER 10 mg PO DAILY oxycodone-acetaminophen 5-325 mg (Percocet) 1 tab PO BID PRN 28 days pantoprazole 40 mg PO DAILY polyethylene glycol 3350 17 grams PO DAILY PRN 30 days prednisone 40 mg (2 x 20 mg) PO DAILY 5 days ProAir HFA 90 mcg/actuation (albuterol sulfate) 90 mcg inhalation Q4-6H PRN NS quetiapine 25 mg PO BEDTIME 30 days sitagliptin phosphate (Januvia) 100 mg PO DAILY tiotropium bromide 2.5 mcg/actuation (Spiriva Respimat) 2 puffs PO DAILY tizanidine 2 mg PO BEDTIME PRN HPI Genetic results HERE HPI Details She is here to discuss results of her myriad genetic testing. She had this done because of a history of ovarian in her mother and a sister. She denies any new complaints at this time. [facility] Medical History (Updated 10/23/22 @ 11:26 by David Hills MD) Family history of ovarian cancer Hemorrhoids with complication Mixed hyperlipidemia Pure hypercholesterolemia Type 2 diabetes mellitus with hyperglycemia Varicose veins of bilateral lower extremities with pain Lumbar degenerative disc disease Anxiety GERD without esophagitis Diabetes mellitus Bilateral flank pain Varicose veins of left lower extremity with pain Dizziness Left ear pain Pressure sensation in left ear UTI (urinary tract infection) HTN (hypertension) Lower back pain Obesity (BMI 30-39.9) Menorrhagia Knee pain, bilateral Depression Allergic rhinitis Hemorrhoid Asthma Surgical History Hx of tubal ligation History of esophagogastroduodenoscopy (EGD) History of endometrial ablation History of carpal tunnel surgery History of hemorrhoidectomy Family History Father Diabetes Asthma Hepatitis Mother Diabetes Sleep apnea Ischemic cerebrovascular accident (CVA) Ovarian cancer, Onset Age: 52 Maternal Grandmother Diabetes Breast cancer, Onset Age: 50 Maternal Grandfather Stroke Paternal Grandfather Lung cancer Sister Ovarian cancer, Onset Age: 30 Social History Household Members: Family Housing: House Alcohol intake: never Patient Tobacco Use Status: Former Tobacco user e-Cigarette/Vaping Use: Never Used Second Hand Smoke Exposure: Yes service: No Current occupational status: employed 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 Cognitive needs: No Hearing needs: No Vision needs: Yes Female Reproductive History Menstrual Age of Menarche: 12 Review of Systems Const Denies chills and Denies fever(s) Card Denies chest pain, Denies dyspnea and Denies dyspnea on exertion Resp Denies cough, Denies dyspnea and Denies dyspnea on exertion GI Denies hematochezia and Denies change in bowel habits Denies hematuria Musc Denies back pain and Denies limited range of motion Neuro Denies focal weakness and Denies convulsions Psych Denies depression and Denies mood swings Physical Exam Const General: comfortable and no acute distress Resp Effort & Inspection: normal respiratory effort GI Palpation (GI): Soft to palpation Assessment & Plan Assessment & Plan (1) Family history of ovarian cancer: Code(s): Z80.41 - Family history of malignant neoplasm of ovary Plan: Fortunately, her [facility] genetic testing does not reveal any genetic mutations. She did state that her mother as well as a sister tested positive for the BRCA gene. I did emphasized to her that she still should continue with regular yearly mammograms. Furthermore, she should do regular monthly self examination of her breasts . She can follow-up on a p.r.n. basis. Coding Level of Care Code Est Pt Level 2 (87215) Diagnoses Family history of ovarian cancer Z80.41
== END 2022-11-27 10:09 | disposition home or self-care (01) ==
PROVIDERS: PCP Internal Medicine; Visit Provider Surgery
DX: Z80.41 Family history of malignant neoplasm of ovary (principal)
CPT/HCPCS: 99212

== ENCOUNTER → 2022-11-27 09:56 | Outpatient (BNVA) | payer OTHER, SELFPAY | PROVIDERS: PCP Internal Medicine; Visit Provider Surgery | DX: Z71.2 Person consulting for explanation of examination or test findings (principal); Z80.41 Family history of malignant neoplasm of ovary | CPT/HCPCS: 99212 ==

== ENCOUNTER 2023-01-31 13:07 | Outpatient (AMB) | payer OTHER, SELFPAY ==
--- NOTE | 2023-01-31 13:53 | A.OFFPC_ITS ---
Vital Signs 01/31/23 13:54 Height 5 ft 4 in Weight 205 lb BMI 35.2 BP 120/78 Blood Pressure Location Lt brachial Position Sitting Pulse 78 Pulse Source Pulse Oximeter Pulse Oximetry (%) 96 Oxygen Delivery Method Room Air Intake Visit Reasons: Physical Exam Intake Note: Patient is here today for a physical. Bed Maker Required: No Mail Censor: Not Required per policy Accompanied by: Self / Same As Patient Allergies gabapentin Allergy (Unknown, Verified 06/11/23 15:13) Tingling feeling in throat zolpidem [From AMBIEN] Allergy (Unknown, Verified 06/11/23 15:13) tingling feeling in throat dulaglutide [From Trulicity] Adverse Reaction (Intermediate, Verified 06/11/23 15:13) Low sugars cahsews Allergy (Severe, Uncoded 06/11/23 15:13) Rash Medication List - Last Reconciled 01/31/23 by Kurt Arroyo MD alcohol swabs (Alcohol Prep Pads) 1 pad topical TID atorvastatin 10 mg PO BEDTIME 30 days blood sugar diagnostic (FreeStyle Lite Strips) As directed blood-glucose meter (FreeStyle Lite Meter kit) As directed bupropion HCl 300 mg PO QAM 90 days cetirizine (Zyrtec) 10 mg PO DAILY 10 days famotidine 40 mg PO BEDTIME 30 days fenofibrate nanocrystallized 145 mg PO DAILY 30 days flibanserin (Addyi) 100 mg PO BEDTIME 30 days fluticasone propionate 50 mcg/actuation (24 Hour Allergy Relief) 1 spray intranasal BID ibuprofen 800 mg PO TID lancets (FreeStyle Lancets) As directed linaclotide (Linzess) 145 mcg PO QAM 30 days meclizine 25 mg PO DAILY PRN montelukast 10 mg PO BEDTIME multivitamin 1 tab PO DAILY oxybutynin chloride ER 10 mg PO DAILY oxycodone-acetaminophen 5-325 mg (Percocet) 1 tab PO BID PRN 28 days pantoprazole 40 mg PO DAILY polyethylene glycol 3350 17 grams PO DAILY PRN 30 days prednisone 40 mg (2 x 20 mg) PO DAILY 5 days ProAir HFA 90 mcg/actuation (albuterol sulfate) 90 mcg inhalation Q4-6H PRN NS quetiapine 25 mg PO BEDTIME 30 days sitagliptin phosphate (Januvia) 100 mg PO DAILY tiotropium bromide 2.5 mcg/actuation (Spiriva Respimat) 2 puffs PO DAILY tizanidine 2 mg PO BEDTIME PRN Ventolin HFA 90 mcg/actuation (albuterol sulfate) 2 puffs inhalation Q6H PRN 30 days NS Tobacco use date assessed: 01/31/23 Dental Screening Dental Screen Date: 01/31/23 Did you have a dental visit in the last 12 months?: No Did you have a dental problem in the last 6 months where you did not have access to dental care?: No Was dental information given to patient?: Patient has dentist HPI Physical Exam HPI Details Patient comes in today for her annual physical examination States that she has been experiencing increasing pain over her lower back lately and would like to have her pain med dosing increased back to TID dosing (as before) for now States that her feet feels out of balance when walking for the past month or so - she relates feeling slightly more clumsy when walking and moving about Also notes increasing hair loss lately - has noticed her hair falling out in clumps at times She denies any increased headaches or dizziness lately Denies any chest pains, no shortness of breath No nausea /vomiting, no abdominal pain No change in bowel habits noted Denies any acute urinary symptoms Needs a couple of her Rx refilled PFSH Medical History Family history of ovarian cancer Hemorrhoids with complication Mixed hyperlipidemia Pure hypercholesterolemia Type 2 diabetes mellitus with hyperglycemia Varicose veins of bilateral lower extremities with pain Lumbar degenerative disc disease Anxiety GERD without esophagitis Diabetes mellitus Bilateral flank pain Varicose veins of left lower extremity with pain Dizziness Left ear pain Pressure sensation in left ear UTI (urinary tract infection) HTN (hypertension) Lower back pain Obesity (BMI 30-39.9) Menorrhagia Knee pain, bilateral Depression Allergic rhinitis Hemorrhoid Asthma Surgical History Hx of tubal ligation History of esophagogastroduodenoscopy (EGD) History of endometrial ablation History of carpal tunnel surgery History of hemorrhoidectomy Family History Father Diabetes Asthma Hepatitis Mother Diabetes Sleep apnea Ischemic cerebrovascular accident (CVA) Ovarian cancer, Onset Age: 52 Maternal Grandmother Diabetes Breast cancer, Onset Age: 50 Maternal Grandfather Stroke Paternal Grandfather Lung cancer Sister Ovarian cancer, Onset Age: 30 Social History Household Members: Family Housing: House Alcohol intake: never Comment: medicated in PACU Patient Tobacco Use Status: Former Tobacco user e-Cigarette/Vaping Use: Never Used Second Hand Smoke Exposure: Yes service: No Current occupational status: employed 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 Tommy Mccarty, Honey Mejia, Gino Bearden and colleagues, with an educational sandy from [email or web address]. Physical exam (Primary Care) Vital Signs: Last Vital Signs Pulse 78 01/31/23 13:54 BP 120/78 01/31/23 13:54 Pulse Ox 96 01/31/23 13:54 Oxygen Delivery Method Room Air 01/31/23 13:54 BMI result Body Mass Index 35.2 Tobacco/Smoking Status: Tobacco use Status Tobacco use date assessed 01/31/23 01/31/23 13:55 Patient Tobacco Use Status Former Tobacco user 01/31/23 13:55 e-Cigarette/Vaping Use Never Used 01/31/23 13:55 Thrive Assessment: Date of Thrive Assessment Date Thrive assessed 10/19/22 01/31/23 13:55 Results AMB Hemoglobin A1c AMB Hemoglobin A1c 7.0 % Last Edit by REDD Sultana on 01/31/23 14:07 Results Reviewed Results Reviewed: Laboratory Last Values Hgb A1c (Clinic) 7.0 % (4.0-6.0) H 01/31/23 13:55 Assessment and Plan Assessment & Plan (1) Annual physical exam: Code(s): Z00.00 - Encounter for general adult medical examination without abnormal findings (2) Right knee pain: Code(s): M25.561 - Pain in right knee Qualifiers: Chronicity: unspecified Qualified Code(s): M25.561 - Pain in right knee Plan: Advised that her right knee pain is mostly localized over the hard nodular lesion under her patella and this may represent a bone cyst Will send her for x-rays of the right knee for further evaluation (3) Difficulty performing work activities: Code(s): Z56.89 - Other problems related to employment Plan: Per request, will refer her to the [facility] for further evaluation and to assess for potential ADD/ADHD (4) Pure hypercholesterolemia: Code(s): E78.00 - Pure hypercholesterolemia, unspecified Plan: Results of her labs done a couple of days ago reviewed and discussed with patient - is cautioned that her cholesterol levels have increased significantly from previous and this is mainly due to her stopping her cholesterol medications a couple of months ago Reinforced low cholesterol diet Is advised that she should start back on her Fenofibrate 145 mg QD and Atorvastatin 10 mg QD Will recheck her labs and fasting lipids again in 3 months for follow-up (5) Type 2 diabetes mellitus with hyperglycemia: Code(s): E11.65 - Type 2 diabetes mellitus with hyperglycemia Qualifiers: Diabetes mellitus regional intermodal truck 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 insulin use: without regional intermodal truck driver use Qualified Code(s): E11.65 - Type 2 diabetes mellitus with hyperglycemia Plan: HgbA1c remains unchanged at 6.0% (in-office HgbA1c was also at 6.0% a few months ago) - goal is at least < 7.0% and ideally <6.5% Reinforced diabetic diet Patient is exercising and working out regularly now Continue Metformin 500 mg BID and Januvia 50 mg QD (6) GERD without esophagitis: Code(s): K21.9 - Gastro-esophageal reflux disease without esophagitis Plan: Dietary restrictions reinforced Continue Pantoprazole 40 mg QD and Famotidine 40 mg Q HS Follow up with GI as scheduled (7) Asthma: Code(s): J45.909 - Unspecified asthma, uncomplicated Qualifiers: Asthma complication type: uncomplicated Asthma persistence: persistent Asthma severity: moderate Qualified Code(s): J45.40 - Moderate persistent asthma, uncomplicated Plan: Stable Continue Spiriva Respimat 2.5 mcg 2 inhalations QD and Albuterol HFA 2 inhalations every 6 hours as needed (8) Lumbar degenerative disc disease: Code(s): M51.36 - Other intervertebral disc degeneration, lumbar region Plan: Reinforced activity and weigh-lifting restrictions Lumbar spine x-rays done back in 05/2018 showed (+) mild to moderate degenerative changes at L4-L5 Continue Oxycodone-acetaminophen 5-325 mg BID PRN; states that she tried not taking it for a while but her pain got to a point where it was becoming u nbearable (9) Varicose veins of bilateral lower extremities with pain: Code(s): I83.813 - Varicose veins of bilateral lower extremities with pain Plan: Follow up with vascular surgery as scheduled (10) Allergic rhinitis: Code(s): J30.9 - Allergic rhinitis, unspecified Qualifiers: Allergic rhinitis seasonality: unspecified Allergic rhinitis trigger: unspecified Qualified Code(s): J30.9 - Allergic rhinitis, unspecified Plan: Continue Cetirizine 10 mg QD PRN and Fluticasone 50 mcg nasal spray QD PRN (11) Rectal abnormality: Code(s): K62.9 - Disease of anus and rectum, unspecified Plan: Per request, will refer her back to Dr. Grayson for further evaluation and management Feels that she has some recurrent rectal discomfort/pressure that is related to her previous hemorrhoid surgery performed by Dr. Grayson a few years ago (12) Anxiety: Code(s): F41.9 - Anxiety disorder, unspecified Plan: Per request, was referred to psychiatry for counseling and for further evaluation and management and she is presently still awaiting scheduling for this Will increase her Bupropion XL to 300 mg QD (13) Depression: Code(s): F32.9 - Major depressive disorder, single episode, unspecified Qualifiers: Active/Remission status: currently active Depression Type: major depressive disorder Major depression episode severity: unspecified Major depression recurrence: recurrent Qualified Code(s): F33.9 - Major depressive disorder, recurrent, unspecified Plan: Continue Quetiapine; per request, her dose was lowered back down to 25 mg Q HS at her last visit She has been referred to psychiatry for further evaluation and management (14) Obesity (BMI 30-39.9): Code(s): E66.9 - Obesity, unspecified Plan: Reinforced diet/exercise as tolerated/lose weight Plan To return as scheduled in January 2023 for her annual physical examination Orders: Orders AMB Hemoglobin A1c 01/31/23 E11.65 - Type 2 diabetes mellitus with hyperglycemia MM tomosynthesis screening BI 01/31/23 Z12.31 - Encounter for screening mammogram for malignant neoplasm of breast Medications: New semaglutide (Ozempic) 0.5 mg (0.736 mL) subcut QWEEK 3 mL 2RF 4 weeks E11.65 - Type 2 diabetes mellitus with hyperglycemia Changed From multivitamin 1 tab PO DAILY To multivitamin 1 tab PO DAILY 90 tabs 3RF 90 days From oxycodone-acetaminophen 5-325 mg 1 tab PO BID 28 days PRN 56 tabs 0RF pain To oxycodone-acetaminophen 5-325 mg (Percocet) 1 tab PO Q8H 84 tabs 0RF pain 28 days From ibuprofen 800 mg PO TID To ibuprofen Take with food 800 mg PO TID PRN 90 tabs 3RF pain 30 days Refilled flibanserin (Addyi) 100 mg PO BEDTIME 30 tabs 0RF 30 days Coding Diagnoses Annual physical exam Z00.00 Right knee pain, unspecified chronicity M25.561 Chronicity: unspecified Difficulty performing work activities Z56.89 Pure hypercholesterolemia E78.00 Type 2 diabetes mellitus with hyperglycemia, without long-term current use of insulin E11.65 Diabetes mellitus intermediate insulin use: without regional intermodal truck driver use GERD without esophagitis K21.9 Moderate persistent asthma without complication J45.40 Asthma complication type: uncomplicated Asthma persistence: persistent Asthma severity: moderate Lumbar degenerative disc disease M51.36 Varicose veins of bilateral lower extremities with pain I83.813 Allergic rhinitis, unspecified seasonality, unspecified trigger J30.9 Allergic rhinitis seasonality: unspecified Allergic rhinitis trigger: unspecified Rectal abnormality K62.9 Anxiety F41.9 Episode of recurrent major depressive disorder, unspecified depression episode severity F33.9 Active/Remission status: currently active Depression Type: major depressive disorder Major depression episode severity: unspecified Major depression recurrence: recurrent Obesity (BMI 30-39.9) E66.9
[2023-01-31 13:54] VITALS: BP 120/78; PULSE 78; O2SAT 96; BMI 35.2
== END 2023-01-31 15:02 | disposition home or self-care (01) ==
PROVIDERS: PCP Internal Medicine; Visit Provider Internal Medicine
DX: E11.65 Type 2 diabetes mellitus with hyperglycemia (principal)
CPT/HCPCS: 83036

== ENCOUNTER 2023-02-06 10:06 | Outpatient (AMB) | payer OTHER, SELFPAY ==
[2023-02-06 13:26] VITALS: BP 110/72; PULSE 99; TEMP 36.5; O2SAT 97; BMI 34.8
--- NOTE | 2023-02-06 13:26 | AM.OFFWIN_ITS ---
Intake Vital Signs 02/06/23 13:26 Height 5 ft 4 in Weight 203 lb BMI 34.8 BP 110/72 Blood Pressure Location Lt brachial Position Sitting Pulse 99 Pulse Source Pulse Oximeter Temp 97.7 F Temp Source Temporal Artery Scan Pulse Oximetry (%) 97 Oxygen Delivery Method Room Air Intake Visit Reasons: EST/lump in middle of neck ([phone]) Intake Note: Cold sore 3 days Patient Tobacco Use Status: Former Tobacco user Allergies gabapentin Allergy (Unknown, Verified 02/06/23 14:36) Tingling feeling in throat zolpidem [From AMBIEN] Allergy (Unknown, Verified 02/06/23 14:36) tingling feeling in throat cahsews Allergy (Severe, Uncoded 02/06/23 14:36) Rash Do you need a note to return to daycare/school/sports/work: No HPI EST/lump in middle of neck ([phone]) HPI Details 42-year-old female presents to the [facility] for a sick visit. Patient developed lesions on the corner of the upper lip. Subsequently she started having swelling around the neck.. Minimal discomfort. [facility] Medical History (Updated 10/23/22 @ 11:26 by David Hills MD) Family history of ovarian cancer Hemorrhoids with complication Mixed hyperlipidemia Pure hypercholesterolemia Type 2 diabetes mellitus with hyperglycemia Varicose veins of bilateral lower extremities with pain Lumbar degenerative disc disease Anxiety GERD without esophagitis Diabetes mellitus Bilateral flank pain Varicose veins of left lower extremity with pain Dizziness Left ear pain Pressure sensation in left ear UTI (urinary tract infection) HTN (hypertension) Lower back pain Obesity (BMI 30-39.9) Menorrhagia Knee pain, bilateral Depression Allergic rhinitis Hemorrhoid Asthma Surgical History Hx of tubal ligation History of esophagogastroduodenoscopy (EGD) History of endometrial ablation History of carpal tunnel surgery History of hemorrhoidectomy Family History Father Diabetes Asthma Hepatitis Mother Diabetes Sleep apnea Ischemic cerebrovascular accident (CVA) Ovarian cancer, Onset Age: 52 Maternal Grandmother Diabetes Breast cancer, Onset Age: 50 Maternal Grandfather Stroke Paternal Grandfather Lung cancer Sister Ovarian cancer, Onset Age: 30 Social History Household Members: Family Housing: House Alcohol intake: never Comment: medicated in PACU Patient Tobacco Use Status: Former Tobacco user e-Cigarette/Vaping Use: Never Used Second Hand Smoke Exposure: Yes service: No Current occupational status: employed 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 Cognitive needs: No Hearing needs: No Vision needs: Yes Female Reproductive History Menstrual Age of Menarche: 12 Physical Exam Vital Signs: Last Vital Signs Temp 97.7 F 02/06/23 13:26 Pulse 99 02/06/23 13:26 BP 110/72 02/06/23 13:26 Pulse Ox 97 02/06/23 13:26 Oxygen Delivery Method Room Air 02/06/23 13:26 BMI result Body Mass Index 34.8 Const General: cooperative and healthy appearing Nutritional Appearance: well nourished Orientation/consciousness: patient oriented x3 Limitations: no limitations HEENT Head: Yes normal to inspection Eyes General: appearance normal, both eyes and all related structures Neck Other: Submandibular lymph nodes palpable. Neck: Yes normal visual inspection Chest Chest palpation & inspection: normal palpation of entire chest wall Resp Effort & Inspection: normal respiratory effort Skin Other: Upper lip: Left side corner: Grouped vesicles with minimal in duration. Neuro General: patient oriented x3 Assessment & Plan Assessment & Plan (1) Herpes labialis: Code(s): B00.1 - Herpesviral vesicular dermatitis Plan Acyclovir and is a with accent. If symptoms do not improve to follow-up here. Medications: New acyclovir 5% (Zovirax) 1 appl topical 6XD 7 days 5 grams 0RF valacyclovir 500 mg PO BID 14 tabs 0RF Coding Level of Care Code Est Pt Level 3 (59688) Diagnoses Herpes labialis B00.1
== END 2023-02-06 14:55 | disposition home or self-care (01) ==
PROVIDERS: PCP Internal Medicine; Visit Provider Internal Medicine
DX: B00.1 Herpesviral vesicular dermatitis (principal)
CPT/HCPCS: 99213

== ENCOUNTER 2023-04-30 07:57 | Outpatient (REF) | payer OTHER, SELFPAY ==
[2023-04-30 08:14] LABS: MANUAL DIFF FLAG NO
[2023-04-30 08:26] LABS: Basophils Percent Auto 0.4 % (0-2); Eosinophils Absolute Auto 0.2 X10*3/uL (0.0-0.4); Eosinophils Percent Auto 2.1 % (0-4); Hematocrit 35.6 % (37.0-47.0); Hemoglobin 12.5 g/dl (12.0-16.0); Imm Gran Abs Auto 0.03 X10*3/uL (0.00-0.03); Imm Gran Pct Auto 0.4 % (0.0-0.4); Lymphocytes Absolute Auto 2.1 X10*3/uL (1.2-4.9); Lymphocytes Percent Auto 29.1 % (20-40); Mean Corpuscular HGB Conc 35.1 g/dl (31.0-35.0); Mean Corpuscular Hemoglobin 25.9 pg (27.0-33.0); Mean Corpuscular Volume 73.7 fL (80.0-98.0); Mean Platelet Volume 10.3 fL (9.4-12.3); Monocytes Absolute Auto 0.4 X10*3/uL (0.1-1.2); Monocytes Percent Auto 4.9 % (2-11); Neutrophils Absolute Auto 4.5 x10*3/uL (2.0-8.3); Neutrophils Percent Auto 63.1 % (45-73); Platelet Count 389 X10*3/uL (160-400); Red Blood Count 4.83 X10*6/uL (4.20-5.50); Red Cell Distribution Width 13.5 % (11.0-16.0); White Blood Count 7.1 X10*3/uL (4.8-10.8)
[2023-04-30 08:39] LABS: Estimated Average Glucose 131 mg/dL; Hemoglobin A1c % 6.2 % (<6.0)
[2023-04-30 08:57] LABS: Alanine Aminotransferase 33 U/L (0-31); Albumin Level 4.4 g/dL (3.5-5.0); Alkaline Phosphatase 56 U/L (39-117); Anion Gap 10 (12-20); Aspartate Amino Transferase 17 U/L (5-31); Bilirubin Total 0.5 mg/dL (0.0-1.0); Blood Urea Nitrogen 9 mg/dL (9-16); Calcium 9.2 mg/dL (8.4-10.2); Carbon Dioxide 26 mmol/L (22-29); Chloride 107 mmol/L (96-108); Cholesterol 135 mg/dL (<200); Estimated Glomerular Filt Rate > 60; Glucose Fasting 125 mg/dL (60-99); HDL Cholesterol 49 mg/dL (>40); LDL Cholesterol Calculated 60 mg/dL (<100); Sodium 139 mmol/L (135-145); Total Protein 7.4 g/dL (6.5-8.0); Triglycerides 130 mg/dL (<150)
[2023-04-30 09:13] LABS: TSH reflex Free T4 1.07 uIU/mL (0.32-4.0); Vitamin D 25-OH Total 32.9 ng/mL (>30)
[2023-04-30 09:37] LABS: Appearance Urine Cloudy; Color Urine Dark Yellow; Glucose Urine UA Negative (Negative); Leukocyte Esterase Urine Small (1+) (Negative); Nitrite Urine Negative (Negative); PH 5.5 (5.0-9.0); Specific Gravity - Urine >= 1.030 (1.005-1.025); UMIC TRIGGER UACC YES; Urine Blood Negative (Negative); Urine Ketones Trace mg/dL (Negative); Urine Protein Trace mg/dL (Neg-Trace)
[2023-04-30 09:58] LABS: Bacteria Urine 4+ (None Seen); RBC Urine 0-2 /HPF (0-2); UACC Culture Trigger YES; WBC Urine 21-50 /HPF (0-5)
[2023-04-30 10:01] LABS: Creatinine Urine 328.29 mg/dL; Microalbum/Creatinine Ratio Ur 12.1 ug/mg cr (<30)
== END 2023-04-30 07:58 | disposition home or self-care (01) ==
LOC: HO.LAB 07:57
PROVIDERS: PCP Internal Medicine; Visit Provider Internal Medicine
DX: I10 Essential (primary) hypertension (principal); E55.9 Vitamin D deficiency, unspecified; E78.00 Pure hypercholesterolemia, unspecified; E11.9 Type 2 diabetes mellitus without complications; R30.0 Dysuria
CPT/HCPCS: 36415; 80053; 80061; 81001; 82043; 82306; 82570; 83036; 84443; 85025; 87086

== ENCOUNTER 2023-06-02 08:57 | Outpatient (REF) | payer OTHER, SELFPAY | END 2023-06-02 08:58 | disposition home or self-care (01) | LOC: HO.MAMMO 08:57 | PROVIDERS: PCP Internal Medicine; Visit Provider Internal Medicine | DX: Z12.31 Encounter for screening mammogram for malignant neoplasm of breast (principal) | CPT/HCPCS: 77063; 77067 ==

== ENCOUNTER → 2023-06-02 09:15 | Outpatient (BNV) | payer OTHER, SELFPAY | PROVIDERS: PCP Internal Medicine; Visit Provider Radiology Diagnostic Radiology | DX: Z12.31 Encounter for screening mammogram for malignant neoplasm of breast (principal) | CPT/HCPCS: 77063; 77067 ==

== ENCOUNTER 2023-06-11 14:57 | Outpatient (AMB) | payer OTHER, SELFPAY ==
--- NOTE | 2023-06-11 15:05 | A.OFFVIS_ITS ---
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/DO NOT RS Char Conveyor Tender Cellar Required: No Information Interpreted: non-clinical & clinical Chlorine Cell Tender: Chlorine Cell Tender Present (Ana RAINEY) Accompanied by: Self / Same As Patient Allergies gabapentin Allergy (Unknown, Verified 06/11/23 15:13) Tingling feeling in throat zolpidem [From AMBIEN] Allergy (Unknown, Verified 06/11/23 15:13) tingling feeling in throat dulaglutide [From Trulicity] Adverse Reaction (Intermediate, Verified 06/11/23 15:13) Low sugars cahsews Allergy (Severe, Uncoded 06/11/23 15:13) Rash Is last menstrual period known: Yes Last menstrual period: 06/10/23 HPI Comments Details: Presenting for annual exam. Complaining of irregular menstrual cycles Last Pap/HPV was negative in 02/24 Last Mammogram was in 05/29, the report is still pending [facility] Medical History Family history of ovarian cancer Hemorrhoids with complication Mixed hyperlipidemia Pure hypercholesterolemia Type 2 diabetes mellitus with hyperglycemia Varicose veins of bilateral lower extremities with pain Lumbar degenerative disc disease Anxiety GERD without esophagitis Diabetes mellitus Bilateral flank pain Varicose veins of left lower extremity with pain Dizziness Left ear pain Pressure sensation in left ear UTI (urinary tract infection) HTN (hypertension) Lower back pain Obesity (BMI 30-39.9) Menorrhagia Knee pain, bilateral Depression Allergic rhinitis Hemorrhoid Asthma Surgical History Hx of tubal ligation History of esophagogastroduodenoscopy (EGD) History of endometrial ablation History of carpal tunnel surgery History of hemorrhoidectomy Family History Father Diabetes Asthma Hepatitis Mother Diabetes Sleep apnea Ischemic cerebrovascular accident (CVA) Ovarian cancer, Onset Age: 52 Maternal Grandmother Diabetes Breast cancer, Onset Age: 50 Maternal Grandfather Stroke Paternal Grandfather Lung cancer Sister Ovarian cancer, Onset Age: 30 Social History Household Members: Family Housing: House Alcohol intake: never Comment: medicated in PACU Patient Tobacco Use Status: Former Tobacco user e-Cigarette/Vaping Use: Never Used Second Hand Smoke Exposure: Yes service: No Current occupational status: employed 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 Cognitive needs: No Hearing needs: No Vision needs: Yes Female Reproductive History Menstrual Age of Menarche: 12 Date of last menstrual period: 06/10/23 Total pregnancies: 3 Full term: 3 Number of Living Children: 3 Date of last pap smear: 02/07/19 Date of Mammogram: 06/02/23 Review of Systems Const All systems reviewed & are unremarkable except as noted in HPI and below Card Reports as per HPI Resp Reports as per HPI GI Reports as per HPI and Reports no additional complaints Reports as per HPI Physical Exam Vital Signs: Last Vital Signs BP 116/72 06/11/23 15:08 BMI result Body Mass Index 34.7 Const General: cooperative, healthy appearing and comfortable Chest Chest palpation & inspection: normal inspection of the chest and normal palpation of entire chest wall Breast/axilla inspection: normal inspection of the breasts and normal inspection of the axillae Breast/axilla palpation: normal palpation of the breasts, normal palpation of the axillae and no axillary lymphadenopathy Resp Effort & Inspection: normal respiratory effort Auscultation: clear to auscultation bilaterally Percussion: percussion normal Cardio Palpation: normal PMI Rate: regular rate Rhythm: regular rhythm Heart sounds: no murmurs and no rubs Peripheral pulses: Peripheral pulses 2+ throughout GI Inspection: Yes normal to inspection Palpation (GI): Soft to palpation, nontender, no guarding, not rigid and No hepatosplenomegaly present Percussion: Yes normal to percussion Auscultation: normal bowel sounds Rectal Exam - Female: deferred General: Yes bladder normal to palpation External Female Exam: No lesion Speculum Exam - Vagina: normal appearance of the vagina, normal palpation, normal vaginal discharge and not erythematous Speculum Exam - Cervix: normal appearance of the cervix and normal palpation Bimanual exam- vagina & uterus: normal bimanual exam, normal palpation, uterine size normal, bladder normal to palpation, consistency normal and normal pal pation Bimanual Exam- Adnexa, other: normal adnexae, no masses and no tenderness Assessment & Plan Assessment & Plan (1) Well woman exam: Code(s): Z01.419 - Encounter for gynecological examination (general) (routine) without abnormal findings Category: Medical Plan: Cotesting not indicated this year. Instructions given the patient to schedule next screening Mammogram in 05/30. Counseled the patient about the recommended dietary allowance of 1000 mg of Calcium & 600 IU of vitamin D. The patient was instructed to perform monthly self-breast exams and to schedule an annual exam in a year; All questions answered and the patient verbalized understanding. Instructed the patient to schedule annual exam in a year (2) Abnormal uterine bleeding: Comment: With myoma status post endometrial ablation Code(s): N93.9 - Abnormal uterine and vaginal bleeding, unspecified Category: Medical Plan: GC and chlamydia taken CBC, TSH, prolactin, HCG, and pelvic ultrasound ordered. Discussed with the patient the different causes of abnormal bleeding including thyroid disorders, uterine and ovarian pathology, endometrial hyperplasia, carcinoma and other potential causes. Discussed with the patient the work up including CBC (to r/o anemia), TSH, prolactin, pelvic Ultrasound, endometrial biopsy to r/o endometrial pathology. All questions answered and the patient verbalized understanding. Instructed the patient to schedule an appointment for an endometrial biopsy in 2 weeks. Orders: Orders Prolactin Today N93.9 - Abnormal uterine and vaginal bleeding, unspecified TSH reflex Free T4 Today N93.9 - Abnormal uterine and vaginal bleeding, u nspecified HCG Quantitative Today N93.9 - Abnormal uterine and vaginal bleeding, unspecified Complete Blood Count no Diff Today N93.9 - Abnormal uterine and vaginal bleeding, unspecified US pelvic and transvaginal Today N93.9 - Abnormal uterine and vaginal bleeding, unspecified Coding Level of Care Code Est Pt Prev Care 40-64y(85288) Diagnoses Well woman exam Z01.419 Abnormal uterine bleeding N93.9
[2023-06-11 15:08] VITALS: BP 116/72; BMI 34.7
== END 2023-06-11 15:44 | disposition home or self-care (01) ==
PROVIDERS: PCP Internal Medicine; Visit Provider Obstetrics & Gynecology
DX: Z01.419 Encounter for gynecological examination (general) (routine) without abnormal findings (principal); N93.9 Abnormal uterine and vaginal bleeding, unspecified
CPT/HCPCS: 99396

== ENCOUNTER 2023-06-11 14:57 | Outpatient (REF) | payer OTHER, SELFPAY ==
[2023-06-11 17:42] LABS: Hematocrit 37.5 % (37.0-47.0); Hemoglobin 13.2 g/dl (12.0-16.0); Mean Corpuscular HGB Conc 35.2 g/dl (31.0-35.0); Mean Corpuscular Hemoglobin 25.7 pg (27.0-33.0); Mean Platelet Volume 10.6 fL (9.4-12.3); Platelet Count 373 X10*3/uL (160-400); Red Blood Count 5.14 X10*6/uL (4.20-5.50); Red Cell Distribution Width 13.9 % (11.0-16.0); White Blood Count 10.2 X10*3/uL (4.8-10.8)
[2023-06-11 19:32] LABS: HCG Quantitative < 2 mIU/mL
[2023-06-12 14:38] LABS: CT PCR NOT DETECTED (Not Detect.); NG PCR NOT DETECTED (Not Detect.)
[2023-06-13 08:44] LABS: Prolactin 4.4 ng/mL
== END 2023-06-11 14:58 | disposition home or self-care (01) ==
LOC: HO.LAB 14:57
PROVIDERS: PCP Internal Medicine; Visit Provider Obstetrics & Gynecology
DX: Z01.419 Encounter for gynecological examination (general) (routine) without abnormal findings (principal); N93.9 Abnormal uterine and vaginal bleeding, unspecified
CPT/HCPCS: 0353U; 36415; 84146; 84443; 84702; 85027; 99396

== ENCOUNTER 2023-06-11 16:04 | Outpatient (REF) | payer OTHER, SELFPAY | END 2023-06-11 16:05 | disposition home or self-care (01) | LOC: HO.LNP 16:04 | PROVIDERS: Visit Provider Obstetrics & Gynecology | DX: Z13.89 Encounter for screening for other disorder (principal) ==

== ENCOUNTER 2023-11-09 13:31 | Emergency (ER) | payer OTHER, SELFPAY ==
--- NOTE | ~2023-11-09 | CT_ITS ---
EXAMINATION: CT HEAD WITHOUT CONTRAST CLINICAL INFORMATION: Pain, visual disturbance. COMPARISON: CT head 06/19/2020. TECHNIQUE: Contiguous axial imaging was performed from the skull base to vertex without intravenous administration of contrast. This CT examination was performed using dose optimization techniques as appropriate, variously including the following: *Automated exposure control *Adjustment of mA and/or kV according to patient size (this includes techniques or standardized protocols for targeted exams where dose is matched to indication/reason for exam; i.e. extremities or head) *Use of iterative reconstruction technique DLP: 708 mGy-cm FINDINGS: There is no evidence of acute intracranial hemorrhage or edematous territorial infarction. There is no abnormal attenuation within the brain parenchyma. Ambrosio-white matter differentiation is preserved. The ventricles are normal in size and configuration. No evidence for obstructive hydrocephalus. No abnormal mass effect or midline shift. No extra-axial fluid collections. No acute soft tissue or osseous abnormalities. The mastoid air cells and paranasal sinuses are clear. CT/CT head/brain wo IV con IMPRESSION: No evidence of acute intracranial hemorrhage or edematous territorial infarction. Electronically signed by: Татьяна Campos MD 11/09/2023 03:59 PM EDT
[2023-11-09 13:40] VITALS: BP 153/87; PULSE 80; RESP 16; TEMP 36.4; O2SAT 98; BMI 35.4
--- NOTE | 2023-11-09 13:41 | ED.GENADULT ---
HPI - General Adult General Chief complaint: Weakness Stated complaint: weakness-head pain Time Seen by Provider: 11/09/23 15:02 Source: patient Mode of arrival: ambulatory Limitations: no limitations History of Present Illness ED Provider: Carolyn Milligan PA-C HPI narrative: 42 yo female presents with a few days of total body weakness. Says that she feels as if she has no energy and has brain fog. She has had periods of weakness in the past, typically prior to the onset of her menses. She is shaky and tremulous prior to onset of weakness. She feels as though she has trouble remembering things and is more tired than normal. Also reports headache with pain at right side of posterior neck. Denies focal weakness, gait abnormality, weight loss, depressed mood or anxiety. Denies dizziness, syncope, fever, chest pain. LMP was 10/16, had tubal ligation in 2014, is . Onset (ago): day(s) Location: head Radiation: non-radiation Severity: mild Quality: aching and dull Pain Consistency: constant Relieving factors: medication (NSAID) Exacerbating factors: none Associated symptoms: malaise and weakness Treatments prior to arrival: NSAID Related Data Home Medications ?Medication ?Instructions ?Recorded ?Confirmed oxybutynin chloride 10 mg 10 mg PO DAILY 12/25/19 01/31/23 tablet,extended release 24 hr Previous Rx's ?Medication ?Instructions ?Recorded cetirizine 10 mg tablet (Zyrtec) 10 mg PO DAILY 10 days #10 tabs 12/25/19 montelukast 10 mg tablet 10 mg PO BEDTIME #30 tabs 03/16/20 alcohol swabs (Alcohol Prep Pads) 1 pad topical TID #200 ea 06/19/20 meclizine 25 mg tablet 25 mg PO DAILY PRN dizziness #20 09/06/20 tabs famotidine 40 mg tablet 40 mg PO BEDTIME 30 days #30 tabs 08/15/21 blood sugar diagnostic (FreeStyle #100 ea 05/05/22 Lite Strips) lancets 28 gauge (FreeStyle #100 ea 05/05/22 Lancets) fenofibrate nanocrystallized 145 145 mg PO DAILY 30 days #30 tabs 07/04/22 mg tablet tiotropium bromide 2.5 2 puff PO DAILY #4 mL 06/26/23 mcg/actuation mist for inhalation (Spiriva Respimat) prednisone 20 mg tablet 40 mg (2 x 20 mg) PO DAILY 5 days 10/02/22 #10 tabs blood-glucose meter (FreeStyle #1 ea 10/19/22 Lite Meter kit) bupropion HCl 300 mg 24 hr tablet, 300 mg PO QAM 90 days #90 tabs 10/19/22 extended release flibanserin 100 mg tablet (Addyi) 100 mg PO BEDTIME 30 days #30 tabs 01/31/23 ibuprofen 800 mg tablet 800 mg PO TID PRN pain 30 days #90 01/31/23 tabs multivitamin 1 tab PO DAILY 90 days #90 tabs 01/31/23 acyclovir 5 % topical ointment 1 appl topical 6XD 7 days #5 grams 02/06/23 (Zovirax) valacyclovir 500 mg tablet 500 mg PO BID #14 tabs 02/06/23 polyethylene glycol 3350 17 17 g PO DAILY PRN for constipation 04/19/23 gram/dose oral powder (Gavilax) #1,530 grams fluconazole 150 mg tablet 150 mg PO ONCE 1 day #1 tab 05/04/23 sitagliptin phosphate 100 mg 100 mg PO DAILY #30 tabs 05/26/23 tablet (Januvia) Ventolin HFA 90 mcg/actuation 2 puff inhalation Q6H PRN 06/21/23 aerosol inhaler (albuterol sulfate) shortness of breath or wheezing 30 days #18 grams ProAir HFA 90 mcg/actuation 90 mcg inhalation Q4-6H PRN 07/09/23 aerosol inhaler (albuterol sulfate) Shortness Of Breath Or Wheezing #8.5 grams tizanidine 4 mg tablet 2 mg (1/2 x 4 mg) PO BEDTIME PRN 07/20/23 for muscle spasm 30 days #30 tabs atorvastatin 10 mg tablet 10 mg PO BEDTIME 30 days #90 tabs 07/22/23 sertraline 50 mg tablet 50 mg PO DAILY 30 days #30 tabs 07/30/23 linaclotide 145 mcg capsule 145 mcg PO QAM 30 days #30 caps 09/22/23 (Linzess) pantoprazole 40 mg tablet,delayed 40 mg PO DAILY #90 tabs 09/22/23 release metformin 500 mg tablet 500 mg PO BID 30 days #60 tabs 09/24/23 fluticasone propionate 50 1 spray intranasal BID #16 grams 10/01/23 mcg/actuation nasal spray,suspension (24 Hour Allergy Relief) dulaglutide 0.75 mg/0.5 mL 0.75 mg (0.5 mL) subcut QWEEK #2 mL 10/11/23 subcutaneous pen injector (Trulicity) quetiapine 100 mg tablet 100 mg PO BEDTIME 30 days #30 tabs 10/14/23 oxycodone-acetaminophen 5 mg-325 1 tab PO Q8H pain 28 days #84 tabs 11/09/23 mg tablet (Percocet) Allergies Allergy/AdvReac Type Severity Reaction Status Date / Time gabapentin Allergy Unknown Tingling Verified 11/09/23 13:42 feeling in throat zolpidem [From AMBIEN] Allergy Unknown tingling Verified 11/09/23 13:42 feeling in throat dulaglutide [From Trulicity] AdvReac Intermediate Low sugars Verified 11/09/23 13:42 [email or web address] Allergy Severe Rash Uncoded 11/09/23 13:42 Review of Systems Constitutional: Constitutional: Reports no additional constitutional complaints, Denies chills, Denies fever(s), Reports headache(s), Reports malaise, Denies night sweats and Reports weakness Eyes: Eyes: Reports no additional eye complaints, Denies blurry vision, Denies change in vision, Denies diplopia, Denies eye discharge, Denies loss of vision and Denies eye pain ENT: Denies dizziness and Reports headache(s) Cardiovascular: Cardiovascular: Reports no additional cardiovascular complaints, Denies chest pain, Denies lightheadedness, Denies Loss of Consciousness and Denies dyspnea Respiratory: Respiratory: Reports no additional respiratory complaints and Denies dyspnea Gastrointestinal: Gastrointestinal: Reports no additional gastrointestinal complaints, Denies abdominal pain, Denies melena, Denies hematochezia, Denies change in bowel habits and Denies change in stool character Genitourinary: Genitourinary: Denies hematuria, Denies urinary frequency, Denies dysuria, Denies urinary incontinence, Denies urinary hesitancy and Denies urinary urgency Musculoskeletal: Musculoskeletal: Denies numbness and Denies tingling Neurologic: Denies dizziness, Reports headache(s), Denies loss of vision, Denies numbness, Denies tingling and Reports weakness Psychiatric: Psychiatric: Reports no additional psychiatric complaints Endocrine: Endocrine: Reports no additional endocrine complaints Hematologic/Lymphatic: Hematologic/Lymphatic: Reports no additional hematologic/lymphatic complaints Allergic/Immunologic: Allergic/Immunologic: Reports no additional allergic/immunologic complaints [facility] Past Medical History Attestation statement: The following information was validated with the patient. Source: old records reviewed and nursing notes reviewed Medical History Family history of ovarian cancer Hemorrhoids with complication Mixed hyperlipidemia Pure hypercholesterolemia Type 2 diabetes mellitus with hyperglycemia Varicose veins of bilateral lower extremities with pain Lumbar degenerative disc disease Anxiety GERD without esophagitis Diabetes mellitus Bilateral flank pain Varicose veins of left lower extremity with pain Dizziness Left ear pain Pressure sensation in left ear UTI (urinary tract infection) HTN (hypertension) Lower back pain Obesity (BMI 30-39.9) Menorrhagia Knee pain, bilateral Depression Allergic rhinitis Hemorrhoid Asthma Surgical History Hx of tubal ligation History of esophagogastroduodenoscopy (EGD) History of endometrial ablation History of carpal tunnel surgery History of hemorrhoidectomy Family History Family History Father Diabetes Asthma Hepatitis Mother Diabetes Sleep apnea Ischemic cerebrovascular accident (CVA) Ovarian cancer, Onset Age: 52 Maternal Grandmother Diabetes Breast cancer, Onset Age: 50 Maternal Grandfather Stroke Paternal Grandfather Lung cancer Sister Ovarian cancer, Onset Age: 30 Social History Social History Household Members: Family Housing: House Alcohol intake: never Comment: medicated in PACU Patient Tobacco Use Status: Former Tobacco user Smoked in Last 30 Days: No e-Cigarette/Vaping Use: Never Used Second Hand Smoke Exposure: Yes Use of substances other than those prescribed or required for medical reasons: No Advance Directives: No Advance Directives Information Provided: No Do you have a plan to hurt others: No Plan service: No Current occupational status: employed 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 Cognitive needs: No Hearing needs: No Vision needs: Yes Physical Exam ED Vital Signs: Vital Signs - 24 hr 11/09/23 13:40 11/09/23 15:35 11/09/23 19:00 Temperature 97.5 F 98.6 F 0 F L Pulse Rate 80 86 0 L Respiratory Rate 16 18 0 L Blood Pressure 153/87 H 115/72 0/0 L Pulse Oximetry 98 100 0 L Oxygen Delivery Method Room Air Room Air BMI result Body Mass Index 35.4 Const General: cooperative, no acute distress, alert and awake Nutritional Appearance: well nourished Orientation/consciousness: patient oriented x3 Limitations: no limitations HENMT Head: Yes normal to inspection and Yes atraumatic Ears: hearing grossly normal bilaterally and external ears normal General nose exam: Normal external nose present, no nasal discharge noted and no epistaxis Face and sinus: Yes normal facial exam, No abrasion and No laceration Mouth: Normal oral and palatal mucosa present, no drooling and no muffled voice Eyes General: appearance normal, both eyes and all related structures Periorbital: periorbital findings normal Eyelids: Yes eyelids normal Conjunctivae: conjunctivae normal Pupils: Equal, round and reactive pupils present EOM: EOMs intact bilaterally Neck Neck: Yes normal visual inspection, Yes full ROM and Yes no lymphadenopathy Chest Chest palpation & inspection: normal inspection of the chest Resp Effort & Inspection: normal respiratory effort and able to speak in complete sentences GI Inspection: Yes normal to inspection Neuro General: patient oriented x3, gait normal, tone normal, moves all extremities, Normal light touch and pain sensation and no focal motor deficits Cranial nerves: Yes CN's II-XII intact bilaterally and Yes Equal, round and reactive pupils present Cognition (Neuro): normal cognition Motor exam (neuro): 5/5 motor strength present throughout Extrem General: Yes normal to inspection, Yes full ROM and Yes capillary refill normal Psych Appearance: grossly normal Mental Status: mental status grossly normal Affect: normal affect Attitude: cooperative Thought process: Normal thought process present Thought content: Normal thought content present Insight: Good insight present (Psych) NIH Stroke Scale Internal: Initial- Upon Arrival Time: 13:41 Level of Consciousness: Alert Level of Consciousness Questions: Answers both questions correctly Level of Consciousness Commands: Performs both tasks correctly Best Gaze: Normal Visual: No visual loss Facial Palsy: Normal Motor Arm (Right): No drift Motor Arm (Left): No drift Motor Leg (Right): No drift Motor Leg (Left): No drift Limb Ataxia: Absent Sensory: Normal Best Language: No aphasia Dysarthia: Normal Extinction and Inattention: No abnormality Score: 0 Course Course Course Narrative: This is a Rapid Medical Examination (RME) performed by Mleanie Guzmán PA-C in triage. Full HPI, ROS, assessment and treatment plan per primary provider in the Main ED. 43 yo female here for eval of generalized weakness, occasional head discomfort, and seeing lines in her right eye. no injury/ trauma/ fall. states this will occasionally happen however it's never this persistent. Blood sugar around 90s at home. + exam nonfocal. strength 5/5 intact. PERRLA. ambulating w/ steady gait. Plan: basic labs, viral serology. +/- imaging per primary provider. also requesting UA because my stomach sometimes feels odd . Medications Administered Discontinued Medications Generic Name Dose Route Start Last Admin Trade Name Freq PRN Reason Stop Dose Admin Diphenhydramine HCl 12.5 mg 11/09/23 15:06 11/09/23 15:29 Diphenhydramine Hcl 50 Mg/Ml Vial IVPUSH 11/09/23 15:07 12.5 mg ONCE ONE Administration Ketorolac Tromethamine 15 mg 11/09/23 15:06 11/09/23 15:29 Ketorolac Tromethamine 15 Mg/Ml Vial IVPUSH 11/09/23 15:07 15 mg ONCE ONE Administration Metoclopramide HCl 10 mg 11/09/23 15:06 11/09/23 15:30 Metoclopramide Hcl 10 Mg/2 Ml Vial IVPUSH 11/09/23 15:07 10 mg ONCE ONE Administration Medical Decision Making Medical Decision Making [facility] Narrative: Patient is a 43 year old assigned female at with a history of depression, asthma, HTN, DM, anxiety, GERD, HLD, and vertigo presenting to the emergency department today with weakness, brain fog, and a headache. Patient's physical exam was unremarkable. Patient's blood work was unremarkable. Patient's urine showed no acute process. Patient's head CT showed no acute process. I explained my physical exam findings as well as all test results to the patient. I answered all questions asked by the patient. I stressed the importance of the patient taking her medication as directed (either prescribed or as the over the counter packaging recommends). I stressed the importance of the patient following up with her primary care provider. I stressed the importance of the patient returning to the emergency department immediately if her symptoms were to worsen or if she were to develop any dizziness, shortness of breath, difficulty breathing, chest pain, blurry vision, loss of vision, nausea, vomiting, abdominal pain, fever, chills, back pain, or any other complaints. Patient verbalized agreement and understanding with this treatment plan and discharge. Differential Diagnosis Differential Diagnoses: The differential diagnosis associated with the presentation includes Viral illness Migraine Admission/Observation Consideration of admission/observation: Escalation of care including admission/observation considered Patient would have been admitted to the hospital had her work up had any findings where hospital admission was appropriate and her clinical presentation warranted hospital admission. Lab Data [facility] Lab Attestation statement: I reviewed the patient's lab results. My interpretation of these results are in the [facility] Rationale portion of this note. 11/09/23 13:58 11/09/23 13:58 Labs: Lab Results 11/09/23 11/09/23 Range/Units 13:58 17:18 WBC 10.3 (4.8-10.8) X10*3/uL RBC 4.72 (4.20-5.50) X10*6/uL Hgb 12.5 (12.0-16.0) g/dl Hct 34.3 L (37.0-47.0) % MCV 72.7 L (80.0-98.0) fL MCH 26.5 L (27.0-33.0) pg MCHC 36.4 H (31.0-35.0) g/dl RDW 13.6 (11.0-16.0) % Plt Count 366 (160-400) X10*3/uL MPV 10.0 (9.4-12.3) fL Immature Gran % (Auto) 0.3 (0.0-0.4) % Neut % (Auto) 60.9 (45-73) % Lymph % (Auto) 29.7 (20-40) % [place] % (Auto) 6.0 (2-11) % Eos % (Auto) 2.5 (0-4) % Baso % (Auto) 0.6 (0-2) % Lymph # (Auto) 3.1 (1.2-4.9) X10*3/uL [place] # (Auto) 0.6 (0.1-1.2) X10*3/uL Eos # (Auto) 0.3 (0.0-0.4) X10*3/uL Baso # (Auto) 0.1 (0.0-0.2) X10*3/uL Abs Immat Gran (auto) 0.03 (0.00-0.03) X10*3/uL Absolute Neuts (auto) 6.3 (2.0-8.3) x10*3/uL Absolute Nucleated RBC 0.000 (0.0-0.012) X10*3/uL Nucleated RBC % (auto) 0.0 (0.0-0.2) /100WBC Sodium 140 (135-145) mmol/L Potassium 3.8 (3.3-5.1) mmol/L Chloride 107 (96-108) mmol/L Carbon Dioxide 27 (22-29) mmol/L Anion Gap 10 L (12-20) BUN 7 L (9-16) mg/dL Creatinine 0.62 (0.5-1.4) mg/dL Estim Creat Clear Calc 129.6 Estimated GFR > 60 Random Glucose 84 (60-115) mg/dL Calcium 9.0 (8.4-10.2) mg/dL Magnesium 2.1 (1.6-2.6) mg/dL Total Bilirubin 0.2 (0.0-1.0) mg/dL AST 27 (5-31) U/L ALT 43 H (0-31) U/L Alkaline Phosphatase 54 (39-117) U/L Total Protein 7.3 (6.5-8.0) g/dL Albumin 4.4 (3.5-5.0) g/dL Urine Color Yellow Urine Appearance Cloudy Urine pH 6.0 (5.0-9.0) Ur Specific [place] 1.025 (1.005-1.025) Urine Protein Negative (Neg-Trace) mg/dL Urine Glucose (UA) Negative (Negative) mg/dL Urine Ketones Negative (Negative) mg/dL Urine Blood Negative (Negative) Urine Nitrite Negative (Negative) Ur Leukocyte Esterase Negative (Negative) Influenza Type A (PCR) NEGATIVE (Negative) Influenza Type B (PCR) NEGATIVE (Negative) RSV RNA Qual (PCR) NEGATIVE (Negative) SARS-CoV-2 RNA (RT-PCR) NEGATIVE (Negative) Independent Interpretation I performed an independent interpretation of an: CT Scan Interpretation: My interpretation is in agreement with the radiologist's impression of this imaging study. EXAMINATION: CT HEAD WITHOUT CONTRAST CLINICAL INFORMATION: Pain, visual disturbance. COMPARISON: CT head 06/19/2020. TECHNIQUE: Contiguous axial imaging was performed from the skull base to vertex without intravenous administration of contrast. This CT examination was performed using dose optimization techniques as appropriate, variously including the following: *Automated exposure control *Adjustment of mA and/or kV according to patient size (this includes techniques or standardized protocols for targeted exams where dose is matched to indication/reason for exam; i.e. extremities or head) *Use of iterative reconstruction technique DLP: 708 mGy-cm FINDINGS: There is no evidence of acute intracranial hemorrhage or edematous territorial infarction. There is no abnormal attenuation within the brain parenchyma. Ambrosio-white matter differentiation is preserved. The ventricles are normal in size and configuration. No evidence for obstructive hydrocephalus. No abnormal mass effect or midline shift. No extra-axial fluid collections. No acute soft tissue or osseous abnormalities. The mastoid air cells and paranasal sinuses are clear. CT/CT head/brain wo IV con IMPRESSION: No evidence of acute intracranial hemorrhage or edematous territorial infarction. Electronically signed by: Татьяна Campos MD 11/09/2023 03:59 PM EDT Dictated By: Татьяна Campos Signed By: Electronically signed by Татьяна Campos 11/09/23 1559 Radiology Impression Discussion of test interpretation with radiology: I have reviewed the radiologist's reading. Chronic Conditions Patient?s care impacted by: Diabetes and Hypertension Discharge Plan Discharge Clinical Impression: Weakness, Headache Patient Disposition: Home, Self-Care Instructions: Acute Headache (DC), Weakness (ED) Additional Instructions: Follow up with your primary care provider. Return to the emergency department immediately if your symptoms worsen or if you develop any dizziness, shortness of breath, difficulty breathing, chest pain, blurry vision, loss of vision, nausea, vomiting, abdominal pain, fever, chills, back pain, or any other complaints. Prescriptions: No Action montelukast 10 mg tablet 10 mg PO BEDTIME Qty: 30 5RF famotidine 40 mg tablet 40 mg PO BEDTIME 30 Days Qty: 30 3RF fenofibrate nanocrystallized 145 mg tablet 145 mg PO DAILY 30 Days Qty: 30 5RF polyethylene glycol 3350 [Gavilax] 17 gram/dose powder 17 g PO DAILY PRN (Reason: for constipation) Qty: 1530 1RF Januvia 100 mg tablet 100 mg PO DAILY Qty: 30 0RF albuterol sulfate [Ventolin HFA] 90 mcg/actuation HFA aerosol inhaler 2 puff inhalation Q6H PRN (Reason: shortness of breath or wheezing) 30 Days Qty: 18 5RF albuterol sulfate [ProAir HFA] 90 mcg/actuation HFA aerosol inhaler 90 mcg inhalation Q4-6H PRN (Reason: Shortness Of Breath Or Wheezing) Qty: 8.5 3RF tizanidine 4 mg tablet 2 mg PO BEDTIME PRN (Reason: for muscle spasm) 30 Days Qty: 30 3RF atorvastatin 10 mg tablet 10 mg PO BEDTIME 30 Days Qty: 90 1RF sertraline 50 mg tablet 50 mg PO DAILY 30 Days Qty: 30 1RF Linzess 145 mcg capsule 145 mcg PO QAM 30 Days Qty: 30 0RF pantoprazole 40 mg tablet,delayed release (DR/EC) 40 mg PO DAILY Qty: 90 1RF metformin 500 mg tablet 500 mg PO BID 30 Days Qty: 60 0RF fluticasone propionate [24 Hour Allergy Relief] 50 mcg/actuation spray,suspension 1 spray intranasal BID Qty: 16 1RF Rx Instructions: administer into each nostril Trulicity 0.75 mg/0.5 mL pen injector 0.75 mg subcut QWEEK Qty: 2 0RF quetiapine 100 mg tablet 100 mg PO BEDTIME 30 Days Qty: 30 1RF oxycodone-acetaminophen [Percocet] 5-325 mg tablet 1 tab PO Q8H 28 Days Qty: 84 0RF meclizine 25 mg tablet 25 mg PO DAILY PRN (Reason: dizziness) Qty: 20 0RF alcohol swabs [Alcohol Prep Pads] Pads, Medicated 1 pad topical TID Qty: 200 0RF prednisone 20 mg tablet 40 mg PO DAILY 5 Days Qty: 10 0RF oxybutynin chloride 10 mg tablet extended release 24hr 10 mg PO DAILY cetirizine [Zyrtec] 10 mg tablet 10 mg PO DAILY 10 Days Qty: 10 0RF Addyi 100 mg tablet 100 mg PO BEDTIME 30 Days Qty: 30 0RF ibuprofen 800 mg tablet 800 mg PO TID PRN (Reason: pain) 30 Days Qty: 90 3RF Rx Instructions: Take with food multivitamin Tablet 1 tab PO DAILY 90 Days Qty: 90 3RF acyclovir [Zovirax] 5 % ointment 1 appl topical 6XD 7 Days Qty: 5 0RF valacyclovir 500 mg tablet 500 mg PO BID Qty: 14 0RF (DME) lancets [FreeStyle Lancets] 28 gauge misc See Rx Instructions .ROUTE .MEDSUPPLY Qty: 100 12RF Rx Instructions: As directed (DME) FreeStyle Lite Strips Strip See Rx Instructions .ROUTE .MEDSUPPLY Qty: 100 12RF Rx Instructions: As directed Spiriva Respimat 2.5 mcg/actuation mist 2 puff PO DAILY Qty: 4 6RF (DME) blood-glucose meter [FreeStyle Lite Meter] Kit See Rx Instructions .ROUTE .MEDSUPPLY Qty: 1 0RF Rx Instructions: As directed bupropion HCl 300 mg tablet extended release 24 hr 300 mg PO QAM 90 Days Qty: 90 1RF fluconazole 150 mg tablet 150 mg PO ONCE 1 Days Qty: 1 5RF Rx Instructions: use as instructed Referrals: Kurt Arroyo MD [Primary Care Provider] - Interventions: ED Discharge Assessment Last Done: 11/09/23 19:00 Discharge Date/Time: 11/09/23 19:01 Print Language: [place]
[2023-11-09 14:07] LABS: MANUAL DIFF FLAG NO
[2023-11-09 14:09] LABS: Basophils Absolute Auto 0.1 X10*3/uL (0.0-0.2); Basophils Percent Auto 0.6 % (0-2); Eosinophils Absolute Auto 0.3 X10*3/uL (0.0-0.4); Eosinophils Percent Auto 2.5 % (0-4); Hematocrit 34.3 % (37.0-47.0); Hemoglobin 12.5 g/dl (12.0-16.0); Imm Gran Abs Auto 0.03 X10*3/uL (0.00-0.03); Imm Gran Pct Auto 0.3 % (0.0-0.4); Lymphocytes Absolute Auto 3.1 X10*3/uL (1.2-4.9); Lymphocytes Percent Auto 29.7 % (20-40); Mean Corpuscular HGB Conc 36.4 g/dl (31.0-35.0); Mean Corpuscular Hemoglobin 26.5 pg (27.0-33.0); Mean Corpuscular Volume 72.7 fL (80.0-98.0); Monocytes Absolute Auto 0.6 X10*3/uL (0.1-1.2); Neutrophils Absolute Auto 6.3 x10*3/uL (2.0-8.3); Neutrophils Percent Auto 60.9 % (45-73); Platelet Count 366 X10*3/uL (160-400); Red Blood Count 4.72 X10*6/uL (4.20-5.50); Red Cell Distribution Width 13.6 % (11.0-16.0); White Blood Count 10.3 X10*3/uL (4.8-10.8)
[2023-11-09 14:23] LABS: Alanine Aminotransferase 43 U/L (0-31); Albumin Level 4.4 g/dL (3.5-5.0); Alkaline Phosphatase 54 U/L (39-117); Anion Gap 10 (12-20); Aspartate Amino Transferase 27 U/L (5-31); Bilirubin Total 0.2 mg/dL (0.0-1.0); Blood Urea Nitrogen 7 mg/dL (9-16); Carbon Dioxide 27 mmol/L (22-29); Chloride 107 mmol/L (96-108); Creatinine Clr Calc Pharmacy 129.6; Estimated Glomerular Filt Rate > 60; Glucose Random 84 mg/dL (60-115); Magnesium 2.1 mg/dL (1.6-2.6); Potassium 3.8 mmol/L (3.3-5.1); Sodium 140 mmol/L (135-145); Total Protein 7.3 g/dL (6.5-8.0)
[2023-11-09 14:45] LABS: Influenza A PCR NEGATIVE (Negative); Influenza B PCR NEGATIVE (Negative); Resp Syncy Virus RNA Qual PCR NEGATIVE (Negative); SARS COV2 PCR INHOUSE NEGATIVE (Negative)
[2023-11-09] MEDS: Ketorolac Tromethamine 15 MG/ML VIAL IVPUSH (15:29)
[2023-11-09] MEDS: diphenhydrAMINE HCL 50 MG/ML VIAL 12.5 MG IVPUSH (15:29)
[2023-11-09] MEDS: Metoclopramide HCl 10 MG/2 ML VIAL IVPUSH (15:30)
--- NOTE | 2023-11-09 15:30 | PC.NURSE ---
20G inserted to LAC. Tolerated well. Good blood return.
--- NOTE | 2023-11-09 15:33 | PC.NURSE ---
Pt. medicated per APR.
[2023-11-09 15:35] VITALS: BP 115/72; PULSE 86; RESP 18; TEMP 37; O2SAT 100
[2023-11-09 17:25] LABS: Appearance Urine Cloudy; Color Urine Yellow; Glucose Urine UA Negative (Negative); Leukocyte Esterase Urine Negative (Negative); Nitrite Urine Negative (Negative); Specific Gravity - Urine 1.025 (1.005-1.025); Urine Blood Negative (Negative); Urine Ketones Negative (Negative); Urine Protein Negative (Neg-Trace)
[2023-11-09 19:00] VITALS: BP 0/0; PULSE 0; RESP 0; TEMP -17.7; TEMP 0; O2SAT 0
--- NOTE | 2023-11-09 19:00 | PC.NURSE ---
Pt. walked out without signing paperwork or notifying staff
== END 2023-11-09 19:01 | disposition home or self-care (01) ==
PROVIDERS: Physician Assistant Medical; Emergency Provider Student in an Organized Health Care Education/Training Program; PCP Internal Medicine
DX: R53.1 Weakness (principal); R51.9 Headache, unspecified; Z03.818 Encounter for observation for suspected exposure to other biological agents ruled out; R29.700 NIHSS score 0; E11.9 Type 2 diabetes mellitus without complications; I10 Essential (primary) hypertension; E78.00 Pure hypercholesterolemia, unspecified; J45.909 Unspecified asthma, uncomplicated; Z87.891 Personal history of nicotine dependence; Z79.02 Long term (current) use of antithrombotics/antiplatelets; Z79.85 Long-term (current) use of injectable non-insulin antidiabetic drugs; Z79.899 Other long term (current) drug therapy
CPT/HCPCS: 0241U; 70450; 80053; 81003; 83735; 85025; 96374; 96375; 99284; J1200; J1885; J2765

== ENCOUNTER 2023-11-20 16:04 | Outpatient (AMB) | payer OTHER, SELFPAY ==
[2023-11-20 16:08] VITALS: BP 124/80; PULSE 78; O2SAT 95; BMI 34.8
--- NOTE | 2023-11-20 16:08 | A.OFFPC_ITS ---
Vital Signs 11/20/23 16:08 Height 5 ft 4 in Weight 203 lb BMI 34.8 BP 124/80 Blood Pressure Location Lt brachial Position Sitting Pulse 78 Pulse Source Pulse Oximeter Pulse Oximetry (%) 95 Oxygen Delivery Method Room Air Intake Visit Reasons: 4 month f/u Parts Salvager Required: No Accompanied by: Self / Same As Patient Allergies gabapentin Allergy (Unknown, Verified 11/20/23 16:54) Tingling feeling in throat zolpidem [From AMBIEN] Allergy (Unknown, Verified 11/20/23 16:54) tingling feeling in throat dulaglutide [From Trulicity] Adverse Reaction (Intermediate, Verified 11/20/23 16:54) Low sugars cahsews Allergy (Severe, Uncoded 11/20/23 16:54) Rash Medication List - Last Reconciled 11/26/23 by Kurt Arroyo MD alcohol swabs (Alcohol Prep Pads) 1 pad topical TID atorvastatin 10 mg PO BEDTIME 30 days blood sugar diagnostic (FreeStyle Lite Strips) As directed blood-glucose meter (FreeStyle Lite Meter kit) As directed bupropion HCl XL 300 mg PO QAM 90 days cetirizine (Zyrtec) 10 mg PO DAILY 10 days dextroamphetamine-amphetamine 20 mg 1 tab PO DAILY dulaglutide (Trulicity) 0.75 mg (0.5 mL) subcut QWEEK famotidine 40 mg PO BEDTIME 30 days fenofibrate nanocrystallized 145 mg PO DAILY 30 days fluticasone propionate 50 mcg/actuation (24 Hour Allergy Relief) 1 spray intranasal BID ibuprofen 800 mg PO TID PRN 30 days lancets (FreeStyle Lancets) As directed linaclotide (Linzess) 145 mcg PO QAM 30 days metformin 500 mg PO BID 30 days multivitamin 1 tab PO DAILY 90 days oxycodone-acetaminophen 5-325 mg (Percocet) 1 tab PO Q8H 28 days pantoprazole 40 mg PO DAILY polyethylene glycol 3350 (Gavilax) 17 grams PO DAILY PRN quetiapine 100 mg PO BEDTIME 30 days sertraline 50 mg PO DAILY 30 days tiotropium bromide 2.5 mcg/actuation (Spiriva Respimat) 2 puffs PO DAILY tizanidine 2 mg (1/2 x 4 mg) PO BEDTIME PRN 30 days Ventolin HFA 90 mcg/actuation (albuterol sulfate) 2 puffs inhalation Q6H PRN 30 days NS Tobacco use date assessed: 11/20/23 Dental Screening Dental Screen Date: 11/20/23 Did you have a dental visit in the last 12 months?: Yes Did you have a dental problem in the last 6 months where you did not have access to dental care?: No Was dental information given to patient?: Patient has dentist HPI 4 month f/u HPI Details Patient comes in today for her follow up visit States that she went to the ER a couple of weeks ago for increased diffuse pain and weakness, fatigue, frequent sensation of brain fog and multiple other non- specific symptoms Work ups done at the ER included labs, which were mostly unrevealing, and a head CT, which also came out negative for any acute findings She was then reassured of her normal findings and was discharged back home with instructions to follow-up with her PCP [facility] She continues to complain of diffuse myalgias and multiple joint pains as well a s frequent sensation of generalized weakness and fatigue Relates (+) on and off headaches and occasional dizziness She denies any exertional chest pains or increased shortness of breath No nausea/vomiting, no abdominal pain but relates (+) recurrent heartburns lately No change in bowel habits noted [facility] Medical History (Updated 11/26/23 @ 05:20 by Kurt Arroyo MD) Chronic constipation Fibromyalgia Family history of ovarian cancer Hemorrhoids with complication Mixed hyperlipidemia Pure hypercholesterolemia Type 2 diabetes mellitus with hyperglycemia Varicose veins of bilateral lower extremities with pain Lumbar degenerative disc disease Anxiety GERD without esophagitis Diabetes mellitus Bilateral flank pain Varicose veins of left lower extremity with pain Dizziness Left ear pain Pressure sensation in left ear UTI (urinary tract infection) HTN (hypertension) Lower back pain Obesity (BMI 30-39.9) Menorrhagia Knee pain, bilateral Depression Allergic rhinitis Hemorrhoid Asthma Surgical History Hx of tubal ligation History of esophagogastroduodenoscopy (EGD) History of endometrial ablation History of carpal tunnel surgery History of hemorrhoidectomy Family History Father Diabetes Asthma Hepatitis Mother Diabetes Sleep apnea Ischemic cerebrovascular accident (CVA) Ovarian cancer, Onset Age: 52 Maternal Grandmother Diabetes Breast cancer, Onset Age: 50 Maternal Grandfather Stroke Paternal Grandfather Lung cancer Sister Ovarian cancer, Onset Age: 30 Social History Household Members: Family Housing: House Alcohol intake: never Comment: medicated in PACU Patient Tobacco Use Status: Former Tobacco user e-Cigarette/Vaping Use: Never Used Second Hand Smoke Exposure: Yes service: No Current occupational status: employed 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 1. Little interest or pleasure in doing things: nearly every day 2. Feeling down, depressed, or hopeless: nearly every day 3. Trouble falling or staying asleep, or sleeping too much: nearly every day 4. Feeling tired or having little energy: nearly every day 5. Poor appetite or overeating: nearly every day 6. Feeling bad about yourself - or that you are a failure or have let yourself or your family down: not at all 7. Trouble concentrating on things, such as reading the newspaper or watching television: nearly every day 8. Moving or speaking so slowly that other people could have noticed. Or the opposite - being so fidgety or restless that you have been moving around a lot more than usual: nearly every day 9. Thoughts that you would be better off or of hurting yourself in some way: not at all Total score: 21 Depression Screening Interpretation: Positive Depression Screening Follow-up: Existing condition and In treatment Depression Screening Done: Yes 11493 - PHQ-9 Billing: Yes Source: Developed by Drs. Tommy Mccarty, Honey Mejia, Gino Bearden and colleagues, with an educational sandy from [employer]. Thrive Questionnaire Date Thrive assessed: 11/20/23 I am a: Patient What is your living situation today?: I have a steady place to live Within the past 12 months, did the food you bought not last and you didn't have the money to get more?: Never true Within the past 12 months, did you worry whether your food would run out before you got money to buy more?: Never true Do you have trouble paying for medicines?: No Do you have trouble getting transportation to medical appointments?: No Do you have trouble paying your heating and electricity bill?: No Do you have trouble taking care of your child, family member or friend?: No Do you have trouble with day-to-day activities such as bathing, preparing meals, shopping, managing finances, etc.?: No Are you currently unemployed and looking for a job?: No Are you interested in more education?: No Please select the resources that you would like help with: None Currently or been in a relationship where the following occur: No concerns reported THRIVE Score: 0 AUDIT C Alcohol Use Questionnaire (AUDIT-C) 1. How often do you have a drink containing alcohol?: Never 3. How often do you have six or more drinks on one occasion?: Never Total Score: 0 Score Reviewed/Action Taken: Yes JAIDA-7 AMB Questionnaire JAIDA-7 Date JAIDA - 7 assessed: 11/20/23 Feeling nervous, anxious, or on edge: 3 = Nearly every day Not being able to stop or control worryin = Nearly every day Worrying too much about different things: 3 = Nearly every day Trouble relaxin = Nearly every day Being so restless that it is hard to sit still: 3 = Nearly every day Becoming easily annoyed or irritable: 3 = Nearly every day Feeling afraid as if something awful might happen: 3 = Nearly every day Total JAIDA-7 score (0-4 normal; 5-9 mild; 10-14 moderate; 15-21 severe): 21 Source: Developed by Drs. Tommy Mccarty, Honey Mejia, Gino Bearden and colleagues, with an educational sandy from [employer]. Review of Systems Const Denies chills, Reports fatigue, Denies fever(s), Reports headache(s) (on and off), Reports lethargy and Reports weakness ENT Denies dysphagia, Reports dizziness (occasional), Denies otalgia, Reports headache(s) (on and off), Denies nasal congestion, Reports neck pain, Denies odynophagia and Denies sore throat Card Denies chest pain, Denies chest pain with activity, Denies palpitations and Denies dyspnea Resp Denies chest congestion, Denies cough and Denies dyspnea GI Details: (+) on and off rectal discomfort Denies abdominal pain, Denies constipation, Denies dysphagia, Reports heartburn (recurrent), Denies diarrhea, Denies nausea, Denies odynophagia and Denies vomiting Denies difficulty voiding, Denies nocturia, Denies dysuria and Denies urinary urgency Musc Reports back pain (over the lower back - chronic), Reports myalgias (diffuse), Reports arthralgias (involving multiple joints) and Reports neck pain Skin/Breast Denies rash Neuro Reports dizziness (occasional), Reports headache(s) (on and off) and Reports weakness Psych Reports anxiety, Reports depression (increasing) and Reports difficulty concentrating Endo Reports fatigue and Denies palpitations Physical exam (Primary Care) Vital Signs: Last Vital Signs Pulse 78 11/20/23 16:08 BP 124/80 11/20/23 16:08 Pulse Ox 95 11/20/23 16:08 Oxygen Delivery Method Room Air 11/20/23 16:08 BMI result Body Mass Index 34.8 Tobacco/Smoking Status: Tobacco use Status Tobacco use date assessed 11/20/23 11/20/23 16:11 Patient Tobacco Use Status Former Tobacco user 11/20/23 16:11 e-Cigarette/Vaping Use Never Used 11/20/23 16:11 PHQ-9: PHQ-9 Score PHQ-9: Total score 21 11/20/23 17:03 Depression Screening Interpretation: Positive Depression Screening Follow-up: Existing condition and In treatment Thrive Assessment: Date of Thrive Assessment Date Thrive assessed 11/20/23 11/20/23 16:11 Currently or been in a relationship where the following occur: No concerns reported Const General: no acute distress and alert HENMT Ears: TM's normal bilaterally and EAC's normal Throat: Yes posterior oropharynx normal and Yes tonsils normal (no TP congestion noted) Neck Neck: Yes no lymphadenopathy and Yes supple Thyroid: Thyroid normal Lymphatic: no lymphadenopathy noted Resp Auscultation: clear to auscultation bilaterally, no rales and no wheezes Cardio Rate: regular rate Rhythm: regular rhythm Heart sounds: no murmurs GI Palpation (GI): Soft to palpation, nontender and no guarding Auscultation: normal bowel sounds General: Yes no CVA tenderness Back/Spine/Pelvis Back: no CVA tenderness Cervical Spine: Cervical spine tenderness Thoracic/Lumbar Spine: lumbar spinal tenderness Skin Rashes: no rashes Extrem General: Yes no clubbing, cyanosis or edema Right upper extremity: shoulder/upper arm Details: tenderness (diffusely over the scapular area) Left upper extremity: shoulder/upper arm Details: tenderness (diffusely over the scapular areas) Right lower extremity: knee ((+) tender hard nodular lesion just below the right patella) Results Reviewed Results Reviewed: Laboratory Tests 04/30/23 11/09/23 11/09/23 08:08 13:58 17:18 WBC 10.3 Hgb 12.5 Hct 34.3 L Plt Count 366 Sodium 140 Potassium 3.8 Creatinine 0.62 Estimated GFR > 60 Random Glucose 84 Hemoglobin A1c % 6.2 H Calcium 9.0 Magnesium 2.1 AST 27 ALT 43 H Ur Specific [place] 1.025 Urine Protein Negative Urine Glucose (UA) Negative Urine Blood Negative Urine Nitrite Negative Ur Leukocyte Esterase Negative Coding Level of Care Code Est Pt Level 4 (29299) Diagnoses Type 2 diabetes mellitus without complication, without long-term current use of insulin E11.9 Diabetes mellitus type: type 2 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 insulin use: without watermelon harvesting supervisor use Diabetes mellitus complication status: without complication Mixed hyperlipidemia E78.2 GERD without esophagitis K21.9 Moderate persistent asthma without complication J45.40 Asthma severity: moderate Asthma persistence: persistent Asthma complication type: uncomplicated Degeneration of intervertebral disc of lumbar region with discogenic back pain M51.360 Disc-related pain type: discogenic back pain only Varicose veins of bilateral lower extremities with pain I83.813 Allergic rhinitis, unspecified seasonality, unspecified trigger J30.9 Allergic rhinitis trigger: unspecified Allergic rhinitis seasonality: unspecified Fibromyalgia M79.7 Arthralgia, unspecified joint M25.50 Joint pain location: unspecified RBC microcytosis R71.8 Chronic constipation K59.09 Attention deficit disorder, unspecified type F98.8 Attention deficit type: unspecified type Anxiety F41.9 Episode of recurrent major depressive disorder, unspecified depression episode severity F33.9 Depression Type: major depressive disorder Major depression recurrence: recurrent Active/Remission status: currently active Major depression episode severity: unspecified Obesity (BMI 30-39.9) E66.9 Assessment & Plan Assessment & Plan (1) Diabetes mellitus: Code(s): E11.9 - Type 2 diabetes mellitus without complications Category: Medical Qualifiers: Diabetes mellitus type: type 2 Diabetes mellitus mcfp insulin use: without mcfp use Diabetes mellitus complication status: without complication Qualified Code(s): E11.9 - Type 2 diabetes mellitus without complications Plan: Her HgbA1c was at 6.2% when last checked in April 2023 - goal is <7.0% Reinforced diabetic diet Continue Metformin 500 mg BID and Trulicity 0.75 mg Q week (2) Mixed hyperlipidemia: Code(s): E78.2 - Mixed hyperlipidemia Category: Medical Plan: Reinforced low cholesterol diet Continue Fenofibrate 145 mg QD and Atorvastatin 10 mg QD Will recheck her labs and fasting lipids in a couple of months for follow-up (3) GERD without esophagitis: Code(s): K21.9 - Gastro-esophageal reflux disease without esophagitis Category: Medical Plan: Dietary restrictions reinforced Continue Pantoprazole 40 mg QD and Famotidine 40 mg Q HS Due to her recent recurrent heartburns despite being on Rx, will refer her back to GI for further evaluation and management and consideration for EGD (4) Asthma: Code(s): J45.909 - Unspecified asthma, uncomplicated Category: Medical Qualifiers: Asthma severity: moderate Asthma persistence: persistent Asthma complication type: uncomplicated Qualified Code(s): J45.40 - Moderate persistent asthma, uncomplicated Plan: Stable Continue Spiriva Respimat 2.5 mcg 2 inhalations QD and Albuterol HFA 2 inhalations every 6 hours as needed (5) Lumbar degenerative disc disease: Code(s): M51.36 - Other intervertebral disc degeneration, lumbar region Category: Social Hx Qualifiers: Disc-related pain type: discogenic back pain only Qualified Code(s): M51.360 - Other intervertebral disc degeneration, lumbar region with discogenic back pain only Plan: Reinforced activity and weigh-lifting restrictions Lumbar spine x-rays done back in 05/2018 showed (+) mild to moderate degenerative changes at L4-L5 Continue Oxycodone-Acetaminophen 5-325 mg BID PRN Advised that if her low back pain continues to get worse, we will consider referring her again to pain management (6) Varicose veins of bilateral lower extremities with pain: Code(s): I83.813 - Varicose veins of bilateral lower extremities with pain Category: Medical Plan: Follow up with vascular surgery as scheduled (7) Allergic rhinitis: Code(s): J30.9 - Allergic rhinitis, unspecified Category: Medical Qualifiers: Allergic rhinitis trigger: unspecified Allergic rhinitis seasonality: unspecified Qualified Code(s): J30.9 - Allergic rhinitis, unspecified Plan: Continue Cetirizine 10 mg QD PRN and Fluticasone 50 mcg nasal spray QD PRN (8) Fibromyalgia: Code(s): M79.7 - Fibromyalgia Category: Medical Plan: Have discussed with patient that majority of her non-specific symptoms of diffuse myalgia, fatigue and arthralgia appeat to be consistent with fibromyalgia She is encouraged to try to continue to stay active and exercise regularly to better manage her fibromyalgia symptoms but she finds it difficult to do so due to her low back pain and joint pains She has been trialed on Gabapentin in the past but had to stop taking it due to side effects (9) Arthralgia: Code(s): M25.50 - Pain in unspecified joint Category: Medical Qualifiers: Joint pain location: unspecified Qualified Code(s): M25.50 - Pain in unspecified joint Plan: Involving multiple joints but her symptoms appear to be mostly non-specific Suspect that this may be part of her fibromyalgia symptoms Will refer her to rheumatology for further evaluation and management (10) RBC microcytosis: Code(s): R71.8 - Other abnormality of red blood cells Category: Medical Plan: Her CBC has consistently presented with RBC microcytosis and hypochromia but she has never been persistently anemic for any extended period of time Will check her iron function tests and B12 level and if these are normal, will consider getting Hgb electrophoresis for further evaluation (11) Chronic constipation: Code(s): K59.09 - Other constipation Category: Medical Plan: Patient is encouraged again on increased oral fluids and dietary fiber Continue Linzess 145 mcg QD and Miralax 17 gm QD Follow up with GI as scheduled (12) Attention deficit disorder (ADD): Code(s): F98.8 - Other specified behavioral and emotional disorders with onset usually occurring in childhood and adolescence Category: Medical Qualifiers: Attention deficit type: unspecified type Qualified Code(s): F98.8 - Other specified behavioral and emotional disorders with onset usually occurring in childhood and adolescence Plan: Continue Dextroamphetamine-amphetamine 20 mg QD Follow up with psychiatry as scheduled (13) Anxiety: Code(s): F41.9 - Anxiety disorder, unspecified Category: Medical Plan: Continue Bupropion XL 300 mg QD Follow up with psychiatry as scheduled (14) Depression: Code(s): F32.9 - Major depressive disorder, single episode, unspecified Category: Medical Qualifiers: Depression Type: major depressive disorder Major depression recurrence: recurrent Active/Remission status: currently active Major depression episode severity: unspecified Qualified Code(s): F33.9 - Major depressive disorder, recurrent, unspecified Plan: Continue Quetiapine 100 mg Q HS, Sertraline 50 mg QD and Bupropion XL 300 mg QD Follow up with psychiatry as scheduled (15) Obesity (BMI 30-39.9): Code(s): E66.9 - Obesity, unspecified Category: Medical Plan: Reinforced diet/exercise as tolerated/lose weight Plan To return as scheduled in January 2024 for her next annual physical examination Orders: Orders Vitamin D 25-OH Total 01/19/24 E55.9 - Vitamin D deficiency, unspecified C Reactive Protein 01/19/24 M25.50 - Pain in unspecified joint IRON PROFILE 01/19/24 D50.9 - Iron deficiency anemia, unspecified Microalbumin, Random (w Creat) 01/19/24 E11.9 - Type 2 diabetes mellitus without complications TSH reflex Free T4 01/19/24 E78.00 - Pure hypercholesterolemia, unspecified UA CC w/rflx Micro + Cult 01/19/24 R30.0 - Dysuria Vitamin B12 and Folate 01/19/24 E53.8 - Deficiency of other specified B group vitamins Erythrocyte Sedimentation Rate 01/19/24 M79.7 - Fibromyalgia Referrals Rheumatology Referral M25.50 - Pain in unspecified joint Gastroenterology Referral K21.9 - Gastro-esophageal reflux disease without esophagitis
== END 2023-11-20 17:14 | disposition home or self-care (01) ==
PROVIDERS: PCP Internal Medicine; Visit Provider Internal Medicine
DX: E11.9 Type 2 diabetes mellitus without complications (principal); F33.9 Major depressive disorder, recurrent, unspecified; E78.2 Mixed hyperlipidemia; K21.9 Gastro-esophageal reflux disease without esophagitis; J45.40 Moderate persistent asthma, uncomplicated; M51.360 Other intervertebral disc degeneration, lumbar region with discogenic back pain only; I83.813 Varicose veins of bilateral lower extremities with pain; J30.9 Allergic rhinitis, unspecified; M79.7 Fibromyalgia; M25.50 Pain in unspecified joint; R71.8 Other abnormality of red blood cells; K59.09 Other constipation

== ENCOUNTER → 2023-11-20 16:04 | Outpatient (BNVA) | payer OTHER, SELFPAY | PROVIDERS: PCP Internal Medicine; Visit Provider Internal Medicine | DX: E11.9 Type 2 diabetes mellitus without complications (principal); E78.2 Mixed hyperlipidemia; K21.9 Gastro-esophageal reflux disease without esophagitis; J45.40 Moderate persistent asthma, uncomplicated; M51.360 Other intervertebral disc degeneration, lumbar region with discogenic back pain only; I83.813 Varicose veins of bilateral lower extremities with pain; J30.9 Allergic rhinitis, unspecified; M79.7 Fibromyalgia; M25.50 Pain in unspecified joint; R71.8 Other abnormality of red blood cells; K59.09 Other constipation; F98.8 Other specified behavioral and emotional disorders with onset usually occurring in childhood and adolescence; F41.9 Anxiety disorder, unspecified; F33.9 Major depressive disorder, recurrent, unspecified; E66.9 Obesity, unspecified; Z79.84 Long term (current) use of oral hypoglycemic drugs; Z79.891 Long term (current) use of opiate analgesic; Z79.899 Other long term (current) drug therapy | CPT/HCPCS: 96127; 99212 ==

== ENCOUNTER 2024-02-04 16:10 | Outpatient (AMB) | payer OTHER, SELFPAY ==
[2024-02-04 16:13] VITALS: BP 126/80; PULSE 91; O2SAT 98; BMI 34.7
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
== END 2024-02-04 16:58 | disposition home or self-care (01) ==
PROVIDERS: PCP Internal Medicine; Visit Provider Internal Medicine
DX: Z00.00 Encounter for general adult medical examination without abnormal findings (principal); E11.9 Type 2 diabetes mellitus without complications; F33.9 Major depressive disorder, recurrent, unspecified; E78.2 Mixed hyperlipidemia; J30.9 Allergic rhinitis, unspecified; K21.9 Gastro-esophageal reflux disease without esophagitis; J45.40 Moderate persistent asthma, uncomplicated; I83.813 Varicose veins of bilateral lower extremities with pain; M79.7 Fibromyalgia; M51.360 Other intervertebral disc degeneration, lumbar region with discogenic back pain only; M25.50 Pain in unspecified joint; R71.8 Other abnormality of red blood cells

== ENCOUNTER → 2024-02-04 16:10 | Outpatient (BNVA) | payer OTHER, SELFPAY | PROVIDERS: PCP Internal Medicine; Visit Provider Internal Medicine | DX: Z00.00 Encounter for general adult medical examination without abnormal findings (principal); E11.9 Type 2 diabetes mellitus without complications; E78.2 Mixed hyperlipidemia; K21.9 Gastro-esophageal reflux disease without esophagitis; J45.40 Moderate persistent asthma, uncomplicated; J30.9 Allergic rhinitis, unspecified; I83.813 Varicose veins of bilateral lower extremities with pain; M51.360 Other intervertebral disc degeneration, lumbar region with discogenic back pain only; M25.50 Pain in unspecified joint; M79.7 Fibromyalgia; R71.8 Other abnormality of red blood cells; F98.8 Other specified behavioral and emotional disorders with onset usually occurring in childhood and adolescence; F41.9 Anxiety disorder, unspecified; F33.9 Major depressive disorder, recurrent, unspecified; E66.9 Obesity, unspecified; Z68.34 Body mass index [BMI] 34.0-34.9, adult; Z71.3 Dietary counseling and surveillance | CPT/HCPCS: 83036; 96127; 99396 ==

== ENCOUNTER 2024-02-18 07:48 | Outpatient (REF) | payer OTHER, SELFPAY ==
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
--- OUTSIDE RECORDS SUMMARY | 2024-02-18 07:50 | XMS_ITS | Continuity of Care Document ---
Author Organization [facility] Address [address] [address],[address] [place] [address] Phone Care Team Providers Care Call Out Operator Name Role Phone Z-Converted, Provider Unavailable Unavailabl e Medications Medication Instructions Dosage Effective Dates (start - stop) Status Comments metronidazole 500 mg Tab 1 po bid x 7 days 2006 - Active cyclobenzaprine 10 mg Tab 1 Three Times A Day - Active Lodine 400 mg Tab 1 Every Twelve Hours As Needed - Active Flonase 50 mcg/Actuation Nasal [place] 1 puff bilaterally qday - Active Sudafed 30 mg Tab 1 tab PO every 4-6 hours prn - Active naproxen 500 mg Tab 1 Two Times A Day - Active Advance Directives Directive Yes / No Effective Date File Name No Information Encounters Encounter Description Practice Location Reason(s) For Visit Diagnoses Date Provider Providers Copied on Encounter [facility], [address] [address],[address], [place], [place], [id number], tel:[phone] [facility] Vaginitis and vulvovaginit is, unspecified 7 Z-Convert ed Provider. . [facility], [address] [address],[address], [place], [place], [id number], [place] tel:[phone] 2 Converted Locations No Information 7 Z-Convert ed Provider. . [facility], [address] [address],[address], [place], [place], [id number], tel:[phone] 2 Converted Locations No Information 7 Z-Convert ed Provider. . [facility], [address], [place], [place], [id number], [place] tel:[phone] [address] [facility] Lumbar sprain 7 Z-Convert ed Provider. . [facility], [address] [place] [address] 2,Suite [facility], [place], [place], [id number], [place] tel:[phone] 2 Converted Locations No Information 7 Doesther Martines . [address] [place] [address], [place], [place], [id number] . tel:[phone] [facility], [address] [place], [place] [address]ing 2,[address], [place], [place], [id number], [place] tel:[phone] 2 [facility] Allergic rhinitis due to pollen 7 Z-Convert ed Provider. . [facility], [address] [place], [place] [address]ing [address], [place], [place], [id number], [place] tel:[phone] [address] [facility] Carpal tunnel syndrome 7 Z-Convert ed Provider. . [facility], [address] [place] [address],[address], [place], [place], [id number], [place] tel:[phone] 2 Converted Locations No Information 7 Z-Convert [...]
[2024-02-18 08:19] LABS: MANUAL DIFF FLAG NO
[2024-02-18 08:58] LABS: Appearance Urine Cloudy; Color Urine Red; Glucose Urine UA Negative (Negative); Leukocyte Esterase Urine Small (1+) (Negative); Nitrite Urine Negative (Negative); PH 5.5 (5.0-9.0); Specific Gravity - Urine 1.015 (1.005-1.025); UMIC TRIGGER UACC YES; Urine Blood Large (3+) (Negative); Urine Ketones Negative (Negative); Urine Protein 30 (1+) mg/dL (Neg-Trace)
[2024-02-18 08:58] LABS: Basophils Absolute Auto 0.1 X10*3/uL (0.0-0.2); Eosinophils Absolute Auto 0.3 X10*3/uL (0.0-0.4); Eosinophils Percent Auto 3.9 % (0-4); Hematocrit 35.1 % (37.0-47.0); Hemoglobin 12.6 g/dl (12.0-16.0); Imm Gran Abs Auto 0.01 X10*3/uL (0.00-0.03); Imm Gran Pct Auto 0.1 % (0.0-0.4); Lymphocytes Absolute Auto 3.2 X10*3/uL (1.2-4.9); Lymphocytes Percent Auto 40.1 % (20-40); Mean Corpuscular HGB Conc 35.9 g/dl (31.0-35.0); Mean Corpuscular Hemoglobin 25.8 pg (27.0-33.0); Mean Corpuscular Volume 71.8 fL (80.0-98.0); Mean Platelet Volume 10.4 fL (9.4-12.3); Monocytes Absolute Auto 0.5 X10*3/uL (0.1-1.2); Neutrophils Absolute Auto 3.9 x10*3/uL (2.0-8.3); Neutrophils Percent Auto 48.9 % (45-73); Platelet Count 370 X10*3/uL (160-400); Red Blood Count 4.89 X10*6/uL (4.20-5.50); Red Cell Distribution Width 13.1 % (11.0-16.0)
[2024-02-18 09:02] LABS: Bacteria Urine Trace (None Seen); Hyaline Casts Urine 0-2 /LPF (0-2); RBC Urine >20 /HPF (0-2); UACC Culture Trigger YES
[2024-02-18 09:06] LABS: Estimated Average Glucose 123 mg/dL; Hemoglobin A1C 132.7616 umol/L; Hemoglobin A1c % 5.9 % (<6.0); Total Hemoglobin (HGBA1C) 3265.6501 umol/L
[2024-02-18 09:34] LABS: Alanine Aminotransferase 41 U/L (0-31); Albumin Level 4.2 g/dL (3.5-5.0); Alkaline Phosphatase 61 U/L (39-117); Anion Gap 9 (12-20); Aspartate Amino Transferase 26 U/L (5-31); Bilirubin Total 0.3 mg/dL (0.0-1.0); Blood Urea Nitrogen 9 mg/dL (9-16); C Reactive Protein 0.14 mg/dL (< or = 0.50); Calcium 9.2 mg/dL (8.4-10.2); Carbon Dioxide 28 mmol/L (22-29); Chloride 107 mmol/L (96-108); Cholesterol 223 mg/dL (<200); Estimated Glomerular Filt Rate > 60; Glucose Fasting 100 mg/dL (60-99); HDL Cholesterol 46 mg/dL (>40); Iron 58 mcg/dL (30-160); LDL Cholesterol Calculated 133 mg/dL (<100); Percent Iron Saturation 21 % (15-50); Potassium 3.8 mmol/L (3.3-5.1); Sodium 140 mmol/L (135-145); Total Iron Binding Capacity 282 mcg/dL (228-428); Total Protein 7.1 g/dL (6.5-8.0); Triglycerides 224 mg/dL (<150); Unsaturated Iron Binding 224 ug/dL
[2024-02-18 09:47] LABS: Creatinine Urine 126.45 mg/dL; Microalbum/Creatinine Ratio Ur 83.8 ug/mg cr (<30)
[2024-02-18 09:48] LABS: Erythrocyte Sedimentation Rate 4 MM/HR (0-20)
[2024-02-18 09:55] LABS: TSH reflex Free T4 2.25 uIU/mL (0.32-4.0); Vitamin D 25-OH Total 23.3 ng/mL (>30)
[2024-02-18 10:02] LABS: Folate 10.7 ng/mL (> or = 4.0); Vitamin B12 384 pg/mL (200-900)
[2024-02-21 15:49] LABS: Hematocrit 38.4 % (35.0-45.0); Hemoglobin 12.7 g/dL (11.7-15.5); MCH 25.7 pg (27.0-33.0); MCV 77.7 fL (80.0-100.0); RBC 4.94 Million/uL (3.80-5.10); RDW 14.1 % (11.0-15.0)
== END 2024-02-18 07:49 | disposition home or self-care (01) ==
LOC: HO.LAB 07:48
PROVIDERS: PCP Internal Medicine; Visit Provider Internal Medicine
DX: E78.00 Pure hypercholesterolemia, unspecified (principal); E55.9 Vitamin D deficiency, unspecified; E11.9 Type 2 diabetes mellitus without complications; E53.8 Deficiency of other specified B group vitamins; D64.9 Anemia, unspecified; M25.50 Pain in unspecified joint; D50.9 Iron deficiency anemia, unspecified; M79.7 Fibromyalgia; R30.0 Dysuria
CPT/HCPCS: 36415; 80053; 80061; 81001; 82043; 82306; 82570; 82607; 82746; 83020; 83036; 83540; 84443; 85014; 85018; 85025; 85041; 85652; 86140; 87086; 87088; 87147; 87186

== ENCOUNTER 2024-02-25 09:28 | Outpatient (AMB) | payer OTHER, SELFPAY ==
--- NOTE | 2024-02-25 09:29 | MHC.OFFVIS ---
Intake Visit Reasons: AUB Workforce Specialist: Workforce Specialist Present (Angelia) Accompanied by: Self / Same As Patient Allergies gabapentin Allergy (Unknown, Verified 02/25/24 09:31) Tingling feeling in throat zolpidem [From AMBIEN] Allergy (Unknown, Verified 02/25/24 09:31) tingling feeling in throat dulaglutide [From Trulicity] Adverse Reaction (Intermediate, Verified 02/25/24 09:31) Low sugars cahsews Allergy (Severe, Uncoded 02/04/24 16:42) Rash Medication List - Last Reconciled 02/25/24 by Peggy Richardson CNM alcohol swabs (Alcohol Prep Pads) 1 pad topical TID atorvastatin 10 mg PO BEDTIME 30 days blood sugar diagnostic (FreeStyle Lite Strips) As directed blood-glucose meter (FreeStyle Lite Meter kit) As directed cetirizine (Zyrtec) 10 mg PO DAILY 10 days dextroamphetamine-amphetamine 20 mg 1 tab PO DAILY dulaglutide (Trulicity) 0.75 mg (0.5 mL) subcut QWEEK fluticasone propionate 50 mcg/actuation (24 Hour Allergy Relief) 1 spray intranasal BID ibuprofen 800 mg PO TID PRN 30 days lancets (FreeStyle Lancets) As directed metformin 500 mg PO BID 30 days multivitamin 1 tab PO DAILY 90 days oxycodone-acetaminophen 5-325 mg (Percocet) 1 tab PO Q8H 28 days pantoprazole 40 mg PO DAILY polyethylene glycol 3350 (Gavilax) 17 grams PO DAILY PRN quetiapine 100 mg PO BEDTIME 30 days tiotropium bromide 2.5 mcg/actuation (Spiriva Respimat) 2 puffs PO DAILY tizanidine 2 mg (1/2 x 4 mg) PO BEDTIME PRN 30 days Ventolin HFA 90 mcg/actuation (albuterol sulfate) 2 puffs inhalation Q6H PRN 30 days NS Is last menstrual period known: Yes Last menstrual period: 01/21/24 Patient : No HPI HPI AUB: Details: Patient presents to the 501 office for a problem with ongoing abnormal bleeding. She has seen Dr. Mason for this in the past and had an endometrial biopsy with him and when she last presented to the office for visit with him in June there was a plan made for further blood tests an ultrasound followed by an endometrial biopsy. The patient tells me that she had had an endometrial biopsy attempted previous to the endometrial ablation in the past and it was so painful that it needed to be done under anesthesia and so she was afraid of the pain and decided not to come for those appointments. The bleeding has proceeded often on but for the last 3 weeks is more with blood clots +she has cramping. She is wondering if she has a UTI but she says she was just seen by Dr. Arroyo and he ordered blood tests and she just very recently did a clean-catch UA C&S but she does not know the results yet she has an appointment with him tomorrow. She is feeling very tired and wonders if she is anemic she is feeling frustrated by all the bleeding and cramping and wants to move forward in dealing with it she also know she has a fibroid but says it was small. She says hysterectomy was discussed but she was afraid of menopause. FOR[facility]LY [facility] Medical History Chronic constipation Fibromyalgia Family history of ovarian cancer Hemorrhoids with complication Mixed hyperlipidemia Pure hypercholesterolemia Type 2 diabetes mellitus with hyperglycemia Varicose veins of bilateral lower extremities with pain Lumbar degenerative disc disease Anxiety GERD without esophagitis Diabetes mellitus Bilateral flank pain Varicose veins of left lower extremity with pain Dizziness Left ear pain Pressure sensation in left ear UTI (urinary tract infection) HTN (hypertension) Lower back pain Obesity (BMI 30-39.9) Menorrhagia Knee pain, bilateral Depression Allergic rhinitis Hemorrhoid Asthma Surgical History Hx of tubal ligation History of esophagogastroduodenoscopy (EGD) History of endometrial ablation History of carpal tunnel surgery History of hemorrhoidectomy Family History Father Diabetes Asthma Hepatitis Mother Diabetes Sleep apnea Ischemic cerebrovascular accident (CVA) Ovarian cancer, Onset Age: 52 Maternal Grandmother Diabetes Breast cancer, Onset Age: 50 Maternal Grandfather Stroke Paternal Grandfather Lung cancer Sister Ovarian cancer, Onset Age: 30 Social History Household Members: Family Housing: House Alcohol intake: never Comment: medicated in PACU Patient Tobacco Use Status: Former Tobacco user e-Cigarette/Vaping Use: Never Used Second Hand Smoke Exposure: Yes service: No Current occupational status: employed 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 Cervix multiparous pink smooth closed mobile nontender uterus anteverted mobile nontender does not feel especially enlarged adnexa nontender fairly good muscle tone. External Female Exam: normal external appearance Speculum Exam - Vagina: normal appearance of the vagina and normal vaginal discharge Speculum Exam - Cervix: normal appearance of the cervix Bimanual exam- vagina & uterus: normal bimanual exam, uterine size normal, consistency normal, uterine mobility normal, uterine shape normal and non-tender Bimanual Exam- Adnexa, other: normal adnexae, no masses and No adnexal tenderness Results Reviewed Results Reviewed: I reviewed previous visits 06/25/2023. Reviewed the patient's very recent urinalysis and culture ordered on 02/[address] Arroyo showing UTI. Reviewed that she is not anemic thyroid level within normal limits though elevated from previous. No recent pelvic ultrasound as previously ordered Assessment & Plan Assessment & Plan (1) UTI (urinary tract infection): Code(s): N39.0 - Urinary tract infection, site not specified Category: Medical Qualifiers: Urinary tract infection type: acute cystitis Hematuria presence: without hematuria Qualified Code(s): N30.00 - Acute cystitis without hematuria (2) Menorrhagia: Comment: Status post NovaSure endometrial ablation Code(s): N92.0 - Excessive and frequent menstruation with regular cycle Category: Medical Qualifiers: Menorrhagia type: with regular cycle Qualified Code(s): N92.0 - Excessive and frequent menstruation with regular cycle (3) Abnormal uterine bleeding: Comment: With myoma status post endometrial ablation; in June 28 patient opted not to follow through with plan made, patient to resume all steps in plan at this time with citizen participation specialist. Code(s): N93.9 - Abnormal uterine and vaginal bleeding, unspecified Category: Medical (4) Cervical cancer screening: Comment: Previous Pap negative with negative HPV in February of 2019 Pap done today at problem visit for abnormal bleeding as it is due. Code(s): Z12.4 - Encounter for screening for malignant neoplasm of cervix Category: Medical Plan I reviewed the previously made plan that had not been followed up on. Reviewed the patient's reasons she is afraid of the pain of an endometrial biopsy without anesthesia and just did not want to go through that. Reviewed that it is important to follow-up and her next visit should be with citizen participation specialist and discuss her reasons for her fear and she should discuss if it can be done under anesthesia again as it was in the past. I recommend she schedule the ultrasound that had been ordered get any blood work that is remaining that did not get done. And I asked her to go straight to Dr. Arroyo's office now and discuss treatment for the UTI. I did a Pap smear I did testing for gonorrhea chlamydia trichomoniasis as well as Gardnerella and Citlaly discussed the Pap smear may not come back adequate secondary to the blood. Her next visit will be with citizen participation specialist as previously scheduled but canceled by patient. Coding Level of Care Code Est Pt Level 3 (91863) Diagnoses Urinary tract infection with hematuria, site unspecified N30.00 Urinary tract infection type: acute cystitis Hematuria presence: without hematuria Menorrhagia with regular cycle N92.0 Menorrhagia type: with regular cycle Abnormal uterine bleeding N93.9 Cervical cancer screening Z12.4 Time Spent (min) 30
== END 2024-02-25 13:13 | disposition home or self-care (01) ==
LOC: HO.HWSM 09:28
PROVIDERS: PCP Internal Medicine; Visit Provider Advanced Practice Midwife
DX: N30.00 Acute cystitis without hematuria (principal); N92.0 Excessive and frequent menstruation with regular cycle; N93.9 Abnormal uterine and vaginal bleeding, unspecified; Z12.4 Encounter for screening for malignant neoplasm of cervix
CPT/HCPCS: 99213

== ENCOUNTER 2024-02-25 09:28 | Outpatient (REF) | payer OTHER, SELFPAY ==
[2024-02-27 04:51] LABS: CT PCR NOT DETECTED (Not Detect.); NG PCR NOT DETECTED (Not Detect.)
[2024-02-27 13:47] LABS: Bacterial Vaginosis PCR NEGATIVE (Negative); Candida Group PCR NOT DETECTED (Not Detect); Candida glab krusei PCR NOT DETECTED (Not Detect); Trichomonas vaginalis PCR NOT DETECTED (Not Detect)
== END 2024-02-25 09:29 | disposition home or self-care (01) ==
LOC: HO.LAB 09:28
PROVIDERS: PCP Internal Medicine; Visit Provider Advanced Practice Midwife
DX: N93.9 Abnormal uterine and vaginal bleeding, unspecified (principal)
CPT/HCPCS: 81515; 87491; 87591; 99212

== ENCOUNTER 2024-02-25 10:49 | Outpatient (REF) | payer OTHER, SELFPAY ==
[2024-03-05 08:24] LABS: HPV Genotype 16 Negative (Negative); HPV Genotype 18 Negative (Negative); HPV High Risk Negative (Negative)
== END 2024-02-25 10:50 | disposition home or self-care (01) ==
LOC: HO.LNP 10:49
PROVIDERS: Visit Provider Advanced Practice Midwife
DX: N93.9 Abnormal uterine and vaginal bleeding, unspecified (principal)
CPT/HCPCS: 81515; 87491; 87591; 87626; 88175; 99212

== ENCOUNTER 2024-02-26 13:18 | Outpatient (AMB) | payer OTHER, SELFPAY ==
[2024-02-26 13:27] VITALS: BP 120/84; PULSE 104; O2SAT 98; BMI 34.2
--- NOTE | 2024-02-26 13:27 | A.OFFPC_ITS ---
Vital Signs 02/26/24 13:27 Height 5 ft 4 in Weight 199 lb 6 oz BMI 34.2 BP 120/84 Blood Pressure Location Lt brachial Position Sitting Pulse 104 H Pulse Source Pulse Oximeter Pulse Oximetry (%) 98 Oxygen Delivery Method Room Air Intake Visit Reasons: Pain in Stomach [employer] Hcm Consultant Required: No Accompanied by: Self / Same As Patient Allergies gabapentin Allergy (Unknown, Verified 02/26/24 13:44) Tingling feeling in throat zolpidem [From AMBIEN] Allergy (Unknown, Verified 02/26/24 13:44) tingling feeling in throat dulaglutide [From Trulicity] Adverse Reaction (Intermediate, Verified 02/26/24 13:44) Low sugars cahsews Allergy (Severe, Uncoded 02/26/24 13:44) Rash Medication List - Last Reconciled 02/26/24 by Kurt Arroyo MD alcohol swabs (Alcohol Prep Pads) 1 pad topical TID atorvastatin 10 mg PO BEDTIME 30 days blood sugar diagnostic (FreeStyle Lite Strips) As directed blood-glucose meter (FreeStyle Lite Meter kit) As directed cetirizine (Zyrtec) 10 mg PO DAILY 10 days dextroamphetamine-amphetamine 20 mg 1 tab PO DAILY dulaglutide (Trulicity) 0.75 mg (0.5 mL) subcut QWEEK fluticasone propionate 50 mcg/actuation (24 Hour Allergy Relief) 1 spray intranasal BID hydroxyzine HCl 25 mg PO TID PRN ibuprofen 800 mg PO TID PRN 30 days lancets (FreeStyle Lancets) As directed metformin 500 mg PO BID 30 days multivitamin 1 tab PO DAILY 90 days oxycodone-acetaminophen 5-325 mg (Percocet) 1 tab PO Q8H 28 days pantoprazole 40 mg PO DAILY polyethylene glycol 3350 (Gavilax) 17 grams PO DAILY PRN quetiapine 100 mg PO BEDTIME 30 days tiotropium bromide 2.5 mcg/actuation (Spiriva Respimat) 2 puffs PO DAILY tizanidine 2 mg (1/2 x 4 mg) PO BEDTIME PRN 30 days Ventolin HFA 90 mcg/actuation (albuterol sulfate) 2 puffs inhalation Q6H PRN 30 days NS Tobacco use date assessed: 02/26/24 Dental Screening Dental Screen Date: 02/26/24 Did you have a dental visit in the last 12 months?: Yes Did you have a dental problem in the last 6 months where you did not have access to dental care?: No Was dental information given to patient?: Patient has dentist HPI Pain in Stomach HPI Details Patient comes in today complaining of recurrent lower abdominal pain for the past few days States that she just found out that she has a UTI based on the results of her labs done last month and that this is likely the reason for her current symptoms Would like to get something to help clear up her UTI She is also being sent for a pelvic US by gynecology for further evaluation of her vaginal bleeding, which she states has been occurring on and off for the past 3 months now She denies any fever, headaches or dizziness Denies any chest pains, no increased SOB No nausea/vomiting and no change in bowel habits noted Adds that she has been passing out painful tonsillar stones lately as she often sees them in her throat and she tries to get these out as often as she can every time she sees them Would like to see ENT for further evaluation and management of these stones She had her follow up labs done last month - to discuss her results Patient recalls being advised that her TSH was high and she would like to have this checked out further She is advised and reassured that her TSH was normal on her recent labs and that her thyroid gland also appears normal on exam She had a thyroid US done back in 2017 that came out normal and there is no need to repeat the US at this time [facility] Medical History Chronic constipation Fibromyalgia Family history of ovarian cancer Hemorrhoids with complication Mixed hyperlipidemia Pure hypercholesterolemia Type 2 diabetes mellitus with hyperglycemia Varicose veins of bilateral lower extremities with pain Lumbar degenerative disc disease Anxiety GERD without esophagitis Diabetes mellitus Bilateral flank pain Varicose veins of left lower extremity with pain Dizziness Left ear pain Pressure sensation in left ear UTI (urinary tract infection) HTN (hypertension) Lower back pain Obesity (BMI 30-39.9) Menorrhagia Knee pain, bilateral Depression Allergic rhinitis Hemorrhoid Asthma Surgical History Hx of tubal ligation History of esophagogastroduodenoscopy (EGD) History of endometrial ablation History of carpal tunnel surgery History of hemorrhoidectomy Family History Father Diabetes Asthma Hepatitis Mother Diabetes Sleep apnea Ischemic cerebrovascular accident (CVA) Ovarian cancer, Onset Age: 52 Maternal Grandmother Diabetes Breast cancer, Onset Age: 50 Maternal Grandfather Stroke Paternal Grandfather Lung cancer Sister Ovarian cancer, Onset Age: 30 Social History Household Members: Family Housing: House Alcohol intake: never Comment: medicated in PACU Patient Tobacco Use Status: Former Tobacco user e-Cigarette/Vaping Use: Never Used Second Hand Smoke Exposure: Yes service: No Current occupational status: employed 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 1. Little interest or pleasure in doing things: nearly every day 2. Feeling down, depressed, or hopeless: nearly every day 3. Trouble falling or staying asleep, or sleeping too much: nearly every day 4. Feeling tired or having little energy: nearly every day 5. Poor appetite or overeating: nearly every day 6. Feeling bad about yourself - or that you are a failure or have let yourself or your family down: not at all 7. Trouble concentrating on things, such as reading the newspaper or watching television: nearly every day 8. Moving or speaking so slowly that other people could have noticed. Or the opposite - being so fidgety or restless that you have been moving around a lot more than usual: nearly every day 9. Thoughts that you would be better off or of hurting yourself in some way: not at all Total score: 21 Depression Screening Interpretation: Positive Depression Screening Follow-up: Existing condition and In treatment Depression Screening Done: Yes 42993 - PHQ-9 Billing: Yes Source: Developed by Drs. Tommy Mccarty, Honey Mejia, Gino Bearden and colleagues, with an educational sandy from [employer]. Thrive Questionnaire Date Thrive assessed: 02/26/24 I am a: Patient What is your living situation today?: I have a steady place to live Within the past 12 months, did the food you bought not last and you didn't have the money to get more?: Sometimes True Within the past 12 months, did you worry whether your food would run out before you got money to buy more?: Sometimes True Do you have trouble paying for medicines?: Yes Do you have trouble getting transportation to medical appointments?: No Do you have trouble paying your heating and electricity bill?: No Do you have trouble taking care of your child, family member or friend?: No Do you have trouble with day-to-day activities such as bathing, preparing meals, shopping, managing finances, etc.?: I choose not to answer this question Are you currently unemployed and looking for a job?: No Are you interested in more education?: No Please select the resources that you would like help with: None Currently or been in a relationship where the following occur: No concerns repor aura THRIVE Score: 2 AUDIT C Alcohol Use Questionnaire (AUDIT-C) 1. How often do you have a drink containing alcohol?: Never 3. How often do you have six or more drinks on one occasion?: Never Total Score: 0 Score Reviewed/Action Taken: Yes JAIDA-7 AMB Questionnaire JAIDA-7 Date JAIDA - 7 assessed: 02/26/24 Feeling nervous, anxious, or on edge: 3 = Nearly every day Not being able to stop or control worryin = Nearly every day Worrying too much about different things: 3 = Nearly every day Trouble relaxin = Nearly every day Being so restless that it is hard to sit still: 3 = Nearly every day Becoming easily annoyed or irritable: 3 = Nearly every day Feeling afraid as if something awful might happen: 0 = Not at all Total JAIDA-7 score (0-4 normal; 5-9 mild; 10-14 moderate; 15-21 severe): 18 Source: Developed by Drs. Tommy Mccarty, Honey Mejia, Gino Bearden and colleagues, with an educational sandy from [employer]. Review of Systems Const Denies chills, Reports fatigue, Denies fever(s) and Denies headache(s) ENT Denies dysphagia, Denies dizziness, Denies otalgia, Denies headache(s), Reports neck pain, Denies odynophagia and Denies sore throat Card Denies chest pain, Denies palpitations and Denies dyspnea Resp Denies chest congestion, Denies cough and Denies dyspnea GI Reports abdominal pain (over the lower abdomen), Denies constipation, Denies dysphagia, Denies diarrhea, Denies nausea, Denies odynophagia and Denies vomiting Denies difficulty voiding, Reports nocturia, Reports dysuria (at times) and Reports urinary urgency Musc Reports back pain (over the lower back - chronic), Reports myalgias (diffuse), Reports arthralgias (involving multiple joints) and Reports neck pain Skin/Breast Denies rash Neuro Denies dizziness and Denies headache(s) Psych Reports anxiety, Reports depression and Reports difficulty concentrating Endo Reports fatigue and Denies palpitations Silvio/Lymph Denies easy bruising Physical exam (Primary Care) Vital Signs: Last Vital Signs Pulse 104 H 02/26/24 13:27 BP 120/84 02/26/24 13:27 Pulse Ox 98 02/26/24 13:27 Oxygen Delivery Method Room Air 02/26/24 13:27 BMI result Body Mass Index 34.2 Tobacco/Smoking Status: Tobacco use Status Tobacco use date assessed 02/26/24 02/26/24 13:33 Patient Tobacco Use Status Former Tobacco user 02/26/24 13:33 e-Cigarette/Vaping Use Never Used 02/26/24 13:33 PHQ-9: PHQ-9 Score PHQ-9: Total score 21 02/26/24 13:56 Depression Screening Interpretation: Positive Depression Screening Follow-up: Existing condition and In treatment Thrive Assessment: Date of Thrive Assessment Date Thrive assessed 02/26/24 02/26/24 13:33 Currently or been in a relationship where the following occur: No concerns reported Const General: no acute distress and alert HENMT Ears: TM's normal bilaterally and EAC's normal Throat: Yes posterior oropharynx normal and Yes tonsils normal (no TP congestion noted) Neck Neck: Yes supple and No lymphadenopathy Thyroid: Thyroid normal Resp Auscultation: clear to auscultation bilaterally, no rales and no wheezes Cardio Rate: regular rate Rhythm: regular rhythm Heart sounds: no murmurs GI Palpation (GI): Soft to palpation and nontender Auscultation: normal bowel sounds General: Yes no CVA tenderness Back/Spine/Pelvis Back: no CVA tenderness Cervical Spine: Cervical spine tenderness Thoracic/Lumbar Spine: lumbar spinal tenderness Skin Rashes: no rashes Extrem General: Yes no clubbing, cyanosis or edema Right upper extremity: shoulder/upper arm Details: tenderness (diffusely over the scapular area) Left upper extremity: shoulder/upper arm Details: tenderness (diffusely over the scapular areas) Right lower extremity: knee ((+) tender hard nodular lesion just below the right patella) Results Reviewed Results Reviewed: Laboratory Tests 02/18/24 02/18/24 08:17 08:25 WBC 8.0 Hgb 12.6 Hct 35.1 L Plt Count 370 ESR 4 Hemoglobin C 29.8 H Sodium 140 Potassium 3.8 Creatinine 0.66 Estimated GFR > 60 Fasting Glucose 100 H Hemoglobin A1c % 5.9 Calcium 9.2 Iron 58 TIBC 282 % Saturation 21 AST 26 ALT 41 H Triglycerides 224 H Cholesterol 223 H LDL Cholesterol, Calc 133 H HDL Cholesterol 46 Vitamin B12 384 25-OH Vitamin D Total 23.3 L TSH 2.25 Ur Specific Morrison 1.015 Urine Protein 30 (1+) H Urine Glucose (UA) Negative Urine Blood Large (3+) H Urine Nitrite Negative Urine WBC 11-20 H Coding Level of Care Code Est Pt Level 4 (36360) Diagnoses Mixed hyperlipidemia E78.2 Type 2 diabetes mellitus without complication, without long-term current use of insulin E11.9 Diabetes mellitus type: type 2 Diabetes mellitus bed bug exterminator insulin use: without bed bug exterminator use Diabetes mellitus complication status: without complication GERD without esophagitis K21.9 Moderate persistent asthma without complication J45.40 Asthma severity: moderate Asthma persistence: persistent Asthma complication type: uncomplicated Allergic rhinitis, unspecified seasonality, unspecified trigger J30.9 Allergic rhinitis trigger: unspecified Allergic rhinitis seasonality: unspecified Varicose veins of bilateral lower extremities with pain I83.813 Degeneration of intervertebral disc of lumbar region with discogenic back pain M51.360 Disc-related pain type: discogenic back pain only Fibromyalgia M79.7 Arthralgia, unspecified joint M25.50 Joint pain location: unspecified RBC microcytosis R71.8 Chronic constipation K59.09 Calculus of tonsil J35.8 Urinary tract infection without hematuria, site unspecified N39.0 Urinary tract infection type: site unspecified Hematuria presence: without hematuria Attention deficit disorder, unspecified type F98.8 Attention deficit type: unspecified type Anxiety F41.9 Episode of recurrent major depressive disorder, unspecified depression episode severity F33.9 Depression Type: major depressive disorder Major depression recurrence: recurrent Active/Remission status: currently active Major depression episode severity: unspecified Obesity (BMI 30-39.9) E66.9 Additional Codes PHQ-9 - 28671 - PHQ-9 Billing: Yes ([id number]) Assessment & Plan Assessment & Plan (1) Mixed hyperlipidemia: Code(s): E78.2 - Mixed hyperlipidemia Category: Medical Plan: Results of her labs done last month reviewed and discussed with patient - she is cautioned that her cholesterol levels have all increased significantly from previous Reinforced low cholesterol diet - she admits to poor compliance with her diet over the recent holiday season Continue Fenofibrate 145 mg QD and Atorvastatin 10 mg QD - patient also admits to poor compliance with her medications lately Will recheck her labs and fasting lipids in 3 months for follow-up - she is advised that we will need to increase her medication dosage if her numbers do not improve significantly by her next appointment in April 2024 (2) Diabetes mellitus: Code(s): E11.9 - Type 2 diabetes mellitus without complications Category: Medical Qualifiers: Diabetes mellitus type: type 2 Diabetes mellitus bed bug exterminator insulin use: without retirement use Diabetes mellitus complication status: without complication Qualified Code(s): E11.9 - Type 2 diabetes mellitus without c omplications Plan: Her HgbA1c was at 5.9% on her labs done last month (was at 6.2% when previously checked in April 2023) - goal is <7.0% Reinforced diabetic diet Continue Metformin 500 mg BID and Trulicity 0.75 mg Q week (3) GERD without esophagitis: Code(s): K21.9 - Gastro-esophageal reflux disease without esophagitis Category: Medical Plan: Dietary restrictions reinforced Continue Pantoprazole 40 mg QD and Famotidine 40 mg Q HS Patient was referred back to GI for further evaluation and management and consideration for EGD at her last visit due to her recent recurrent heartburns despite being on Rx (4) Asthma: Code(s): J45.909 - Unspecified asthma, uncomplicated Category: Medical Qualifiers: Asthma severity: moderate Asthma persistence: persistent Asthma co mplication type: uncomplicated Qualified Code(s): J45.40 - Moderate persistent asthma, uncomplicated Plan: Stable Continue Spiriva Respimat 2.5 mcg 2 inhalations QD and Albuterol HFA 2 inhalations every 6 hours as needed (5) Allergic rhinitis: Code(s): J30.9 - Allergic rhinitis, unspecified Category: Medical Qualifiers: Allergic rhinitis trigger: unspecified Allergic rhinitis seasonality: unspecified Qualified Code(s): J30.9 - Allergic rhinitis, unspecified Plan: Continue Cetirizine 10 mg QD PRN and Fluticasone 50 mcg nasal spray QD PRN (6) Varicose veins of bilateral lower extremities with pain: Code(s): I83.813 - Varicose veins of bilateral lower extremities with pain Category: Medical Plan: Follow up with vascular surgery as scheduled (7) Lumbar degenerative disc disease: Code(s): M51.36 - Other intervertebral disc degeneration, lumbar region Category: Social Hx Qualifiers: Disc-related pain type: discogenic back pain only Qualified Code(s): M51.360 - Other intervertebral disc degeneration, lumbar region with discogenic back pain only Plan: Reinforced activity and weigh-lifting restrictions Lumbar spine x-rays done back in 05/2018 showed (+) mild to moderate degenerative changes at L4-L5 Patient feels that her current pain Rxs are no longer working effectively for her and would like to see if her dose can be raised - I have declined and advised that opioids are NEVER an effective long-term solution for chronic pain and raising her dose every time she feels her pain control is inadequate will only serve to perpetuate the problem I will continue her on her current dose of Oxycodone-Acetaminophen 5-325 mg Q 8 hours PRN for now and instead consider referring her again to pain management but sent her first for repeat/updated x-rays of her lumbar spine, which she has not yet gotten done Have advised that if her x-rays do not show any significant findings or progression, can also consider referring her to physical therapy (8) Fibromyalgia: Code(s): M79.7 - Fibromyalgia Category: Medical Plan: Have discussed with patient that majority of her non-specific symptoms of diffuse myalgia, fatigue and arthralgia appeat to be consistent with fibromyalgia She is encouraged to try to continue to stay active and exercise regularly to better manage her fibromyalgia symptoms but she finds it difficult to do so due to her low back pain and joint pains She has been trialed on Gabapentin in the past but had to stop taking it due to side effects She was sent for x-rays of the cervical spine for further evaluation but she has not yet gotten her x-rays done (9) Arthralgia: Code(s): M25.50 - Pain in unspecified joint Category: Medical Qualifiers: Joint pain location: unspecified Qualified Code(s): M25.50 - Pain in unspecified joint Plan: Involving multiple joints but her symptoms appear to be mostly non-specific Suspect that this may be part of her fibromyalgia symptoms She was referred to rheumatology for further evaluation and management last year (10) RBC microcytosis: Code(s): R71.8 - Other abnormality of red blood cells Category: Medical Plan: Her CBC has consistently presented with RBC microcytosis and hypochromia but she has never been persistently anemic for any extended period of time Her iron function tests and B12 level are also normal 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 Confirmation of alpha thalassemia can be obtained by ordering alpha-globin common mutation analysis (11) Chronic constipation: Code(s): K59.09 - Other constipation Category: Medical Plan: Patient is encouraged again on increased oral fluids and dietary fiber Continue Linzess 145 mcg QD and Miralax 17 gm QD Follow up with GI as scheduled (12) Calculus of tonsil: Code(s): J35.8 - Other chronic diseases of tonsils and adenoids Category: Medical Plan: Per request, will refer patient to ENT for further evaluation and management of this issue (13) UTI (urinary tract infection): Code(s): N39.0 - Urinary tract infection, site not specified Category: Medical Qualifiers: Urinary tract infection type: site unspecified Hematuria presence: without hematuria Qualified Code(s): N39.0 - Urinary tract infection, site not specified Plan: Patient is encouraged to increase her oral fluid intake Will go ahead and start her on Cipro 500 mg BID x 7 days Will also provide her with Rx for Fluconazole 150 mg x 1 dose to be taken for antibiotic-induced vaginal yeast infection after she completes her Abx Tx (14) Attention deficit disorder (ADD): Code(s): F98.8 - Other specified behavioral and emotional disorders with onset usually occurring in childhood and adolescence Category: Medical Qualifiers: Attention deficit type: unspecified type Qualified Code(s): F98.8 - Other specified behavioral and emotional disorders with onset usually occurring in childhood and adolescence Plan: Continue Dextroamphetamine-amphetamine 20 mg QD Follow up with psychiatry as scheduled (15) Anxiety: Code(s): F41.9 - Anxiety disorder, unspecified Category: Medical Plan: Continue Bupropion XL 300 mg QD Follow up with psychiatry as scheduled (16) Depression: Code(s): F32.9 - Major depressive disorder, single episode, unspecified Category: Medical Qualifiers: Depression Type: major depressive disorder Major depression recurrence: recurrent Active/Remission status: currently active Major depression episode severity: unspecified Qualified Code(s): F33.9 - Major depressive disorder, recurrent, unspecified Plan: Continue Quetiapine 100 mg Q HS, Sertraline 50 mg QD and Bupropion XL 300 mg QD Follow up with psychiatry as scheduled (17) Obesity (BMI 30-39.9): Code(s): E66.9 - Obesity, unspecified Category: Medical Plan: Reinforced diet/exercise as tolerated/lose weight but patient states that she finds it difficult to exercise due to her increasing low back pain and joint pains Plan Follow up as scheduled in late April 2024 Orders: Referrals Ear/Nose/Throat Referral J35.8 - Other chronic diseases of tonsils and adenoids Medications: New ciprofloxacin HCl (Cipro) 500 mg PO BID 7 days 14 tabs 0RF fluconazole may repeat second dose 72 hrs after first dose if symptoms persist 150 mg PO Q3D 2 tabs 0RF
== END 2024-02-26 14:04 | disposition home or self-care (01) ==
PROVIDERS: PCP Internal Medicine; Visit Provider Internal Medicine
DX: E78.2 Mixed hyperlipidemia (principal); E11.9 Type 2 diabetes mellitus without complications; F33.9 Major depressive disorder, recurrent, unspecified; K21.9 Gastro-esophageal reflux disease without esophagitis; J45.40 Moderate persistent asthma, uncomplicated; J30.9 Allergic rhinitis, unspecified; I83.813 Varicose veins of bilateral lower extremities with pain; M51.360 Other intervertebral disc degeneration, lumbar region with discogenic back pain only; M79.7 Fibromyalgia; M25.50 Pain in unspecified joint; R71.8 Other abnormality of red blood cells; K59.09 Other constipation

== ENCOUNTER → 2024-02-26 13:18 | Outpatient (BNVA) | payer OTHER, SELFPAY | PROVIDERS: PCP Internal Medicine; Visit Provider Internal Medicine | DX: E78.2 Mixed hyperlipidemia (principal); E11.9 Type 2 diabetes mellitus without complications; K21.9 Gastro-esophageal reflux disease without esophagitis; J45.40 Moderate persistent asthma, uncomplicated; J30.9 Allergic rhinitis, unspecified; I83.813 Varicose veins of bilateral lower extremities with pain; M51.360 Other intervertebral disc degeneration, lumbar region with discogenic back pain only; M79.7 Fibromyalgia; R71.8 Other abnormality of red blood cells; K59.09 Other constipation; J35.8 Other chronic diseases of tonsils and adenoids; N39.0 Urinary tract infection, site not specified; F98.8 Other specified behavioral and emotional disorders with onset usually occurring in childhood and adolescence; F41.9 Anxiety disorder, unspecified; F33.9 Major depressive disorder, recurrent, unspecified; E66.9 Obesity, unspecified | CPT/HCPCS: 96127; 99212 ==

== ENCOUNTER 2024-03-04 15:16 | Outpatient (REF) | payer OTHER, SELFPAY ==
--- NOTE | ~2024-03-04 | US_ITS ---
EXAMINATION: US PELVIS CLINICAL INFORMATION: Abnormal uterus. Vaginal bleed. COMPARISON: September 01, 2021 demonstrated uterine fibroid. TECHNIQUE: Ultrasound of the pelvis is performed using both transabdominal and transvaginal transducers along with Doppler. Transvaginal imaging is performed due to inadequate visualization transabdominally. FINDINGS: Uterus: The uterus is anteverted and measures 10 x 4 x 5 cm. The double wall endometrial thickness is 4 mm. There is a 1.8 cm isoechoic soft tissue lesion in the left fundus of the uterus. There is a 0.8 cm isoechoic nodule in the anterior body of the myometrium Adnexa: Both ovaries are visualized. There is normal color flow to the adnexa. There is no ovarian torsion. There is no pelvic ascites or fluid collection. Right ovary measures 4 x 3 x 3 cm. Volume is 14 cc. There is a 2.4 cm septated anechoic lesion without flow on color Doppler interrogation. Left ovary measures 1 x 2 x 2 cm. Volume is 3 cc. There is a 1.6 cm heterogeneous anechoic lesion adjacent to the ovary without flow on color Doppler interrogation. US/US pelvic and transvaginal IMPRESSION: Probable small uterine fibroids. No ovarian torsion. 2.4 cm septated cystic lesion right ovary. 1.6 cm bilateral ovarian cyst, left ovary. Electronically signed by: Igor Kaur MD 03/05/2024 09:30 AM [facility]
--- OUTSIDE RECORDS SUMMARY | 2024-03-04 16:12 | XMS_ITS | Data Portability ---
Author Organization [place] - [facility], Allergy Address [address] [place] [address] Care Team Providers Care Student Services Advisor Name Role Phone CORTEZ EISENBERG Primary Care Provider Assessment Encounter Date Assessment Date Assessment LastModified by Organization Details LastModified Time 02/28/2024 02/28/2024 43-year-old femmigue miranda with GERD presents for evaluation of the throat. Oropharynx exam shows pink moist mucosa without erythema or inflammation. Fiberoptic laryngoscopy demonstrates cobblestoning without masses or obstruction. History and exam are consistent with poorly-controlled GERD. Recommend increasing Prilosec to 40mg once daily for 6 weeks, reviewed importance of taking on an empty stomach. Reviewed supportive measures for GERD. I will refer to her pipe line inspector for termite treater management as her symptoms are most likely gastrointestinal in etiology. The patient will follow up in our office in 6 weeks. [facility] Not available 02/28/2024 12:47:48 Plan of Treatment Reminders Order Date Submit Date Provider Last Modified By Organization Details Last Modified Time Details Appointments Establish ed 15 2024 09:00A Reji WALLACE PA-C Not available Not available Not available Lab None recorded. Referral None recorded. Procedures None recorded. Surgeries None recorded. Imaging None recorded. Medication Orders omeprazol e 40 mg capsule,d elayed release 2024 025 [id number], [address] [facility], [place], [address], 02/29/2024 17:31:06 Patient TargetsNo targets recorded. Patient InstructionsNo instructions recorded. Reason for Referral None Reported. 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 [id number] 43739 Active 2021 Hyperacus is, left ear; Note: Date Diagnosed : 10/12/2021 1:13 PM (H93.232) Not Available [facility] 4 03:21:53 Abnormal auditory perceptio n 27580533 Active 2021 Other abnormal auditory perceptio ns, bilateral ; Note: Date Diagnosed : 02/25/2021 3:46 PM (H93.293) Not Available [facility] 4 03:21:53 Ulcerativ e rhinitis 17589590 Active 2021 Nasal mucositis (ulcerati ve); Note: Date Diagnosed : 04/04/2021 11:12 AM (J34.81) Not Available [facility] 4 03:21:53 Gastroeso phageal reflux disease without esophagit is 015573823 Active 2021 Gastro-es ophageal reflux disease without esophagit is; Note: Date Diagnosed : 08/26/2021 1:31 PM (K21.9) Not Available [facility] 4 03:21:52 Bilateral temporoma ndibular joint pain 15933342726 821483 Active 2020 Arthralgi a of bilateral temporoma ndibular joint; Note: Date Diagnosed : 1 10:59 AM (M26.623) Not Available [facility] 4 03:21:52 Chronic sore throat 360186154 Active 2024 KASEY WALLACE PA-C [address] [place] [address], [address] , [facility] - [facility] 5 09:56:59 Problem Notes None recorded. Procedures Surgical History Date Name Laterality Status Provider Name and Address Organization Details Recorded Time 02/28/2024 FOL_Reflux _JMS completed KASEY WALLACE PA-C [address] [place] [address],[address], [address], [place] - [facility] 02/28/2024 09:58:56 Imaging Results None recorded. Procedure Notes None recorded. Medical Equipment None Reported. Allergies No known drug allergies Medications Name Sig Start Date Stop Date Status Note LastModified by Organization Details LastModified Time quetiapin e 25 mg tablet TAKE 1 TABLET BY MOUTH EVERYDAY AT BEDTIME 02/27 completed Not Available Not Available Not Available buspirone 5 mg tablet TAKE 1 TABLET BY MOUTH TWICE A DAY active Not Available Not Available No t Available metformin 500 mg tablet TAKE 1 TABLET BY MOUTH TWICE A DAY FOR 30 DAYS active Not Available Not Available No t Available atorvasta tin 10 mg tablet TAKE 1 TABLET BY MOUTH EVERY DAY AT BEDTIME active Not Available Not Available No t Available ibuprofen 800 mg tablet TAKE 1 TABLET BY MOUTH 3 TIMES A DAY WITH FOOD NEEDED FOR PAIN 02/27 completed Not Available Not Available Not Available tizanidin e 4 mg tablet TAKE 1/2 TABLET BY MOUTH AT BEDTIME NEEDED FOR MUSCLE SPASM active Not Available Not Available No t Available fluconazo le 150 mg tablet TAKE 1 TABLET BY MOUTH ONCE INSTRUCT ED active Not Available Not Available No t Available valacyclo vir 1 gram tablet TAKE 2 TABLETS ORALLY ONCE NEEDED FOR ORAL HERPES OUTBREAK 1 DAYS 02/27 completed Not Available Not Available Not Available FreeStyle Lancets 28 gauge DIRECTED active Not Available Not Available No t Available famotidin e 40 mg tablet 02/27 completed Medicati on ID: [id number] Vic castillo Name: marlon mayes Send Method: E-Prescr ibed Sub s Allowed: subs OK Medic ationGen ericName : famotidi ne Not Available Not Available Not Available ciproflox acin 500 mg tablet active Not Available Not Available No t Available omeprazol e 40 mg capsule,d elayed release TAKE 1 CAPSULE EVERY DAY BY ORAL ROUTE BEFORE MEAL(S) FOR 42 DAYS, FOR GERD. 2024 active Not Available Not Available Not Avai lable quetiapin e 100 mg tablet TAKE 1 TABLET BY MOUTH EVERYDAY AT BEDTIME active Not Available Not Available No t Available dextroamp hetamine- amphetami ne 30 mg tablet active Not Available Not Available Not Available oxycodone -acetamin ophen 5 mg-325 mg tablet TAKE 1 TABLET BY MOUTH EVERY 8 HOURS NEEDED FOR PAIN FOR 28 DAY active Not Available Not Available No t Available pantopraz ole 40 mg tablet,de layed release TAKE 1 TABLET BY MOUTH EVERY DAY active Not Available Not Available No t Available dextroamp hetamine- amphetami ne 20 mg tablet TAKE 1 TABLET BY MOUTH TWICE A DAY, IN AM & PM active Not Available Not Available No t Available dextroamp hetamine- amphetami ne 15 mg tablet 02/27 completed Not Available Not Available Not Available mupirocin 2 % topical ointment Apply 1 a small amount three times a day 02/27 completed Medicati on ID: [id number] D uration Value: 14 Prescri bed By Name: Liliana ace MD Brand Name: [email or web address] n Send Method: E-Prescr ibed Sub s Allowed: subs OK Medic ationGen ericName : mupiroci n Not Available Not Available Not Available ondansetr on 4 mg disintegr ating tablet 02/27 completed Medicati on ID: [id number] B rand Name: sejal marianna Send Method: E-Prescr ibed Sub s Allowed: subs OK Medic ationGen ericName : audrajill cabral Not Available Not Available Not Available fluticaso ne propionat e 50 mcg/actua tion nasal spray,gigi pension USE 1 SPRAY INTRANAS ALLY 2 TIMES A DAY ADMINIST ER INTO EACH NOSTRIL 02/27 completed Not Available Not Available Not Available sertralin e 50 mg tablet TAKE 1 TABLET BY MOUTH EVERY DAY 02/27 completed Not Available Not Available Not Available dextroamp hetamine- amphetami ne 5 mg tablet TAKE 1 TABLET BY MOUTH EVERY DAY IN THE AFTERNOO N 02/27 completed Not Available Not Available Not Available Ventolin HFA 90 mcg/actua tion aerosol inhaler INHALE 2 PUFFS INTO LUNGS EVERY 6 HOURS NEEDED FOR SHORTNES S OF BREATH OR WHEEZING active Not Available Not Available No t Available hydroxyzi ne pamoate 25 mg capsule TAKE 1 CAPSULE BY MOUTH TWICE A DAY active Not Available Not Available No t Available One Daily Multivita min tablet TAKE 1 TABLET BY MOUTH EVERY DAY active Not Available Not Available No t Available bupropion HCl XL 150 mg 24 hr tablet, extended release TAKE 1 TABLET BY MOUTH EVERY DAY active Not Available Not Available No t Available eszopiclo ne 1 mg tablet TAKE 1 TABLET BY MOUTH EVERYDAY AT BEDTIME active Not Available Not Available No t Available Gavilax 17 gram/dose oral powder MIX 17 GRAMS DIRECTED AND DRINK DAILY NEEDED FOR CONSTIPA TION FOR 30 DAYS 02/27 completed Not Available Not Available Not Available doxepin 3 mg tablet TAKE 1 TABLET BY ORAL ROUTE 1 TIME PER DAY AT NIGHT 30 MINUTES BEFORE BEDTIME ON AN EMPTY STOMACH active Not Available Not Available No t Available doxepin 6 mg tablet TAKE 1 TABLET BY ORAL ROUTE 1 TIME PER DAY AT NIGHT 30 MINUTES BEFORE BEDTIME ON AN EMPTY STOMACH active Not Available Not Available No t Available Linzess 145 mcg capsule TAKE 1 CAPSULE BY MOUTH EVERY DAY IN THE MORNING active Not Available Not Available No t Available Trulicity 0.75 mg/0.5 mL subcutane ous pen injector INJECT 0.75 MG (0.5 ML) SUBCUTAN EOUSLY WEEKLY active Not Available Not Available No t Available Spiriva Respimat 2.5 mcg/actua tion solution for inhalatio n TAKE 2 PUFFS BY MOUTH EVERY DAY active Not Available Not Available No t Available Daily-Vit e (with folic acid) 400 mcg tablet 02/27 completed Medicati on ID: [id number] B rand Name: Daily-Vi te (with folic acid) Se nd Method: E-Prescr ibed Sub s Allowed: subs OK Medic ationGen ericName : Daily-Vi te (with folic acid) Not Available Not Available Not Available Vitals None Recorded Social History None recorded. Functional Status None recorded. Mental Status None recorded. Family History Nothing Reported. Medical History Condition Response Allergies/Hayfever Y Gynecological HistoryNo gynecological history recorded. Obstetrics History GPAL:G 0 P 0 0 0 0 Past Encounters Encounter ID Performer Location Encounter Start Date Encounter Closed Date Diagnosis/Indication Diagnosis SNOMED-CT Code Diagnosis ICD10 Code Diagnosis Note [id number] TARAS PEREIRA MD [facility] [address] [address] 02/28/2024 09:07:51 02/28/2024 09:56:53 Gastroesophageal reflux disease without esophagitis 681364625 K21.9 Chronic sore throat 2754 58824 J31.2 Health Concerns Section Related Observation LastModified by Organization Clarence rojo LastModified Time None Recorded Concern Status LastModified by Organization Details LastModified Time None Recorded Advance Directives Directive None Recorded Payers Encounter Date Sequence Insurance Name Policy Number Policy Cook Covered Member ID Cook Member ID Guarantor Name 02/28/2024 1 [facility] - HEALTH NET PLAN (MEDICAID HMO) ERIK Raymond [id number] Desi Raymond Notes Date Note Type Note Provider Name and Address Organization Details Recorded Time 02/28/2024 text/html 43yo female form er smoker with GERD presents for evaluation of sore throat x2-3 weeks. She reports bilateral throat pain, worse in the morning. Endorses occasional dysphagia with liquids. She takes ibuprofen with minimal relief. No history of recurrent strep infections, throat abscess, or recent fever. No prior oral or neck surgery. Denies sleep disturbance. She takes 20mg Prilosec as needed for GERD management. She's been taking Oxymetazoline daily for 20+ years. TARAS PEREIRA MD [address] [place] [address], [address], [place] - [facility] 02/28/2024 13:09:05 OBGyn Episode No OBEpisode recorded.
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
--- OUTSIDE RECORDS SUMMARY | 2024-03-04 16:12 | XMS_ITS | Continuity of Care Document ---
Author Organization [place] - [facility], [facility] Address [address] [place] [address] Care Team Providers Care Contracting Support Specialist Name Role Phone CORTEZ EISENBERG Primary Care [...] for GERD. I will refer to her crop research scientist for assistant terminal manager management as her symptoms are most likely gastrointestinal in etiology. The patient will follow up in our office in 6 weeks. [facility] Not [facility] 02/28/2024 12:47:48 Plan of Treatment Reminders Order Date Submit Date Provider Last Modified By Organization Details Last Modified Time Details Appointments Establish ed 15 2024 09:00A M KASEY WALLACE PA-C Not available Not available Not available Lab None recorded. Referral None recorded. Procedures None recorded. Surgeries None recorded. Imaging None recorded. Medication Orders omeprazol e 40 mg capsule,d elayed release 2024 025 [id number], [address] [facility], [place], [address], 02/29/2024 17:31:06 Patient TargetsNo targets recorded. Patient InstructionsNo instructions recorded. Reason for Referral None Reported. 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 [id number] 07504 Active 2021 Hyperacus is, left ear; Note: Date Diagnosed : 10/12/2021 1:13 PM (H93.232) Not Available [facility] 4 03:21:53 Abnormal auditory perceptio n 83464505 Active 2021 Other abnormal auditory perceptio ns, bilateral ; Note: Date Diagnosed : 02/25/2021 3:46 PM (H93.293) Not Available [facility] 4 03:21:53 Ulcerativ e rhinitis 18137209 Active 2021 Nasal mucositis (ulcerati ve); Note: Date Diagnosed : 04/04/2021 11:12 AM (J34.81) Not Available [facility] 4 03:21:53 Gastroeso phageal reflux disease without esophagit is 325776113 Active 2021 Gastro-es ophageal reflux disease without esophagit is; Note: Date Diagnosed : 08/26/2021 1:31 PM (K21.9) Not Available [facility] 4 03:21:52 Bilateral temporoma ndibular joint pain 66138379217 851891 Active 2020 Arthralgi a of bilateral temporoma ndibular joint; Note: Date Diagnosed : 1 10:59 AM (M26.623) Not Available [facility] 4 03:21:52 Chronic sore throat 102517340 Active 2024 KASEY WALLACE PA-C [address], [address] , [place] - [facility] 5 09:56:59 Problem Notes None recorded. Procedures Surgical History Date Name Laterality Status Provider Name and Address Organization Details Recorded Time 02/28/2024 FOL_Reflux _JMS completed KASEY WALLACE PA-C [address] [place] [address],[address], [address], [place] - [facility] 02/28/2024 09:58:56 Imaging Results None recorded. Procedure [...] mg tablet 02/27 completed Medicati on ID: [id number] B rand Name: marlon mayes Send Method: E-Prescr ibed [...] t Available pantopraz ole 40 mg tablet,de corryed release TAKE 1 TABLET BY MOUTH EVERY [...] a day 02/27 completed Medicati on ID: [id number] D uration Value: 14 Prescri bed By Name: Liliana ace MD Brand Name: mupiroci n Send Method: E-Prescr ibed Sub s Allowed: subs OK Medic ationGen ericName : mupiroci n Not Available Not Available Not Available ondansetr on 4 mg disintegr ating tablet 02/27 completed Medicati on ID: [id number] B rand Name: sejal cabral Send Method: E-Prescr ibed Sub s Allowed: subs OK Medic ationGen ericName : ondaazaret marianna Not Available Not Available Not Available fluticaso [...] mcg tablet 02/27 completed Medicati on ID: [id number] B rand Name: Daily-Vi te (with folic [...] SNOMED-CT Code Diagnosis ICD10 Code Diagnosis Note [id number] TARAS PEREIRA MD [facility] [address] [address] 02/28/2024 09:07:51 02/28/2024 09:56:53 Gastroesophageal reflux disease without esophagitis 866402749 K21.9 Chronic sore throat 2754 16375 J31.2 Health Concerns Section Related Observation LastModified by Organization Detai ls LastModified Time None Recorded Concern Status LastModified by Organization Details LastModified Time None Recorded Payers Encounter Date Sequence Insurance Name Policy Number Policy Cook Covered Member ID Cook Member ID Guarantor Name 02/28/2024 1 [facility] - HEALTH NET PLAN (MEDICAID HMO) ERIK Raymond [id number] Desi Raymond Notes Date Note Type Note [...] daily for 20+ years. TARAS PEREIRA MD [address] [place] [address], [address], [place] - [facility] 02/28/2024 13:09:05 OBGyn Episode No OBEpisode recorded.
--- OUTSIDE RECORDS SUMMARY | 2024-03-04 16:12 | XMS_ITS | Continuity of Care Document ---
Author Organization debra [facility] Address [address] [address],[address] [place] [address] Phone Care Team Providers Care Harness Cleaner Name Role Phone Z-Converted, Provider Unavailable Unavailabl e Medications Medication Instructions Dosage Effective Dates (start - stop) Status Comments metronidazole 500 mg Tab 1 po bid x 7 days 2006 - Active cyclobenzaprine 10 mg Tab 1 Three Times A Day - Active Lodine 400 mg Tab 1 Every Twelve Hours As Needed - Active Flonase 50 mcg/Actuation Nasal [place] 1 puff bilaterally qday - Active Sudafed 30 mg Tab 1 tab PO every 4-6 hours prn - Active naproxen 500 mg Tab 1 Two Times A Day - Active Advance Directives Directive Yes / No Effective Date File Name No Information Encounters Encounter Description Practice Location Reason(s) For Visit Diagnoses Date Provider Providers Copied on Encounter debra [facility], [address] [address],[address], [place], [place], [id number], tel:[phone] [facility] Vaginitis and vulvovaginit is, unspecified 7 Z-Convert ed Provider. . [facility], [address] [address],[address], [place], [place], [id number], [place] tel:[phone] 2 Converted Locations No Information 7 Z-Convert ed Provider. . derba [facility], [address] [address],[address], [place], [place], [id number], tel:[phone] 2 Converted Locations No Information 7 Z-Convert ed Provider. . [facility], [address] [facility] [address], [place], [place], [id number], [place] tel:[phone] [facility] Lumbar sprain 7 Z-Convert ed Provider. . [facility], [address] [place] [address] 2,Suite [facility], [place], [place], [id number], [place] tel:[phone] 2 Converted Locations No Information 7 Doesther Martines . [address] [place] [address], [place], [place], [id number] . tel:[phone] [facility], [address] [place], [place] [address]ing 2,[address], [place], [place], [id number], [place] tel:[phone] 2 [facility] Allergic rhinitis due to pollen 7 Z-Convert ed Provider. . [facility], [address] [place], [place] [address],[address], [place], [place], [id number], [place] tel:[phone] 2 [facility] Carpal tunnel syndrome 7 Z-Convert ed Provider. . [facility], [address] [place] [address],[address], [place], [place], [id number], [place] tel:[phone] 2 Converted Locations No Information 7 Z-Convert [...]
== END 2024-03-04 15:17 | disposition home or self-care (01) ==
LOC: HO.US 15:16
PROVIDERS: PCP Internal Medicine; Visit Provider Obstetrics & Gynecology
DX: N93.9 Abnormal uterine and vaginal bleeding, unspecified (principal)
CPT/HCPCS: 76830; 76856

== ENCOUNTER → 2024-03-04 15:18 | Outpatient (BNV) | payer OTHER, SELFPAY | PROVIDERS: PCP Internal Medicine; Visit Provider Radiology Diagnostic Radiology | DX: N83.201 Unspecified ovarian cyst, right side (principal); N83.202 Unspecified ovarian cyst, left side | CPT/HCPCS: 76830; 76856 ==

== ENCOUNTER 2024-03-26 15:47 | Outpatient (AMB) | payer OTHER, SELFPAY ==
--- OUTSIDE RECORDS SUMMARY | 2024-03-26 15:50 | XMS_ITS | Continuity of Care Document ---
Author Organization debra [facility] Address [address] [address],[address] [place] [address] Phone Care Team Providers Care Educational Audiologist Name Role Phone Z-Converted, Provider Unavailable Unavailabl e Medications Medication Instructions Dosage Effective Dates (start - stop) Status Comments metronidazole 500 mg Tab 1 po bid x 7 days 2006 - Active cyclobenzaprine 10 mg Tab 1 Three Times A Day - Active Lodine 400 mg Tab 1 Every Twelve Hours As Needed - Active Flonase 50 mcg/Actuation Nasal [place] 1 puff bilaterally qday - Active Sudafed 30 mg Tab 1 tab PO every 4-6 hours prn - Active naproxen 500 mg Tab 1 Two Times A Day - Active Advance Directives Directive Yes / No Effective Date File Name No Information Encounters Encounter Description Practice Location Reason(s) For Visit Diagnoses Date Provider Providers Copied on Encounter debra [facility], [address] [address],[address], [place], [place], [id number], tel:[phone] [facility] Vaginitis and vulvovaginit is, unspecified 7 Z-Convert ed Provider. . [facility], [address] [address],[address], [place], [place], [id number], [place] tel:[phone] 2 Converted Locations No Information 7 Z-Convert ed Provider. . debra [facility], [address] [address],[address], [place], [place], [id number], tel:[phone] 2 Converted Locations No Information 7 Z-Convert ed Provider. . [facility], [address] [facility] [address], [place], [place], [id number], [place] tel:[phone] [facility] Lumbar sprain 7 Z-Convert ed Provider. . [facility], [address] [place] [address] 2,Suite [facility], [place], [place], [id number], [place] tel:[phone] 2 Converted Locations No Information 7 Doesther Martines . [address] [place] [address], [place], [place], [id number] . tel:[phone] [facility], [address] [place], [place] [address] 2,[address], [place], [place], [id number], [place] tel:[phone] 2 [facility] Allergic rhinitis due to pollen 7 Z-Convert ed Provider. . [facility], [address] [place], [place] [address] 2,[address], [place], [place], [id number], [place] tel:[phone] [facility] Carpal tunnel syndrome 7 Z-Convert ed Provider. . [facility], [address] [place] [address],[address], [place], [place], [id number], [place] tel:[phone] 2 Converted Locations No Information 7 Z-Convert ed Provider. . Family History Family Member Type Diagnosis Age At Onset No Information Payers Payer name Insurance type Covered democrat ID Authoriza tion(s) No Information Social History [...]
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
--- OUTSIDE RECORDS SUMMARY | 2024-03-26 15:50 | XMS_ITS | Continuity of Care Document ---
Author Organization [place] - [facility], [facility] Address [address] [place] [address] Care Team Providers Care Business Specialist Name Role Phone CORTEZ EISENBERG Primary Care Provider [phone] Assessment Encounter Date Assessment Date Assessment LastModified [...] for GERD. 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 The patient will follow up in our office in 6 weeks. [email or web address] Not available 02/28/2024 12:47:48 Plan of Treatment Reminders Order Date Submit Date Provider Last Modified By Organization Details Last Modified Time Details Appointments None recorded. Lab None recorded. Referral None recorded. Procedures None recorded. Surgeries None recorded. Imaging None recorded. Medication Orders omeprazole 40 mg capsule,del ayed release 2024 025 mboni [id number], [id number] [facility], [place], [address], 17:31:06 Patient TargetsNo targets recorded. Patient InstructionsNo instructions recorded. Reason for Referral None Reported. 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 [id number] 05298 Active 2021 Hyperacus is, left ear; Note: Date Diagnosed : 10/12/2021 1:13 PM (H93.232) Not Available [facility] 4 03:21:53 Abnormal auditory perceptio n 76940088 Active 2021 Other abnormal auditory perceptio ns, bilateral ; Note: Date Diagnosed : 02/25/2021 3:46 PM (H93.293) Not Available [facility] 4 03:21:53 Ulcerativ e rhinitis 95906590 Active 2021 Nasal mucositis (ulcerati ve); Note: Date Diagnosed : 04/04/2021 11:12 AM (J34.81) Not Available [facility] 4 03:21:53 Gastroeso phageal reflux disease without esophagit is 479623092 Active 2021 Gastro-es ophageal reflux disease without esophagit is; Note: Date Diagnosed : 08/26/2021 1:31 PM (K21.9) Not Available [facility] 4 03:21:52 Bilateral temporoma ndibular joint pain 16618085150 358211 Active 2020 Arthralgi a of bilateral temporoma ndibular joint; Note: Date Diagnosed : 1 10:59 AM (M26.623) Not Available [facility] 4 03:21:52 Chronic sore throat 697558777 Active 2024 KASEY WALLACE PA-C [address] [place] [address], [phone] , [facility] - [facility] 5 09:56:59 Problem Notes None recorded. Procedures Surgical History Date Name Laterality Status Provider Name and Address Organization Details Recorded Time 02/28/2024 FOL_Reflux _JMS completed KASEY WALLACE PA-C [address] [place] [address], [phone], [facility] - [facility] 02/28/2024 09:58:56 Imaging Results None recorded. [...] mg tablet 02/27 completed Medicati on ID: [id number] B rand Name: marlon mayes Send Method: [...] MOUTH EVERY 8 HOURS NEEDED FOR PAIN active Not Available Not Available No t Available pantopraz ole 40 mg tablet,de layed release TAKE 1 TABLET BY MOUTH EVERY DAY active Not Available Not Available No t Available dextroamp hetamine- amphetami ne 20 mg tablet TAKE 1 TABLET BY ORAL ROUTE ONCE PER DAY IN AM active Not Available Not Available No t Available dextroamp hetamine- amphetami ne 15 mg tablet 02/27 completed Not Available Not Available Not Available mupirocin 2 % topical ointment Apply 1 a small amount three times a day 02/27 completed Medicati on ID: [id number] D uration Value: 14 Prescri bed By Name: Liliana ace MD Brand Name: mupiroci n Send Method: E-Prescr ibed Sub s Allowed: subs OK Medic ationGen ericName : mupiroci n Not Available Not Available Not Available ondansetr on 4 mg disintegr ating tablet 02/27 completed Medicati on ID: [id number] B rand Name: sejal cabral Send Method: E-Prescr ibed Sub s Allowed: subs OK Medic ationGen ericName : onmichael cabral Not Available Not Available Not Available [...] mcg tablet 02/27 completed Medicati on ID: [id number] B rand Name: Daily-Vi te (with folic [...] SNOMED-CT Code Diagnosis ICD10 Code Diagnosis Note [id number] TARAS PEREIRA MD [facility] [address] [address] 02/28/2024 09:07:51 02/28/2024 09:56:53 Gastroesophageal reflux disease without esophagitis [id number] K21.9 Chronic sore throat 2754 44303 J31.2 Health Concerns Section Related Observation LastModified by Organization Detai ls LastModified Time None Recorded Concern Status LastModified by Organization Details LastModified Time None Recorded Payers Encounter Date Sequence Insurance Name Policy Number Policy Cook Covered Member ID Cook Member ID Guarantor Name 02/28/2024 1 [facility] PLAN (MEDICAID HMO) ERIK Raymond [id number] Desi Raymond Notes Date Note Type Note [...] daily for 20+ years. TARAS PEREIRA MD [address] [place] [address], [phone], [place] - [facility] 02/28/2024 13:09:05 OBGyn Episode No OBEpisode recorded.
--- NOTE | 2024-03-26 15:55 | A.OFFVIS_ITS ---
Vital Signs 03/26/24 15:56 Height 5 ft 4 in Weight 199 lb BMI 34.2 Intake Visit Reasons: ultrasound follow up Allergies gabapentin Allergy (Unknown, Verified 02/26/24 13:44) Tingling feeling in throat zolpidem [From AMBIEN] Allergy (Unknown, Verified 02/26/24 13:44) tingling feeling in throat dulaglutide [From Trulicity] Adverse Reaction (Intermediate, Verified 02/26/24 13:44) Low sugars cahsews Allergy (Severe, Uncoded 02/26/24 13:44) Rash HPI Comments Details: Presenting for ultrasound follow-up. The patient initial workup for AUB was in 06/28, the patient was lost to follow-up since then. Ultrasound done in 03/01 showed the following: 'Uterus: The uterus is anteverted and measures 10 x 4 x 5 cm. The double wall endometrial thickness is 4 mm. There is a 1.8 cm isoechoic soft tissue lesion in the left fundus of the uterus. There is a 0.8 cm isoechoic nodule in the anterior body of the myometrium Adnexa: Both ovaries are visualized. There is normal color flow to the adnexa. There is no ovarian torsion. There is no pelvic ascites or fluid collection. Right ovary measures 4 x 3 x 3 cm. Volume is 14 cc. There is a 2.4 cm septated anechoic lesion without flow on color Doppler interrogation. Left ovary measures 1 x 2 x 2 cm. Volume is 3 cc. There is a 1.6 cm heterogeneous anechoic lesion adjacent to the ovary without flow on color Doppler interrogation. Last co testing in 03/01 was negative 06/28 H&H 12.7/35.1, TSH, prolactin, hCG negative, GC and CT were negative [facility] Medical History Chronic constipation Fibromyalgia Family history of ovarian cancer Hemorrhoids with complication Mixed hyperlipidemia Pure hypercholesterolemia Type 2 diabetes mellitus with hyperglycemia Varicose veins of bilateral lower extremities with pain Lumbar degenerative disc disease Anxiety GERD without esophagitis Diabetes mellitus Bilateral flank pain Varicose veins of left lower extremity with pain Dizziness Left ear pain Pressure sensation in left ear UTI (urinary tract infection) HTN (hypertension) Lower back pain Obesity (BMI 30-39.9) Menorrhagia Knee pain, bilateral Depression Allergic rhinitis Hemorrhoid Asthma Surgical History Hx of tubal ligation History of esophagogastroduodenoscopy (EGD) History of endometrial ablation History of carpal tunnel surgery History of hemorrhoidectomy Family History Father Diabetes Asthma Hepatitis Mother Diabetes Sleep apnea Ischemic cerebrovascular accident (CVA) Ovarian cancer, Onset Age: 52 Maternal Grandmother Diabetes Breast cancer, Onset Age: 50 Maternal Grandfather Stroke Paternal Grandfather Lung cancer Sister Ovarian cancer, Onset Age: 30 Social History Household Members: Family Housing: House Alcohol intake: never Comment: medicated in PACU Patient Tobacco Use Status: Former Tobacco user e-Cigarette/Vaping Use: Never Used Second Hand Smoke Exposure: Yes service: No Current occupational status: employed 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 Cognitive needs: No Hearing needs: No Vision needs: Yes Female Reproductive History Menstrual Age of Menarche: 12 Review of Systems Const All systems reviewed & are unremarkable except as noted in HPI and below Reports as per HPI and Reports no additional complaints GI Reports no additional complaints Reports no additional complaints Physical Exam Vital Signs: BMI result Body Mass Index 34.2 Office Procedures Endometrial Biopsy Details: The patient was counseled regarding the indication and benefits of endometrial sampling to rule out endometrial pathology including not limited to endometrial hyperplasia or endometrial cancer and others; The alternatives (Either do nothing vs. hysteroscopy D&C) & the risks were discussed with the patient including but not limited: pain, uterine perforation, bleeding, infection, possible injury to bladder, bowel, ureter, possible need for blood transfusion with all its possible risks. The patient verbalized understanding all questions answered and signed consent. Urine test done in the office was negative The patient was placed into the dorsal lithotomy position; a speculum was inserted in the vagina. Using aseptic technique for the procedure, the cervix was cleansed with Betadine. The anterior lip of the cervix was grasped with a single tooth tenaculum. The uterus was sounded to 7 cm with a 4 mm Pipelle was used. Tissues samples were obtained and placed in formalin, in a patient labeled container and sent to the pathology department. At the end of the procedure, there was minimal bleeding noted The patient tolerated the procedure well and was discharged in good condition with the following instructions: Nothing in the vagina until the bleeding stops. No sex until the bleeding stops, to call if any of the following occurs: fever (>100.4), flu-like symptoms, abdominal pain, heavy bleeding, four smelling vaginal discharge. The patient was instructed to schedule a Follow up appointment in 2 weeks to discuss pathology results of the biopsy and treatment options. This note was generated with a voice recognition program. Some errors may have been overlooked during the review of this note. Sometimes these errors may affect the content or meaning of a given sentence. 86942-Mrmzlhwlody Biopsy Assessment & Plan Assessment & Plan (1) Abnormal uterine bleeding: Comment: With myoma status post endometrial ablatio Code(s): N93.9 - Abnormal uterine and vaginal bleeding, unspecified Category: Medical Plan: EMB done, see procedure note (2) Uterine myoma: Code(s): D25.9 - Leiomyoma of uterus, unspecified Category: Medical Plan: Discussed with the patient the results of the ultrasound and the size of the myomas. Discussed with the patient risk of myosarcoma and symptoms that are caused by myomas including but not limited to pelvic pain, pressure symptoms, abnormal uterine bleeding. In addition discussed with the patient options of treatment for myomas including: Serial ultrasounds periodically to follow-up on the size of the myoma while targeting the treatment against fibroids related symptoms ( control pills, Mirena IUD, progesterone treatment, GnRH agonist/antagonist, uterine artery embolization or endometrial ablation) versus surgical treatment including hysterectomy and or myomectomy. All pros and cons, risks and benefits of all options were discussed with the patient. The patient understands that delay in surgical treatment in case of myosarcoma can affect her prognosis, after further discussion, the patient decided to think about it and get back to us next visit (3) Complex ovarian cyst: Code(s): N83.299 - Other ovarian cyst, unspecified side Category: Medical Plan: Discussed with the patient the complex ovarian cyst by ultrasound. Discussed with the patient the Ultrasound findings, the main limitation of transvaginal ultrasonography alone as a diagnostic tool to distinguish benign from malignant masses relates to its lack of specificity and low positive predictive value for cancer. The differential diagnosis discussed with the patient includes the following but not limited to: benign and malignant gynecological and non-gynecological causes. Discussed with the patient options of treatment , in case CA 125 is not elevated, including laparoscopy ovarian cystectomy/oophorectomy vs. expectant management with repeat US in repeating pelvic US in 6-12 weeks from previous US. If the ovarian complex cyst is persistent larger and / or more complex looking, or higher CA 125 will refer to gynecologic Oncology. All pros, cons, risks and benefits of each approach were discussed with the patient including but not limited to a delay in the diagnosis and treatment of ovarian cancer affecting the prognosis; The patient decided to go think about it and get back to us next week. Will order CA 125 . Instructions given the patient to schedule 2 week follow-up appointment. All questions were answered & the patient verbalized understanding and agreed with the plan. Orders: Orders CA-125 Today N83.299 - Other ovarian cyst, unspecified side AMB Endometrial Biopsy Today N93.9 - Abnormal uterine and vaginal bleeding, unspecified Coding Level of Care Code Est Pt Level 3 (17188) Procedure Only Diagnoses Abnormal uterine bleeding N93.9 Uterine myoma D25.9 Complex ovarian cyst N83.299 CPT Codes Endometrial Biopsy - CPT: 45075-Xsvpuixrdjc Biopsy ([id number])
[2024-03-26 15:56] VITALS: BMI 34.2
== END 2024-03-26 16:28 | disposition home or self-care (01) ==
LOC: HO.HWS 15:47
PROVIDERS: PCP Internal Medicine; Visit Provider Obstetrics & Gynecology
DX: N93.9 Abnormal uterine and vaginal bleeding, unspecified (principal); D25.9 Leiomyoma of uterus, unspecified; N83.299 Other ovarian cyst, unspecified side
CPT/HCPCS: 58100; 99213

== ENCOUNTER 2024-03-26 15:47 | Outpatient (REF) | payer OTHER, SELFPAY ==
--- OUTSIDE RECORDS SUMMARY | 2024-03-26 16:30 | XMS_ITS | Continuity of Care Document ---
Author Organization [facility] Address [address] [address],[address] [place] [address] Phone Care Team Providers Care Child Care Team Lead Name Role Phone Z-Converted, Provider Unavailable Unavailabl e Medications Medication Instructions Dosage Effective Dates (start - stop) Status Comments metronidazole 500 mg Tab 1 po bid x 7 days 2006 - Active cyclobenzaprine 10 mg Tab 1 Three Times A Day - Active Lodine 400 mg Tab 1 Every Twelve Hours As Needed - Active Flonase 50 mcg/Actuation Nasal [place] 1 puff bilaterally qday - Active Sudafed 30 mg Tab 1 tab PO every 4-6 hours prn - Active naproxen 500 mg Tab 1 Two Times A Day - Active Advance Directives Directive Yes / No Effective Date File Name No Information Encounters Encounter Description Practice Location Reason(s) For Visit Diagnoses Date Provider Providers Copied on Encounter [facility], [address] [address],[address], [place], [place], [id number], tel:[phone] [facility] Vaginitis and vulvovaginit is, unspecified 7 Z-Convert ed Provider. . [facility], [address] [address],[address], [place], [place], [id number], [place] tel:[phone] 2 Converted Locations No Information 7 Z-Convert ed Provider. . [facility], [address] [address],[address], [place], [place], [id number], tel:[phone] 2 Converted Locations No Information 7 Z-Convert ed Provider. . [facility], [address], [place], [place], [id number], [place] tel:[phone] 2 [facility] Lumbar sprain 7 Z-Convert ed Provider. . [facility], [address] [place] [address] 2,Suite [facility], [place], [place], [id number], [place] tel:[phone] 2 Converted Locations No Information 7 Doesther Martines . [address] [place] [address], [place], [place], [id number] . tel:[phone] [facility], [address] [place], [place] [address],[address], [place], [place], [id number], [place] tel:[phone] [facility] Allergic rhinitis due to pollen 7 Z-Convert ed Provider. . [facility], [address] [place], [place] [address],[address], [place], [place], [id number], [place] tel:[phone] 2 [facility] Carpal tunnel syndrome 7 Z-Convert ed Provider. . [facility], [address] [place] [address],[address], [place], [place], [id number], [place] tel:[phone] 2 Converted Locations No Information 7 Z-Convert [...]
== END 2024-03-26 15:48 | disposition home or self-care (01) ==
LOC: HO.LNP 15:47
PROVIDERS: PCP Internal Medicine; Visit Provider Obstetrics & Gynecology
DX: N93.9 Abnormal uterine and vaginal bleeding, unspecified (principal); D25.9 Leiomyoma of uterus, unspecified; N83.299 Other ovarian cyst, unspecified side
CPT/HCPCS: 58100; 88305; 99212

== ENCOUNTER 2024-04-02 13:44 | Outpatient (AMB) | payer OTHER, SELFPAY ==
--- NOTE | 2024-04-02 13:55 | MHC.OFFVIS ---
Intake Visit Reasons: EMB results per Pipefitter: Pipefitter Present ([place]) Accompanied by: Self / Same As Patient Allergies gabapentin Allergy (Unknown, Verified 04/02/24 13:55) Tingling feeling in throat zolpidem [From AMBIEN] Allergy (Unknown, Verified 04/02/24 13:55) tingling feeling in throat dulaglutide [From Trulicity] Adverse Reaction (Intermediate, Verified 04/02/24 13:55) Low sugars cahsews Allergy (Severe, Uncoded 02/26/24 13:44) Rash HPI Comments Details: The patient is presenting for follow-up to discuss the results of her abnormal uterine bleeding workup and options of treatment. The following workup was done.: H&H= 12.7/35.1 TSH, GC and chlamydia were negative. Endometrial biopsy pathology showed the following: Endometrium, biopsy: - Mildly disordered weakly proliferative endometrium; no atypia or hyperplasia identified. - Fragments of benign endocervical and degenerated squamous epithelium; mucoinflammatory material; no atypia identified Co testing was done in 03/01 was negative. Mammogram was done in 05/29 was BI-RADS 1 Pelvic ultrasound showed the following: Uterus: The uterus is anteverted and measures 10 x 4 x 5 cm. The double wall endometrial thickness is 4 mm. There is a 1.8 cm isoechoic soft tissue lesion in the left fundus of the uterus. There is a 0.8 cm isoechoic nodule in the anterior body of the myometrium Adnexa: Both ovaries are visualized. There is normal color flow to the adnexa. There is no ovarian torsion. There is no pelvic ascites or fluid collection. Right ovary measures 4 x 3 x 3 cm. Volume is 14 cc. There is a 2.4 cm septated anechoic lesion without flow on color Doppler interrogation. Left ovary measures 1 x 2 x 2 cm. Volume is 3 cc. There is a 1.6 cm heterogeneous anechoic lesion adjacent to the ovary without flow on color Doppler interrogation. [facility] Medical History Chronic constipation Fibromyalgia Family history of ovarian cancer Hemorrhoids with complication Mixed hyperlipidemia Pure hypercholesterolemia Type 2 diabetes mellitus with hyperglycemia Varicose veins of bilateral lower extremities with pain Lumbar degenerative disc disease Anxiety GERD without esophagitis Diabetes mellitus Bilateral flank pain Varicose veins of left lower extremity with pain Dizziness Left ear pain Pressure sensation in left ear UTI (urinary tract infection) HTN (hypertension) Lower back pain Obesity (BMI 30-39.9) Menorrhagia Knee pain, bilateral Depression Allergic rhinitis Hemorrhoid Asthma Surgical History Hx of tubal ligation History of esophagogastroduodenoscopy (EGD) History of endometrial ablation History of carpal tunnel surgery History of hemorrhoidectomy Family History Father Diabetes Asthma Hepatitis Mother Diabetes Sleep apnea Ischemic cerebrovascular accident (CVA) Ovarian cancer, Onset Age: 52 Maternal Grandmother Diabetes Breast cancer, Onset Age: 50 Maternal Grandfather Stroke Paternal Grandfather Lung cancer Sister Ovarian cancer, Onset Age: 30 Social History Household Members: Family Housing: House Alcohol intake: never Comment: medicated in PACU Patient Tobacco Use Status: Former Tobacco user e-Cigarette/Vaping Use: Never Used Second Hand Smoke Exposure: Yes service: No Current occupational status: employed 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 Cognitive needs: No Hearing needs: No Vision needs: Yes Female Reproductive History Menstrual Age of Menarche: 12 Review of Systems Const All systems reviewed & are unremarkable except as noted in HPI and below Reports as per HPI and Reports no additional complaints GI Reports no additional complaints Reports no additional complaints Assessment & Plan Assessment & Plan (1) Abnormal uterine bleeding: Comment: With myoma status post endometrial ablation Code(s): N93.9 - Abnormal uterine and vaginal bleeding, unspecified Category: Medical Plan: Discussed with the patient the findings on pelvic ultrasound & the risk of myosarcoma; in addition reviewed with the patient that malignancy and pre malignancy cannot be ruled out without hysterectomy for pathological evaluation ; furthermore, explained to the patient the limitation of pelvic ultrasound and endometrial biopsy in the setting. Discussed with the patient the options of treatment for AUB and myomas including: Serial ultrasounds periodically to follow-up on the size of the myoma while targeting the treatment against fibroids related symptoms (progesterone treatment, GnRH agonist/antagonist, uterine artery embolization or definitive surgical management. All pros and cons, risks and benefits of all options were discussed with the patient. The patient decided to proceed with definitive surgical management. Discussed with the patient the different types of hysterectomies including, vaginal, laparoscopic assisted vaginal, robotic assisted laparoscopic,& abdominal with BSO. All pros, cons, r/b of each approach were discussed the patient including evidence that morbidity is less and recovery is shorter with minimally invasive approaches to hysterectomy. Discussed with the patient the lack of availability of the robot DaVinci robot and/or minimally invasive digital media representative specialist at [employer]. Refer to [facility] minimally invasive quality improvement coordinator (rn) (2) Complex ovarian cyst: Comment: Right Code(s): N83.299 - Other ovarian cyst, unspecified side Category: Medical Plan: Discussed with the patient the complex ovarian cyst by ultrasound. Discussed with the patient the Ultrasound findings, the main limitation of transvaginal ultrasonography alone as a diagnostic tool to distinguish benign from malignant masses relates to its lack of specificity and low positive predictive value for cancer. The differential diagnosis discussed with the patient includes the following but not limited to: benign and malignant gynecological and non-gynecological causes. Discussed with the patient options of treatment ,including laparoscopy ovarian cystectomy/oophorectomy vs. expectant management with repeat US in repeating pelvic US in 6-12 weeks from previous US. If the ovarian complex cyst is persistent larger and / or more complex looking, will refer to gynecologic Oncology. All pros, cons, risks and benefits of each approach were discussed with the patient in the patient decided to proceed with surgical management. The patient will be refer to [facility] minimally invasive quality improvement coordinator (rn). CA 125 ordered on 03/26/2024 Coding Level of Care Code Est Pt Level 3 (78730) Diagnoses Abnormal uterine bleeding N93.9 Complex ovarian cyst N83.299
--- OUTSIDE RECORDS SUMMARY | 2024-04-02 16:53 | XMS_ITS | Data Portability ---
Author Organization [place] - [facility], Allergy Address [address] [place] [address] Care Team Providers Care Mailing Specialist Name Role Phone CORTEZ EISENBERG Primary [...] for GERD. I will refer to her marketing officer for longterm management as her symptoms are most likely gastrointestinal in etiology. The patient will follow up in our office in 6 weeks. gregory Not available 02/28/2024 12:47:48 Plan of Treatment Reminders Order Date Submit Date Provider Last Modified By Organization Details Last Modified Time Details Appointments None recorded. Lab None recorded. Referral None recorded. Procedures None recorded. Surgeries None recorded. Imaging None recorded. Medication Orders omeprazole 40 mg capsule,del ayed release 2024 025 [id number], [id number] [facility], [place], [address], 17:31:06 Patient TargetsNo targets recorded. Patient InstructionsNo instructions recorded. Reason for Referral None Reported. 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 [id number] 19107 Active 2021 Hyperacus is, left ear; Note: Date Diagnosed : 10/12/2021 1:13 PM (H93.232) Not Available [facility] 4 03:21:53 Abnormal auditory perceptio n 11512800 Active 2021 Other abnormal auditory perceptio ns, bilateral ; Note: Date Diagnosed : 02/25/2021 3:46 PM (H93.293) Not Available [facility] 4 03:21:53 Ulcerativ e rhinitis 02554918 Active 2021 Nasal mucositis (ulcerati ve); Note: Date Diagnosed : 04/04/2021 11:12 AM (J34.81) Not Available [facility] 4 03:21:53 Gastroeso phageal reflux disease without esophagit is 018918843 Active 2021 Gastro-es ophageal reflux disease without esophagit is; Note: Date Diagnosed : 08/26/2021 1:31 PM (K21.9) Not Available [facility] 4 03:21:52 Bilateral temporoma ndibular joint pain [id number] 668257 Active 2020 Arthralgi a of bilateral temporoma ndibular joint; Note: Date Diagnosed : 1 10:59 AM (M26.623) Not Available [facility] 4 03:21:52 Chronic sore throat 857066823 Active 2024 KASEY WALLACE PA-C [address] [place] [address], [phone] , [facility] - [facility] 5 09:56:59 Problem Notes None recorded. Procedures Surgical History Date Name Laterality Status Provider Name and Address Organization Details Recorded Time 02/28/2024 FOL_Reflux _JMS completed KASEY WALLACE PA-C [address] [place] [address], [phone], [facility] - [facility] 02/28/2024 09:58:56 Imaging Results None recorded. [...] mg tablet 02/27 completed Medicati on ID: [id number] B rand Name: famotidi gerber Send Method: E-Prescr ibed Sub s Allowed: [...] a day 02/27 completed Medicati on ID: [id number] D uration Value: 14 Prescri bed By Name: Liliana ace MD Brand Name: mupiroci n Send Method: E-Prescr ibed Sub s Allowed: subs OK Medic ationGen ericName : mupiroci n Not Available Not Available Not Available ondansetr on 4 mg disintegr ating tablet 02/27 completed Medicati on ID: [id number] B rand Name: sejal cabral Send Method: [...] mcg tablet 02/27 completed Medicati on ID: [id number] B rand Name: Daily-Vi te (with folic [...] SNOMED-CT Code Diagnosis ICD10 Code Diagnosis Note [id number] TARAS PEREIRA MD [facility] [address] [address] 02/28/2024 09:07:51 02/28/2024 09:56:53 Gastroesophageal reflux disease without esophagitis 641377974 K21.9 Chronic sore throat 2754 55251 J31.2 Health Concerns Section Related Observation LastModified by Organization Detai ls LastModified Time None Recorded Concern Status LastModified by Organization Details LastModified Time None Recorded Advance Directives Directive None Recorded Payers Encounter Date Sequence Insurance Name Policy Number Policy Cook Covered Member ID Cook Member ID Guarantor Name 02/28/2024 1 [facility] - HEALTH NET PLAN (MEDICAID HMO) ERIK Raymond [id number] Desi Raymond Notes Date Note Type Note [...] daily for 20+ years. TARAS PEREIRA MD [address] [place] [address], [phone], [place] - [facility] 02/28/2024 13:09:05 OBGyn Episode No OBEpisode recorded.
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
== END 2024-04-02 14:56 | disposition home or self-care (01) ==
LOC: HO.HWS 13:44
PROVIDERS: PCP Internal Medicine; Visit Provider Obstetrics & Gynecology
DX: N93.9 Abnormal uterine and vaginal bleeding, unspecified (principal); N83.299 Other ovarian cyst, unspecified side
CPT/HCPCS: 99213

== ENCOUNTER → 2024-04-02 13:44 | Outpatient (BNVA) | payer OTHER, SELFPAY | PROVIDERS: PCP Internal Medicine; Visit Provider Obstetrics & Gynecology | DX: N93.9 Abnormal uterine and vaginal bleeding, unspecified (principal); N83.291 Other ovarian cyst, right side | CPT/HCPCS: 99212 ==

== ENCOUNTER 2024-07-01 14:13 | Outpatient (REF) | payer OTHER, SELFPAY ==
--- OUTSIDE RECORDS SUMMARY | 2024-07-01 14:23 | XMS_ITS | Data Portability ---
Author Organization [place] - [facility], Allergy Address [address] [place] [address] Care Team Providers Care Automotive Leasing Sales Representative Name Role Phone CORTEZ EISENBERG Primary Care [...] for GERD. I will refer to her mechanic sound technician for mcfp management as her symptoms are most likely [...] 40 mg capsule,del ayed release 2024 025 [id number], [id number] [facility], [place], [address], 17:31:06 Patient TargetsNo targets recorded. Patient InstructionsNo instructions recorded. Reason for Referral None Reported. 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 [id number] 19107 Active 2021 Hyperacus is, left ear; Note: Date Diagnosed : 10/12/2021 1:13 PM (H93.232) Not Available [facility] 4 03:21:53 Abnormal auditory perceptio n 47866825 Active 2021 Other abnormal auditory perceptio ns, bilateral ; Note: Date Diagnosed : 02/25/2021 3:46 PM (H93.293) Not Available [facility] 4 03:21:53 Ulcerativ e rhinitis 23695754 Active 2021 Nasal mucositis (ulcerati ve); Note: Date Diagnosed : 04/04/2021 11:12 AM (J34.81) Not Available [facility] 4 03:21:53 Gastroeso phageal reflux disease without esophagit is 816464663 Active 2021 Gastro-es ophageal reflux disease without esophagit is; Note: Date Diagnosed : 08/26/2021 1:31 PM (K21.9) Not Available [facility] 4 03:21:52 Bilateral temporoma ndibular joint pain 16985668013 277713 Active 2020 Arthralgi a of bilateral temporoma ndibular joint; Note: Date Diagnosed : 1 10:59 AM (M26.623) Not Available [facility] 4 03:21:52 Chronic sore throat 964941176 Active 2024 KASEY WALLACE PA-C [address] [place] [address], [address] , [facility] - [facility] 5 09:56:59 Problem Notes None recorded. Procedures Surgical History Date Name Laterality Status Provider Name and Address Organization Details Recorded Time 02/28/2024 FOL_Reflux _JMS completed KASEY WALLACE PA-C [address] [place] [address], [phone], [facility] - [facility] 02/28/2024 09:58:56 Imaging Results None recorded. [...] mg tablet 02/27 completed Medicati on ID: [id number] B rand Name: famotidi gerber Send Method: [...] a day 02/27 completed Medicati on ID: [id number] D uration Value: 14 Prescri bed By Name: Liliana ace MD Brand Name: mupiroci n Send Method: E-Prescr ibed Sub s Allowed: subs OK Medic ationGen ericName : mupiroci n Not Available Not Available Not Available ondansetr on 4 mg disintegr ating tablet 02/27 completed Medicati on ID: [id number] B rand Name: sejal cabral Send Method: [...] mcg tablet 02/27 completed Medicati on ID: [id number] B rand Name: Daily-Vi te (with folic [...] SNOMED-CT Code Diagnosis ICD10 Code Diagnosis Note [id number] KASEY WALLACE PA-C [facility] [address] [address] 02/28/2024 09:07:51 02/28/2024 09:56:53 Gastroesophageal reflux disease without esophagitis 522078758 K21.9 Chronic sore throat 2754 [address] J31.2 Health Concerns Section Related Observation LastModified by Organization Detai ls LastModified Time None Recorded Concern Status LastModified by Organization Details LastModified Time None Recorded Advance Directives Directive None Recorded Payers Insurance Date Sequence Insurance Name Policy Number Policy Cook Covered Member ID Cook Member ID Guarantor Name 02/28/2024 1 [facility] (MEDICAID HMO) [place] Desi Raymond [id number] Desi Raymond 02/28/2024 1 [employer] Desi Raymond [id number] Desi Raymond 02/28/2024 1 [place] [facility] Desi Raymond [id number] Desi Raymond Notes Date Note Type Note [...] daily for 20+ years. TARAS PEREIRA MD [address] [place] [address], [address], [place] - [facility] 02/28/2024 13:09:05 OBGyn Episode No OBEpisode recorded.
[2024-07-01 14:35] LABS: MANUAL DIFF FLAG NO
[2024-07-01 14:46] LABS: Basophils Absolute Auto 0.1 X10*3/uL (0.0-0.2); Basophils Percent Auto 0.7 % (0-2); Eosinophils Absolute Auto 0.2 X10*3/uL (0.0-0.4); Eosinophils Percent Auto 3.3 % (0-4); Hematocrit 35.3 % (37.0-47.0); Hemoglobin 12.4 g/dl (12.0-16.0); Imm Gran Abs Auto 0.02 X10*3/uL (0.00-0.03); Imm Gran Pct Auto 0.3 % (0.0-0.4); Lymphocytes Absolute Auto 2.3 X10*3/uL (1.2-4.9); Mean Corpuscular HGB Conc 35.1 g/dl (31.0-35.0); Mean Corpuscular Hemoglobin 25.3 pg (27.0-33.0); Mean Platelet Volume 10.5 fL (9.4-12.3); Monocytes Absolute Auto 0.3 X10*3/uL (0.1-1.2); Monocytes Percent Auto 4.6 % (2-11); Neutrophils Absolute Auto 4.1 x10*3/uL (2.0-8.3); Neutrophils Percent Auto 58.1 % (45-73); Platelet Count 371 X10*3/uL (160-400); Red Cell Distribution Width 13.5 % (11.0-16.0)
[2024-07-01 14:50] LABS: Appearance Urine Cloudy; Color Urine Yellow; Glucose Urine UA 250 mg/dL (Negative); Leukocyte Esterase Urine Moderate (2+) (Negative); Nitrite Urine Negative (Negative); UMIC TRIGGER UACC YES; Urine Blood Negative (Negative); Urine Ketones Negative (Negative); Urine Protein Negative (Neg-Trace)
[2024-07-01 14:53] LABS: Bacteria Urine 1+ (None Seen); Hyaline Casts Urine 0-2 /LPF (0-2); RBC Urine 0-2 /HPF (0-2); UACC Culture Trigger YES; WBC Urine 21-50 /HPF (0-5)
[2024-07-01 14:57] LABS: Estimated Average Glucose 131 mg/dL; Hemoglobin A1C 150.8588 umol/L; Hemoglobin A1c % 6.2 % (<6.0)
[2024-07-01 15:22] LABS: Creatinine Urine 61.57 mg/dL; Microalbum/Creatinine Ratio Ur 12.9 ug/mg cr (<30)
[2024-07-01 15:56] LABS: Folate 13.2 ng/mL (> or = 4.0); Vitamin B12 434 pg/mL (200-900)
[2024-07-01 16:21] LABS: Alanine Aminotransferase 35 U/L (0-31); Albumin Level 4.2 g/dL (3.5-5.0); Alkaline Phosphatase 57 U/L (39-117); Anion Gap 11 (12-20); Aspartate Amino Transferase 27 U/L (5-31); Bilirubin Total 0.3 mg/dL (0.0-1.0); Blood Urea Nitrogen 6 mg/dL (9-16); Calcium 9.3 mg/dL (8.4-10.2); Carbon Dioxide 28 mmol/L (22-29); Chloride 106 mmol/L (96-108); Cholesterol 210 mg/dL (<200); Estimated Glomerular Filt Rate > 60; Glucose Fasting 180 mg/dL (60-99); HDL Cholesterol 48 mg/dL (>40); LDL Cholesterol Calculated 119 mg/dL (<100); Potassium 3.9 mmol/L (3.3-5.1); Sodium 141 mmol/L (135-145); Total Protein 7.2 g/dL (6.5-8.0); Triglycerides 219 mg/dL (<150)
[2024-07-01 16:39] LABS: TSH reflex Free T4 0.55 uIU/mL (0.32-4.0); Vitamin D 25-OH Total 28.5 ng/mL (>30)
[2024-07-02 10:44] LABS: CA-125 5 U/mL (<35)
== END 2024-07-01 14:14 | disposition home or self-care (01) ==
LOC: HO.LAB 14:13
PROVIDERS: Obstetrics & Gynecology; PCP Internal Medicine; Visit Provider Internal Medicine
DX: D64.9 Anemia, unspecified (principal); E78.00 Pure hypercholesterolemia, unspecified; E11.9 Type 2 diabetes mellitus without complications; E55.9 Vitamin D deficiency, unspecified; E53.8 Deficiency of other specified B group vitamins; N83.299 Other ovarian cyst, unspecified side
CPT/HCPCS: 36415; 80053; 80061; 81001; 82043; 82306; 82570; 82607; 82746; 83036; 84443; 85025; 86304; 87086; 87088; 87186

== ENCOUNTER 2024-08-27 17:27 | Emergency (ER) | payer OTHER, SELFPAY ==
--- OUTSIDE RECORDS SUMMARY | 2006-05-01 20:00 | XMS_ITS | Continuity of Care Document ---
Author Organization debra [facility] Address [address] [address],[address] [place] [address] Phone Care Team Providers Care Destination Specialist Name Role Phone Z-Converted, Provider Unavailable Unavailabl e Medications Medication Instructions Dosage Effective Dates (start - stop) Status Comments metronidazole 500 mg Tab 1 po bid x 7 days 2006 - Active cyclobenzaprine 10 mg Tab 1 Three Times A Day - Active Lodine 400 mg Tab 1 Every Twelve Hours As Needed - Active Flonase 50 mcg/Actuation Nasal [place] 1 puff bilaterally qday - Active Sudafed 30 mg Tab 1 tab PO every 4-6 hours prn - Active naproxen 500 mg Tab 1 Two Times A Day - Active Advance Directives Directive Yes / No Effective Date File Name No Information Encounters Encounter Description Practice Location Reason(s) For Visit Diagnoses Date Provider Providers Copied on Encounter deb[facility], [address] [address],[address], [place], [place], [id number], tel:[phone] [facility] Vaginitis and vulvovaginit is, unspecified 7 Z-Convert ed Provider. . [facility], [address] [address],[address], [place], [place], [id number], [place] tel:[phone] Converted Locations No Information 7 Z-Convert ed Provider. . [facility], [address] [address],[address], [place], [place], [id number], tel:[phone] 2 Converted Locations No Information 7 Z-Convert ed Provider. . [facility], [address] [place] [address],[address], [place], [place], [id number], [place] tel:[phone] [facility] Lumbar sprain 7 Z-Convert ed Provider. . [facility], [address] [place] [address],Suite [facility], [place], [place], [id number], tel:[phone] 2 Converted Locations No Information 7 Doesther Martines . [address] [place] [address], [place], [place], [id number] , [place]. tel:[phone] [facility], [address] [place], [place] [address] 2,[address], [place], [place], [id number], [place] tel:[phone] [facility] Allergic rhinitis due to pollen 7 Z-Convert ed Provider. . [facility], [address] [place] [address],[address], [place], [place], [id number], [place] tel:[phone] [facility] Carpal tunnel syndrome 7 Z-Convert ed Provider. . [facility], [address] [place] [address],[address], [place], [place], [id number], [place] tel:[phone] 2 Converted Locations No Information 7 Z-Convert ed Provider. . Family History Family Member Type Diagnosis Age At Onset No Information Payers Payer name Insurance type Covered constitution party ID Authoriza tion(s) No Information Social History Type Description Quantity Date Captured Comments Sex Female Smoking Status No Information Chief Complaint And Reason For Visit No Information Reason For Referral Reason For Referral No Information History Of Present Illness Encounter Date Complaint History Of Prese nt Illness No Information Functional Status Date Functional Assessmen t No Information Instructions Date Instruction Additional Infor mation No Information Assessments Type Assessment Date No Information Patient Care Teams Name Effective Dates (start - stop) Status Members No Information
--- NOTE | ~2024-08-27 | US_ITS ---
CLINICAL HISTORY: RLQ tenderness --- Additional Notes or Special Instructions: recent hysterectomy and L sided salpingectomy on 08 12 US female pelvis LMP:Unknown. History: Status post hysterectomy and left oophorectomy/salpingectomy on 08/12/24 presenting with right lower quadrant tenderness Technique: Ultrasound examination of the pelvis was performed with transabdominal technique due to recent surgery. Images include: Color Doppler and spectral Doppler waveforms. Comparison: US/SR - US PELVIS TRANSABDOMINAL AND TRANSVAGINAL - 03/04/24 15:46 EST US/SR - US PELVIC AND TRANSVAGINAL - 09/01/21 14:30 EDT Findings: Status post hysterectomy. The right ovary is mildly enlarged, measuring 4.4 x 3.4 x 3.4cm, volume of 26.6mL. There is normal echogenicity and arterial/venous vascularity. There is an anechoic avascular lesion with question a thin internal septation measuring 2.4 x 2.8 x 2.7 cm. On the prior study there was a dominant follicle with cumulus oophorus in thin internal septation also seen, measuring 2.4 x 1.9 x 2.7 cm. The left ovary is not visualized and reported to be surgically absent. No lesions in the left adnexa. No free fluid. Impression: Mildly enlarged right ovary without torsion. 2.8 cm right ovarian cyst with question of thin internal septation. 8-12 week follow up pelvic ultrasound can be performed to confirm resolution. This document has been electronically signed by: Negar Ribeiro MD on 08/27/2024 18:56:33
--- NOTE | 2024-08-27 17:35 | ED.GENADULT ---
HPI - General Adult General Chief complaint: General Medical Stated complaint: uterus surgery 08/12/24 , pain rt side Time Seen by Provider: 08/27/24 22:10 Related Data Home Medications ?Medication ?Instructions ?Recorded ?Confirmed dextroamphetamine-amphetamine 20 1 tab PO DAILY 11/20/23 02/26/24 mg tablet hydroxyzine HCl 25 mg tablet 25 mg PO TID PRN 02/26/24 02/26/24 Previous Rx's ?Medication ?Instructions ?Recorded cetirizine 10 mg tablet (Zyrtec) 10 mg PO DAILY 10 days #10 tabs 12/25/19 alcohol swabs (Alcohol Prep Pads) 1 pad topical TID #200 ea 06/19/20 blood sugar diagnostic (FreeStyle #100 ea 05/05/22 Lite Strips) ibuprofen 800 mg tablet 800 mg PO TID PRN pain 30 days #90 01/31/23 tabs multivitamin 1 tab PO DAILY 90 days #90 tabs 01/31/23 pantoprazole 40 mg tablet,delayed 40 mg PO DAILY #90 tabs 09/22/23 release fluticasone propionate 50 1 spray intranasal BID #16 grams 10/01/23 mcg/actuation nasal spray,suspension (24 Hour Allergy Relief) blood-glucose meter (FreeStyle #1 ea 11/14/23 Lite Meter kit) lancets 28 gauge (FreeStyle #100 ea 11/14/23 Lancets) tiotropium bromide 2.5 2 puff PO DAILY #4 mL 11/16/23 mcg/actuation mist for inhalation (Spiriva Respimat) atorvastatin 10 mg tablet 10 mg PO BEDTIME 30 days #90 tabs 01/14/24 tizanidine 4 mg tablet 2 mg (1/2 x 4 mg) PO BEDTIME PRN 02/04/24 for muscle spasm 30 days #30 tabs quetiapine 100 mg tablet 100 mg PO BEDTIME 30 days #30 tabs 02/14/24 metformin 500 mg tablet 500 mg PO BID 30 days #60 tabs 05/24/24 polyethylene glycol 3350 17 17 g PO DAILY PRN for constipation 05/24/24 gram/dose oral powder (Gavilax) #1,530 grams nitrofurantoin 100 mg PO BID 7 days #14 caps 07/03/24 monohydrate/macrocrystals 100 mg capsule (Macrobid) fluconazole 150 mg tablet 150 mg PO Q3D 2 doses #2 tabs 07/04/24 Ventolin HFA 90 mcg/actuation 2 puff inhalation Q6H PRN 07/25/24 aerosol inhaler (albuterol sulfate) shortness of breath or wheezing 30 days #18 grams fluconazole 150 mg tablet 150 mg PO Q3D 2 doses #2 tabs 07/25/24 dulaglutide 0.75 mg/0.5 mL 0.75 mg (0.5 mL) subcut QWEEK #2 mL 07/31/24 subcutaneous pen injector (Trulicity) oxycodone-acetaminophen 5 mg-325 1 tab PO Q8H pain 28 days #84 tabs 08/14/24 mg tablet (Percocet) Allergies Allergy/AdvReac Type Severity Reaction Status Date / Time gabapentin Allergy Unknown Tingling Verified 08/27/24 17:41 feeling in throat zolpidem (From AMBIEN) Allergy Unknown tingling Verified 08/27/24 17:41 feeling in throat dulaglutide (From Trulicity) AdvReac Intermediate Low sugars Verified 08/27/24 17:41 [email or web address] Allergy Severe Rash Uncoded 02/26/24 13:44 [facility] Past Medical History Medical History Chronic constipation Fibromyalgia Family history of ovarian cancer Hemorrhoids with complication Mixed hyperlipidemia Pure hypercholesterolemia Type 2 diabetes mellitus with hyperglycemia Varicose veins of bilateral lower extremities with pain Lumbar degenerative disc disease Anxiety GERD without esophagitis Diabetes mellitus Bilateral flank pain Varicose veins of left lower extremity with pain Dizziness Left ear pain Pressure sensation in left ear UTI (urinary tract infection) HTN (hypertension) Lower back pain Obesity (BMI 30-39.9) Menorrhagia Knee pain, bilateral Depression Allergic rhinitis Hemorrhoid Asthma Surgical History Hx of tubal ligation History of esophagogastroduodenoscopy (EGD) History of endometrial ablation History of carpal tunnel surgery History of hemorrhoidectomy Family History Family History Father Diabetes Asthma Hepatitis Mother Diabetes Sleep apnea Ischemic cerebrovascular accident (CVA) Ovarian cancer, Onset Age: 52 Maternal Grandmother Diabetes Breast cancer, Onset Age: 50 Maternal Grandfather Stroke Paternal Grandfather Lung cancer Sister Ovarian cancer, Onset Age: 30 Social History Social History Household Members: Family Housing: House Alcohol intake: never Comment: medicated in PACU Patient Tobacco Use Status: Former Tobacco user Smoked in Last 30 Days: No e-Cigarette/Vaping Use: Never Used Second Hand Smoke Exposure: Yes Use of substances other than those prescribed or required for medical reasons: No Advance Directives: No Advance Directives Information Provided: No Do you have a plan to hurt others: No Plan Patient : No service: No Current occupational status: employed 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 Cognitive needs: No Hearing needs: No Vision needs: Yes Physical Exam ED Vital Signs: Vital Signs - 24 hr 08/27/24 17:36 08/27/24 19:45 08/27/24 22:00 Temperature 98.2 F 98.2 F 97.8 F Pulse Rate 91 75 85 Respiratory Rate 18 17 16 Blood Pressure 154/84 H 147/73 H 145/87 H Pulse Oximetry 99 100 99 Oxygen Delivery Method Room Air Room Air Room Air BMI result Body Mass Index 33.3 Course Course Course Narrative: This is a rapid medical exam performed by Raffy Spears NP: Additional HPI, ROS, PE not included below will be deferred to primary provider. Patient is a 44-year-old female with history of fibromyalgia, AUB, T2DM, GERD, HTN, asthma presenting to the ED with complaint of right lower abdominal pain and orange/pink vaginal discharge. Recent total laparoscopic hysterectomy, bilateral salpingectomy, left oophorectomy, cystoscopy?on 08/12 at [facility]. Pain worse with movement, describes as burning. Seen by HELPER MAINTENANCE CLEANING at [facility] on 08/25 for same complaints. Plan: labs, UA, u/s Medical Decision Making Medical Decision Making MDM Narrative: 10:28 PM 08/27/2024 (Melanie AGGARWAL): Went to see patient in exam room, patient was not present in exam room, exam gown was noted on bed, nearby bathroom was unoccupied, suspect patient left the ED without treatment complete after RME but prior to this provider's assessment, this provider had no patient contact. Labs and ultrasound were reviewed, no evidence of torsion, no obvious UTI, no other acute laboratory findings, no indication for emergent call back. windows deployment technician notified of patient leaving without treatment complete. Lab Data MDM Lab Attestation statement: I reviewed the patient's lab results. 08/27/24 17:51 08/27/24 17:51 Labs: Lab Results 08/27/24 08/27/24 Range/Units 17:51 17:56 WBC 10.1 (4.8-10.8) X10*3/uL RBC 4.82 (4.20-5.50) X10*6/uL Hgb 12.5 (12.0-16.0) g/dl Hct 35.1 L (37.0-47.0) % MCV 72.8 L (80.0-98.0) fL MCH 25.9 L (27.0-33.0) pg MCHC 35.6 H (31.0-35.0) g/dl RDW 13.9 (11.0-16.0) % Plt Count 370 (160-400) X10*3/uL MPV 10.4 (9.4-12.3) fL Immature Gran % (Auto) 0.2 (0.0-0.4) % Neut % (Auto) 57.0 (45-73) % Lymph % (Auto) 31.1 (20-40) % [place] % (Auto) 5.0 (2-11) % Eos % (Auto) 6.1 H (0-4) % Baso % (Auto) 0.6 (0-2) % Lymph # (Auto) 3.2 (1.2-4.9) X10*3/uL [place] # (Auto) 0.5 (0.1-1.2) X10*3/uL Eos # (Auto) 0.6 H (0.0-0.4) X10*3/uL Baso # (Auto) 0.1 (0.0-0.2) X10*3/uL Abs Immat Gran (auto) 0.02 (0.00-0.03) X10*3/uL Absolute Neuts (auto) 5.8 (2.0-8.3) x10*3/uL Absolute Nucleated RBC 0.000 (0.0-0.012) X10*3/uL Nucleated RBC % (auto) 0.0 (0.0-0.2) /100WBC Sodium 138 (135-145) mmol/L Potassium 4.1 (3.3-5.1) mmol/L Chloride 105 (96-108) mmol/L Carbon Dioxide 27 (22-29) mmol/L Anion Gap 10 L (12-20) BUN 10 (9-16) mg/dL Creatinine 0.66 (0.5-1.4) mg/dL Estim Creat Clear Calc 116.7 Estimated GFR > 60 Random Glucose 146 H (60-115) mg/dL Calcium 9.2 (8.4-10.2) mg/dL Total Bilirubin 0.2 (0.0-1.0) mg/dL AST 22 (5-31) U/L ALT 26 (0-31) U/L Alkaline Phosphatase 57 (39-117) U/L Total Protein 7.4 (6.5-8.0) g/dL Albumin 4.4 (3.5-5.0) g/dL Urine Color Yellow Urine Appearance Clear Urine pH 6.5 (5.0-9.0) Ur Specific [place] 1.025 (1.005-1.025) Urine Protein Negative (Neg-Trace) mg/dL Urine Glucose (UA) Negative (Negative) mg/dL Urine Ketones Negative (Negative) mg/dL Urine Blood Trace H (Negative) Urine Nitrite Negative (Negative) Ur Leukocyte Esterase Small (1+) H (Negative) Urine RBC 3-5 H (0-2) /HPF Urine WBC 6-10 H (0-5) /HPF Ur Squamous Epith Cells 6-10 (0-2) /HPF Urine Bacteria Trace (None Seen) Hyaline Casts 0-2 (0-2) /LPF Radiology Impression Discussion of test interpretation with radiology: I have reviewed the radiologist's reading. Radiologist Impression: CLINICAL HISTORY: RLQ tenderness --- Additional Notes or Special Instructions: recent hysterectomy and L sided salpingectomy on 08 12 US female pelvis LMP:Unknown. History: Status post hysterectomy and left oophorectomy/salpingectomy on 08/12/24 presenting with right lower quadrant tenderness Technique: Ultrasound examination of the pelvis was performed with transabdominal technique due to recent surgery. Images include: Color Doppler and spectral Doppler waveforms. Comparison: US/SR - US PELVIS TRANSABDOMINAL AND TRANSVAGINAL - 03/04/24 15:46 EST US/SR - US PELVIC AND TRANSVAGINAL - 09/01/21 14:30 EDT Findings: Status post hysterectomy. The right ovary is mildly enlarged, measuring 4.4 x 3.4 x 3.4cm, volume of 26.6mL. There is normal echogenicity and arterial/venous vascularity. There is an anechoic avascular lesion with question a thin internal septation measuring 2.4 x 2.8 x 2.7 cm. On the prior study there was a dominant follicle with cumulus oophorus in thin internal septation also seen, measuring 2.4 x 1.9 x 2.7 cm. The left ovary is not visualized and reported to be surgically absent. No lesions in the left adnexa. No free fluid. Impression: Mildly enlarged right ovary without torsion. 2.8 cm right ovarian cyst with question of thin internal septation. 8-12 week follow up pelvic ultrasound can be performed to confirm resolution. This document has been electronically signed by: Negar Ribeiro MD on 08/27/2024 18:56:33 Discharge Plan Discharge Clinical Impression: Abdominal pain Qualifiers: Abdominal location: unspecified location Qualified Code(s): R10.9 - Unspecified abdominal pain Patient Disposition: Left W/O Completing Treatment Prescriptions: No Action pantoprazole 40 mg tablet,delayed release (DR/EC) 40 mg PO DAILY Qty: 90 1RF fluticasone propionate [24 Hour Allergy Relief] 50 mcg/actuation spray,suspension 1 spray intranasal BID Qty: 16 1RF Rx Instructions: administer into each nostril (DME) lancets [FreeStyle Lancets] 28 gauge misc See Rx Instructions .ROUTE .MEDSUPPLY Qty: 100 12RF Rx Instructions: As directed (DME) blood-glucose meter [FreeStyle Lite Meter] Kit See Rx Instructions .ROUTE .MEDSUPPLY Qty: 1 0RF Rx Instructions: As directed Spiriva Respimat 2.5 mcg/actuation mist 2 puff PO DAILY Qty: 4 6RF atorvastatin 10 mg tablet 10 mg PO BEDTIME 30 Days Qty: 90 1RF quetiapine 100 mg tablet 100 mg PO BEDTIME 30 Days Qty: 30 1RF polyethylene glycol 3350 [Gavilax] 17 gram/dose powder 17 g PO DAILY PRN (Reason: for constipation) Qty: 1530 1RF metformin 500 mg tablet 500 mg PO BID 30 Days Qty: 60 6RF nitrofurantoin monohyd/m-cryst [Macrobid] 100 mg capsule 100 mg PO BID 7 Days Qty: 14 0RF Rx Instructions: must administer with a meal/food fluconazole 150 mg tablet 150 mg PO Q3D Qty: 2 0RF Rx Instructions: may repeat second dose 72 hrs after first dose if symptoms persist albuterol sulfate [Ventolin HFA] 90 mcg/actuation HFA aerosol inhaler 2 puff inhalation Q6H PRN (Reason: shortness of breath or wheezing) 30 Days Qty: 18 5RF fluconazole 150 mg tablet 150 mg PO Q3D Qty: 2 0RF Rx Instructions: may repeat second dose 72 hrs after first dose if symptoms persist Trulicity 0.75 mg/0.5 mL pen injector 0.75 mg subcut QWEEK Qty: 2 0RF oxycodone-acetaminophen [Percocet] 5-325 mg tablet 1 tab PO Q8H 28 Days Qty: 84 0RF alcohol swabs [Alcohol Prep Pads] Pads, Medicated 1 pad topical TID Qty: 200 0RF cetirizine [Zyrtec] 10 mg tablet 10 mg PO DAILY 10 Days Qty: 10 0RF ibuprofen 800 mg tablet 800 mg PO TID PRN (Reason: pain) 30 Days Qty: 90 3RF Rx Instructions: Take with food multivitamin Tablet 1 tab PO DAILY 90 Days Qty: 90 3RF (DME) FreeStyle Lite Strips Strip See Rx Instructions .ROUTE .MEDSUPPLY Qty: 100 12RF Rx Instructions: As directed hydroxyzine HCl 25 mg tablet 25 mg PO TID PRN dextroamphetamine-amphetamine 20 mg tablet 1 tab PO DAILY tizanidine 4 mg tablet 2 mg PO BEDTIME PRN (Reason: for muscle spasm) 30 Days Qty: 30 3RF
[2024-08-27 17:36] VITALS: BP 154/84; PULSE 91; RESP 18; TEMP 36.8; O2SAT 99; BMI 33.3
[2024-08-27 17:56] LABS: MANUAL DIFF FLAG NO
[2024-08-27 18:02] LABS: Hematocrit 35.1 % (37.0-47.0); Hemoglobin 12.5 g/dl (12.0-16.0); Imm Gran Abs Auto 0.02 X10*3/uL (0.00-0.03); Imm Gran Pct Auto 0.2 % (0.0-0.4); Lymphocytes Absolute Auto 3.2 X10*3/uL (1.2-4.9); Mean Corpuscular HGB Conc 35.6 g/dl (31.0-35.0); Mean Corpuscular Hemoglobin 25.9 pg (27.0-33.0); Mean Corpuscular Volume 72.8 fL (80.0-98.0); NRBC Abs Auto 0.000 X10*3/uL (0.0-0.012); NRBC Pct Auto 0.0 /100WBC (0.0-0.2); Platelet Count 370 X10*3/uL (160-400); Red Blood Count 4.82 X10*6/uL (4.20-5.50); White Blood Count 10.1 X10*3/uL (4.8-10.8)
[2024-08-27 18:02] LABS: Appearance Urine Clear; Glucose Urine UA Negative (Negative); PH 6.5 (5.0-9.0); Specific Gravity - Urine 1.025 (1.005-1.025); UMIC TRIGGER UACC YES
[2024-08-27 18:05] LABS: UACC Culture Trigger YES
[2024-08-27 18:11] LABS: Alanine Aminotransferase 26 U/L (0-31); Albumin Level 4.4 g/dL (3.5-5.0); Alkaline Phosphatase 57 U/L (39-117); Anion Gap 10 (12-20); Aspartate Amino Transferase 22 U/L (5-31); Blood Urea Nitrogen 10 mg/dL (9-16); Calcium 9.2 mg/dL (8.4-10.2); Carbon Dioxide 27 mmol/L (22-29); Chloride 105 mmol/L (96-108); Creatinine Clr Calc Pharmacy 116.7; Estimated Glomerular Filt Rate > 60; Potassium 4.1 mmol/L (3.3-5.1); Sodium 138 mmol/L (135-145); Total Protein 7.4 g/dL (6.5-8.0)
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
[2024-08-27 19:45] VITALS: BP 147/73; PULSE 75; RESP 17; TEMP 36.8; O2SAT 100
[2024-08-27 22:00] VITALS: BP 145/87; PULSE 85; RESP 16; TEMP 36.6; O2SAT 99
--- NOTE | 2024-08-27 22:28 | PC.NURSE ---
Pt not visualized in room or bathroom by provider.
== END 2024-08-27 22:30 | disposition left against medical advice (07) ==
PROVIDERS: Registered Nurse Emergency; Emergency Provider Emergency Medicine
DX: R10.2 Pelvic and perineal pain (principal); N89.8 Other specified noninflammatory disorders of vagina; R10.31 Right lower quadrant pain; Z79.899 Other long term (current) drug therapy; Z87.891 Personal history of nicotine dependence
CPT/HCPCS: 36415; 76856; 80053; 81001; 85025; 87086; 99284

== ENCOUNTER 2024-09-03 15:09 | Outpatient (AMB) | payer OTHER, SELFPAY ==
[2024-09-03 15:11] VITALS: BP 130/78; PULSE 85; O2SAT 98; BMI 32.6
--- NOTE | 2024-09-03 15:11 | MHC.PC.OV ---
Vital Signs 09/03/24 15:11 Height 5 ft 4 in Weight 190 lb BMI 32.6 BP 130/78 Blood Pressure Location Lt brachial Position Sitting Pulse 85 Pulse Source Pulse Oximeter Pulse Oximetry (%) 98 Oxygen Delivery Method Room Air Intake Visit Reasons: 3 Months f/u reschedule 05/05 Systems Architect Required: No Accompanied by: Self / Same As Patient Allergies gabapentin Allergy (Unknown, Verified 09/07/24 19:26) Tingling feeling in throat zolpidem (From AMBIEN) Allergy (Unknown, Verified 09/07/24 19:26) tingling feeling in throat dulaglutide (From Trulicity) Adverse Reaction (Intermediate, Verified 09/07/24 19:26) Low sugars cahsews Allergy (Severe, Uncoded 09/07/24 19:26) Rash Medication List - Last Reconciled 09/07/24 by Kurt Arroyo MD alcohol swabs (Alcohol Prep Pads) 1 pad topical TID amoxicillin-pot clavulanate 875-125 mg 1 tab PO Q12H 7 days atorvastatin 10 mg PO BEDTIME 30 days blood sugar diagnostic (FreeStyle Lite Strips) As directed blood-glucose meter (FreeStyle Lite Meter kit) As directed cetirizine (Zyrtec) 10 mg PO DAILY 10 days dextroamphetamine-amphetamine 20 mg 1 tab PO DAILY dulaglutide (Trulicity) 0.75 mg (0.5 mL) subcut QWEEK fluconazole 150 mg PO Q3D 2 doses fluconazole 150 mg PO Q3D 2 doses fluticasone propionate 50 mcg/actuation (24 Hour Allergy Relief) 1 spray intranasal BID hydroxyzine HCl 25 mg PO TID PRN ibuprofen 800 mg PO TID PRN 30 days lancets (FreeStyle Lancets) As directed metformin 500 mg PO BID 30 days multivitamin 1 tab PO DAILY 90 days oxycodone 10 mg PO Q8H PRN 7 days oxycodone-acetaminophen 5-325 mg (Percocet) 1 tab PO Q8H 28 days pantoprazole 40 mg PO DAILY polyethylene glycol 3350 (Gavilax) 17 grams PO DAILY PRN quetiapine 100 mg PO BEDTIME 30 days tiotropium bromide 2.5 mcg/actuation (Spiriva Respimat) 2 puffs PO DAILY tizanidine 2 mg (1/2 x 4 mg) PO BEDTIME PRN 30 days Ventolin HFA 90 mcg/actuation (albuterol sulfate) 2 puffs inhalation Q6H PRN 30 days NS Tobacco use date assessed: 09/03/24 Dental Screening Dental Screen Date: 09/03/24 Did you have a dental visit in the last 12 months?: Yes Did you have a dental problem in the last 6 months where you did not have access to dental care?: No Was dental information given to patient?: Patient has dentist HPI 3 Months f/u reschedule 05/05 HPI Details Patient comes in today for her follow-up visit States that she underwent laparoscopic hysterectomy and left oophorectomy a few weeks ago on 08/11/2024 at [facility] States that she had her left ovary removed because of abnormal cyst in the ovary Relates that she currently still feels weak and drained even though it has been about 3 weeks now since her surgery Notes that she has some pain and discomfort over her right abdominal area and she is concerned that she may have some infection there States that she has been experiencing some on and off nausea but denies any vomiting Notes that she has also been constipated lately and has been taking up to 4 tablets of Senna recently with (+) relief of her constipation Admits that she has been taking more of her pain medication than usual and she is now out of her pain medication more than a week earlier than her scheduled refill date and would like to know if there is anything she can be prescribed to help her with the pain until she can get her regular prescription refilled - she is aware that she should not have taken her medication more than usual and would not be able to get her regular prescription refilled ahead of time but states that she was in too much pain lately from her surgery and did not know what else to do She denies any headaches or dizziness Denies any chest pains, no increased shortness of breath PFSH Medical History Chronic constipation Fibromyalgia Family history of ovarian cancer Hemorrhoids with complication Mixed hyperlipidemia Pure hypercholesterolemia Type 2 diabetes mellitus with hyperglycemia Varicose veins of bilateral lower extremities with pain Lumbar degenerative disc disease Anxiety GERD without esophagitis Diabetes mellitus Bilateral flank pain Varicose veins of left lower extremity with pain Dizziness Left ear pain Pressure sensation in left ear UTI (urinary tract infection) HTN (hypertension) Lower back pain Obesity (BMI 30-39.9) Menorrhagia Knee pain, bilateral Depression Allergic rhinitis Hemorrhoid Asthma Surgical History Hx of tubal ligation History of esophagogastroduodenoscopy (EGD) History of endometrial ablation History of carpal tunnel surgery History of hemorrhoidectomy Family History Father Diabetes Asthma Hepatitis Mother Diabetes Sleep apnea Ischemic cerebrovascular accident (CVA) Ovarian cancer, Onset Age: 52 Maternal Grandmother Diabetes Breast cancer, Onset Age: 50 Maternal Grandfather Stroke Paternal Grandfather Lung cancer Sister Ovarian cancer, Onset Age: 30 Social History Household Members: Family Housing: House Alcohol intake: never Comment: medicated in PACU Patient Tobacco Use Status: Former Tobacco user e-Cigarette/Vaping Use: Never Used Second Hand Smoke Exposure: Yes service: No Current occupational status: employed 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 1. Little interest or pleasure in doing things: not at all 2. Feeling down, depressed, or hopeless: not at all 3. Trouble falling or staying asleep, or sleeping too much: not at all 4. Feeling tired or having little energy: not at all 5. Poor appetite or overeating: not at all 6. Feeling bad about yourself - or that you are a failure or have let yourself or your family down: not at all 7. Trouble concentrating on things, such as reading the newspaper or watching television: not at all 8. Moving or speaking so slowly that other people could have noticed. Or the opposite - being so fidgety or restless that you have been moving around a lot more than usual: not at all 9. Thoughts that you would be better off or of hurting yourself in some way: not at all Total score: 0 Depression Screening Interpretation: Negative (is on Rx) Depression Screening Done: Yes 25656 - PHQ-9 Billing: Yes Source: Developed by Drs. Tommy Mccarty, Honey Mejia, Gino Bearden and colleagues, with an educational sandy from [employer]. Thrive Questionnaire Date Thrive assessed: 09/03/24 I am a: Patient What is your living situation today?: I have a steady place to live Within the past 12 months, did the food you bought not last and you didn't have the money to get more?: I choose not to answer this question Within the past 12 months, did you worry whether your food would run out before you got money to buy more?: I choose not to answer this question Do you have trouble paying for medicines?: No Do you have trouble getting transportation to medical appointments?: No Do you have trouble paying your heating and electricity bill?: No Do you have trouble taking care of your child, family member or friend?: No Do you have trouble with day-to-day activities such as bathing, preparing meals, shopping, managing finances, etc.?: No Are you currently unemployed and looking for a job?: Yes Are you interested in more education?: I choose not to answer this question Please select the resources that you would like help with: None Currently or been in a relationship where the following occur: I choose not to answer THRIVE Score: 0 AUDIT C Alcohol Use Questionnaire (AUDIT-C) 1. How often do you have a drink containing alcohol?: Never 3. How often do you have six or more drinks on one occasion?: Never Total Score: 0 Score Reviewed/Action Taken: Yes JAIDA-7 AMB Questionnaire JAIDA-7 Date JAIDA - 7 assessed: 09/03/24 Feeling nervous, anxious, or on edge: 3 = Nearly every day Not being able to stop or control worryin = Nearly every day Worrying too much about different things: 3 = Nearly every day Trouble relaxin = Not at all Being so restless that it is hard to sit still: 0 = Not at all Becoming easily annoyed or irritable: 0 = Not at all Feeling afraid as if something awful might happen: 0 = Not at all Total JAIDA-7 score (0-4 normal; 5-9 mild; 10-14 moderate; 15-21 severe): 9 Source: Developed by Drs. Tommy Mccarty, Honey Mejia, Gino Bearden and colleagues, with an educational sandy from [employer]. Review of Systems Const Denies chills, Reports fatigue, Denies fever(s) and Denies headache(s) ENT Denies dysphagia, Denies dizziness, Denies otalgia, Denies headache(s), Reports neck pain, Denies odynophagia and Denies sore throat Card Denies chest pain, Denies palpitations and Denies dyspnea Resp Denies chest congestion, Denies cough and Denies dyspnea GI Reports abdominal pain (over the right side of the abdomen - see HPI), Reports constipation, Denies dysphagia, Denies diarrhea, Reports nausea (on and off), Denies odynophagia and Denies vomiting Denies difficulty voiding, Denies nocturia and Denies dysuria Musc Reports back pain (over the lower back - chronic), Reports myalgias (diffuse), Reports arthralgias (involving multiple joints) and Reports neck pain Skin/Breast Denies rash Neuro Denies dizziness and Denies headache(s) Psych Reports anxiety, Reports depression and Reports difficulty concentrating Endo Reports fatigue and Denies palpitations Silvio/Lymph Denies easy bruising Physical exam (Primary Care) Vital Signs: Last Vital Signs Pulse 85 09/03/24 15:11 BP 130/78 09/03/24 15:11 Pulse Ox 98 09/03/24 15:11 Oxygen Delivery Method Room Air 09/03/24 15:11 BMI result Body Mass Index 32.6 Tobacco/Smoking Status: Tobacco use Status Tobacco use date assessed 09/03/24 09/03/24 15:17 Patient Tobacco Use Status Former Tobacco user 09/03/24 15:17 e-Cigarette/Vaping Use Never Used 09/03/24 15:17 PHQ-9: PHQ-9 Score PHQ-9: Total score 0 09/03/24 16:04 Depression Screening Interpretation: Negative (is on Rx) Thrive Assessment: Date of Thrive Assessment Date Thrive assessed 09/03/24 09/03/24 15:17 Currently or been in a relationship where the following occur: I choose not to answer Const General: no acute distress and alert HENMT Ears: TM's normal bilaterally and EAC's normal Throat: Yes posterior oropharynx normal and Yes tonsils normal (no TP congestion noted) Neck Neck: Yes supple and No lymphadenopathy Thyroid: Thyroid normal Resp Auscultation: clear to auscultation bilaterally, no rales and no wheezes Cardio Rate: regular rate Rhythm: regular rhythm Heart sounds: no murmurs GI Palpation (GI): Soft to palpation, Tenderness to palpation present (GI) (over the right side of the abdomen), no guarding, not rigid and No Rebound tenderness present Auscultation: normal bowel sounds General: Yes no CVA tenderness Back/Spine/Pelvis Back: no CVA tenderness Cervical Spine: Cervical spine tenderness Thoracic/Lumbar Spine: lumbar spinal tenderness Skin Rashes: no rashes Extrem General: Yes no clubbing, cyanosis or edema Right upper extremity: shoulder/upper arm Details: tenderness (diffusely over the scapular area) Left upper extremity: shoulder/upper arm Details: tenderness (diffusely over the scapular areas) Right lower extremity: knee ((+) tender hard nodular lesion just below the right patella) Results Reviewed Results Reviewed: Laboratory Tests 08/27/24 08/27/24 17:51 17:56 WBC 10.1 Hgb 12.5 Hct 35.1 L Plt Count 370 Sodium 138 Potassium 4.1 Creatinine 0.66 Estimated GFR > 60 Random Glucose 146 H Calcium 9.2 AST 22 ALT 26 Ur Specific [place] 1.025 Urine Protein Negative Urine Glucose (UA) Negative Urine Blood Trace H Urine Nitrite Negative Ur Leukocyte Esterase Small (1+) H Laboratory Tests 07/01/24 14:32 Fasting Glucose 180 H Hemoglobin A1c % 6.2 H Triglycerides 219 H Cholesterol 210 H LDL Cholesterol, Calc 119 H HDL Cholesterol 48 Vitamin B12 434 25-OH Vitamin D Total 28.5 L TSH 0.55 Coding Level of Care Code Est Pt Level 4 (44129) Diagnoses Right sided abdominal pain R10.9 Mixed hyperlipidemia E78.2 Type 2 diabetes mellitus without complication, without long-term current use of insulin E11.9 Diabetes mellitus type: type 2 Diabetes mellitus prison insulin use: without prison use Diabetes mellitus complication status: without complication GERD without esophagitis K21.9 Moderate persistent asthma without complication J45.40 Asthma severity: moderate Asthma persistence: persistent Asthma complication type: uncomplicated Allergic rhinitis, unspecified seasonality, unspecified trigger J30.9 Allergic rhinitis trigger: unspecified Allergic rhinitis seasonality: unspecified Varicose veins of bilateral lower extremities with pain I83.813 Degeneration of intervertebral disc of lumbar region with discogenic back pain M51.360 Disc-related pain type: discogenic back pain only Fibromyalgia M79.7 Arthralgia, unspecified joint M25.50 Joint pain location: unspecified RBC microcytosis R71.8 Chronic constipation K59.09 Attention deficit disorder, unspecified type F98.8 Attention deficit type: unspecified type Anxiety F41.9 Episode of recurrent major depressive disorder, unspecified depression episode severity F33.9 Depression Type: major depressive disorder Major depression recurrence: recurrent Active/Remission status: currently active Major depression episode severity: unspecified Obesity (BMI 30-39.9) E66.9 Additional Codes PHQ-9 - 90957 - PHQ-9 Billing: Yes ([id number]) Assessment & Plan Assessment & Plan (1) Right sided abdominal pain: Code(s): R10.9 - Unspecified abdominal pain Category: Medical Plan: Patient reportedly underwent laparoscopic hysterectomy (due to uterine myoma) and left oophorectomy (due to an abnormal ovarian cyst) a few weeks ago on 08/11/2024 at [facility] She reports still currently feeling weak and drained even though it has been about 3 weeks now since her surgery Notes that she has some pain and discomfort over her right abdominal area and she is concerned that she may have some infection there Patient just had a pelvic ultrasound done at the ER a few days ago, which revealed (+) mildly enlarged right ovary without torsion. 2.8 cm right ovarian cyst with question of thin internal septation. 8-12 week follow up pelvic ultrasound can be performed to confirm resolution Will go ahead and start her empirically for now on Augmentin 875 mg BID x 7 days She is also advised to reach out to her route carrier at [facility] regarding her current issues Patient is reminded that per her pain management agreement, she should not really be taking more of her medications than allowed or prescribe and that early refills will not be provided but in this case, because of her recent surgery, I will make this 1 time exception but can not guarantee that her insurance will allow her to get the prescription ahead of time We will try starting her instead on oxycodone 10 mg every 8 hours as needed for 7 days instead of her usual Percocet 5-325 mg Rx (2) Mixed hyperlipidemia: Code(s): E78.2 - Mixed hyperlipidemia Category: Medical Plan: Results of her follow-up labs done a couple of months ago reviewed and discussed with patient - she is advised that her cholesterol levels back in June 2024 have improved slightly from previous Reinforced low cholesterol diet Continue Fenofibrate 145 mg QD and Atorvastatin 10 mg QD Will recheck her labs and fasting lipids in 3 months for follow-up (3) Diabetes mellitus: Code(s): E11.9 - Type 2 diabetes mellitus without complications Category: Medical Qualifiers: Diabetes mellitus type: type 2 Diabetes mellitus prison insulin use: without termite technician use Diabetes mellitus complication status: without complication Qualified Code(s): E11.9 - Type 2 diabetes mellitus without complications Plan: Her HgbA1c was at 6.2% on her labs done a couple of months ago (was at 5.9% earlier this year) - goal is <7.0% Reinforced diabetic diet Continue Metformin 500 mg BID and Trulicity 0.75 mg Q week for now although discussed with patient that discontinuing her Trulicity may be an option if her abdominal pain persists (4) GERD without esophagitis: Code(s): K21.9 - Gastro-esophageal reflux disease without esophagitis Category: Medical Plan: Dietary restrictions reinforced Continue Pantoprazole 40 mg QD and Famotidine 40 mg Q HS Patient was referred back to GI for further evaluation and management and consideration for EGD at her last visit due to her recent recurrent heartburns despite being on Rx (5) Asthma: Code(s): J45.909 - Unspecified asthma, uncomplicated Category: Medical Qualifiers: Asthma severity: moderate Asthma persistence: persistent Asthma complication type: uncomplicated Qualified Code(s): J45.40 - Moderate persistent asthma, uncomplicated Plan: Controlled Continue Spiriva Respimat 2.5 mcg 2 inhalations QD and Albuterol HFA 2 inhalations every 6 hours as needed (6) Allergic rhinitis: Code(s): J30.9 - Allergic rhinitis, unspecified Category: Medical Qualifiers: Allergic rhinitis trigger: unspecified Allergic rhinitis seasonality: unspecified Qualified Code(s): J30.9 - Allergic rhinitis, unspecified Plan: Continue Cetirizine 10 mg QD PRN and Fluticasone 50 mcg nasal spray QD PRN (7) Varicose veins of bilateral lower extremities with pain: Code(s): I83.813 - Varicose veins of bilateral lower extremities with pain Category: Medical Plan: Follow up with vascular surgery as scheduled (8) Lumbar degenerative disc disease: Code(s): M51.36 - Other intervertebral disc degeneration, lumbar region Category: Social Hx Qualifiers: Disc-related pain type: discogenic back pain only Qualified Code(s): M51.360 - Other intervertebral disc degeneration, lumbar region with discogenic back pain only Plan: Reinforced activity and weigh-lifting restrictions Lumbar spine x-rays done back in 05/2018 showed (+) mild to moderate degenerative changes at L4-L5 Patient feels that her current pain Rxs are no longer working effectively for her and would like to see if her dose can be raised - I have declined and advised that opioids are NEVER an effective long-term solution for chronic pain and raising her dose every time she feels her pain control is inadequate will only serve to perpetuate the problem I will continue her on her current dose of Oxycodone-Acetaminophen 5-325 mg Q 8 hours PRN We sent her for repeat/updated x-rays of her lumbar spine previously, which she still has not yet gotten done I will go ahead and refer her today to pain management for further recommendations regarding her chronic pain (9) Fibromyalgia: Code(s): M79.7 - Fibromyalgia Category: Medical Plan: Have discussed with patient that majority of her non-specific symptoms of diffuse myalgia, fatigue and arthralgia appeat to be consistent with fibromyalgia She is encouraged again to try to continue to stay active and exercise regularly to better manage her fibromyalgia symptoms but she finds it difficult to do so due to her low back pain and joint pains She has been trialed on Gabapentin in the past but had to stop taking it due to side effects She was sent for x-rays of the cervical spine for further evaluation but she still has not yet gotten her x-rays done (10) Arthralgia: Code(s): M25.50 - Pain in unspecified joint Category: Medical Qualifiers: Joint pain location: unspecified Qualified Code(s): M25.50 - Pain in unspecified joint Plan: Involving multiple joints but her symptoms appear to be mostly non-specific Suspect that this may be part of her fibromyalgia symptoms She was referred to rheumatology for further evaluation and management last year (11) RBC microcytosis: Code(s): R71.8 - Other abnormality of red blood cells Category: Medical Plan: Her CBC has consistently presented with RBC microcytosis and hypochromia but she has never been persistently anemic for any extended period of time Her iron function tests and B12 level are also normal 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 Confirmation of alpha thalassemia can be obtained by ordering alpha-globin common mutation analysis (12) Chronic constipation: Code(s): K59.09 - Other constipation Category: Medical Plan: Patient is encouraged again on increased oral fluids and dietary fiber Continue Linzess 145 mcg QD and Miralax 17 gm QD; she has also been taking up to 4 Senna tablets at a time as needed lately due to increased constipation Follow up with GI as scheduled (13) Attention deficit disorder (ADD): Code(s): F98.8 - Other specified behavioral and emotional disorders with onset usually occurring in childhood and adolescence Category: Medical Qualifiers: Attention deficit type: unspecified type Qualified Code(s): F98.8 - Other specified behavioral and emotional disorders with onset usually occurring in childhood and adolescence Plan: Continue Dextroamphetamine-amphetamine 20 mg QD Follow up with psychiatry as scheduled (14) Anxiety: Code(s): F41.9 - Anxiety disorder, unspecified Category: Medical Plan: Continue Bupropion XL 300 mg QD Follow up with psychiatry as scheduled (15) Depression: Code(s): F32.9 - Major depressive disorder, single episode, unspecified Category: Medical Qualifiers: Depression Type: major depressive disorder Major depression recurrence: recurrent Active/Remission status: currently active Major depression episode severity: unspecified Qualified Code(s): F33.9 - Major depressive disorder, recurrent, unspecified Plan: Continue Quetiapine 100 mg Q HS, Sertraline 50 mg QD and Bupropion XL 300 mg QD Follow up with psychiatry as scheduled (16) Obesity (BMI 30-39.9): Code(s): E66.9 - Obesity, unspecified Category: Medical Plan: Reinforced diet/exercise as tolerated/lose weight but patient states that she finds it difficult to exercise due to her increasing low back pain and joint pains Plan Follow up in 2 to 3 months Orders: Referrals Pain Management Referral M54.50 - Low back pain, unspecified Medications: New oxycodone Partial Fill upon patient request. 10 mg PO Q8H PRN 20 tabs 0RF severe pain 7 days fluconazole may repeat second dose 72 hrs after first dose if symptoms persist 150 mg PO Q3D 2 tabs 0RF 2 doses amoxicillin-pot clavulanate 875-125 mg 1 tab PO Q12H 14 tabs 0RF 7 days
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
== END 2024-09-03 16:18 | disposition home or self-care (01) ==
LOC: HO.HMCH 15:10
PROVIDERS: PCP Internal Medicine; Visit Provider Internal Medicine
DX: R10.9 Unspecified abdominal pain (principal); E78.2 Mixed hyperlipidemia; E11.9 Type 2 diabetes mellitus without complications; K21.9 Gastro-esophageal reflux disease without esophagitis; J45.40 Moderate persistent asthma, uncomplicated; J30.9 Allergic rhinitis, unspecified; I83.813 Varicose veins of bilateral lower extremities with pain; M51.360 Other intervertebral disc degeneration, lumbar region with discogenic back pain only; M79.7 Fibromyalgia; M25.50 Pain in unspecified joint; R71.8 Other abnormality of red blood cells; K59.09 Other constipation; F98.8 Other specified behavioral and emotional disorders with onset usually occurring in childhood and adolescence; F41.9 Anxiety disorder, unspecified; F33.9 Major depressive disorder, recurrent, unspecified; E66.9 Obesity, unspecified; Z68.32 Body mass index [BMI] 32.0-32.9, adult

== ENCOUNTER → 2024-09-03 15:09 | Outpatient (BNVA) | payer OTHER, SELFPAY | PROVIDERS: PCP Internal Medicine; Visit Provider Internal Medicine | DX: E11.9 Type 2 diabetes mellitus without complications (principal); R10.9 Unspecified abdominal pain; E78.2 Mixed hyperlipidemia; K21.9 Gastro-esophageal reflux disease without esophagitis; J45.40 Moderate persistent asthma, uncomplicated; J30.9 Allergic rhinitis, unspecified; I83.813 Varicose veins of bilateral lower extremities with pain; M51.360 Other intervertebral disc degeneration, lumbar region with discogenic back pain only; M79.7 Fibromyalgia; M25.50 Pain in unspecified joint; R71.8 Other abnormality of red blood cells; K59.09 Other constipation; F98.8 Other specified behavioral and emotional disorders with onset usually occurring in childhood and adolescence; F41.9 Anxiety disorder, unspecified; F33.9 Major depressive disorder, recurrent, unspecified; E66.9 Obesity, unspecified; Z68.32 Body mass index [BMI] 32.0-32.9, adult; Z90.710 Acquired absence of both cervix and uterus; Z90.721 Acquired absence of ovaries, unilateral | CPT/HCPCS: 96127; 99212 ==

== ENCOUNTER 2024-12-08 14:26 | Outpatient (AMB) | payer OTHER, SELFPAY ==
--- NOTE | 2024-12-08 14:35 | A.OFFPC_ITS ---
Vital Signs 12/08/24 14:36 Height 5 ft 4 in Weight 191 lb 2 oz BMI 32.8 BP 130/80 Blood Pressure Location Lt brachial Position Sitting Pulse 96 Pulse Source Pulse Oximeter Temp 97.1 F Temp Source Temporal Artery Scan Pulse Oximetry (%) 99 Oxygen Delivery Method Room Air Intake Visit Reasons: Left arm issue, stomach issue [place] Required: No Accompanied by: Self / Same As Patient Allergies gabapentin Allergy (Unknown, Verified 12/08/24 14:36) Tingling feeling in throat zolpidem (From AMBIEN) Allergy (Unknown, Verified 12/08/24 14:36) tingling feeling in throat dulaglutide (From Trulicity) Adverse Reaction (Intermediate, Verified 12/08/24 14:36) Low sugars cahsews Allergy (Severe, Uncoded 09/07/24 19:26) Rash Medication List - Last Reconciled 12/08/24 by Mauri Arita MD alcohol swabs (Alcohol Prep Pads) 1 pad topical TID atorvastatin 10 mg PO BEDTIME 30 days blood sugar diagnostic (FreeStyle Lite Strips) As directed blood-glucose meter (FreeStyle Lite Meter kit) As directed dextroamphetamine-amphetamine 20 mg 1 tab PO DAILY dulaglutide (Trulicity) 0.75 mg (0.5 mL) subcut QWEEK fluconazole 150 mg PO Q3D 2 doses fluconazole 150 mg PO Q3D 2 doses fluticasone propionate 50 mcg/actuation (24 Hour Allergy Relief) 1 spray intranasal BID hydroxyzine HCl Take 1 to 2 tablets orally 3 times a day PRN; lancets (FreeStyle Lancets) As directed metformin 500 mg PO BID 30 days multivitamin 1 tab PO DAILY 90 days oxycodone 10 mg PO Q8H PRN 7 days oxycodone-acetaminophen 5-325 mg (Percocet) 1 tab PO Q8H 28 days pantoprazole 40 mg PO DAILY quetiapine 100 mg PO BEDTIME 30 days tizanidine 2 mg (1/2 x 4 mg) PO BEDTIME PRN 30 days Ventolin HFA 90 mcg/actuation (albuterol sulfate) 2 puffs inhalation Q6H PRN 30 days NS Tobacco use date assessed: 12/08/24 Dental Screening Dental Screen Date: 12/08/24 Did you have a dental visit in the last 12 months?: Yes Did you have a dental problem in the last 6 months where you did not have access to dental care?: No Was dental information given to patient?: Patient has dentist HPI HPI Comments History of Present Illness Details The patient is a 44-year-old female presenting with multiple complaints, including stomach pain, arm pain, and leg pain. The patient reports abdominal pain accompanied by spitting up foam and a hiccup- like sensation. She states that she previously went to the emergency room for right-sided abdominal pain and was told her gallbladder was inflamed. An ultrasound was reportedly performed during that visit. She notes her sister had similar gallbladder issues requiring removal, and her family has a history of acid reflux. She currently takes pantoprazole 40 mg daily for acid reflux but reports it is not fully effective for her current symptoms. The patient also has degenerative disc disorder of the neck and reports worsening pain in her left arm and neck. She experiences shaking in her hands, particularly after lifting her grandchild, which can last for an hour. The pain is constant, affects her sleep, and she feels her hand strength has diminished. Her mother and uncle also have this condition. Past medical history is notable for a hysterectomy with removal of one ovary, type 2 diabetes, asthma, and ADHD. For her diabetes, she takes Trulicity and has been taking metformin less frequently since starting the injection. For asthma, she uses an albuterol inhaler with two puffs at night as needed for dyspnea when lying down, but does not use Spiriva due to side effects. [facility] Medical History (Updated 12/08/24 @ 15:14 by Mauri Arita MD) Chronic constipation Fibromyalgia Family history of ovarian cancer Hemorrhoids with complication Mixed hyperlipidemia Pure hypercholesterolemia Type 2 diabetes mellitus with hyperglycemia Varicose veins of bilateral lower extremities with pain Lumbar degenerative disc disease Anxiety GERD without esophagitis Diabetes mellitus Bilateral flank pain Varicose veins of left lower extremity with pain Dizziness Left ear pain Pressure sensation in left ear UTI (urinary tract infection) HTN (hypertension) Lower back pain Obesity (BMI 30-39.9) Menorrhagia Knee pain, bilateral Depression Allergic rhinitis Hemorrhoid Asthma Surgical History (Updated 12/08/24 @ 14:47 by REDD Sultana) History of hysterectomy Hx of tubal ligation History of esophagogastroduodenoscopy (EGD) History of endometrial ablation History of carpal tunnel surgery History of hemorrhoidectomy Family History Father Diabetes Asthma Hepatitis Mother Diabetes Sleep apnea Ischemic cerebrovascular accident (CVA) Ovarian cancer, Onset Age: 52 Maternal Grandmother Diabetes Breast cancer, Onset Age: 50 Maternal Grandfather Stroke Paternal Grandfather Lung cancer Sister Ovarian cancer, Onset Age: 30 Social History Household Members: Family Housing: House Alcohol intake: never Comment: medicated in PACU Patient Tobacco Use Status: Former Tobacco user e-Cigarette/Vaping Use: Never Used Second Hand Smoke Exposure: Yes service: No Current occupational status: employed 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 1. Little interest or pleasure in doing things: not at all 2. Feeling down, depressed, or hopeless: not at all 3. Trouble falling or staying asleep, or sleeping too much: not at all 4. Feeling tired or having little energy: not at all 5. Poor appetite or overeating: not at all 6. Feeling bad about yourself - or that you are a failure or have let yourself or your family down: not at all 7. Trouble concentrating on things, such as reading the newspaper or watching television: not at all 8. Moving or speaking so slowly that other people could have noticed. Or the opposite - being so fidgety or restless that you have been moving around a lot more than usual: not at all 9. Thoughts that you would be better off or of hurting yourself in some way: not at all Total score: 0 Depression Screening Interpretation: Negative (is on Rx) Depression Screening Done: Yes Source: Developed by Drs. Tommy Mccarty, Honey Mejia, Gino Bearden and colleagues, with an educational sandy from [employer]. Thrive Questionnaire Date Thrive assessed: 12/08/24 I am a: Patient What is your living situation today?: I have a steady place to live Within the past 12 months, did the food you bought not last and you didn't have the money to get more?: I choose not to answer this question Within the past 12 months, did you worry whether your food would run out before you got money to buy more?: I choose not to answer this question Do you have trouble paying for medicines?: No Do you have trouble getting transportation to medical appointments?: No Do you have trouble paying your heating and electricity bill?: No Do you have trouble taking care of your child, family member or friend?: No Do you have trouble with day-to-day activities such as bathing, preparing meals, shopping, managing finances, etc.?: No Are you currently unemployed and looking for a job?: Yes Are you interested in more education?: I choose not to answer this question Please select the resources that you would like help with: None Currently or been in a relationship where the following occur: I choose not to answer THRIVE Score: 0 AUDIT C Alcohol Use Questionnaire (AUDIT-C) 1. How often do you have a drink containing alcohol?: Never 3. How often do you have six or more drinks on one occasion?: Never Total Score: 0 Score Reviewed/Action Taken: Yes JAIDA-7 AMB Questionnaire JAIDA-7 Date JAIDA - 7 assessed: 12/08/24 Feeling nervous, anxious, or on edge: 3 = Nearly every day Not being able to stop or control worryin = Nearly every day Worrying too much about different things: 3 = Nearly every day Trouble relaxin = Not at all Being so restless that it is hard to sit still: 0 = Not at all Becoming easily annoyed or irritable: 0 = Not at all Feeling afraid as if something awful might happen: 0 = Not at all Total JAIDA-7 score (0-4 normal; 5-9 mild; 10-14 moderate; 15-21 severe): 9 Source: Developed by Drs. Tommy Mccarty, Honey Mejia, Gino Bearden and colleagues, with an educational sandy from [employer]. Review of Systems Const Details: As per HPI. Physical exam (Primary Care) Vital Signs: Last Vital Signs Temp 97.1 F 12/08/24 14:36 Pulse 96 12/08/24 14:36 BP 130/80 12/08/24 14:36 Pulse Ox 99 12/08/24 14:36 Oxygen Delivery Method Room Air 12/08/24 14:36 BMI result Body Mass Index 32.8 Tobacco/Smoking Status: Tobacco use Status Tobacco use date assessed 12/08/24 12/08/24 14:38 Patient Tobacco Use Status Former Tobacco user 12/08/24 14:38 e-Cigarette/Vaping Use Never Used 12/08/24 14:38 PHQ-9: PHQ-9 Score PHQ-9: Total score 0 12/08/24 15:25 Depression Screening Interpretation: Negative (is on Rx) Thrive Assessment: Date of Thrive Assessment Date Thrive assessed 12/08/24 12/08/24 14:38 Currently or been in a relationship where the following occur: I choose not to answer Const Other: Pertinent findings are in BOLD GENERAL APPEARANCE NAD, activity normal for age, well developed/ well nourished, no cyanosis, pallor, or diaphoresis. EYES lids/conjunctiva normal. EARS/NOSE/THROAT Mucous membranes moist, nares normal, lips/teeth normal uvula midline without oral pharyngeal erythema, exudate or swelling TMs normal bilaterally. No lymphangitis/lymphedema. HEAD/NECK normocephalic atraumatic, no facial trauma, neck is supple. RESPIRATORY respiratory effort normal, speaks in full sentences, no tripod position, no accessory muscle use. Lungs clear to auscultation without rhonchi, wheezes, rales CARDIAC Regular rate and rhythm, no edema. ABDOMINAL Soft, ND/NT. No evidence of fluid wave. No pulsatile masses on exam, rebound tenderness, Escamilla sign or pain over Mcburney's point. MUSCLES/EXTREMITIES No abnormal range of motion, no swelling. SKIN Warm, pink and dry. No rashes, dermatoses, petechiae or lesions. NEUROLOGICAL Speech is clear and appropriate. Normal level of consciousness. Gait and coordination are normal. 5/5 strength in all extremities. PSYCH Normal mood and affect. Judgement/competence is appropriate Coding Level of Care Code Est Pt Level 4 (57121) Diagnoses Spine pain, cervical M54.2 Right sided abdominal pain R10.9 Time Spent (min) 30 Assessment & Plan Assessment & Plan (1) Spine pain, cervical: Code(s): M54.2 - Cervicalgia Category: Medical Plan: - The patient has a history of degenerative disc disease and presents with worsening neck pain, left arm pain, and new-onset hand shaking, which is concerning for progressive symptomatology. - An X-ray of the cervical spine will be ordered as an initial step in re- evaluation. - Discussed that further management, including specialist referral or surgery, is contingent on the severity of symptoms rather than imaging findings alone. (2) Right sided abdominal pain: Code(s): R10.9 - Unspecified abdominal pain Category: Medical Plan: - The patient's symptoms of spitting foam and an acidy taste are more consistent with acid reflux than a primary gallbladder issue, though cholecystitis remains in the differential given her prior history of right-sided pain diagnosed as inflammation in the ER. - Will increase pantoprazole to 40 mg twice daily. - An ultrasound of the gallbladder will be ordered to rule out pathology. - If the ultrasound shows inflammation, a surgical consultation will be considered based on the patient's preference. - The patient was extensively counseled on dietary modifications, including eliminating sugar, dairy, red meat, and gluten, to identify triggers. Plan I explained to the patient that while she is concerned about her gallbladder, her symptoms of spitting up foam and an acidy taste are more suggestive of acid reflux. We will increase her pantoprazole dosage to twice daily and order a gallbladder ultrasound to fully evaluate her right upper quadrant pain. We discussed that if the ultrasound confirms active inflammation, a surgical evaluation would be the next step, pending her interest. I spent significant time discussing the central role of diet in causing and alleviating her gastrointestinal symptoms. I recommended she try eliminating common triggers like sugar, dairy, red meat, and gluten, and encouraged her to identify her personal food sensitivities, explaining this could lead to significant improvement. Regarding her neck and arm pain, I explained that we will start with a cervical spine X-ray as the initial diagnostic step. I clarified that any decision regarding surgery is based on the severity and impact of symptoms, not solely on what imaging shows. We will follow up in four weeks to review the imaging results and assess her progress. Orders: Orders XR cervical spine 2V Today M54.2 - Cervicalgia US abdomen limited Today R10.9 - Unspecified abdominal pain Medications: Changed From pantoprazole 40 mg PO DAILY 90 tabs 1RF To pantoprazole 40 mg PO BID 90 tabs 1RF
[2024-12-08 14:36] VITALS: BP 130/80; PULSE 96; TEMP 36.2; O2SAT 99; BMI 32.8
== END 2024-12-08 15:30 | disposition home or self-care (01) ==
LOC: HO.HMCH 14:27
PROVIDERS: PCP Internal Medicine; Visit Provider Internal Medicine
DX: M54.2 Cervicalgia (principal); R10.9 Unspecified abdominal pain

== ENCOUNTER → 2024-12-08 14:26 | Outpatient (BNVA) | payer OTHER, SELFPAY | PROVIDERS: PCP Internal Medicine; Visit Provider Internal Medicine | DX: M54.2 Cervicalgia (principal); R10.11 Right upper quadrant pain | CPT/HCPCS: 99212 ==